=== PATIENT | female | born 1960 | race Caucasian/White ===

== ENCOUNTER 2016-10-05 15:42 | Outpatient (CLI) | payer MEDICARE, MEDICAID | END 2016-10-05 15:43 | disposition home or self-care (01) | DX: K80.20 Calculus of gallbladder without cholecystitis without obstruction (principal); K76.0 Fatty (change of) liver, not elsewhere classified; R10.9 Unspecified abdominal pain ==

== ENCOUNTER 2016-11-01 01:50 | Outpatient (CLI) | payer MEDICARE, MEDICAID | END 2016-11-01 01:51 | DX: Z79.899 Other long term (current) drug therapy (principal) ==

== ENCOUNTER 2017-01-01 10:20 | Outpatient (CLI) | payer MEDICARE, MEDICAID ==
[2017-01-01 14:59] LABS: BUN - BLOOD UREA NITROGEN 19 mg/dL (6-20); CALCIUM 10.2 mg/dL (8.5-10.3); CARBON DIOXIDE - CO2 26 mmol/L (21-32); CHLORIDE 101 mmol/L (101-111); CHOL/HDL RATIO 8.9 (<4.4); CHOLESTEROL 249 mg/dL; CREATININE 0.8 mg/dL (0.4-1.0); GFR - MDRD 75 (>89); GLUCOSE 110 mg/dL (70-100); HDL CHOLESTEROL 28 mg/dL; POTASSIUM 3.5 mmol/L (3.5-5.0); SODIUM 137 mmol/L (135-145); TRIGLYCERIDES 789 mg/dL
[2017-01-01 15:19] LABS: LDL CHOLESTEROL,DIRECT 67 mg/dL
[2017-01-04 08:23] LABS: ALDO/PRA RATIO 9.1 Ratio (0.9-28.9)
== END 2017-01-01 10:21 | disposition home or self-care (01) ==
LOC: LAB.N 10:20
PROVIDERS: ATTEND Physician Assistant
DX: E78.5 Hyperlipidemia, unspecified (principal)
CPT/HCPCS: 36415; 80048; 80061; 82088; 84244

== ENCOUNTER 2017-02-02 09:24 | Outpatient (CLI) | payer MEDICARE, MEDICAID ==
[2017-02-02 14:32] LABS: CHOL/HDL RATIO 5.7 (<4.4); CHOLESTEROL 171 mg/dL; HDL CHOLESTEROL 30 mg/dL; POTASSIUM 3.4 mmol/L (3.5-5.0); TRIGLYCERIDES 534 mg/dL
[2017-02-02 14:54] LABS: LDL CHOLESTEROL,DIRECT 53 mg/dL
== END 2017-02-02 09:25 | disposition home or self-care (01) ==
LOC: LAB.N 09:24
PROVIDERS: ATTEND Nurse Practitioner Gerontology
DX: E78.5 Hyperlipidemia, unspecified (principal)
CPT/HCPCS: 36415; 80061; 84132

== ENCOUNTER 2017-02-21 15:05 | Outpatient (CLI) | payer MEDICARE, MEDICAID ==
[2017-02-21 19:30] LABS: ALBUMIN/GLOBULIN RATIO 1.2 (1.0-2.2); BILIRUBIN,TOTAL 0.5 mg/dL (0.2-1.0); CALCIUM 9.3 mg/dL (8.5-10.3); CREATININE 0.8 mg/dL (0.4-1.0); POTASSIUM 3.8 mmol/L (3.5-5.0); TOTAL PROTEIN 6.9 g/dL (6.7-8.2)
== END 2017-02-21 15:06 ==
LOC: LAB.N 15:05
PROVIDERS: ATTEND Nurse Practitioner Gerontology
DX: R10.9 Unspecified abdominal pain (principal)
CPT/HCPCS: 36415; 80053

== ENCOUNTER 2017-02-27 13:30 | Outpatient (CLI) | payer MEDICARE, MEDICAID ==
[2017-02-27] MEDS ORDERED: IOPAMIDOL-300 50 ML VIAL PO ONE (13:47)
[2017-02-27] MEDS ORDERED: IOPAMIDOL-300 100 ML VIAL IVP ONE (16:51)
--- NOTE | 2017-02-28 13:57 | CT Report ---
CT OF THE ABDOMEN, CT OF PELVIS WITH CONTRAST: 02/27/2017 CLINICAL HISTORY: Abdominal pain. TECHNIQUE: Axial images are obtained from the domes of the diaphragm through the pubic symphysis following oral and [id number]. Opacification is limited. NOTE: Contrast extravasation occurred during the injection process - the patient was evaluated in the ER prior to discharge (reference relevant clinic notes for full evaluation). This does limit imaging due to suboptimal opacification of the solid viscera. FINDINGS: There is mild bibasilar atelectasis. A hiatal hernia is incidental. The liver is hypodense consistent with fatty infiltration. No discrete liver lesions present. Minimal sludge versus stones noted in the gallbladder. There is no intra or extrahepatic biliary dilation. The spleen is absent. The pancreas is partially fatty replaced. No masses present. The adrenal glands are normal. There are bilateral renal cysts. The dominant cyst is affiliated with the right kidney (peripelvic) and measures up to 4 cm in maximal dimension. There is no obstructive uropathy. There are numerous surgical clips in the upper abdomen/epigastric and retroperitoneum. There are shotty mesenteric and retroperitoneal lymph nodes with maximal short axis diameter of 8 mm. There is no fely adenopathy. There is no free fluid in the abdomen or pelvis. Moderate stool is noted in the colon. A few diverticula are concentrated in the sigmoid distribution. There is no convincing evidence for active diverticulitis. The bladder and distal ureters are grossly normal. Atherosclerotic calcifications are affiliated with the aorta and visceral arteries (scant). There is no aneurysmal dilation. Multilevel degenerative changes are noted throughout the lumbar spine, maximal between L4-5 and L5-S1. There are no definite lytic or blastic destructive lesions. Patchy bony demineralization is noted. IMPRESSION: 1. FATTY LIVER. NO DISCRETE LESIONS. 2. TINY DEPENDENT STONES VERSUS SLUDGE WITHIN THE LUMEN OF THE GALLBLADDER. NO DUCTAL DILATION. 3. DIVERTICULOSIS WITHOUT EVIDENCE OF ACTIVE DIVERTICULITIS. 4. SMALL HIATAL HERNIA. REFERENCE ADDITIONAL COMMENTS ABOVE. In accordance with CT protocol optimization, one or more of the following dose reduction techniques were utilized for this exam: automated exposure control, adjustment of mA and/or KV based on patient size, or use of iterative reconstructive technique. JOB #: [id number] EXT JOB #: [id number] [facility]
== END 2017-02-27 13:31 | disposition home or self-care (01) ==
LOC: DI 13:30
PROVIDERS: ATTEND Nurse Practitioner Gerontology
DX: K76.0 Fatty (change of) liver, not elsewhere classified (principal); K57.30 Diverticulosis of large intestine without perforation or abscess without bleeding; K44.9 Diaphragmatic hernia without obstruction or gangrene
CPT/HCPCS: 74177

== ENCOUNTER 2017-02-27 15:36 | Emergency (ER) | payer MEDICARE, MEDICAID ==
--- NOTE | 2017-02-27 16:59 | ED Physician Documentation ---
PD HPI UPPER EXT INJURY - Stated complaint Stated Complaint: CONTRAST FROM CT WENT IN ARM - Chief complaint Chief Complaint: Ext Problem - History obtained from History obtained from: Patient - History of Present Illness Location: Left (She was having a CT for pelvic pain and that the contrast extravasated into the left antecubital fossa. There is no pain. 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 Neuro: Craniotomy HEENT: Tonsil/Adenoidectomy - Present Medications Home Medications: Ambulatory Orders Medication Instructions Recorded Confirmed Aspirin [Adult Low Dose Aspirin EC] 81 mg PO DAILY 09/03/13 02/27/17 Levothyroxine [Synthroid] 100 mcg PO DAILY 09/03/13 02/27/17 Rosuvastatin Calcium [Crestor] 40 mg PO DAILY 09/03/13 02/27/17 Venlafaxine [Effexor] 150 mg PO DAILY 09/03/13 02/27/17 Atenolol 50 mg PO DAILY 05/12/15 02/27/17 Hydrochlorothiazide 25 mg PO DAILY 03/08/16 02/27/17 Losartan [Cozaar] 50 mg PO DAILY 03/08/16 02/27/17 amLODIPine [Norvasc] 10 mg PO DAILY 03/08/16 02/27/17 - Allergies Allergies/Adverse Reactions: Allergies Allergy/AdvReac Type Severity Reaction Status Date / Time No Known Drug Allergies Allergy Unverified 02/27/17 16:50 - Social History Does the pt smoke?: No Smoking Status: Never smoker - Immunizations Immunizations are current?: Yes PD ED PE NORMAL - Vitals Vital signs reviewed: Yes - General General: Alert and oriented X 3, No acute distress - Extremities Extremities: Other (There is an area of swelling without pain or skin breakdown in the left antecubital fossa, she is unable to flex the arm completely because of the swelling. Good distal pulses and sensation.) - Neuro Neuro: Alert and oriented X 3, Normal speech Results - Vitals Vitals: Vital Signs - 24 hr 02/27/17 15:46 Temperature 36.6 C Heart Rate 100 Respiratory 18 Rate Blood Pressure 154/95 H O2 Saturation 100 Oxygen O2 Source Room air PD MEDICAL DECISION MAKING - ED course ED course: Literature reviewed, there is no significant evidence for hyaluronidase injection for this exposure, conservative care and things to watch out for were discussed. Departure - Departure Disposition: 01 Home, Self Care Clinical Impression: Extravasation injury of IV catheter site with other complication Qualifiers: Encounter type: initial encounter Qualified Code(s): T82.898A - Other specified complication of vascular prosthetic devices, implants and grafts, initial encounter Condition: Good Record reviewed to determine appropriate education?: Yes Comments: eLEVATE THE EXTREMITY AND APPLY HEAT DISCUSSED. RETURN IF PAINFUL, WORSE, FOR SKIN CHANGES.
[2017-02-27 17:45] VITALS: BP 147/98
== END 2017-02-27 17:35 | disposition home or self-care (01) ==
LOC: ED 15:36
DX: T82.898A Other specified complication of vascular prosthetic devices, implants and grafts, initial encounter (principal); I10 Essential (primary) hypertension; E78.00 Pure hypercholesterolemia, unspecified; Z86.73 Personal history of transient ischemic attack (TIA), and cerebral infarction without residual deficits; Z79.82 Long term (current) use of aspirin; Z90.10 Acquired absence of unspecified breast and nipple; Z90.81 Acquired absence of spleen; R10.9 Unspecified abdominal pain; K76.0 Fatty (change of) liver, not elsewhere classified; K57.30 Diverticulosis of large intestine without perforation or abscess without bleeding; K44.9 Diaphragmatic hernia without obstruction or gangrene
CPT/HCPCS: 74177; 99283; Q9967

== ENCOUNTER 2017-06-05 08:00 | Outpatient (CLI) | payer MEDICARE, MEDICAID ==
[2017-06-05 12:53] LABS: ALBUMIN/GLOBULIN RATIO 1.1 (1.0-2.2); BILIRUBIN,TOTAL 0.4 mg/dL (0.2-1.0); CALCIUM 9.2 mg/dL (8.5-10.3); CREATININE 0.7 mg/dL (0.4-1.0); POTASSIUM 3.3 mmol/L (3.5-5.0); TOTAL PROTEIN 7.5 g/dL (6.7-8.2)
== END 2017-06-05 08:01 | disposition home or self-care (01) ==
LOC: LAB.N 08:00
PROVIDERS: ATTEND Nurse Practitioner Gerontology
DX: K76.0 Fatty (change of) liver, not elsewhere classified (principal)
CPT/HCPCS: 36415; 80053

== ENCOUNTER 2017-06-24 16:37 | Emergency (ER) | payer MEDICARE, MEDICAID ==
[2017-06-24] MEDS ORDERED: HYDROcod/ACETAM 5/325 MG TABLET PO STA (17:02)
--- NOTE | 2017-06-24 17:05 | ED Physician Documentation ---
PD HPI HEADACHE - Stated complaint Stated Complaint: BARNES - Chief complaint Chief Complaint: Heent - History obtained from History obtained from: Patient - History of Present Illness Timing - onset: Other (57-year-old woman with history of Hodgkin's lymphoma, bilateral mastectomies for breast cancer, and right A1At [facility] in 2012 presents with an acute headache that started yesterday associated with a lump behind her ear. She has rhinorrhea but no fevers or ear pain. No neck stiffness. Headache was gradual in onset. When asked her where the headache is she points really to the right side of the neck in the mastoid area.) Review of Systems Constitutional: denies: Fever, Chills, Fatigue Nose: reports: Rhinorrhea / runny nose. 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 Neuro: Craniotomy HEENT: Tonsil/Adenoidectomy - Present Medications Home Medications: Ambulatory Orders Medication Instructions Recorded Confirmed Aspirin [Adult Low Dose Aspirin EC] 81 mg PO DAILY 09/03/13 06/24/17 Levothyroxine [Synthroid] 100 mcg PO DAILY 09/03/13 06/24/17 Rosuvastatin Calcium [Crestor] 40 mg PO DAILY 09/03/13 06/24/17 Venlafaxine [Effexor] 150 mg PO DAILY 09/03/13 06/24/17 Losartan [Cozaar] 50 mg PO DAILY 03/08/16 06/24/17 amLODIPine [Norvasc] 10 mg PO DAILY 03/08/16 06/24/17 hydroCHLOROthiazide 25 mg PO DAILY 03/08/16 06/24/17 [Hydrochlorothiazide] HYDROcod/ACETAM 5/325 [[place] 5/325] 1 - 2 ea PO Q6H PRN #10 tablet 06/24/17 Metoprolol Tartrate [Metoprolol 100 mg ORAL DAILY 06/24/17 06/24/17 Tartrate] - Allergies Allergies/Adverse Reactions: Allergies Allergy/AdvReac Type Severity Reaction Status Date / Time No Known Drug Allergies Allergy Verified 06/24/17 16:46 - Social History Does the pt smoke?: No Smoking Status: Never smoker - Immunizations Immunizations are current?: Yes PD ED PE NORMAL - Vitals Vital signs reviewed: Yes - General General: Alert and oriented X 3, No acute distress - HEENT HEENT: PERRL, EOMI, Other (She has a single tender 1 cm low postauricular right- sided lymph node which is where her headache emanates from. There is no other identifiable lymphadenopathy about the head or neck.) - Neck Neck: Supple, no meningeal sign, No bony TTP - Cardiac Cardiac: RRR, No murmur - Respiratory Respiratory: No respiratory distress, Clear bilaterally - Abdomen Abdomen: Normal bowel sounds, Soft, Non tender - Derm Derm: Normal color, Warm and dry - Extremities Extremities: No edema, No calf tenderness / cord - Neuro Neuro: Alert and oriented X 3, Normal speech Eye Opening: Spontaneous Motor: Obeys Commands Verbal: Oriented GCS Score: 15 - Psych Psych: Normal mood, Normal affect Results - Vitals Vitals: Vital Signs - 24 hr 06/24/17 06/24/17 16:43 17:39 Temperature 36.7 C 36.6 C Heart Rate 97 95 Respiratory 18 18 Rate Blood Pressure 138/86 H 125/73 O2 Saturation 97 96 Oxygen O2 Source Room air - Labs Labs: Laboratory Tests 06/24/17 06/24/17 17:10 17:10 WBC 9.4 RBC 4.61 Hgb 13.9 Hct 39.6 MCV 85.9 MCH 30.2 MCHC 35.1 RDW 13.7 Plt Count 357 MPV 9.0 Neut # 4.2 Lymph # 3.7 H [place] # 1.1 H Eos # 0.3 Baso # 0.1 Absolute Nucleated RBC 0.00 Nucleated RBC % 0.0 Sodium 137 Potassium 3.6 Chloride 103 Carbon Dioxide 25 Anion Gap 9.0 BUN 25 H Creatinine 0.8 Estimated GFR (MDRD) 74 L Glucose 105 H Calcium 8.9 Total Bilirubin 0.5 AST 35 ALT 33 Alkaline Phosphatase 73 Total Protein 7.5 Albumin 3.9 Globulin 3.6 Albumin/Globulin Ratio 1.1 Lipase 28 - Rads (name of study) CT Head Radiology: EMP read contemporaneously (NAD) PD MEDICAL DECISION MAKING - ED course ED course: 57-year-old woman with complicated medical history including intracranial aneurysm clipping and Hodgkin's lymphoma who presents with a painful lymph node that is behind the right ear associated with headache. The headache seems to emanate from that painful tender lymph node so it seems like not intracranial process but a CT was done given her history and was without relevant findings. Departure - Departure Disposition: Home, Self Care Clinical Impression: Postauricular adenopathy Headache Qualifiers: Headache type: unspecified Headache chronicity pattern: acute headache Intractability: not intractable Qualified Code(s): R51 - Headache Condition: Good Record reviewed to determine appropriate education?: Yes Instructions: ED Cephalgia Unspecified Follow-Up: Pasha Dave MD [Provider Admit Priv/Credential] - Prescriptions: HYDROcod/ACETAM 5/325 [[place] 5/325] 1 - 2 ea PO Q6H PRN #10 tablet PRN Reason: Pain Comments: Follow-up with your physician Sunday as scheduled. Return if new or worsening symptoms develop. If the lymph node does not go away within the next few weeks follow-up with your oncologist as well.
[2017-06-24 17:18] LABS: BASOPHILS # (AUTO) 0.1 10^3/uL (0.0-0.1); BASOPHILS % (AUTO) 1.4 %; EOSINOPHILS # (AUTO) 0.3 10^3/uL (0.0-0.7); HCT - HEMATOCRIT 39.6 % (37.0-47.0); HGB - HEMOGLOBIN 13.9 g/dL (12.0-16.0); LYMPHOCYTES # (AUTO) 3.7 10^3/uL (1.5-3.5); LYMPHOCYTES % (AUTO) 39.7 %; MEAN CORPUSCULAR HEMOGLOBIN 30.2 pg (27.0-31.0); MEAN CORPUSCULAR HGB CONC 35.1 g/dL (32.0-36.0); MEAN CORPUSCULAR VOLUME 85.9 fL (81.0-99.0); MONOCYTES # (AUTO) 1.1 10^3/uL (0.0-1.0); MONOCYTES % (AUTO) 11.5 %; NEUTROPHILS # (AUTO) 4.2 10^3/uL (1.5-6.6); NEUTROPHILS % (AUTO) 44.4 %; RED BLOOD COUNT 4.61 10^6/uL (4.20-5.40); RED CELL DISTRIBUTION WIDTH 13.7 % (12.0-15.0); UNCORRECTED WHITE BLOOD COUNT 9.4 x10^3/uL; WHITE BLOOD COUNT 9.4 x10^3/uL (4.8-10.8)
[2017-06-24 17:27] LABS: ALBUMIN/GLOBULIN RATIO 1.1 (1.0-2.2); BILIRUBIN,TOTAL 0.5 mg/dL (0.2-1.0); CALCIUM 8.9 mg/dL (8.5-10.3); CREATININE 0.8 mg/dL (0.4-1.0); POTASSIUM 3.6 mmol/L (3.5-5.0); TOTAL PROTEIN 7.5 g/dL (6.7-8.2)
[2017-06-24] MEDS ORDERED: HYDROcod/ACETAM 5/325 MG TABLET ONE (17:35)
--- NOTE | 2017-06-24 17:43 | CT Preliminary Report ---
Exam: CT HEAD W/O IMPRESSION: 1. No acute intracranial abnormality. Specifically, no acute intracranial hemorrhage is seen. 2. 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 [facility] SITE ID: [id number]
[2017-06-24 17:44] VITALS: BP 125/73
--- NOTE | 2017-06-24 17:46 | CT Report ---
EXAM: CT HEAD EXAM DATE: 06/24/2017 05:31 PM. CLINICAL HISTORY: Headache, H/O R A1 aneursym clip/crani. COMPARISON: None. TECHNIQUE: Multiaxial CT images were obtained from the foramen magnum to the vertex. Reformats: Coron al. IV contrast: None. In accordance with CT protocol optimization, one or more of the following dose reduction techniques w ere utilized for this exam: automated exposure control, adjustment of mA and/or KV based on patient s ize, or use of iterative reconstructive technique. FINDINGS: Parenchyma: No midline shift. No acute parenchymal hemorrhage seen. Right frontal and anterior tempor al encephalomalacia from remote infarct noted. Similar cortical and subcortical hypodensity in the ri ght parietal lobe from remote watershed territory infarct seen. Right anterior aneurysm clip seen. Extraaxial Spaces: Normal for age. No subdural or epidural collections identified. Ventricles: Normal in size and position. Sinuses and Orbits: Imaged paranasal sinuses, orbits, and mastoids show no significant abnormality. Bones: Craniotomy noted. No fractures. Other: None. IMPRESSION: 1. No acute intracranial abnormality. Specifically, no acute intracranial hemorrhage is seen. 2. 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 [facility] Referring Provider Line: [phone] SITE ID: [id number]
[2017-06-24] MEDS ORDERED: HYDROcod/ACET 5/325 Prepack 6 PO STA (17:59)
[2017-06-24] MEDS ORDERED: HYDROcod/ACET 5/325 Prepack 6 PO ONE (18:25)
== END 2017-06-24 18:05 | disposition home or self-care (01) ==
LOC: ED 16:37
DX: R51 Headache (principal); R59.0 Localized enlarged lymph nodes; Z85.3 Personal history of malignant neoplasm of breast; I10 Essential (primary) hypertension; Z85.71 Personal history of Hodgkin lymphoma; Z79.82 Long term (current) use of aspirin
CPT/HCPCS: 36415; 70450; 80053; 83690; 85025; 99283; A9270

== ENCOUNTER 2017-07-03 17:34 | Emergency (ER) | payer MEDICARE, MEDICAID ==
[2017-07-03 17:46] VITALS: BP 133/89
--- NOTE | 2017-07-03 17:58 | ED Physician Documentation ---
PD HPI SKIN - Stated complaint Stated Complaint: BODY SPOTS/RASH - Chief complaint Chief Complaint: Wound - History obtained from History obtained from: Patient - History of Present Illness Timing - onset: Other (She was seen by me a little over a week ago for painful postauricular adenopathy on the right. Since that time she developed more of a painful and itchy rash over the right side of the face and especially over that lymph node that was not present at that visit.) Review of Systems Constitutional: reports: Fatigue. 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 Neuro: Craniotomy HEENT: Tonsil/Adenoidectomy - Present Medications Home Medications: Ambulatory Orders Medication Instructions Recorded Confirmed Aspirin [Adult Low Dose Aspirin EC] 81 mg PO DAILY 09/03/13 06/24/17 Levothyroxine [Synthroid] 100 mcg PO DAILY 09/03/13 06/24/17 Rosuvastatin Calcium [Crestor] 40 mg PO DAILY 09/03/13 06/24/17 Venlafaxine [Effexor] 150 mg PO DAILY 09/03/13 06/24/17 Losartan [Cozaar] 50 mg PO DAILY 03/08/16 06/24/17 amLODIPine [Norvasc] 10 mg PO DAILY 03/08/16 06/24/17 hydroCHLOROthiazide 25 mg PO DAILY 03/08/16 06/24/17 [Hydrochlorothiazide] HYDROcod/ACETAM 5/325 [[place] 5/325] 1 - 2 ea PO Q6H PRN #10 tablet 06/24/17 Metoprolol Tartrate [Metoprolol 100 mg ORAL DAILY 06/24/17 06/24/17 Tartrate] Acyclovir 800 mg PO 5XD 10 Days tablet 07/03/17 Hydrocortisone 1% Oint 1 gm TP TID #2 oint...g. 07/03/17 [Hydrocortisone] predniSONE [Deltasone] 20 mg PO [id number] #21 tab 07/03/17 - Allergies Allergies/Adverse Reactions: Allergies Allergy/AdvReac Type Severity Reaction Status Date / Time No Known Drug Allergies Allergy Verified 06/24/17 16:46 - Social History Does the pt smoke?: No Smoking Status: Never smoker Does the pt drink ETOH?: No Does the pt have substance abuse?: No - Immunizations Immunizations are current?: Yes - POLST Patient has POLST: No PD ED PE NORMAL - Vitals Vital signs reviewed: Yes - General General: Alert and oriented X 3, No acute distress - HEENT HEENT: PERRL, EOMI, Other (She has herpes zoster with vesicles mostly crusted over already behind the ear and on the right side of the face. 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 She declines further narcotic analgesia. Departure - Departure Disposition: 01 Home, Self Care Clinical Impression: Shingles Qualifiers: Herpes zoster complications: without complications Qualified Code(s): B02.9 - Zoster without complications Condition: Good Record reviewed to determine appropriate education?: Yes Instructions: ED Shingles Prescriptions: Acyclovir 800 mg PO 5XD 10 Days tablet Hydrocortisone 1% Oint [Hydrocortisone] 1 gm TP TID #2 oint...g. predniSONE [Deltasone] 20 mg PO [id number] #21 tab Comments: Call your doctor to arrange a follow-up appointment, make the next available appointment. In the interim, return anytime if worse or if new symptoms develop. Your blood pressure was elevated today on check into the emergency department. This does not mean that you have hypertension, it is a common phenomenon to come to the emergency department and have elevated blood pressure. I recommend that you see your primary care physician within the week to have it rechecked when you are feeling better.
== END 2017-07-03 18:09 | disposition home or self-care (01) ==
LOC: ED 17:34
DX: B02.9 Zoster without complications (principal); R51 Headache; I10 Essential (primary) hypertension; E78.00 Pure hypercholesterolemia, unspecified; Z86.73 Personal history of transient ischemic attack (TIA), and cerebral infarction without residual deficits; Z86.010 Personal history of colon polyps; Z90.10 Acquired absence of unspecified breast and nipple; Z79.82 Long term (current) use of aspirin
CPT/HCPCS: 99283

== ENCOUNTER 2017-07-24 14:21 | Outpatient (CLI) | payer MEDICARE, MEDICAID ==
[2017-07-24 15:05] LABS: CHOL/HDL RATIO 5.5 (<4.4); CHOLESTEROL 160 mg/dL; HDL CHOLESTEROL 29 mg/dL; LDL CHOLESTEROL,CALCULATED 78 mg/dL; LDL/HDL RATIO 2.7 (<4.4); VLDL CHOLESTEROL 53 mg/dL
== END 2017-07-24 14:22 | disposition home or self-care (01) ==
LOC: LAB 14:21
PROVIDERS: ATTEND Nurse Practitioner Gerontology
DX: E78.5 Hyperlipidemia, unspecified (principal)
CPT/HCPCS: 36415; 80061

== ENCOUNTER 2018-03-22 07:41 | Outpatient (CLI) | payer MEDICARE, MEDICAID ==
[2018-03-22 13:07] LABS: BUN - BLOOD UREA NITROGEN 25 mg/dL (6-20); CALCIUM 9.2 mg/dL (8.5-10.3); CARBON DIOXIDE - CO2 27 mmol/L (21-32); CHLORIDE 102 mmol/L (101-111); CHOL/HDL RATIO 5.6 (<4.4); CHOLESTEROL 163 mg/dL; GFR - MDRD 57 (>89); GLUCOSE 105 mg/dL (70-100); HDL CHOLESTEROL 29 mg/dL; LDL CHOLESTEROL,CALCULATED 55 mg/dL; LDL/HDL RATIO 1.9 (<4.4); SODIUM 137 mmol/L (135-145); VLDL CHOLESTEROL 79 mg/dL
== END 2018-03-22 07:42 | disposition home or self-care (01) ==
LOC: LAB.N 07:41
PROVIDERS: ATTEND Internal Medicine Cardiovascular Disease
DX: I10 Essential (primary) hypertension (principal); E78.5 Hyperlipidemia, unspecified; I35.0 Nonrheumatic aortic (valve) stenosis
CPT/HCPCS: 36415; 80048; 80061; 83721

== ENCOUNTER 2018-07-28 16:25 | Emergency (ER) | payer MEDICARE, MEDICAID ==
[2018-07-28] MEDS ORDERED: SODIUM CHLORIDE 0.9% 1,000 ML IV ONE (16:38)
[2018-07-28] MEDS ORDERED: KETOROLAC 30 MG/ML VIAL IVP STA (16:38)
[2018-07-28] MEDS ORDERED: ONDANSETRON 4 MG/2 ML VIAL IVP STA (16:38)
[2018-07-28] MEDS ORDERED: HYDROmorphone 1 MG/ML CARPUJECT IVP STA (16:38)
--- NOTE | 2018-07-28 16:41 | ED Physician Documentation ---
History of Present Illness - Stated complaint Stated Complaint: LT FLANK PX - Chief complaint Chief Complaint: General - History obtained from History obtained from: Patient - History of Present Illness Timing: Other (Had 2 days of left flank pain radiating to the left groin associated with mild nausea. She has urinary frequency but no fevers. No vomiting. She is never had a kidney stone. She does have a history of splenectomy on that side remotely and resolved lymphoma and breast cancer.) Review of Systems Ten Systems: 10 systems reviewed and negative Constitutional: denies: Fever, Chills GI: reports: Abdominal Pain, Nausea. denies: Vomiting, Constipation, Diarrhea, Hematemesis, Bloody / black stool : reports: Frequency. 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 Neuro: Craniotomy HEENT: Tonsil/Adenoidectomy - Present Medications Home Medications: Ambulatory Orders Medication Instructions Recorded Confirmed Aspirin [Adult Low Dose Aspirin EC] 81 mg PO DAILY 09/03/13 05/29/18 Levothyroxine [Synthroid] 100 mcg PO DAILY 09/03/13 05/29/18 Rosuvastatin Calcium [Crestor] 40 mg PO DAILY 09/03/13 05/29/18 Venlafaxine [Effexor] 150 mg PO DAILY 09/03/13 05/29/18 Losartan [Cozaar] 50 mg PO DAILY 03/08/16 05/29/18 amLODIPine [Norvasc] 10 mg PO DAILY 03/08/16 05/29/18 hydroCHLOROthiazide 25 mg PO DAILY 03/08/16 05/29/18 [Hydrochlorothiazide] Metoprolol Tartrate 100 mg ORAL DAILY 06/24/17 05/29/18 Ciprofloxacin HCl [Cipro] 500 mg PO BID #20 tablet 07/28/18 Hydrocodone/Acetaminophen 1 - 2 each PO Q6H PRN #14 tablet 07/28/18 [Hydrocodon-Acetaminophen 5-325] - Allergies Allergies/Adverse Reactions: Allergies Allergy/AdvReac Type Severity Reaction Status Date / Time No Known Drug Allergies Allergy Verified 07/28/18 16:32 - Social History Does the pt smoke?: No Smoking Status: Never smoker Does the pt drink ETOH?: No Does the pt have substance abuse?: No - Family History Family history: reports: Non contributory - Immunizations Immunizations are current?: Yes - POLST Patient has POLST: No PD ED PE NORMAL - Vitals Vital signs reviewed: Yes - General General: Alert and oriented X 3, Other (Slightly uncomfortable, pacing.) - HEENT HEENT: PERRL, EOMI - Neck Neck: Supple, no meningeal sign, No bony TTP - Cardiac Cardiac: RRR, No murmur - Respiratory Respiratory: No respiratory distress, Clear bilaterally - Abdomen Abdomen: Non tender, Non distended - Back Back: No CVA TTP, No spinal TTP - Derm Derm: Normal color, Warm and dry - Extremities Extremities: No edema, No calf tenderness / cord - Neuro Neuro: Alert and oriented X 3, Normal speech - Psych Psych: Normal mood, Normal affect Results - Vitals Vitals: Vital Signs - 24 hr 07/28/18 16:30 Temperature 37.1 C Heart Rate 103 H Respiratory 16 Rate Blood Pressure 130/84 H O2 Saturation 96 Oxygen O2 Source Room air Oxygen Flow Rate 2 - Labs Labs: Laboratory Tests 07/28/18 07/28/18 07/28/18 16:54 17:13 17:40 WBC 10.7 RBC 5.12 Hgb 14.8 Hct 44.3 MCV 86.6 MCH 29.0 MCHC 33.5 RDW 14.4 Plt Count 393 MPV 9.2 Neut # (Auto) 6.4 Lymph # (Auto) 3.2 [place] # (Auto) 0.9 Eos # (Auto) 0.1 Baso # (Auto) 0.2 H Absolute Nucleated RBC 0.01 Nucleated RBC % 0.1 Sodium 135 Potassium 3.0 L Chloride 100 L Carbon Dioxide 25 Anion Gap 10.0 BUN 18 Creatinine 0.6 Estimated GFR (MDRD) 103 Glucose 103 H Calcium 9.0 Total Bilirubin 0.7 AST 29 ALT 25 Alkaline Phosphatase 62 Total Protein 7.5 Albumin 3.9 Globulin 3.6 Albumin/Globulin Ratio 1.1 Lipase 29 Urine Color YELLOW Urine Clarity HAZY Urine pH 7.0 Ur Specific [place] 1.020 Urine Protein NEGATIVE Urine Glucose (UA) NEGATIVE Urine Ketones NEGATIVE Urine Occult Blood NEGATIVE Urine Nitrite NEGATIVE Urine Bilirubin NEGATIVE Urine Urobilinogen 0.2 (NORMAL) Ur Leukocyte Esterase MODERATE H Urine RBC 11-25 H Urine WBC >25 H Urine WBC Clumps PRESENT Ur Squamous Epith Cells MANY Squamous H Urine Bacteria Few Ur Microscopic Review INDICATED Urine Culture Comments NOT INDICATED PD MEDICAL DECISION MAKING - ED course ED course: This is a 58-year-old woman who presents with flank and abdominal pain most con sistent with either pyelonephritis or renal colic. Urinalysis was suggestive of the former and CT was suggestive against the latter. Noted the concerns about the biliary stents but her pain is inconsistent with dysfunction of that and there are no lab abnormalities suggestive of that. Departure - Departure Disposition: 01 Home, Self Care Clinical Impression: Pyelonephritis Condition: Good Record reviewed to determine appropriate education?: Yes Instructions: Pyelonephritis Dc Prescriptions: Ciprofloxacin HCl [Cipro] 500 mg PO BID #20 tablet Hydrocodone/Acetaminophen [Hydrocodon-Acetaminophen 5-325] 1 - 2 each PO Q6H PRN #14 tablet PRN Reason: pain Comments: We will culture your urine, the results should be done in 48-72 hours. If an antibiotic change is necessary we will call you. Return if worse in the meantime, especially if you develop increasing flank pain, fevers, or cannot keep down the medication.
[2018-07-28 17:11] LABS: BILIRUBIN,URINE NEGATIVE (NEGATIVE); GLUCOSE, URINE (UA) NEGATIVE (NEGATIVE); KETONES,URINE (UA) NEGATIVE (NEGATIVE); LEUKOCYTE ESTERASE, URINE MODERATE (NEGATIVE); NITRITE,URINE NEGATIVE (NEGATIVE); OCCULT BLOOD,URINE NEGATIVE (NEGATIVE); PROTEIN,URINE NEGATIVE (NEGATIVE); UROBILINOGEN,URINE 0.2 (NORMAL) E.U./dL (NORMAL)
[2018-07-28 17:12] LABS: CLARITY,URINE HAZY (CLEAR)
[2018-07-28 17:28] LABS: BACTERIA,URINE Few /HPF (None Seen); SQUAMOUS EPITHELIAL CELL,UR MANY Squamous (<= Few); WBC CLUMPS,URINE PRESENT
[2018-07-28 17:30] LABS: BASOPHILS # (AUTO) 0.2 10^3/uL (0.0-0.1); BASOPHILS % (AUTO) 1.5 %; EOSINOPHILS # (AUTO) 0.1 10^3/uL (0.0-0.7); EOSINOPHILS % (AUTO) 0.7 %; HGB - HEMOGLOBIN 14.8 g/dL (12.0-16.0); LYMPHOCYTES # (AUTO) 3.2 10^3/uL (1.5-3.5); LYMPHOCYTES % (AUTO) 30.1 %; MEAN CORPUSCULAR HGB CONC 33.5 g/dL (32.0-36.0); MEAN CORPUSCULAR VOLUME 86.6 fL (81.0-99.0); MEAN PLATELET VOLUME 9.2 fL (7.9-10.8); MONOCYTES # (AUTO) 0.9 10^3/uL (0.0-1.0); MONOCYTES % (AUTO) 8.2 %; NEUTROPHILS # (AUTO) 6.4 10^3/uL (1.5-6.6); NEUTROPHILS % (AUTO) 59.5 %; PLT - PLATELET COUNT 393 10^3/uL (130-450); RED BLOOD COUNT 5.12 10^6/uL (4.20-5.40); RED CELL DISTRIBUTION WIDTH 14.4 % (12.0-15.0); WHITE BLOOD COUNT 10.7 x10^3/uL (4.8-10.8)
[2018-07-28 17:57] LABS: ALBUMIN 3.9 g/dL (3.2-5.5); ALBUMIN/GLOBULIN RATIO 1.1 (1.0-2.2); BILIRUBIN,TOTAL 0.7 mg/dL (0.2-1.0); CREATININE 0.6 mg/dL (0.4-1.0); TOTAL PROTEIN 7.5 g/dL (6.7-8.2)
--- NOTE | 2018-07-28 19:00 | CT Report ---
Reason: L flank pain Procedure Date: 07/28/2018 Accession Number: [id number] / [id number] Procedure: CT - Abdomen/Pelvis W/O CPT Code: FULL RESULT: EXAM: CT ABDOMEN AND PELVIS (CT KUB) EXAM DATE: 07/28/2018 06:09 PM. CLINICAL HISTORY: L flank pain. COMPARISONS: ABDOMEN/PELVIS W/ 11/14/2017 3:04 PM. TECHNIQUE: Routine axial helical CT imaging was performed through the abdomen and pelvis without IV contrast. Reconstructions: Coronal and sagittal. In accordance with CT protocol optimization, one or more of the following dose reduction techniques were utilized for this exam: automated exposure control, adjustment of mA and/or KV based on patient size, or use of iterative reconstructive technique. FINDINGS: Lung Bases: Unremarkable. Solid Organs: The liver demonstrates a normal noncontrast CT appearance. Gallstones are seen within the gallbladder. There is no evidence of biliary duct dilatation. There is redemonstration of postoperative changes consistent with a splenectomy. Surgical clips are seen throughout the retroperitoneum. The pancreas and adrenal glands demonstrate a normal noncontrast CT appearance. The kidneys are without evidence of nephrolithiasis. The previously demonstrated moderate right hydronephrosis has resolved. Peritoneal Cavity: Diverticuli are seen involving the descending and sigmoid colon. There is no fat stranding or fluid collection to suggest the presence of diverticulitis. Pelvic Organs: No mass or cyst is seen within the pelvis. There is no pelvic or periaortic lymphadenopathy. Visible but nonenlarged pelvic lymph nodes are seen. Vasculature: There is atherosclerosis of the aorta and its branches. There is no evidence of an abdominal aortic aneurysm. IMPRESSION: No evidence of nephrolithiasis or hydronephrosis. Cholelithiasis without evidence of obstruction. Diverticulosis of the descending and sigmoid colon without evidence of diverticulitis. Interval resolution of the left hydronephrosis. RAD[facility]
[2018-07-28] MEDS ORDERED: cefTRIAXone 1 GM in SODIUM CHLORIDE 0.9% MINIBAG 100 ML IV STA (19:07)
[2018-07-28] MEDS ORDERED: HYDROcod/ACET 5/325 Prepack 4 PO STA (19:07)
[2018-07-28 19:10] VITALS: BP 114/75
== END 2018-07-28 19:29 | disposition home or self-care (01) ==
LOC: ED 16:25
DX: N12 Tubulo-interstitial nephritis, not specified as acute or chronic (principal); K80.20 Calculus of gallbladder without cholecystitis without obstruction; K57.30 Diverticulosis of large intestine without perforation or abscess without bleeding; Z90.81 Acquired absence of spleen; I10 Essential (primary) hypertension; Z79.82 Long term (current) use of aspirin
CPT/HCPCS: 36415; 74176; 80053; 81001; 83690; 85025; 87086; 96361; 96374; 96375; 99283; 99284; J1170; 81003

== ENCOUNTER 2018-09-09 08:00 | Outpatient (CLI) | payer MEDICARE, MEDICAID ==
[2018-09-09 12:27] LABS: CHOL/HDL RATIO 5.1 (<4.4); CHOLESTEROL 159 mg/dL; HDL CHOLESTEROL 31 mg/dL; LDL CHOLESTEROL,CALCULATED 53 mg/dL; LDL/HDL RATIO 1.7 (<4.4); VLDL CHOLESTEROL 75 mg/dL
== END 2018-09-09 08:01 | disposition home or self-care (01) ==
LOC: LAB.N 08:00
PROVIDERS: ATTEND Nurse Practitioner Gerontology
DX: E78.1 Pure hyperglyceridemia (principal); E78.5 Hyperlipidemia, unspecified
CPT/HCPCS: 36415; 80061; 83721

== ENCOUNTER 2018-09-24 08:00 | Outpatient (CLI) | payer MEDICARE, MEDICAID ==
[2018-09-24 13:06] LABS: BASOPHILS # (AUTO) 0.1 10^3/uL (0.0-0.1); BASOPHILS % (AUTO) 0.9 %; EOSINOPHILS # (AUTO) 0.2 10^3/uL (0.0-0.7); EOSINOPHILS % (AUTO) 1.9 %; LYMPHOCYTES # (AUTO) 2.5 10^3/uL (1.5-3.5); LYMPHOCYTES % (AUTO) 30.9 %; MEAN CORPUSCULAR HEMOGLOBIN 28.9 pg (27.0-31.0); MEAN CORPUSCULAR HGB CONC 33.7 g/dL (32.0-36.0); MEAN CORPUSCULAR VOLUME 85.8 fL (81.0-99.0); MEAN PLATELET VOLUME 9.3 fL (7.9-10.8); MONOCYTES # (AUTO) 0.9 10^3/uL (0.0-1.0); MONOCYTES % (AUTO) 11.7 %; NEUTROPHILS # (AUTO) 4.4 10^3/uL (1.5-6.6); NEUTROPHILS % (AUTO) 54.6 %; PLT - PLATELET COUNT 364 10^3/uL (130-450); RED BLOOD COUNT 4.85 10^6/uL (4.20-5.40); RED CELL DISTRIBUTION WIDTH 13.8 % (12.0-15.0); WHITE BLOOD COUNT 8.1 x10^3/uL (4.8-10.8)
== END 2018-09-24 23:59 | disposition home or self-care (01) ==
LOC: LAB.N 08:00
PROVIDERS: ATTEND Nurse Practitioner Gerontology
DX: D64.9 Anemia, unspecified (principal); E87.6 Hypokalemia
CPT/HCPCS: 36415; 84132; 85025

== ENCOUNTER 2018-12-23 08:00 | Outpatient (CLI) | payer MEDICARE, MEDICAID | END 2018-12-23 23:59 | disposition home or self-care (01) | LOC: LAB.N 08:00 | PROVIDERS: ATTEND Nurse Practitioner Gerontology | DX: R05 Cough (principal); R07.89 Other chest pain; I38 Endocarditis, valve unspecified; I25.10 Atherosclerotic heart disease of native coronary artery without angina pectoris | CPT/HCPCS: 36415; 83880 ==

== ENCOUNTER 2018-12-24 09:07 | Outpatient (CLI) | payer MEDICARE, MEDICAID ==
--- NOTE | 2018-12-24 10:15 | XRAY Report ---
Reason: persistent cough Procedure Date: 12/24/2018 Accession Number: [id number] / [id number] Procedure: XRN - Chest 2 View X-Ray CPT Code: 71858 FULL RESULT: EXAM: CHEST RADIOGRAPHY EXAM DATE: 12/24/2018 09:50 AM. CLINICAL HISTORY: Persistent cough. COMPARISON: 07/25/2013 12:31 PM CHEST W/ 05/14/2018 3:02 PM. TECHNIQUE: 2 views. FINDINGS: Lungs/Pleura: No focal opacities evident. No pleural effusion. No pneumothorax. Normal volumes. No significant peribronchial thickening. Mediastinum: Heart and mediastinal contours are unremarkable. Other: Left axillary surgical clips IMPRESSION: Normal 2-view chest radiography. RAD[facility]
== END 2018-12-24 09:08 | disposition home or self-care (01) ==
LOC: DI.N 09:07
PROVIDERS: ATTEND Nurse Practitioner Gerontology
DX: R05 Cough (principal)
CPT/HCPCS: 71046

== ENCOUNTER 2019-01-31 08:00 | Outpatient (CLI) | payer MEDICARE, MEDICAID ==
[2019-01-31 19:24] LABS: FREE T4 (FREE THYROXINE) 1.04 ng/dL (0.58-1.64)
== END 2019-01-31 23:59 | disposition home or self-care (01) ==
LOC: LAB.N 08:00
PROVIDERS: ATTEND Family Medicine
DX: E03.9 Hypothyroidism, unspecified (principal)
CPT/HCPCS: 36415; 84439; 84443; 84481

== ENCOUNTER 2019-07-23 07:57 | Outpatient (CLI) | payer MEDICARE, MEDICAID ==
[2019-07-23 09:15] LABS: ALBUMIN/GLOBULIN RATIO 1.2 (1.0-2.2); ALKALINE PHOSPHATASE 64 IU/L (42-121); ALT ALANINE AMINOTRANSFERASE 34 IU/L (10-60); AST ASPARTATE AMINOTRANSFERASE 32 IU/L (10-42); BILIRUBIN,TOTAL 0.8 mg/dL (0.2-1.0); BUN - BLOOD UREA NITROGEN 14 mg/dL (6-20); CALCIUM 9.1 mg/dL (8.5-10.3); CARBON DIOXIDE - CO2 27 mmol/L (21-32); CHLORIDE 102 mmol/L (101-111); CHOLESTEROL 151 mg/dL; CREATININE 0.6 mg/dL (0.4-1.0); GFR - MDRD 103 (>89); GLUCOSE 124 mg/dL (70-100); HDL CHOLESTEROL 30 mg/dL; LDL CHOLESTEROL,CALCULATED 42 mg/dL; LDL/HDL RATIO 1.4 (<4.4); SODIUM 138 mmol/L (135-145); TOTAL PROTEIN 7.3 g/dL (6.7-8.2); VLDL CHOLESTEROL 79 mg/dL
[2019-07-23 09:19] LABS: HB2 TOTAL 14.1 g/dL; HEMOGLOBIN A1C 0.69 g/dL; HEMOGLOBIN A1C % 6.6 % (4.6-6.2)
[2019-07-24 11:44] LABS: HEPATITIS C ANTIBODY NON-REACTIVE (NON-REACTIVE)
== END 2019-07-23 07:58 | disposition home or self-care (01) ==
LOC: LAB 07:57
PROVIDERS: ATTEND Internal Medicine
DX: Z79.899 Other long term (current) drug therapy (principal); E78.5 Hyperlipidemia, unspecified; Z13.6 Encounter for screening for cardiovascular disorders; E03.9 Hypothyroidism, unspecified; Z11.59 Encounter for screening for other viral diseases; Z83.3 Family history of diabetes mellitus
CPT/HCPCS: 36415; 80053; 80061; 83036; 83721; 84443; 86803

== ENCOUNTER 2019-12-10 08:12 | Outpatient (CLI) | payer MEDICARE ==
[2019-12-10] MEDS ORDERED: IOVERSOL 320 100 ML VIAL IVP ONE ×2 (08:20→09:50)
[2019-12-10] MEDS ORDERED: IOVERSOL 320 50 ML VIAL ONE (08:20)
--- NOTE | 2019-12-10 09:18 | CONSULTATION NOTE ---
Consultation Report: Peripheral IV placement Called to CT suite in radiology for assistance with placement of peripheral IV for CT with contrast in patient with history of difficult IV starts. Left AC #22G peripheral IV placed via ultrasound guidance without difficulty following localization with 0.5mL lidocaine 2%. IV with positive blood aspiration and e asy saline flush. Saline locked, dressed, and taped in place. Rashad Lynn, [employer]ER
[2019-12-10] MEDS ORDERED: IOVERSOL 320 50 ML VIAL PO ONE (09:50)
--- NOTE | 2019-12-10 18:24 | Ultrasound Report ---
Reason: THYROID NODULE Procedure Date: 12/10/2019 Accession Number: [id number] / [id number] Procedure: US - Head or Neck Soft Tissue CPT Code: Final Report FULL RESULT: EXAM: THYROID ULTRASOUND EXAM DATE: 12/10/2019 08:26 AM. CLINICAL HISTORY: THYROID NODULE. COMPARISON: HEAD OR NECK SOFT TISSUE 08/30/2017 1:03 PM NECK SOFT TISSUE W/ 05/14/2018 3:02 PM. TECHNIQUE: Real time sonographic imaging of the thyroid was performed by the paint mixer. Multiple client services representative static images were saved for review. FINDINGS: THYROID GLAND: Right Lobe: 3.7 x 1.3 x 1.7 cm, volume 4.3 cc. Heterogeneous background echotexture. Right Lobe Nodules: 1. Heterogeneous solid nodule in the midportion measuring 1.8 x 1.7 x 1.4 cm. 2.Isoechoic or slightly hyperechoic nodule in the midportion measuring 1.1 x 0.9 x 0.9 cm. 3. The previously demonstrated hypoechoic right thyroid nodule is not demonstrated on this exam. Left Lobe: Surgically absent. Isthmus: Surgically absent. LYMPH NODES: No adenopathy demonstrated in the central or lateral compartment. OTHER: Carotid artery calcifications are present. IMPRESSION: 1. Heterogeneous right thyroid lobe with 2 focal nodules, the larger of which meets criteria for tissue sampling. 2.Absent left thyroid lobe and isthmus. Management recommendations are based on 2015 [place] [employer] Management Guidelines for Adult Patients with Thyroid Nodules and Differentiated Thyroid Cancer. RADIA
--- NOTE | 2019-12-11 09:47 | CT Report ---
Reason: THYROID NODULE,PELVIC MASSES Procedure Date: 12/10/2019 Accession Number: [id number] / [id number] Procedure: CT - Abdomen/Pelvis W CPT Code: Final Report FULL RESULT: EXAM: CT ABDOMEN AND PELVIS EXAM DATE: 12/10/2019 09:44 AM. CLINICAL HISTORY: THYROID NODULE, PELVIC MASSES. COMPARISONS: ABDOMEN/PELVIS W/O 07/28/2018 5:59 PM CHEST W/ 05/14/2018 3:02 PM. TECHNIQUE: Routine helical CT imaging was performed through the abdomen and pelvis. IV contrast: 100 mL of Optiray 320. Enteric contrast: No. Reconstructions: Coronal and sagittal. In accordance with CT protocol optimization, one or more of the following dose reduction techniques were utilized for this exam: automated exposure control, adjustment of mA and/or KV based on patient size, or use of iterative reconstructive technique. FINDINGS: Lung Bases: There is a 10 mm, previously 10 mm, solid o pulmonary nodule in the right middle lobe. Severe mitral annular calcifications. Liver: Normal. No masses. Gallbladder/Bile Ducts: Small calcified stones in the neck of the gallbladder. Spleen: Normal. Pancreas: Normal. Adrenal Glands: Normal. Kidneys: Prominent extrarenal pelvis on the right redemonstrated and similar.. No masses or hydronephrosis. Peritoneal Cavity/Bowel: Multiple surgical clips again noted in the upper abdomen. No mass identified.. No free fluid, free air or adenopathy. No masses or acute inflammatory process. The appendix is well visualized and normal. Pelvic Organs: Multiple prominent bilateral groin lymph nodes with no suspiciously enlarged lymph nodes.. The bladder and visualized pelvic organs are within normal limits. Vasculature: No aneurysms or other significant abnormality. Bones: Prominent calcified ligamentum flavum on the right at T10-T11. No suspicious sclerotic or lytic bony lesions.. Other: None. IMPRESSION: 1. Postsurgical changes in the upper retroperitoneum redemonstrated and similar with no masses identified. 2.Mildly prominent lymph nodes in the right and left groin, similar to the prior examination dated 07/28/2018. 3. No pelvic masses identified. RAD[facility]
== END 2019-12-10 08:13 | disposition home or self-care (01) ==
LOC: DI 08:12
PROVIDERS: ATTEND Internal Medicine
DX: E04.2 Nontoxic multinodular goiter (principal); G04.1 Tropical spastic paraplegia; Z85.71 Personal history of Hodgkin lymphoma; Z85.3 Personal history of malignant neoplasm of breast
CPT/HCPCS: 74177; 76536; Q9967

== ENCOUNTER 2020-01-21 12:43 | Outpatient (CLI) | payer MEDICARE, MEDICAID | END 2020-01-21 12:44 | disposition home or self-care (01) | LOC: LAB 12:43 | PROVIDERS: ATTEND Internal Medicine | DX: Z11.59 Encounter for screening for other viral diseases (principal) | CPT/HCPCS: 81599 ==

== ENCOUNTER 2020-04-12 09:55 | Outpatient (CLI) | payer MEDICARE, MEDICAID | END 2020-04-12 09:56 | disposition home or self-care (01) | LOC: LAB 09:55 | PROVIDERS: ATTEND Internal Medicine Cardiovascular Disease | DX: Z53.9 Procedure and treatment not carried out, unspecified reason (principal) ==

== ENCOUNTER 2020-04-12 10:01 | Outpatient (CLI) | payer MEDICARE, MEDICAID ==
[2020-04-12 10:16] LABS: BASOPHILS % (AUTO) 0.4 %; EOSINOPHILS # (AUTO) 0.2 10^3/uL (0.0-0.7); EOSINOPHILS % (AUTO) 2.1 %; HGB - HEMOGLOBIN 14.7 g/dL (12.0-16.0); LYMPHOCYTES # (AUTO) 2.3 10^3/uL (1.5-3.5); LYMPHOCYTES % (AUTO) 23.8 %; MEAN CORPUSCULAR HEMOGLOBIN 29.9 pg (27.0-31.0); MEAN CORPUSCULAR VOLUME 90.7 fL (81.0-99.0); MEAN PLATELET VOLUME 10.6 fL (7.9-10.8); MONOCYTES % (AUTO) 10.2 %; NEUTROPHILS # (AUTO) 6.2 10^3/uL (1.5-6.6); NEUTROPHILS % (AUTO) 63.1 %; PLT - PLATELET COUNT 358 10^3/uL (130-450); RED BLOOD COUNT 4.92 10^6/uL (4.20-5.40); RED CELL DISTRIBUTION WIDTH 14.4 % (12.0-15.0); WHITE BLOOD COUNT 9.8 x10^3/uL (4.8-10.8)
[2020-04-12 10:42] LABS: BUN - BLOOD UREA NITROGEN 25 mg/dL (6-20); CALCIUM 9.7 mg/dL (8.5-10.3); CARBON DIOXIDE - CO2 29 mmol/L (21-32); CHLORIDE 101 mmol/L (101-111); CHOL/HDL RATIO 6.4 (<4.4); CHOLESTEROL 191 mg/dL; CREATININE 0.8 mg/dL (0.4-1.0); GLUCOSE 127 mg/dL (70-100); HDL CHOLESTEROL 30 mg/dL; SODIUM 139 mmol/L (135-145)
[2020-04-12 11:01] LABS: LDL CHOLESTEROL,DIRECT 62 mg/dL; LDLD/HDL RATIO 2.1 (<4.4)
== END 2020-04-12 10:02 | disposition home or self-care (01) ==
LOC: LAB 10:01
PROVIDERS: ATTEND Internal Medicine Cardiovascular Disease
DX: I10 Essential (primary) hypertension (principal); E78.5 Hyperlipidemia, unspecified
CPT/HCPCS: 36415; 80048; 80061; 83721; 85025

== ENCOUNTER 2020-07-19 10:43 | Outpatient (CLI) | payer MEDICARE ==
--- NOTE | 2020-07-19 13:59 | Ultrasound Report ---
PROCEDURE: Head or Neck Soft Tissue INDICATIONS: NONTOXIC SINGLE THYROID NODULE TECHNIQUE: Real time scanning was performed of the neck region of interest, with image documentation . COMPARISON: Ultrasound dated 12/11/2019, 08/31/2017. FINDINGS: Status post left thyroidectomy. A previously identified interpolar right lobe nodule measuring 1.2 x 0.8 x 0.9 cm is unchanged in siz e previously 1.1 x 0.9 x 0.9 cm. This demonstrates solid composition and isoechoic appearance. There are irregular margins and no echogenic foci. The additional right thyroid nodule on the previous study is not well seen sonographically on today's examination. IMPRESSION: Unchanged mid right lobe nodule. Recommend continued ultrasound surveillance in 1 year Reviewed by: Sohail Mckenzie MD on 07/19/2020 1:57 PM PST Approved by: Sohail Mckenzie MD on 07/19/2020 1:57 PM PST Station ID: [id number]
== END 2020-07-19 10:44 | disposition home or self-care (01) ==
LOC: DI 10:43
PROVIDERS: ATTEND Internal Medicine
DX: E04.1 Nontoxic single thyroid nodule (principal)

== ENCOUNTER 2020-08-03 10:43 | Outpatient (CLI) | payer MEDICARE, MEDICAID ==
[2020-08-03 11:35] VITALS: BP 110/58
--- NOTE | 2020-08-03 11:35 | SLEEP CARE CONSULTATION ---
Information from patient questionnaire entered by Anna Morse. I have reviewed and concur with the information entered by Anna Morse. This document represents the service I personally performed and the decisions made by , Mojgan Salcedo ARNP. History of Present Illness Service Date and Time: 08/03/2020 1043 Reason for Visit: New patient, Previously diagnosed sleep apnea (moderate - AHI - 25.9 in 2014; mild - AHI - 12.5 in 2005), Re-establish care Chief Complaint: reports: Unrefreshed sleep, Snoring, Excessive daytime sleepiness, Observed pauses in breathing. denies: Frequent awakenings at night Usual bedtime: between 8-10 pm Time it takes to fall asleep: 20-30 minutes Observed to quit breathing while asleep: No Sleeps alone due to snoring: No Number of times waking at night: 3-4 Reasons for waking at night: reports: Bathroom. denies: Choking, Snoring, Gasping for air Toss, Turn, or Twitch while sleeping: No Recalls having dreams: Yes Usually gets out of bed at: 8 am-11 am Feels refreshed in the morning: No Morning headache: No Sleepy or fatigued during the day: Yes Ever fallen asleep while driving: No (she doesn't drive, has seizures) Takes day naps: Yes (daily for about 1-2 hours) Dreams during day naps: No Prior sleep studies: Yes Year and Where: 2014 - [facility]; 2005 - [facility] in [place], [place] Additional HPI information: I had the pleasure of seeing ALICIA ZHOU today regarding her sleep apnea. She was recently in the hospital in May 2020 for an aneurysm surgery. She had atrial fibrillation in the hospital and was placed on Eliquis. She was told she should go back on her CPAP machine due to her snoring. She has had seizures and is currently wearing a heart monitor due to her atrial fibrillation in the hospital. She was last seen here in 2014, but has not been using her machine since about 2015. - Parasomnia Symptoms Ever been unable to move upon waking from sleep: No Walks in sleep: No Talks in sleep: No Ever acted out dreams in sleep: No Ever felt weak in the knees when startled or emotional: No Bothered by creepy, crawly, restless sensations in legs: No Problems with memory or concentration: Yes Subjective Initial [place] Sleepiness Scale score: 0 (in 2015) Current [place] Sleepiness Scale score: 2 Past Medical History Past Medical History: reports: Hypertension, Stroke, Arrythmia, Hypothyroidism. denies: Congestive Heart Failure, Diabetes, Coronary Heart Disease, Anxiety, Depression, GERD Social History The patient's occupation is a Not Employed. Patient is and lives in [place]. Have you smoked in the past 12 months: No Alcohol use: No Caffeine use: No Family History Family history of sleep disordered breathing: Yes (uncle had narcolepsy) Allergies and Home Medications Drug allergies reviewed: Yes (NKDA) Home medication list reviewed: Yes Allergy and home medication list: Amlodipine Eliquis HCTZ Levetiracetam (Keppra) Levothyroxine Losartan Metoprolol ER Potassium Chloride Rosuvastatin Velafaxine Review of Systems Cardiovascular: reports: high blood pressure, irregular heart rate or pulse Gastrointestinal: denies: heartburn Neurological: reports: seizure. denies: headaches Psychiatric: denies: anxiety, depression Ear/Nose/Throat: reports: dry mouth/throat (from medications, gets cotton mouth), wisdom teeth removed. denies: tonsillectomy Endocrine: reports: thyroid disease Physical Exam Blood Pressure: 110/58 Cuff size: long Heart Rate: 94 O2 Saturation: 96 Height: 5 ft 7 in Weight: 243 lb Body Mass Index: 38.0 BMI Classification: Obese Nostrils: patent to airflow Turbinates: swollen Mouth and throat: narrow oropharynx Uvula visualization: 25% Mallampati Class III Tongue: normal in size Tonsils: 2+ Chin and jaw: normal size and position Heart: regular rate and rhythm, murmur Lungs: clear bilaterally Impression and Plan 1. Obstructive Sleep Apnea-Hypopnea Syndrome, as previously diagnosed with moderate SHARONDA AHI 25.9 and as suggested by continuing history of loud and irregular snoring, observed cessation of breath while asleep, unrefreshed sleep, cognitive impairment, and excessive daytime sleepiness. I reviewed with the patient that a narrow oropharynx and obesity are common predisposing factors for obstructive sleep apnea-hypopnea syndrome. I recommend proceeding to polysomnography to confirm the diagnosis and to assess severity. If the patient has significant sleep disordered breathing, a manual CPAP titration study will also be performed to find the optimal treatment pressure. I informed the patient of what the sleep studies involve and after some discussion, obtained agreement to proceed. The pathophysiology of obstructive sleep apnea-hypopnea syndrome was discussed with the patient and health risks of cardiovascular and cerebrovascular disease if not treated. Risks of drowsy driving discussed in detail and patient advised to avoid long distance driving and to toe puller at the first sign of drowsiness. Patient agreed to plan. * Schedule polysomnography/HST and return in 1-2 weeks after the study to discuss result and initiate therapy. * Avoid long distance driving or driving when feeling sleepy. * Avoid alcohol, sedative and muscle relaxant around bedtime. * Attempt to lose weight. * Review instructions provided by trained office staff on how to prepare for the sleep study. * Return for follow-up after sleep study completed. Counseling Topics: Weight loss health impact Visit Type: In Office Time Spent with Patient (minutes): 31 Provider Statement: I spent 100% of the Face to Face Visit with the patient with greater than 50% spent counseling the patient and coordination of care.
== END 2020-08-03 10:44 | disposition home or self-care (01) ==
LOC: SC 10:43
PROVIDERS: ATTEND Nurse Practitioner Family
DX: G47.33 Obstructive sleep apnea (adult) (pediatric) (principal); E66.9 Obesity, unspecified; Z68.38 Body mass index [BMI] 38.0-38.9, adult
CPT/HCPCS: 99203; G0463; 99212

== ENCOUNTER 2020-08-24 12:44 | Outpatient (CLI) | payer MEDICARE, MEDICAID | END 2020-08-24 12:45 | disposition home or self-care (01) | LOC: SC 12:44 | PROVIDERS: ATTEND Nurse Practitioner Family | DX: G47.33 Obstructive sleep apnea (adult) (pediatric) (principal); R09.02 Hypoxemia; E66.9 Obesity, unspecified; Z68.38 Body mass index [BMI] 38.0-38.9, adult | CPT/HCPCS: G0399 ×2; 95806 ==

== ENCOUNTER 2020-09-02 11:00 | Outpatient (CLI) | payer MEDICARE, MEDICAID ==
--- NOTE | 2020-09-02 11:40 | SLEEP CARE CONSULTATION ---
Information from patient questionnaire entered by Anna Morse. I have reviewed and concur with the information entered by Anna Morse. This document represents the service I personally performed and the decisions made by , Mojgan Salcedo ARNP. History of Present Illness Service Date and Time: 09/02/2020 1100 Initial [place] Sleepiness Scale score: 0 (in 2015) Current [place] Sleepiness Scale score: 0 Additional HPI information: ALICIA ZHOU returns for follow up and results of the recently performed home sleep study. I explained the pathophysiology behind obstructive sleep apnea. We then spent quite a bit of time discussing different treatment options. For mild obstructive sleep apnea, surgery and oral appliance are alternatives to nasal CPAP therapy but in moderate or severe cases, nasal CPAP is the most effective and reliable treatment. Because apnea is primarily in supine position, then positional management therapy could be effective. Methods discussed such as positioning with pillows, using a T-shirt with tennis balls in the back, and shown commercial products that have a pillow format on back to prevent supine sleep. I reviewed the impact of weight changes on sleep apnea and strongly recommended losing weight. After some discussion, the patient opted to go with the nasal CPAP therapy. Nasal autoCPAP set at 4-15 cmH20 will be ordered with rationale explained. A manual titration study will be ordered if unable to find optimal pressure with office adjustments. I explained how CPAP machine works with sample devices [employer] Dreamstation and [employer] [id number] and what to expect when using the machine. Using CPAP every night in order to get used to it was emphasized. Patient advised to put CPAP mask on before getting into bed so as not to fall asleep without CPAP. To assist acclimation to CPAP use, it could also be used for a short time during day while reading or watching TV. The patient was instructed to call the CPAP supplier to discuss any mechanical problem that may occur. If the mask given is uncomfortable or is difficult to keep on through the night even with adjustment, contact the CPAP supplier as many will replace with another mask style if notified before 30 days. If snoring or perceives is not getting enough air or too much air from the machine, notify this office. [facility] patient education PAP tips reviewed and given to patient. Patient counseled not drink alcohol less than 4 hours before bedtime as it can increase snoring and apnea. Patient was cautioned about risks of drowsy driving until sleepiness symptoms resolve. Sleep Study - Results Type of Sleep Study: Home sleep study Prior sleep studies: Yes Year and Where: 2014 - [facility]; 2005 - [facility] in [place], [place] Polysomnography/Home Sleep Study results: Physician Impression: The quality of the study is good. The length of the study is adequate (> 240 minutes). Please also see the tabulated and graphic data. 1. Obstructive Sleep Apnea-Hypopnea (ICD-10 G47.33), severe, with an AHI of 31.2 /hr and nely SaO2 of 77%. During the study, the patient had 102 apneas (100 obstructive, 1 central, 1 mixed) and 189 hypopneas. The longest episode lasted 69.0 seconds. The respiratory events occurred slightly more frequently during supine sleep (supine AHI was 41.6 and non-supine, 30.52). 2. Hypoxemia (ICD-10 R09.02), moderate, with the lowest oxygen saturation of 77 % and 359.4 minutes with SaO2 under 90%. Baseline oxygen saturation was low (Average oxygen saturation was 89%). Allergies and Home Medications Drug allergies reviewed: Yes (NKDA) Home medication list reviewed: Yes (stopped Keppra) Review of Systems Review of systems same as previous: Yes (no changes) Physical Exam Heart Rate: 92 O2 Saturation: 96 Height: 5 ft 7 in Weight: 246 lb Body Mass Index: 38.5 BMI Classification: Obese Impression and Plan 1. Obstructive Sleep Apnea-Hypopnea Syndrome, severe, with lowest oxygen saturation of 77%. Obviously this is the cause of the patients symptoms of unrefreshed sleep, and excessive daytime sleepiness. Positive pressure therapy could benefit hypertension, heart arrhythmias, and cerebrovascular disease. As mentioned above, the patient will be started on nasal autoCPAP therapy with pressure set at 4-15 cmH2O. A manual titration study will be completed if unable to find optimal treatment pressure with office adjustments. Compliance guidelines also reviewed. A copy of compliance guidelines will be given for reference at check out. Because the apnea is more severe supine, I instructed to avoid sleeping supine using pillow positioning until able to start CPAP use. 2. Hypoxemia, moderate, with the nely oxygen saturation of 77 % and 359.4 minutes with SaO2 under 90%. Her baseline oxygen saturation was an average oxygen saturation of 89%. For low baseline oxygen saturation, patient was encouraged to follow up with PCP/cardiology to consider underlying cardiopulmonary disorders such as COPD, congestive heart failure, obesity hypoventilation, etc. Further work up with PFTs, ABGs, may be beneficial. She voiced understanding. * Nasal auto CPAP therapy, pressure at 4-15 cm H2O. * Follow up with PCP/cardiology for moderate hypoxemia * Attempt to lose weight. * Avoid alcohol consumption near bedtime. * Avoid supine sleep until using CPAP. * The patient is again cautioned about driving until sleepiness completely resolves. * Return one month after CPAP obtained. I will assess response to therapy and compliance at that time. Counseling Topics: Weight loss health impact Visit Type: In Office Time Spent with Patient (minutes): 23 Provider Statement: I spent 100% of the Face to Face Visit with the patient with greater than 50% spent counseling the patient and coordination of care.
== END 2020-09-02 11:01 | disposition home or self-care (01) ==
LOC: SC 11:00
PROVIDERS: ATTEND Nurse Practitioner Family
DX: G47.33 Obstructive sleep apnea (adult) (pediatric) (principal); R09.02 Hypoxemia; E66.9 Obesity, unspecified; Z68.38 Body mass index [BMI] 38.0-38.9, adult
CPT/HCPCS: 99213; G0463; 99212

== ENCOUNTER 2020-11-03 13:36 | Outpatient (CLI) | payer MEDICARE, MEDICAID ==
--- NOTE | 2020-11-03 14:07 | SLEEP CARE CONSULTATION ---
Information from patient questionnaire entered by Monica Mcgarry. I have reviewed and concur with the information entered by Monica Mcgarry. This document represents the service I personally performed and the decisions made by me, Mojgan Salcedo ARNP. History of Present Illness Service Date and Time: 11/03/2020 1336 Previous diagnosis: Severe AHI: 31.2 Reason for follow up: first compliance (09/27/20) Equipment obtained from: Other ([facility]; got initial supplies) Mask style: Full face Backup mask available: Yes (other mask) Last cushion change: 2 days ago Prior sleep studies: Yes Year and Where: 2014 - [facility]; 2005 - [facility] additional information: ALICIA ZHOU was diagnosed to have severe, AHI 31.2, obstructive sleep apnea- hypopnea syndrome and returned today for CPAP therapy first compliance follow- up. CPAP Compliance Data - Data Reviewed with Patient Average duration of nightly device use: 5 h 10 min Compliance rate %: 67 Current pressure setting (cmH2O): 4-15 (median 6.0, avg 9.8, max 10.7) Average residual AHI: 2.8 Subjective Missed days of use due to: reports: mask issues (rips on bottom of mask) Patient concerns: reports: dry mouth, nose, throat (on occasion). denies: aerophagia, mask discomfort, air blowing in eyes, mask leak noise, condensation in mask/hose, nasal congestion, epistaxis, other Observed to snore while using device: No Current pressure setting perceived as: comfortable On therapy, patient: reports: other (She doesn't feel much difference between before CPAP and now with treatment). denies: sleeping better, awakening more refreshed, being more awake and alert during the day, more rested overall, drowsiness while driving Initial [place] Sleepiness Scale score: 0 (in 2015) Current [place] Sleepiness Scale score: 2 Allergies and Home Medications Drug allergies reviewed: Yes (NKDA) Home medication list reviewed: Yes (Eliquis, stopped aspirin and coumadin) Review of Systems Review of systems same as previous: Yes (no changes) Physical Exam Heart Rate: 79 O2 Saturation: 98 Height: 5 ft 7 in Weight: 252 lb Body Mass Index: 39.4 BMI Classification: Obese Impression and Plan 1. Obstructive Sleep Apnea-Hypopnea Syndrome, severe, with fair treatment compliance and good apnea control. On CPAP therapy, the patient does not feel much difference with the CPAP. Patient is sleeping just over 5 hours a night and I advised her to use her CPAP for all sleep to get the best benefit of her therapy. I will adjust her pressure to 6-10 cmH2O to reflect the pressures she is using. She has some mouth dryness daily. Oral dryness can be reduced by adjusting humidity setting higher or heated hose lower or by adjusting both settings. Verbal instructions given on how to change humidity and heated hose settings with rationale explaining why to change. Patient's apnea severity and rationale for treatment to reduce apnea, improve sleep quality and reduce cardiovascular and cerebrovascular events was reviewed. I also reviewed the benefit of consistent device use of CPAP for hypertension, cerebrovascular disease, and arrhythmia. * Change auto CPAP pressure to 6-10 cmH2O * Notify me if snoring with mask or feeling that the pressure is too much or too little * Attempt to lose weight * Call this office if any problems using CPAP * Return for follow up in 1-2 months, or sooner if concerns arise Counseling Topics: Spare mask, Weight loss health impact Visit Type: In Office Time Spent with Patient (minutes): 21 Provider Statement: I spent 100% of the Face to Face Visit with the patient with greater than 50% spent counseling the patient and coordination of care.
== END 2020-11-03 13:37 | disposition home or self-care (01) ==
LOC: SC 13:36
PROVIDERS: ATTEND Nurse Practitioner Family
DX: G47.33 Obstructive sleep apnea (adult) (pediatric) (principal); E66.9 Obesity, unspecified; Z68.39 Body mass index [BMI] 39.0-39.9, adult
CPT/HCPCS: 99213; G0463; 99212

== ENCOUNTER 2021-01-12 13:31 | Outpatient (CLI) | payer MEDICARE, MEDICAID ==
--- NOTE | 2021-01-12 14:16 | SLEEP CARE CONSULTATION ---
Information from patient questionnaire entered by Anna Morse. I have reviewed and concur with the information entered by Anna Morse. This document represents the service I personally performed and the decisions made by me, Mojgan Salcedo ARNP. History of Present Illness Service Date and Time: 01/12/2021 1331 Previous diagnosis: Severe AHI: 31.2 (in 2020) Reason for follow up: other (2 month with pressure change) Equipment obtained from: Other ([facility]; getting supplies as needed) Mask style: Full face Backup mask available: Yes (old mask) Last cushion change: unsure Prior sleep studies: Yes Year and Where: - [facility]; 2005 - [facility] in [place], [place] Type of Sleep Study: Home sleep study HPI additional information: ALICIA ZHOU was diagnosed to have severe, AHI 31.2, obstructive sleep apnea- hypopnea syndrome and returned today for CPAP therapy 2 month with pressure change follow-up. CPAP Compliance Data - Data Reviewed with Patient Average duration of nightly device use: 2 hr 20 min Compliance rate %: 2 (60 days) Current pressure setting (cmH2O): 6-10 Humidity settin Average residual AHI: 4.0 Subjective Patient concerns: reports: mask discomfort (with heat it gets sticky, face more oily). denies: aerophagia, air blowing in eyes, mask leak noise, condensation in mask/hose, nasal congestion, dry mouth, nose, throat, epistaxis, other Observed to snore while using device: No Current pressure setting perceived as: comfortable On therapy, patient: reports: sleeping better (borderline), more rested overall (unsure). denies: drowsiness while driving (doesn't drive) Initial [place] Sleepiness Scale score: 0 (in 2015) Current [place] Sleepiness Scale score: 0 Allergies and Home Medications Home medication list reviewed: Yes (took off Plavix and Keppra; Takes Eliquis) Review of Systems Review of systems same as previous: Yes (no changes) Physical Exam Heart Rate: 68 O2 Saturation: 97 Height: 5 ft 7 in Weight: 241 lb Body Mass Index: 37.7 BMI Classification: Obese Impression and Plan 1. Obstructive Sleep Apnea-Hypopnea Syndrome, severe, with very poor treatment compliance and good apnea control. On CPAP therapy, the patient has better sleep quality and is more rested overall. Patient has not been using her CPAP as much because the full face mask is too hot with this summer heat. She would like to try a different style of mask and I will write for mask refitting.She is also concerned that she is not getting REM sleep but she has not been using the CPAP for more than 2-1/2 hours. I discussed with her that she needs at least 7 to 9 hours of restful sleep to be able to get that REM and deep sleep that she is requiring. She voiced understanding. Compliance guidelines reviewed for insurance coverage. Patient was counseled on the difference between meeting compliance and optimal use of CPAP. Optimal use of CPAP is use of CPAP with all sleep to obtain maximum benefit of treatment. Patient is encouraged to use CPAP with all sleep. Patient has been going to the gym 3 days a week for 3 hours to try and reduce her weight. I encouraged her to keep up this activity and find other ways to help her lose weight. Patient's apnea severity and rationale for treatment to reduce apnea, improve sleep quality and reduce cardiovascular and cerebrovascular events was reviewed. I also reviewed the benefit of consistent device use of CPAP for hypertension, cerebrovascular disease, and arrhythmia. * Continue auto CPAP pressure at 6-10 cmH2O * Mask refitting * Notify me if snoring with mask or feeling that the pressure is too much or too little * Continue to try to lose weight * Call this office if any problems using CPAP * Return for follow up in 3 months, or sooner if concerns arise Counseling Topics: Spare mask, Weight loss health impact, Activity level Visit Type: In Office Time Spent with Patient (minutes): 20 Provider Statement: I spent 100% of the Face to Face Visit with the patient with greater than 50% spent counseling the patient and coordination of care.
== END 2021-01-12 13:32 | disposition home or self-care (01) ==
LOC: SC 13:31
PROVIDERS: ATTEND Nurse Practitioner Family
DX: G47.33 Obstructive sleep apnea (adult) (pediatric) (principal); E66.9 Obesity, unspecified; Z68.37 Body mass index [BMI] 37.0-37.9, adult
CPT/HCPCS: 99213; G0463; 99212

== ENCOUNTER 2021-01-27 10:55 | Outpatient (CLI) | payer MEDICARE, MEDICAID ==
[2021-01-27 11:40] LABS: ALBUMIN 3.9 g/dL (3.2-5.5); ALBUMIN/GLOBULIN RATIO 1.1 (1.0-2.2); ALKALINE PHOSPHATASE 75 IU/L (42-121); ALT ALANINE AMINOTRANSFERASE 45 IU/L (10-60); AST ASPARTATE AMINOTRANSFERASE 40 IU/L (10-42); BILIRUBIN,TOTAL 0.7 mg/dL (0.2-1.0); BUN - BLOOD UREA NITROGEN 18 mg/dL (6-20); CALCIUM 10.1 mg/dL (8.5-10.3); CARBON DIOXIDE - CO2 28 mmol/L (21-32); CHLORIDE 100 mmol/L (101-111); CHOL/HDL RATIO 7.3 (<4.4); CHOLESTEROL 196 mg/dL; CK- CREATINE KINASE 279 IU/L (22-269); CREATININE 0.9 mg/dL (0.4-1.0); GFR - MDRD 64 (>89); GLUCOSE 119 mg/dL (70-100); HDL CHOLESTEROL 27 mg/dL; POTASSIUM 3.3 mmol/L (3.5-5.0); SODIUM 139 mmol/L (135-145); TOTAL PROTEIN 7.3 g/dL (6.7-8.2); TRIGLYCERIDES 582 mg/dL
[2021-01-27 11:59] LABS: LDL CHOLESTEROL,DIRECT 52 mg/dL; LDLD/HDL RATIO 1.9 (<4.4)
[2021-01-27 12:01] LABS: ESTIMATED AVERAGE GLUCOSE 140 mg/dL (70-100); HEMOGLOBIN A1c% 6.5 % (4.27-6.07)
== END 2021-01-27 10:56 | disposition home or self-care (01) ==
LOC: LAB 10:55
PROVIDERS: ATTEND Internal Medicine
DX: E03.9 Hypothyroidism, unspecified (principal); Z13.6 Encounter for screening for cardiovascular disorders; Z79.899 Other long term (current) drug therapy; R73.01 Impaired fasting glucose; G40.909 Epilepsy, unspecified, not intractable, without status epilepticus; E04.1 Nontoxic single thyroid nodule; I48.91 Unspecified atrial fibrillation; C50.919 Malignant neoplasm of unspecified site of unspecified female breast; E78.5 Hyperlipidemia, unspecified
CPT/HCPCS: 36415; 80053; 80061; 82550; 83036; 83721; 84443; 85025

== ENCOUNTER 2021-04-13 11:13 | Outpatient (CLI) | payer MEDICARE, MEDICAID ==
[2021-04-13 11:55] VITALS: BP 111/67
--- NOTE | 2021-04-13 11:55 | SLEEP CARE CONSULTATION ---
Information from patient questionnaire entered by Jenn Sharpe. I have reviewed and concur with the information entered by Jenn Sharpe. This document represents the service I personally performed and the decisions made by me, Mojgan Salcedo ARNP. History of Present Illness Service Date and Time: 04/13/2021 1113 Previous diagnosis: Severe, Obstructive Sleep Apnea-Hypopnea Syndrome AHI: 31.2 Reason for follow up: three month Equipment type: CPAP Equipment obtained from: Other ([facility]; getting supplies as needed) Mask style: Nasal (starting tonight) Backup mask available: Yes (other mask) Prior sleep studies: Yes Year and Where: - [facility]; 2005 - [facility] in [place], [place] Type of Sleep Study: Home sleep study HPI additional information: ALICIA ZHOU was diagnosed to have severe, AHI 31.2, obstructive sleep apnea- hypopnea syndrome and returned today for CPAP therapy three month with pressure change follow-up. Sleep Study - Results Type of Sleep Study: Home sleep study Prior sleep studies: Yes Year and Where: - [facility]; 2005 - [facility] in [place], [place] CPAP Compliance Data - Data Reviewed with Patient Average duration of nightly device use: 1 hour 25 minutes Compliance rate %: 0 Current pressure setting (cmH2O): 4-9 Average residual AHI: 0.9 Central apnea: .1 Obstructive apnea: .1 Hypopnea: .7 Subjective Missed days of use due to: reports: mask issues Patient concerns: reports: mask discomfort. denies: aerophagia, air blowing in eyes, mask leak noise, condensation in mask/hose, nasal congestion, dry mouth, nose, throat, epistaxis, other Observed to snore while using device: No Current pressure setting perceived as: comfortable On therapy, patient: reports: sleeping better, awakening more refreshed, being more awake and alert during the day, more rested overall. denies: drowsiness while driving Initial [place] Sleepiness Scale score: 0 (in 2014) Current [place] Sleepiness Scale score: 3 Allergies and Home Medications Home medication list reviewed: Yes (new med for high triglycerides, doesn't remember name) Review of Systems Review of systems same as previous: Yes (no changes) Physical Exam Blood Pressure: 111/67 Cuff size: wrist Heart Rate: 88 O2 Saturation: 96 Height: 5 ft 7 in Weight: 239 lb Weight change since last visit: 2 pound loss Body Mass Index: 37.4 BMI Classification: Obese Impression and Plan 1. Obstructive Sleep Apnea-Hypopnea Syndrome, severe, with poor treatment compliance and excellent apnea control. On CPAP therapy, the patient has better sleep quality and is more rested overall. Patient had difficulties with a fullface mask but she obtained a nasal cushion mask since her last appointment.She has not used it much yet but she states she will start using it tonight. The problem was they sent her the wrong size headgear to go with it that was too tight on her head, so she was unable to use it. She now has the large headgear to go with her nasal cushion mask and she states it feels comfortable so far. I adjusted her pressure because she felt it was too high after her last visit. She wants to continue the pressure at 4-9 cmH2O. I encouraged patient to use the mask at least 4 hours nightly and we will follow- up with her again in a few months. She voiced understanding. Patient has lost 3 pounds since her last visit. She continues to exercise at her gym 3 days a week and is trying to eat more healthy foods. I encouraged her to continue to try to lose weight. Patient's apnea severity and rationale for treatment to reduce apnea, improve sleep quality and reduce cardiovascular and cerebrovascular events was reviewed. I also reviewed the benefit of consistent device use of CPAP for hypertension, cerebrovascular disease and arrhythmia. * Continue auto CPAP pressure at 4-9 cmH2O * Notify me if snoring with mask or feeling that the pressure is too much or too little * Attempt to lose weight * Call this office if any problems using CPAP * Return for follow up in 2-3 months, or sooner if concerns arise Counseling Topics: Spare mask, Weight loss health impact Visit Type: In Office Time Spent with Patient (minutes): 17 Provider Statement: I spent 100% of the Face to Face Visit with the patient with greater than 50% spent counseling the patient and coordination of care.
== END 2021-04-13 11:14 | disposition home or self-care (01) ==
LOC: SC 11:13
PROVIDERS: ATTEND Nurse Practitioner Family
DX: G47.33 Obstructive sleep apnea (adult) (pediatric) (principal); E66.9 Obesity, unspecified; Z68.37 Body mass index [BMI] 37.0-37.9, adult
CPT/HCPCS: 99212; G0463

== ENCOUNTER → 2021-08-10 | Outpatient (CLI) | payer OTHER, MEDICAID ==
[2021-08-15 18:40] LABS: ESTIMATED AVERAGE GLUCOSE 128 mg/dL (70-100); HEMOGLOBIN A1c% 6.1 % (4.27-6.07)
== END ==
LOC: LAB 08:00
PROVIDERS: ATTEND Internal Medicine
DX: E11.9 Type 2 diabetes mellitus without complications (principal)
CPT/HCPCS: 36415; 83036

== ENCOUNTER 2021-08-26 11:00 | Outpatient (CLI) | payer MEDICARE, MEDICAID ==
[2021-08-26 11:44] VITALS: BP 135/87
--- NOTE | 2021-08-26 11:44 | SLEEP CARE CONSULTATION ---
Information from patient questionnaire entered by Josh Leung MA. I have reviewed and concur with the information entered by Josh Leung MA. This document represents the service I personally performed and the decisions made by , Mojgan Sacledo ARNP. History of Present Illness Service Date and Time: 08/26/2021 1100 Previous diagnosis: Severe AHI: 31.2 Reason for follow up: other (4 month f/u ) Equipment type: CPAP Equipment obtained from: Other ([facility]; getting supplies as needed) Mask style: Nasal Backup mask available: Yes (other mask) Prior sleep studies: Yes Year and Where: - [facility]; 2005 - [facility] in [place], [place] Type of Sleep Study: Home sleep study HPI additional information: ALICIA ZHOU was diagnosed to have severe, AHI 31.2, obstructive sleep apnea-hypopnea syndrome and returned today for CPAP therapy 4 month follow-up. Sleep Study - Results Type of Sleep Study: Home sleep study Prior sleep studies: Yes Year and Where: - [facility]; 2005 - [facility] in [place], [place] CPAP Compliance Data - Data Reviewed with Patient Average duration of nightly device use: 56 MINUTES Compliance rate %: 0 Current pressure setting (cmH2O): 4-9 Average residual AHI: 3.3 Central apnea: .3 Obstructive apnea: 0 Average large leak: 2.0 Subjective Patient concerns: reports: nasal congestion, dry mouth, nose, throat. denies: aerophagia, mask discomfort, air blowing in eyes, mask leak noise, condensation in mask/hose, epistaxis, other Observed to snore while using device: No Current pressure setting perceived as: comfortable On therapy, patient: reports: sleeping better, awakening more refreshed, being more awake and alert during the day, more rested overall. denies: drowsiness while driving Initial [place] Sleepiness Scale score: 0 (in 2014) Current [place] Sleepiness Scale score: 2 (2021) Allergies and Home Medications Known drug allergies: No Drug allergies reviewed: Yes Home medication list reviewed: Yes (no changes) Allergy and home medication list: Allergies No Known Drug Allergies Allergy (Verified 02/02/21 11:54) Review of Systems Review of systems same as previous: Yes (no changes) Physical Exam Vital signs obtained and entered by: Guillermo LEUNG CMA AAMA Blood Pressure: 135/87 (RIGHT, PULSE 88, RESP 18,) Cuff size: wrist Heart Rate: 79 O2 Saturation: 97 (WITH PAPER MASK) Height: 5 ft 7 in Weight: 238 lb Weight change since last visit: [employer] 3 X WEEKLY, HAS LOST WEIGHT, Body Mass Index: 37.3 BMI Classification: Obese Impression and Plan 1. Obstructive Sleep Apnea-Hypopnea Syndrome, severe, with poor treatment compliance and good apnea control. On CPAP therapy, the patient has better sleep quality and is more rested overall. Patient has been having issues with her nose feeling really dry with using the new nasal cushion mask. She does also get some dry mouth because her mouth will come open when she is sleeping. She was advised to try a chin strap to keep her mouth closed if she feels the nasal mask is more comfortable than the full face she was using. Nasal dryness can be reduced with increasing the CPAP humidity as explained during appointment and the heated hose can be increased if condensation occurs. In addition, I gave the patient a few samples of Jameson Ease nasal cream to be used 4 times a day for 7-10 days and then as needed. Compliance guidelines reviewed for insurance coverage. Patient was counseled on the difference between meeting compliance and optimal use of CPAP. Optimal use of CPAP is use of CPAP with all sleep to obtain maximum benefit of treatment. Patient is encouraged to use CPAP with all sleep. Patient's apnea s everity and rationale for treatment to reduce apnea, improve sleep quality and reduce cardiovascular and cerebrovascular events was reviewed. I also reviewed the benefit of consistent device use of CPAP for hypertension, cerebrovascular disease and arrhythmia. 2. Obesity, unspecified. Patient has lost weight. Currently patients BMI is 37.3. Obesity increases the risk of apnea, CPAP pressure requirements and overall health risks especially cardiovascular and diabetes. Thus patient is advised to continue to try to try to lose weight. Weight loss can be done with reducing portion size, reducing refined foods and balancing content with vegetables, fruit and whole grain foods. In addition, patient encouraged to get regular exercise. She is going to the gym 3 times a week and watching what she eats. The patient's CPAP pressure range should accommodate some weight loss. Symptoms to report for additional pressure adjustment discussed. * Continue auto CPAP pressure at 4-9 cmH2O * Notify me if snoring with mask or feeling that the pressure is too much or too little * Continue to try to lose weight * Call this office if any problems using CPAP * Return for follow up in 3 months, or sooner if concerns arise Counseling Topics: Spare mask, Weight loss health impact Visit Type: In Office Time Spent with Patient (minutes): 19 Provider Statement: I spent 100% of the Face to Face Visit with the patient with greater than 50% spent counseling the patient and coordination of care.
== END 2021-08-26 11:01 | disposition home or self-care (01) ==
LOC: SC 11:00
PROVIDERS: ATTEND Nurse Practitioner Family
DX: G47.33 Obstructive sleep apnea (adult) (pediatric) (principal); E66.9 Obesity, unspecified; Z68.37 Body mass index [BMI] 37.0-37.9, adult
CPT/HCPCS: 99212; G0463

== ENCOUNTER 2021-11-25 10:44 | Outpatient (CLI) | payer MEDICARE, MEDICAID ==
[2021-11-25 11:28] VITALS: BP 128/70
--- NOTE | 2021-11-25 11:28 | SLEEP CARE CONSULTATION ---
Information from patient questionnaire entered by Josh Leung MA. I have reviewed and concur with the information entered by Josh Leung MA. This document represents the service I personally performed and the decisions made by , Mojgan Salcedo ARNP. History of Present Illness Service Date and Time: 11/25/2021 1044 Previous diagnosis: Severe, Obstructive Sleep Apnea-Hypopnea Syndrome AHI: 31.2 (in 08/2020) Reason for follow up: three month ([facility]ESM[facility], 11/24/21 1030 am called pt advised to bring an sd card or machine and cord, ) Equipment type: CPAP Equipment obtained from: Other ([facility]; getting supplies as needed) Mask style: Full face Backup mask available: Yes (old mask) Prior sleep studies: Yes Year and Where: - [facility]; 2005 - [facility] in [place], [place] Type of Sleep Study: Home sleep study HPI additional information: ALICIA ZHOU was diagnosed to have severe, AHI 31.2, obstructive sleep apnea- hypopnea syndrome and returned today for CPAP therapy three month follow-up. Sleep Study - Results Type of Sleep Study: Home sleep study Prior sleep studies: Yes Year and Where: - [facility]; 2005 - [facility] in [place], [place] CPAP Compliance Data - Data Reviewed with Patient Average duration of nightly device use: 17 MINUTES Compliance rate %: 0 (08/03 - 10/31/2021) Current pressure setting (cmH2O): 4-9 Average residual AHI: 0 Central apnea: 0 Obstructive apnea: 0 Average large leak: 2.4 Compliance data discussion: [facility] Subjective Missed days of use due to: reports: other (just needs to get used to using) Patient concerns: denies: aerophagia, mask discomfort, air blowing in eyes, mask leak noise, condensation in mask/hose, nasal congestion, dry mouth, nose, throat, epistaxis, other Observed to snore while using device: No Current pressure setting perceived as: comfortable On therapy, patient: reports: more rested overall (when she uses it), other (needs to wear more to be able to tell) Initial [place] Sleepiness Scale score: 0 (in 2014) Current [place] Sleepiness Scale score: 0 (11/2021) Allergies and Home Medications Home medication list reviewed: Yes (no changes) Allergy and home medication list: Allergies No Known Drug Allergies Allergy (Verified 02/02/21 11:54) Review of Systems Review of systems same as previous: Yes (no changes) Physical Exam Vital signs obtained and entered by: Guillermo SPEARS Blood Pressure: 128/70 (right, pulse 68, resp 18,) Heart Rate: 69 O2 Saturation: 98 (paper mask) Height: 5 ft 7 in Weight: 232 lb Weight change since last visit: 245 weighed, [employer] Body Mass Index: 36.3 BMI Classification: Obese Impression and Plan 1. Obstructive Sleep Apnea-Hypopnea Syndrome, severe, with poor treatment compliance and good apnea control. On CPAP therapy, the patient does feel more rested overall. Patient states she has just not been putting on her CPAP. She is feeling well because she has lost weight over the last year and is exercising regularly but she will just not remember her CPAP at night. She states she is back to using a full face mask because it is more comfortable. I advised the patient to put the mask on when she lays in bed. She needs to just make it a nighttime routine so that she does not forget. If she finds herself falling asleep on the couch, she needs to set alarm to wake herself up and help her to go to bed where she puts on her CPAP. I also encouraged her to put the CPAP on for graduating times during the afternoon to help her get used to the pressure again so that it would feel comfortable for her at night. Patient voiced understanding and agreement with this plan of care. Compliance guidelines reviewed for insurance coverage. Patient was counseled on the difference between meeting compliance and optimal use of CPAP. Optimal use of CPAP is use of CPAP with all sleep to obtain maximum benefit of treatment. Patient is encouraged to use CPAP with all sleep. Patient's apnea severity and rationale for treatment to reduce apnea, improve sleep quality and reduce cardiovascular and cerebrovascular events was reviewed. I also reviewed the benefit of consistent device use of CPAP for hypertension, cerebrovascular disease and arrhythmia. 2. Obesity, unspecified. Currently patients BMI is 36.3. Obesity increases the risk of apnea, CPAP pressure requirements and overall health risks especially cardiovascular and diabetes. Thus patient is advised to continue to try to lose weight. Patient is getting regular exercise and trying to eat more healthy food choices. * Continue auto CPAP pressure at 4-9 cmH2O * Notify me if snoring with mask or feeling that the pressure is too much or too little * Continue to try to lose weight * Call this office if any problems using CPAP * Return for follow up in 3 months, or sooner if concerns arise Counseling Topics: Spare mask, Weight loss health impact Visit Type: In Office Time Spent with Patient (minutes): 21 Provider Statement: I spent 100% of the Face to Face Visit with the patient with greater than 50% spent counseling the patient and coordination of care.
== END 2021-11-25 10:45 | disposition home or self-care (01) ==
LOC: SC 10:44
PROVIDERS: ATTEND Nurse Practitioner Family
DX: G47.33 Obstructive sleep apnea (adult) (pediatric) (principal); E66.9 Obesity, unspecified; Z68.36 Body mass index [BMI] 36.0-36.9, adult
CPT/HCPCS: 99213; G0463; 99212

== ENCOUNTER 2021-12-28 13:13 | Outpatient (CLI) | payer MEDICARE, MEDICAID ==
[2021-12-28] MEDS ORDERED: GADOBUTROL 10 MMOL/10 ML VIAL IVP ONE (16:43)
--- NOTE | 2021-12-28 17:43 | Ultrasound Report ---
PROCEDURE: Head or Neck Soft Tissue INDICATIONS: NEOPLASM OF PITUITARY GLAND TECHNIQUE: Real-time scanning was performed of the thyroid gland, with image documentation. COMPARISON: 07/19/2020 FINDINGS: Right: Thyroid lobe measures 4.8 x 2.2 x 2.3 cm, and is homogeneous in echotexture. Left: Surgically absent Isthmus: 1.9 mm thick. Nodule number: One Location: Right mid Size: 2.0 x 1.7 x 1.6 cm. Composition: Solid Echogenicity: Isoechoic Shape: wider than tall. Margins: Irregular Echogenic foci: None Total points: 5 ACR TI-RADS category: Moderately suspicious IMPRESSION: Right thyroid nodule is increased in size compared to 07/19/2020. Based on size, imaging c haracteristics and criteria outlined below, fine-needle aspiration of the nodule is recommended for a dditional evaluation. ACR TI-RADS definitions and recommendations: TI-RADS 1 (benign): 0 points. FNA not needed. TI-RADS 2 (not suspicious): 2 points. FNA not needed. TI-RADS 3 (mildly suspicious): 3 points. "FNA if 2.5 cm or larger, follow up if 1.5 cm or larger (at 1, 3, and 5 years). TI-RADS 4 (moderately suspicious): 4-6 points. "FNA if 1.5 cm or larger, follow up if 1 cm or larger (at 1, 2, 3, and 5 years). TI-RADS 5 (highly suspicious): 7 points or more. "FNA if 1 cm or larger, follow up if 0.5 cm or larger (every year for 5 years). Reviewed by: Марина Scott MD, PhD on 12/28/2021 5:41 PM PDT Approved by: Марина Scott MD, PhD on 12/28/2021 5:41 PM PDT Station ID: [id number]
== END 2021-12-28 13:14 | disposition home or self-care (01) ==
LOC: DI 13:13
PROVIDERS: ATTEND Internal Medicine
DX: D35.2 Benign neoplasm of pituitary gland (principal); E04.1 Nontoxic single thyroid nodule; I67.1 Cerebral aneurysm, nonruptured
CPT/HCPCS: 70546; 76536; A9585

== ENCOUNTER 2021-12-28 13:18 | Outpatient (CLI) | payer MEDICARE, MEDICAID ==
[2021-12-28] MEDS ORDERED: GADOBUTROL 10 MMOL/10 ML VIAL ONE (14:14)
--- NOTE | 2022-01-19 12:55 | MRI Report ---
PROCEDURE: Brain Angio W/WO INDICATIONS: BUNDLE CLERK ANEURYSM TECHNIQUE: Noncontrast axial 3-D [id number] MR angiogram, with 3-dimensional maximum intensity projection (M IP) reformats of the internal carotid arteries and posterior circulation then performed. COMPARISON: MR angiogram 01/25/2021. FINDINGS: Image quality: Excellent. Anterior circulation: Susceptibility artifact related to terminal right ICA aneurysm clipping and end ovascular coiling. No evidence of residual/recurrent right ICA aneurysm. Right internal carotid arter y demonstrates normal size and intraluminal flow signal. 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 Reconstitution of flow in the supraclinoid left internal carotid artery related to flow from collateral vessels. Finding is sta ble compared to 01/25/2021. The flow within the paired anterior cerebral arteries is normal and symme tric. The flow within the middle cerebral arteries is normal and symmetric. The anterior communicat ing artery is not identified. 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 4 mm aneurysm with inferior-medial orientation is noted at the junction of the persistent right trigeminal artery and the right internal carotid artery which is stable compared to prior exam.. Visualized por tions of the vertebral arteries demonstrate normal caliber, and join to form a normal appearing basil ar artery. The flow within the posterior cerebral arteries is normal and symmetric. IMPRESSION: 1. Stable examination compared to 01/25/2021. 2. Stable postsurgical changes compatible with clipping and endovascular coiling of right ICA aneurys m. No evidence of residual or recurrent right ICA aneurysm. 3. 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 Reviewed by: Марина Scott MD, PhD on 01/19/2022 12:54 PM PDT Approved by: Марина Scott MD, PhD on 01/19/2022 12:54 PM PDT Station ID: [id number]
== END 2021-12-28 13:19 | disposition home or self-care (01) ==
LOC: DI 13:18
PROVIDERS: ATTEND Internal Medicine
DX: D35.2 Benign neoplasm of pituitary gland (principal); I67.1 Cerebral aneurysm, nonruptured

== ENCOUNTER 2022-03-16 13:56 | Emergency (ER) | payer MEDICARE, MEDICAID ==
--- NOTE | 2022-03-16 14:33 | ED Physician Documentation ---
History of Present Illness - Stated complaint Stated Complaint: FATIGUE - Chief complaint Chief Complaint: General - History obtained from History obtained from: Patient, Family - History of Present Illness Timing: How many weeks ago (2) - Additonal information Additional information: 62-year-old Sofie Garcia has a prior history of breast cancer Hodgkin's lymp levi and intracranial aneurysms. Over the past 2 weeks she has been experiencing fatigue and a headache on the right side. She states that it is difficult to quantitate or qualify her's symptoms but they are similar to what she has had previously with her last aneurysm. (2015). She has had a visit to the oncologist in January of this year for general follow up. Her last MRA of the brain was done early January this year and showed stable disease with 4mm untreated aneurysm. Review of Systems Constitutional: reports: Fatigue, Sweats. denies: Fever Eyes: denies: Decreased vision Ears: denies: Ear pain Nose: denies: Congestion Throat: denies: Sore throat Cardiac: denies: Chest pain / pressure, Palpitations GI: denies: Abdominal Pain, Vomiting, Diarrhea : denies: Dysuria, Frequency Skin: denies: Rash Musculoskeletal: denies: Extremity swelling Neurologic: denies: Generalized weakness, Focal weakness, Numbness PD PAST MEDICAL HISTORY - Past Medical History Cardiovascular: Hypertension, High cholesterol Respiratory: None, Sleep apnea Endocrine/Autoimmune: None GI: Colon polyps, Hemorrhoids SENIOR SITE MANAGER: None : None HEENT: None Psych: Anxiety Musculoskeletal: None Derm: None - Past Surgical History Past Surgical History: Yes General: Splenectomy, Colonoscopy /SENIOR SITE MANAGER: Mastectomy Neuro: Craniotomy HEENT: Tonsil/Adenoidectomy - Present Medications Home Medications: Ambulatory Orders Medication Instructions Recorded Confirmed Levothyroxine [Synthroid] 100 mcg PO DAILY 09/03/13 02/08/22 Rosuvastatin Calcium [Crestor] 40 mg PO DAILY 09/03/13 02/08/22 Venlafaxine [Effexor] 150 mg PO DAILY 09/03/13 02/08/22 Losartan [Cozaar] 50 mg PO DAILY 03/08/16 02/08/22 amLODIPine [Norvasc] 10 mg PO DAILY 03/08/16 02/08/22 hydroCHLOROthiazide 25 mg PO DAILY 03/08/16 02/08/22 [Hydrochlorothiazide] Metoprolol Tartrate 100 mg ORAL DAILY 06/24/17 02/08/22 - Allergies Allergies/Adverse Reactions: Allergies Allergy/AdvReac Type Severity Reaction Status Date / Time No Known Drug Allergies Allergy Verified 03/16/22 14:01 - Social History Does the pt smoke?: No Smoking Status: Never smoker Does the pt drink ETOH?: No Does the pt have substance abuse?: No - Immunizations Immunizations are current?: Yes - POLST Patient has POLST: No PD ED PE NORMAL - Vitals Vital signs reviewed: Yes (hypertensive mild) - General General: Alert and oriented X 3, No acute distress, Well developed/nourished, Other (speech latency and delay in execution of motor commands is not observed. ) - HEENT HEENT: Atraumatic, PERRL, EOMI - Neck Neck: Supple, no meningeal sign, No bony TTP - Cardiac Cardiac: RRR, Other (2/6 holosystolic murmer at LSB radiating right.) - Respiratory Respiratory: No respiratory distress, Clear bilaterally - Abdomen Abdomen: Soft, Non tender - Back Back: No CVA TTP, No spinal TTP - Derm Derm: Normal color, Warm and dry, No rash - Extremities Extremities: No deformity, No edema - Neuro Neuro: Alert and oriented X 3, blindmaker 2-12 intact, No motor deficit, No sensory deficit, Normal speech Eye Opening: Spontaneous Motor: Obeys Commands Verbal: Oriented GCS Score: 15 - Psych Psych: Normal mood, Normal affect Results - Vitals Vitals: Vital Signs - 24 hr 03/16/22 03/16/22 03/16/22 14:01 14:59 16:03 Temperature 36.8 C Heart Rate 90 85 Respiratory 16 18 Rate Blood Pressure 133/72 H 134/81 H O2 Saturation 96 94 03/16/22 03/16/22 18:00 18:14 Temperature Heart Rate 83 82 Respiratory 18 18 Rate Blood Pressure 142/75 H 142/75 H O2 Saturation 98 98 Oxygen O2 Source Room air - Labs Labs: Laboratory Tests 03/16/22 03/16/22 03/16/22 13:58 14:51 14:51 WBC 10.0 RBC 4.95 Hgb 14.6 Hct 42.6 MCV 86.1 MCH 29.5 MCHC 34.3 RDW 14.5 Plt Count 401 MPV 11.2 H Neut # (Auto) 4.7 Lymph # (Auto) 4.0 H [place] # (Auto) 1.1 H Eos # (Auto) 0.1 Baso # (Auto) 0.0 Absolute Nucleated RBC 0.00 Nucleated RBC % 0.0 Sodium 136 Potassium 3.6 Chloride 98 L Carbon Dioxide 26 Anion Gap 12.0 BUN 37 H Creatinine 1.2 H Estimated GFR (MDRD) 46 L Glucose 101 H Calcium 10.0 Total Bilirubin 0.8 AST 40 ALT 40 Alkaline Phosphatase 48 Total Protein < 3.0 L Albumin 4.1 Globulin -1.1 L Albumin/Globulin Ratio -3.7 L Lipase 30 Urine Color YELLOW Urine Clarity CLEAR Urine pH 6.0 Ur Specific [place] 1.020 Urine Protein NEGATIVE Urine Glucose (UA) NEGATIVE Urine Ketones NEGATIVE Urine Occult Blood NEGATIVE Urine Nitrite NEGATIVE Urine Bilirubin NEGATIVE Urine Urobilinogen 0.2 (NORMAL) Ur Leukocyte Esterase SMALL H Urine RBC None Seen Urine WBC 6-10 H Ur Squamous Epith Cells RARE Squamous Urine Bacteria Rare Urine Casts 0-2 Hyaline Casts Ur Microscopic Review INDICATED Urine Culture Comments INDICATED Procedures - IVC sono (time) 1438 Bedside IVC sono: IVC measures (cm) (2.01), IVC collapsed c insp (cm) (1.47), Euvolemia PD MEDICAL DECISION MAKING - ED course Complexity details: reviewed old records, reviewed results, re-evaluated patient, considered differential, d/w patient, d/w family ED course: 62 y/o female with chief complaint of fatigue and feeling like she did with prior aneurysm clipping has normal blood work and electrolytes and has mild elevation of her BUN present last month and worse this month. Her creatinine is high for her at 1.2. I considered dehydration as a possible explanation for her symptoms but on close inspection with interrogation of the IVC her volume appeared generous. She received contrast for the exam and she is administered IV saline, one liter bolus. We did obtain the brain angio which demonstrated stability of disease. Departure - Departure Disposition: 01 Home, Self Care Clinical Impression: Dehydration Condition: Stable Instructions: ED Dehydration Follow-Up: Donita Patrick MD [Primary Care Provider] - Comments: Silvia, today there was no evidence of a progression of your aneurysm disease. We did find mild elevations in your BUN and creatinine consistent with mild dehydration and we hydrated you after you received the contrast for the exam. We did find evidence of white blood cells in your urine and the urine is being cultured. Call your doctor on Sunday for a follow-up. Discharge Date/Time: 03/16/22 18:14
[2022-03-16 15:12] LABS: BILIRUBIN,URINE NEGATIVE (NEGATIVE); CLARITY,URINE CLEAR (CLEAR); GLUCOSE, URINE (UA) NEGATIVE (NEGATIVE); KETONES,URINE (UA) NEGATIVE (NEGATIVE); LEUKOCYTE ESTERASE, URINE SMALL (NEGATIVE); NITRITE,URINE NEGATIVE (NEGATIVE); OCCULT BLOOD,URINE NEGATIVE (NEGATIVE); PROTEIN,URINE NEGATIVE (NEGATIVE); UROBILINOGEN,URINE 0.2 (NORMAL) E.U./dL (NORMAL)
[2022-03-16 15:28] LABS: ALBUMIN 4.1 g/dL (3.2-5.5); ALBUMIN/GLOBULIN RATIO -3.7 (1.0-2.2); ALKALINE PHOSPHATASE 48 IU/L (42-121); ALT ALANINE AMINOTRANSFERASE 40 IU/L (10-60); AST ASPARTATE AMINOTRANSFERASE 40 IU/L (10-42); BILIRUBIN,TOTAL 0.8 mg/dL (0.2-1.0); BUN - BLOOD UREA NITROGEN 37 mg/dL (6-20); CARBON DIOXIDE - CO2 26 mmol/L (21-32); CHLORIDE 98 mmol/L (101-111); CREATININE 1.2 mg/dL (0.4-1.0); GFR - MDRD 46 (>89); GLUCOSE 101 mg/dL (70-100); LIPASE 30 U/L (22-51); POTASSIUM 3.6 mmol/L (3.5-5.0); SODIUM 136 mmol/L (135-145); TOTAL PROTEIN < 3.0 g/dL (6.7-8.2)
[2022-03-16 15:35] LABS: BASOPHILS % (AUTO) 0.4 %; EOSINOPHILS # (AUTO) 0.1 10^3/uL (0.0-0.7); EOSINOPHILS % (AUTO) 0.7 %; HCT - HEMATOCRIT 42.6 % (37.0-47.0); HGB - HEMOGLOBIN 14.6 g/dL (12.0-16.0); LYMPHOCYTES % (AUTO) 39.9 %; MEAN CORPUSCULAR HEMOGLOBIN 29.5 pg (27.0-31.0); MEAN CORPUSCULAR HGB CONC 34.3 g/dL (32.0-36.0); MEAN CORPUSCULAR VOLUME 86.1 fL (81.0-99.0); MEAN PLATELET VOLUME 11.2 fL (7.9-10.8); MONOCYTES # (AUTO) 1.1 10^3/uL (0.0-1.0); MONOCYTES % (AUTO) 11.1 %; NEUTROPHILS # (AUTO) 4.7 10^3/uL (1.5-6.6); NEUTROPHILS % (AUTO) 47.4 %; PLT - PLATELET COUNT 401 10^3/uL (130-450); RED BLOOD COUNT 4.95 10^6/uL (4.20-5.40); RED CELL DISTRIBUTION WIDTH 14.5 % (12.0-15.0)
[2022-03-16 15:43] LABS: BACTERIA,URINE Rare /HPF (None Seen); RBC,URINE None Seen /HPF (0-5); SQUAMOUS EPITHELIAL CELL,UR RARE Squamous (<= Few)
[2022-03-16 15:44] LABS: CASTS, URINE 0-2 Hyaline Casts /LPF
[2022-03-16] MEDS ORDERED: SODIUM CHLORIDE 0.9% 1,000 ML IV STA (16:13)
--- NOTE | 2022-03-16 17:12 | CT Report ---
PROCEDURE: CT angiogram brain with contrast, CT brain without contrast INDICATIONS: headache, fatigue, hx/o aneurysm CONTRAST: IV CONTRAST: Optiray 320 ml: 80 PO CONTRAST: *NO PO CONTRAST TECHNIQUE: Precontrast 4.5 mm thick angled axial sections acquired from the foramen magnum to the vertex. Afte r the administration of intravenous contrast, 1 mm thick sections acquired through the [place] of [place] is. Postcontrast 4.5 mm thick sections then re-acquired from the foramen magnum to the vertex. For radiation dose reduction, the following was used: automated exposure control, adjustment of mA and/o r kV according to patient size. COMPARISON: Multiple prior exams including MR angiogram 12/28/2021 FINDINGS: Image quality: Excellent. Anterior circulation: Aneurysm coil noted in the suprasellar cistern associated with aneurysm clip as well. The right supra clinoid aneurysm is prominent, similar prior. Left supraclinoid ICA is absent. There is a reconstitut ion of flow of the left supraclinoid artery through both the posterior and anterior communicating art eries. The flow within the middle cerebral arteries is normal and symmetric. The anterior communicat ing artery is seen. No aneurysms are seen. 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 Inferiorly oriented 4 mm aneurysm arising from the undersurface o f the PHOTOCOMPOSING KEYBOARD OPERATOR at the level of the dorsum sellae is again noted, stable from the prior. The vertebral and proximal basilar artery are diminutive but patent, unchanged. CSF spaces: Ventricles are normal in size and shape. Basal cisterns are patent. No extra-axial flu id collections. Brain: Atrophy and multifocal white matter chronic ischemic change is noted with cystic encephalomala radhika in the left frontal and lateral right foraminal cortex. Additional small infarct noted in the lef t pelvis. There is erosion of the left aspect of the clivus associated with cavernous sinus meningiom a, stable from the prior Nodule. No intracranial hemorrhage or mass lesion. Skull and face: Right-sided pterional craniotomy as well as a right-sided additional prior parietal c raniotomy secured by round and square plates noted. Intraocular lens replacements noted IMPRESSION: 1. Stable CT brain. Prior right-sided craniotomies associated with multifocal cortical infarcts are u nchanged from the prior. No intracranial hemorrhage or mass effect. 2. Supraclinoid aneurysm clip and coil also remains unchanged in prior. 3. Persistent right PHOTOCOMPOSING KEYBOARD OPERATOR and associated 4 mm aneurysm is also stable from prior MR angiogram 12/28/2021 4. Unchanged absent left infraclinoid ICA with reconstitution Reviewed by: Gordo Harris MD on 03/16/2022 4:10 PM AKDT Approved by: Gordo Harris MD on 03/16/2022 4:10 PM AKDT Station ID: [id number]
[2022-03-16 18:03] VITALS: BP 142/75
== END 2022-03-16 18:14 | disposition home or self-care (01) ==
LOC: ED 13:56
DX: E86.0 Dehydration (principal); Z85.3 Personal history of malignant neoplasm of breast; Z85.71 Personal history of Hodgkin lymphoma; I10 Essential (primary) hypertension; G47.30 Sleep apnea, unspecified; E78.00 Pure hypercholesterolemia, unspecified; F41.9 Anxiety disorder, unspecified; Z86.79 Personal history of other diseases of the circulatory system
CPT/HCPCS: 36415; 70496; 80053; 81001; 83690; 85025; 87086; 96360; 99284; Q9967; 81003

== ENCOUNTER 2022-03-29 16:07 | Outpatient (CLI) | payer MEDICARE, MEDICAID | END 2022-03-29 16:08 | disposition home or self-care (01) | LOC: LAB 16:07 | PROVIDERS: ATTEND Internal Medicine | DX: I35.0 Nonrheumatic aortic (valve) stenosis (principal); R01.1 Cardiac murmur, unspecified; G47.00 Insomnia, unspecified; R61 Generalized hyperhidrosis | CPT/HCPCS: 87040 ==

== ENCOUNTER 2022-04-28 10:00 | Outpatient (CLI) | payer MEDICARE | END 2022-04-28 10:01 | disposition home or self-care (01) | LOC: LAB.N 10:00 | PROVIDERS: ATTEND Internal Medicine | DX: Z53.9 Procedure and treatment not carried out, unspecified reason (principal) ==

== ENCOUNTER 2022-05-03 14:55 | Outpatient (CLI) | payer MEDICARE, MEDICAID ==
[2022-05-03 15:26] VITALS: BP 124/74
--- NOTE | 2022-05-03 15:26 | SLEEP CARE CONSULTATION ---
Information from patient questionnaire entered by Huma Spence. I have reviewed and concur with the information entered by Huma Spence. This document represents the service I personally performed and the decisions made by me, Mojgan Salcedo ARNP. History of Present Illness Service Date and Time: 05/03/2022 1455 Previous diagnosis: Severe, Obstructive Sleep Apnea-Hypopnea Syndrome AHI: 31.2 (in 08/2020) Reason for follow up: three month (F/U RESMED) Equipment type: CPAP (RESMED) Equipment obtained from: Other ([facility]; getting supplies as needed) Mask style: Full face Backup mask available: Yes (other mask) Prior sleep studies: Yes Year and Where: - [facility]; 2005 - [facility] in [place], [place] Type of Sleep Study: Home sleep study HPI additional information: ALICIA ZHOU was diagnosed to have severe, AHI 31.2, obstructive sleep apnea- hypopnea syndrome and returned today for CPAP therapy three month follow-up. Sleep Study - Results Type of Sleep Study: Home sleep study Prior sleep studies: Yes Year and Where: - [facility]; 2005 - [facility] in [place], [place] CPAP Compliance Data - Data Reviewed with Patient Average duration of nightly device use: 1 hours 53 minutes Compliance rate %: 1 ( days used) Current pressure setting (cmH2O): 4-9 Average residual AHI: 0.9 Central apnea: 0.0 Obstructive apnea: 0.3 Average large leak: 0.0 Subjective Missed days of use due to: reports: other (forget to put on because so tired) Patient concerns: denies: aerophagia, mask discomfort, air blowing in eyes, mask leak noise, nasal congestion, dry mouth, nose, throat, epistaxis Observed to snore while using device: No Current pressure setting perceived as: comfortable On therapy, patient: reports: sleeping better, awakening more refreshed, being more awake and alert during the day, more rested overall. denies: drowsiness while driving Initial [place] Sleepiness Scale score: 0 (in 2014) Current [place] Sleepiness Scale score: 0 (05/03/2022) Allergies and Home Medications Drug allergies reviewed: Yes (NKDA) Home medication list reviewed: Yes Review of Systems Review of systems same as previous: Yes (no changes) Physical Exam Vital signs obtained and entered by: HUMA Marr MA Blood Pressure: 124/74 Heart Rate: 92 O2 Saturation: 96 Height: 5 ft 7 in Weight: 235 lb Weight change since last visit: 13 lb loss according to pt Body Mass Index: 36.8 BMI Classification: Obese Impression and Plan 1. Obstructive Sleep Apnea-Hypopnea Syndrome, severe, with poor treatment compliance and good apnea control. On CPAP therapy, the patient has better sleep quality and is more rested overall. Patient has significant improvement of her sleep apnea when she uses her CPAP. 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 I advised her to try putting the mask on her pillow to remind her to put the mask on. She voiced understanding and agreement. Patient's apnea severity and rationale for treatment to reduce apnea, improve sleep quality and reduce cardiovascular and cerebrovascular events was reviewed. I also reviewed the benefit of consistent device use of CPAP for hypertension, cardiac disease and arrhythmia. 2. Obesity, unspecified. Currently patients BMI is 36.8. She has been exercising regularly at [employer] and working hard [email or web address]. She states she is trying to lose weight and has measured a 13 lb loss this year. She is working with her PCP to see why she cannot lose weight better. I advised her that using her CPAP machine regularly will help her to lose weight. She voiced understanding. Obesity increases the risk of apnea, CPAP pressure requirements and overall health risks especially cardiovascular and diabetes. Thus patient is advised to continue to try to lose weight. * Continue auto CPAP pressure at 4-9 cmH2O * Notify me if snoring with mask or feeling that the pressure is too much or too little * Attempt to lose weight * Call this office if any problems using CPAP * Return for follow up in 3 months, or sooner if concerns arise Counseling Topics: Spare mask, Weight loss health impact Visit Type: In Office Time Spent with Patient (minutes): 20 Provider Statement: I spent 100% of the Face to Face Visit with the patient with greater than 50% spent counseling the patient and coordination of care.
== END 2022-05-03 14:56 | disposition home or self-care (01) ==
LOC: SC 14:55
PROVIDERS: ATTEND Nurse Practitioner Family
DX: G47.33 Obstructive sleep apnea (adult) (pediatric) (principal); E66.9 Obesity, unspecified; Z68.36 Body mass index [BMI] 36.0-36.9, adult
CPT/HCPCS: 99213; G0463; 99212

== ENCOUNTER 2022-08-23 09:46 | Outpatient (CLI) | payer MEDICARE, MEDICAID ==
[~2022-08-23 09:46] MED LIST: LIDOCAINE-MPF 1% 5 ML VIAL ONE
--- NOTE | 2022-08-23 14:52 | Ultrasound Report ---
PROCEDURE: Head or Neck Soft Tissue INDICATIONS: THYROID NODULE TECHNIQUE: Real time scanning was performed of the neck region of interest, with image documentation . COMPARISON: 07/31/2022 and 12/28/2021. FINDINGS:. Compared to previous study, previously described mildly suspicious nodule in right thyroid lobe now m easures 2 x 2 x 1.4 cm in size compared to 2.3 x 1.7 x 1.8 cm on previous study and 2 x 1.7 x 1.6 cm in size on 12/28/2021 study. No neck soft tissue lymphadenopathy is seen. IMPRESSION: 2 x 2 x 1.4 cm mildly suspicious right thyroid lobe nodule smaller compared to most recent ultrasound study and is stable compared to 12/28/2021 study. Continued ultrasound follow-up in 1 year is recomme nded. No fine-needle aspiration is indicated at this time. Reviewed by: Redd Rosales MD on 08/23/2022 2:51 PM PST Approved by: Redd Rosales MD on 08/23/2022 2:51 PM PST Station ID: [id number]
== END 2022-08-23 09:47 | disposition home or self-care (01) ==
LOC: DI 09:46
PROVIDERS: ATTEND Internal Medicine
DX: E04.1 Nontoxic single thyroid nodule (principal)

== ENCOUNTER 2022-08-26 18:03 | Inpatient (IN) | payer MEDICARE, MEDICAID ==
[2022-08-26] MEDS ORDERED: METOPROLOL 5 MG/5 ML VIAL IVP STA (18:58)
--- NOTE | 2022-08-26 18:59 | ED Physician Documentation ---
History of Present Illness - Stated complaint Stated Complaint: SOA/SWELLING ON NECK - Chief complaint Chief Complaint: Resp - History obtained from History obtained from: Patient - History of Present Illness Timing: Today Pain level max: 0 Pain level now: 0 - Additonal information Additional information: 62-year-old female presents to the emergency department stating that she has had shortness of breath for the past several weeks. She states she has felt generally unwell. She has a cyst on the right thyroid that she has been followed for. An ultrasound of this 2 days ago. She states that she has not had any fevers. Does have a mild occasional cough. No change to her medications. She states that she has had different types of cancers since she was about 15 years old. She states that she has had brain aneurysms. She states that she has never had atrial fibrillation or any irregular heartbeat. No chest pain. No abdominal pain. No nausea or vomiting. She states that she does not see a ultrasound specialist. She does have an oncologist and states that she has a vascular surgeon that she follows with for her aneurysms. Review of Systems Constitutional: denies: Fever, Chills Cardiac: denies: Chest pain / pressure, Palpitations Respiratory: denies: Wheezing GI: denies: Abdominal Pain, Nausea, Vomiting, Diarrhea Skin: denies: Rash Musculoskeletal: denies: Neck pain Neurologic: denies: Headache PD PAST MEDICAL HISTORY - Past Medical History Cardiovascular: Hypertension, High cholesterol Respiratory: None, Sleep apnea Endocrine/Autoimmune: None GI: Colon polyps, Hemorrhoids MANAGER SIMULATION: None : None HEENT: None Psych: Anxiety Musculoskeletal: None Derm: None - Past Surgical History Past Surgical History: Yes General: Splenectomy, Colonoscopy /MANAGER SIMULATION: Mastectomy Neuro: Craniotomy HEENT: Tonsil/Adenoidectomy - Present Medications Home Medications: Ambulatory Orders Medication Instructions Recorded Confirmed Levothyroxine [Synthroid] 100 mcg PO DAILY 09/03/13 08/26/22 Rosuvastatin Calcium [Crestor] 40 mg PO DAILY 09/03/13 08/26/22 Venlafaxine [Effexor] 150 mg PO DAILY 09/03/13 08/26/22 Losartan [Cozaar] 50 mg PO DAILY 03/08/16 08/09/22 amLODIPine [Norvasc] 10 mg PO DAILY 03/08/16 08/09/22 hydroCHLOROthiazide 25 mg PO DAILY 03/08/16 08/26/22 [Hydrochlorothiazide] Metoprolol Tartrate 100 mg ORAL DAILY 06/24/17 08/09/22 Apixaban [Eliquis] 5 mg ORAL BID 08/26/22 08/26/22 Fenofibrate Nanocrystallized 145 mg PO DAILY 08/26/22 08/26/22 [Tricor] - Allergies Allergies/Adverse Reactions: Allergies Allergy/AdvReac Type Severity Reaction Status Date / Time No Known Drug Allergies Allergy Verified 08/26/22 18:25 - Social History Does the pt smoke?: No Smoking Status: Never smoker Does the pt drink ETOH?: No Does the pt have substance abuse?: No - Immunizations Immunizations are current?: Yes - POLST Patient has POLST: No PD ED PE NORMAL - Vitals Vital signs reviewed: Yes - General General: Alert and oriented X 3, No acute distress - HEENT HEENT: PERRL, Moist mucous membranes - Neck Neck: Supple, no meningeal sign - Cardiac Cardiac: Other (Irregular, tachycardic) - Respiratory Respiratory: No respiratory distress, Clear bilaterally - Abdomen Abdomen: Soft, Non tender, Non distended - Derm Derm: Warm and dry, No rash - Extremities Extremities: No edema, No calf tenderness / cord - Neuro Neuro: Alert and oriented X 3 - Psych Psych: Normal mood, Normal affect Results - Vitals Vitals: Vital Signs - 24 hr 08/26/22 08/26/22 08/26/22 18:13 20:28 21:27 Temperature 37.3 C Heart Rate 78 145 H 131 H Respiratory 40 H 26 H 26 H Rate Blood Pressure 143/72 H 154/118 H 137/99 H O2 Saturation 96 92 97 08/26/22 08/26/22 08/26/22 22:04 22:08 22:25 Temperature Heart Rate 159 H 153 H 143 H Respiratory 27 H 24 Rate Blood Pressure 120/89 H 108/92 H 115/57 L O2 Saturation 96 96 Oxygen O2 Source Room air - EKG (time done) 1841 Rate: Rate (enter#) (166) Rhythm: Atrial fibrillation (w RVR) [place]: Anterior hemiblock (LAFB) Intervals: RBBB Ischemia: Other (LVH with repol) Compare to prior EKG: Old EKG unavailable - Labs Labs: Laboratory Tests 08/26/22 08/26/22 08/26/22 18:45 18:45 18:45 WBC 11.5 H RBC 4.48 Hgb 12.6 Hct 39.5 MCV 88.2 MCH 28.1 MCHC 31.9 L RDW 17.9 H Plt Count 450 MPV 12.6 H Neut # (Auto) 7.5 H Lymph # (Auto) 2.9 [place] # (Auto) 1.0 Eos # (Auto) 0.0 Baso # (Auto) 0.0 Absolute Nucleated RBC 0.52 Nucleated RBC % 4.5 Sodium 133 L Potassium 4.1 Chloride 97 L Carbon Dioxide 21 Anion Gap 15.0 H BUN 68 H Creatinine 1.8 H Estimated GFR (MDRD) 29 L Glucose 104 H Calcium 9.6 Total Bilirubin 1.6 H AST 97 H ALT 82 H Alkaline Phosphatase 119 Troponin I High Sens 61.6 H* Total Protein 6.9 Albumin 3.1 L Globulin 3.8 Albumin/Globulin Ratio 0.8 L Lipase 54 H Nasal Adenovirus (PCR) Nasal B. parapertussis DNA (PCR) Nasal Coronavir 229E PCR Nasal Coronavir HKU1 PCR Nasal Coronavir NL63 PCR Nasal Coronavir OC43 PCR Nasal Enterovir/Rhinovir PCR Nasal Influenza B PCR Nasal Influenza A PCR Nasal Parainfluen 1 PCR Nasal Parainfluen 2 PCR Nasal Parainfluen 3 PCR Nasal Parainfluen 4 PCR Nasal RSV (PCR) Nasal B.pertussis DNA PCR Nasal C.pneumoniae (PCR) Sunny Human Metapneumo PCR Nasal M.pneumoniae (PCR) Nasal SARS-CoV-2 (PCR) 08/26/22 19:45 WBC RBC Hgb Hct MCV MCH MCHC RDW Plt Count MPV Neut # (Auto) Lymph # (Auto) [place] # (Auto) Eos # (Auto) Baso # (Auto) Absolute Nucleated RBC Nucleated RBC % Sodium Potassium Chloride Carbon Dioxide Anion Gap BUN Creatinine Estimated GFR (MDRD) Glucose Calcium Total Bilirubin AST ALT Alkaline Phosphatase Troponin I High Sens Total Protein Albumin Globulin Albumin/Globulin Ratio Lipase Nasal Adenovirus (PCR) NOT DETECTED Nasal B. parapertussis DNA (PCR) NOT DETECTED Nasal Coronavir 229E PCR NOT DETECTED Nasal Coronavir HKU1 PCR NOT DETECTED Nasal Coronavir NL63 PCR NOT DETECTED Nasal Coronavir OC43 PCR NOT DETECTED Nasal Enterovir/Rhinovir PCR NOT DETECTED Nasal Influenza B PCR NOT DETECTED Nasal Influenza A PCR NOT DETECTED Nasal Parainfluen 1 PCR NOT DETECTED Nasal Parainfluen 2 PCR NOT DETECTED Nasal Parainfluen 3 PCR NOT DETECTED Nasal Parainfluen 4 PCR NOT DETECTED Nasal RSV (PCR) NOT DETECTED Nasal B.pertussis DNA PCR NOT DETECTED Nasal C.pneumoniae (PCR) NOT DETECTED Sunny Human Metapneumo PCR NOT DETECTED Nasal M.pneumoniae (PCR) NOT DETECTED Nasal SARS-CoV-2 (PCR) NOT DETECTED - Rads (name of study) Chest x-ray Radiology: Final report received, See rad report PD Medical Decision Making - ED course Complexity details: reviewed results, re-evaluated patient, considered differential, d/w patient, d/w national sales consultant ED course: Patient with what appears to be new onset atrial fibrillation with rapid ventricular response. She initially was given 3 doses of IV metoprolol. Heart rate did decrease slightly but maintained in rapid ventricular response. She was then given a gram of procainamide, she did not convert back to sinus. She was then started on a diltiazem drip. She is on Eliquis for anticoagulation. We did discuss cardioversion, but she declines this. Her CBC is significant for a mild leukocytosis, white blood cell count 11.5. History is significant for a cute renal insufficiency. 1.8, baseline is around 0.8-1. BUN also elevated at 68. She was given 1 L of IV fluid. She has had mild elevations in her LFTs before, no significant changes in this. Her high sensitive troponin was minimally elevated, likely due to the prolonged atrial fibrillation with rapid intraocular response that she has been in likely for the past several weeks causing her to feel generally unwell. No chest pain. No evidence of acute coronary syndrome. We will admit the patient for further care on a diltiazem drip. Discussed the case with the hospitalist who accepts. This document was made in part using voice recognition software. While efforts are made to proofread this document, sound alike and grammatical errors may occur. Departure - Departure Disposition: 66 [facility] DC/Xfer Clinical Impression: Atrial fibrillation with RVR, New onset atrial fibrillation, Acute renal i nsufficiency Condition: Stable
[2022-08-26 19:09] LABS: EOSINOPHILS % (AUTO) 0.1 %; NUCLEATED RED BLOOD CELLS AUTO 4.5 /100WBC
[2022-08-26] MEDS ORDERED: METOPROLOL 5 MG/5 ML VIAL IVP ONE (19:09)
[2022-08-26 19:12] LABS: BASOPHILS % (AUTO) 0.2 %; HCT - HEMATOCRIT 39.5 % (37.0-47.0); HGB - HEMOGLOBIN 12.6 g/dL (12.0-16.0); LYMPHOCYTES # (AUTO) 2.9 10^3/uL (1.5-3.5); LYMPHOCYTES % (AUTO) 25.2 %; MEAN CORPUSCULAR HEMOGLOBIN 28.1 pg (27.0-31.0); MEAN CORPUSCULAR HGB CONC 31.9 g/dL (32.0-36.0); MEAN CORPUSCULAR VOLUME 88.2 fL (81.0-99.0); MEAN PLATELET VOLUME 12.6 fL (7.9-10.8); MONOCYTES % (AUTO) 8.9 %; NEUTROPHILS # (AUTO) 7.5 10^3/uL (1.5-6.6); NEUTROPHILS % (AUTO) 64.7 %; NRBC ABSOLUTE COUNT (AUTO) 0.52 x10^3/uL; PLT - PLATELET COUNT 450 10^3/uL (130-450); RED BLOOD COUNT 4.48 10^6/uL (4.20-5.40); RED CELL DISTRIBUTION WIDTH 17.9 % (12.0-15.0); WHITE BLOOD COUNT 11.5 x10^3/uL (4.8-10.8)
[2022-08-26 19:20] LABS: ALBUMIN 3.1 g/dL (3.2-5.5); ALBUMIN/GLOBULIN RATIO 0.8 (1.0-2.2); BILIRUBIN,TOTAL 1.6 mg/dL (0.2-1.0); CALCIUM 9.6 mg/dL (8.5-10.3); CREATININE 1.8 mg/dL (0.4-1.0); POTASSIUM 4.1 mmol/L (3.5-5.0); TOTAL PROTEIN 6.9 g/dL (6.7-8.2)
--- NOTE | 2022-08-26 19:34 | XRAY Report ---
PROCEDURE: Chest 1 View X-Ray INDICATIONS: Chest Pain TECHNIQUE: One view of the chest was acquired. COMPARISON: CXR 12/24/2018. FINDINGS: Surgical changes and devices: Left axillary clips. Right axilla clips. Clips in the left upper abdom en. Lungs and pleura: No pleural effusions or pneumothorax. No consolidation. Mediastinum: Mediastinal contours appear normal. Heart size is prominent. Bones and chest wall: No suspicious bony lesions. Overlying soft tissues appear unremarkable. IMPRESSION: No acute cardiopulmonary abnormality identified. Reviewed by: Hugh Torres MD on 08/26/2022 7:33 PM PST Approved by: Hugh Torres MD on 08/26/2022 7:33 PM PST Station ID: [id number]
[2022-08-26] MEDS ORDERED: PROCAINAMIDE 1,000 MG in SODIUM CHLORIDE 0.9% 240 ML IV STA (19:43)
[2022-08-26] MEDS ORDERED: PROCAINAMIDE 1,000 MG/10 ML SYRINGE ONE (19:58)
[2022-08-26 20:54] LABS: B. PARAPERTUSSIS- RESP PCR PAN NOT DETECTED; B. PERTUSSIS- RESP PCR PANEL NOT DETECTED; C. PNEUMONIAE- RESP PCR PANEL NOT DETECTED; CORONAVIRUS 229E-RESP PCR NOT DETECTED; CORONAVIRUS HKU1-RESP PCR NOT DETECTED; CORONAVIRUS NL63-RESP PCR NOT DETECTED; CORONAVIRUS OC43-RESP PCR NOT DETECTED; HUMAN METAPNEUMOVIRUS NOT DETECTED; INFLUENZA A- RESP PCR PANEL NOT DETECTED; INFLUENZA B - RESP PCR PANEL NOT DETECTED; M. PNEUMONIAE- RESP PCR PANEL NOT DETECTED; PARAINFLUENZA VIRUS 1 NOT DETECTED; PARAINFLUENZA VIRUS 2 NOT DETECTED; PARAINFLUENZA VIRUS 3 NOT DETECTED; PARAINFLUENZA VIRUS 4 NOT DETECTED; RHINOVIRUS/ENTEROVIRUS NOT DETECTED; RSV- RESP PCR PANEL NOT DETECTED; SARS-CoV-2 -RESP PCR PANEL NOT DETECTED
[2022-08-26] MEDS ORDERED: SODIUM CHLORIDE 0.9% 1,000 ML IV STA (20:57)
[2022-08-26] MEDS ORDERED: diltiaZEM INJ 125 MG in DEXTROSE 5% 100 ML IV STA ×2 (21:27→23:39)
[2022-08-26] MEDS ORDERED: diltiaZEM INJ 5 MG/ML VIAL ONE ×2 (21:46→21:48)
[2022-08-26] MEDS ORDERED: ONDANSETRON 4 MG/2 ML VIAL IVP PRN (21:53)
--- NOTE | 2022-08-26 22:15 | HISTORY & PHYSICAL EXAMINATION ---
Chief Complaint - Chief Complaint Chief Complaint: Swelling in neck History of Present Illness - History of Present Illness HPI Comment/Other: 62 y old female with PMH HTN, HLP, Hypothyroidism, sleep apnea, Non-hodgkins lumphoma, breast cancer s/p mastectomy, A fib on Eliquis, came to the ER with c/o swelling in right side of neck for 3 wks.As per pt, she saw her PCP who ordered ultrasound and possible biopsy but not done yet. Denies palpitaions, chest pain, SOB, fever, BARNES, N/V/D , symptoms On presentation, patient was in A fib with RVR. 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 : reports: None HEENT: reports: None Psych: reports: Anxiety Musculoskeletal: reports: None Derm: reports: None MRSA Hx?: No - Past Surgical History General: reports: Splenectomy, Colonoscopy /FIRE EQUIPMENT REPAIRER INSPECTOR: reports: Mastectomy Neuro: reports: Craniotomy HEENT: reports: Tonsil/Adenoidectomy - POLST Patient has POLST: No Meds/Allgy - Home Medications Home Medications: Ambulatory Orders Medication Instructions Recorded Confirmed Levothyroxine [Synthroid] 100 mcg PO DAILY 09/03/13 08/26/22 Rosuvastatin Calcium [Crestor] 40 mg PO DAILY 09/03/13 08/26/22 Venlafaxine [Effexor] 150 mg PO DAILY 09/03/13 08/26/22 Losartan [Cozaar] 50 mg PO DAILY 03/08/16 08/09/22 amLODIPine [Norvasc] 10 mg PO DAILY 03/08/16 08/09/22 hydroCHLOROthiazide 25 mg PO DAILY 03/08/16 08/26/22 [Hydrochlorothiazide] Metoprolol Tartrate 100 mg ORAL DAILY 06/24/17 08/09/22 Apixaban [Eliquis] 5 mg ORAL BID 08/26/22 08/26/22 Fenofibrate Nanocrystallized 145 mg PO DAILY 08/26/22 08/26/22 [Tricor] - Allergies Allergies/Adverse Reactions: Allergies Allergy/AdvReac Type Severity Reaction Status Date / Time No Known Drug Allergies Allergy Verified 08/26/22 18:25 Review of Systems - Ears, Nose & Throat Ears, Nose & Throat: reports: Other (Swelling in right side of neck) - Other Findings Other Findings: 12 point systems were reviewed and were negative except mentioned in HPI Exam - Vital Signs Vital Signs: Vital Signs x48h Temp Pulse Resp BP Pulse Ox 08/26/22 22:04 159 H 27 H 120/89 H 96 08/26/22 21:27 131 H 26 H 137/99 H 97 08/26/22 20:28 145 H 26 H 154/118 H 92 08/26/22 18:13 37.3 C 78 40 H 143/72 H 96 - Physical Exam General Appearance: positive: No acute distress, Alert Eyes Bilateral: positive: Normal inspection Respiratory: positive: Chest non-tender, No respiratory distress Cardiovascular: positive: Irregularly irregular, Tachycardia Abdomen: positive: Non-tender, Nml bowel sounds Skin: positive: No rash Extremities: positive: No pedal edema Neurologic/Psychiatric: positive: Oriented x3, Motor nml Conclusion/Plan - Lab Results Fish Bones: 08/26/22 18:45 08/26/22 18:45 - Other Other Results/Comments: A; Afib with RVR Swelling in right side of neck ? Enlarged lymph node Elevated Trop could be due to A fib with RVR Leukocytosis ROSI Dehydration Abnormal LFT HTN HLP Hypothyroidism H/O A Fib on Eliquis H/O Non-Hodgkin lymphome H/O breast cancer s/p mastectomy Plan: Admit in ICU Cont cardizem gtt Continuous cardiac monitoring Seriel cardiac enzymes Echo TSH Cont Eliquis Ultrasound of neck and possible biopsy of neck mass as outpatient NS @100 cc/h Monitor I/O, electrolytes Monitor LFT Hold crestor Cont metoprolol Hold losartan and amlodipine Cont levothyroxin Supportive care DVT prophylaxic: On Eliquis. SCD Full code Patient will be admitted as inpatient as more than 2 midnight stay is expected
[2022-08-26] MEDS: SODIUM CHLORIDE 0.9% 1,000 ML IV SCH (23:18)
[2022-08-26] MEDS ORDERED: diltiaZEM INJ 125 MG in DEXTROSE 5% 100 ML IV SCH (23:45)
[2022-08-27] MEDS: SODIUM CHLORIDE FLUSH 0.9% 10 ML SYRINGE IVP SCH ×3 (01:08→17:40)
[2022-08-27] MEDS ORDERED: ZOLPIDEM 5 MG TABLET PO ONE (02:00)
[2022-08-27] MEDS ORDERED: METOPROLOL 5 MG/5 ML VIAL IVP ONE ×3 (02:09→17:10)
[2022-08-27] MEDS ORDERED: AMIODARONE 360 MG/200 ML 200 ML IV ONE (02:30)
[2022-08-27] MEDS ORDERED: AMIODARONE 150 MG/100 ML 100 ML IV ONE (02:30)
[2022-08-27 04:59] LABS: BASOPHILS % (AUTO) 0.2 %; EOSINOPHILS % (AUTO) 0.1 %; HCT - HEMATOCRIT 40.1 % (37.0-47.0); HGB - HEMOGLOBIN 12.7 g/dL (12.0-16.0); LYMPHOCYTES % (AUTO) 21.9 %; MEAN CORPUSCULAR HEMOGLOBIN 28.5 pg (27.0-31.0); MEAN CORPUSCULAR HGB CONC 31.7 g/dL (32.0-36.0); MEAN CORPUSCULAR VOLUME 90.1 fL (81.0-99.0); MEAN PLATELET VOLUME 12.8 fL (7.9-10.8); MONOCYTES # (AUTO) 1.4 10^3/uL (0.0-1.0); MONOCYTES % (AUTO) 10.3 %; NEUTROPHILS % (AUTO) 66.8 %; NRBC ABSOLUTE COUNT (AUTO) 0.61 x10^3/uL; NUCLEATED RED BLOOD CELLS AUTO 4.5 /100WBC; PLT - PLATELET COUNT 425 10^3/uL (130-450); RED BLOOD COUNT 4.45 10^6/uL (4.20-5.40); RED CELL DISTRIBUTION WIDTH 17.9 % (12.0-15.0); WHITE BLOOD COUNT 13.5 x10^3/uL (4.8-10.8)
[2022-08-27 05:00] LABS: CALCIUM, IONIZED 1.09 mmol/L (1.15-1.33); VBG PH 7.331 (7.31-7.41)
[2022-08-27 05:08] LABS: MAGNESIUM 1.9 mg/dL (1.7-2.8); PHOSPHORUS 4.5 mg/dL (2.5-4.6)
[2022-08-27 05:36] LABS: CREATININE 1.7 mg/dL (0.4-1.0); POTASSIUM 3.7 mmol/L (3.5-5.0)
[2022-08-27] MEDS: LEVOTHYROXINE 100 MCG TABLET PO SCH ×2 (06:11→08:22)
[2022-08-27] MEDS ORDERED: POTASSIUM CHLORIDE 20 MEQ TABLET PO ONE ×2 (07:32→19:26)
[2022-08-27] MEDS: CALCIUM CARBONATE CHEW 500 MG TABLET PO SCH ×3 (08:15→20:07)
[2022-08-27] MEDS: DOCUSATE SODIUM 250 MG CAPSULE PO SCH (08:22)
[2022-08-27] MEDS: SENNA 8.6 MG TABLET PO SCH (08:22)
[2022-08-27] MEDS: polyethylene glycoL 3350 17 GM PACKET PO SCH (08:24)
[2022-08-27] MEDS: AMIODARONE 360 MG/200 ML 200 ML IV SCH ×2 (08:26→21:09)
[2022-08-27] MEDS: APIXABAN 2.5 MG TABLET PO SCH ×2 (08:33→21:07)
--- NOTE | 2022-08-27 08:38 | PROVIDER PROGRESS NOTE ---
Subjective - Subjective Pt reports feeling: No change Subjective: She still feels orthopneic, hears wheezes and feels weak. No CP, no c/o feeling palpitations, despite HR 120-150. Objective - Vital Signs/Intake & Output Reviewed Vital Signs: Yes Vital Signs: Vital Signs Temp Pulse Resp BP Pulse Ox O2 Flow Rate 08/27/22 07:00 120 H 25 H 133/84 H 98 2 08/27/22 06:00 130 H 37 H 122/103 H 99 2 08/27/22 05:00 36.5 C 117 H 33 H 114/101 H 95 Intake & Output: Intake & Output 08/24/22 08/25/22 08/26/22 08/27/22 23:59 23:59 23:59 23:59 Intake Total 1250 544 Output Total 1350 Balance 1250 -806 - Objective General Appearance: positive: No acute distress Eyes Bilateral: positive: Normal inspection, No lid inflammation ENT: positive: No signs of dehydration, Other (edentulous (from chemo)) Neck: positive: Other (Large, round mass on the right lateral neck (approximately 4 cm in diameter), nontender. JVP cannot be assessed because of this mass and her obesity.) Respiratory: positive: Wheezes, Rales Cardiovascular: positive: Irregularly irregular, Tachycardia, Systolic murmur Abdomen: positive: Non-tender, Nml bowel sounds, No distention Skin: positive: Warm, Dry Extremities: positive: Non-tender, No pedal edema Neurologic/Psychiatric: positive: Oriented x3, Motor nml - Lab Results Fish Bones: 08/27/22 04:47 08/27/22 04:47 Other Labs: Lab Results x24hrs 08/27/22 08/27/22 08/27/22 Range/Units 04:47 04:47 04:47 WBC (4.8-10.8) x10^3/uL RBC (4.20-5.40) 10^6/uL Hgb (12.0-16.0) g/dL Hct (37.0-47.0) % MCV (81.0-99.0) fL MCH (27.0-31.0) pg MCHC (32.0-36.0) g/dL RDW (12.0-15.0) % Plt Count (130-450) 10^3/uL MPV (7.9-10.8) fL Neut # (Auto) (1.5-6.6) 10^3/uL Lymph # (Auto) (1.5-3.5) 10^3/uL [place] # (Auto) (0.0-1.0) 10^3/uL Eos # (Auto) (0.0-0.7) 10^3/uL Baso # (Auto) (0.0-0.1) 10^3/uL Absolute Nucleated RBC x10^3/uL Nucleated RBC % /100WBC VBG pH 7.331 (7.31-7.41) Ionized Calcium 1.09 L (1.15-1.33) mmol/L Sodium 135 (135-145) mmol/L Potassium 3.7 (3.5-5.0) mmol/L Chloride 100 L (101-111) mmol/L Carbon Dioxide 17 L (21-32) mmol/L Anion Gap 18.0 H (6-13) BUN 63 H (6-20) mg/dL Creatinine 1.7 H (0.4-1.0) mg/dL Estimated GFR (MDRD) 31 L (>89) Glucose 119 H (70-100) mg/dL Calcium 9.0 (8.5-10.3) mg/dL Phosphorus 4.5 (2.5-4.6) mg/dL Magnesium 1.9 (1.7-2.8) mg/dL Total Bilirubin (0.2-1.0) mg/dL AST (10-42) IU/L ALT (10-60) IU/L Alkaline Phosphatase (42-121) IU/L Troponin I High Sens Total Protein (6.7-8.2) g/dL Albumin (3.2-5.5) g/dL Globulin (2.1-4.2) g/dL Albumin/Globulin Ratio (1.0-2.2) Lipase (22-51) U/L TSH (0.34-5.60) uIU/mL Nasal Adenovirus (PCR) Nasal B. parapertussis DNA (PCR) Nasal Coronavir 229E PCR Nasal Coronavir HKU1 PCR Nasal Coronavir NL63 PCR Nasal Coronavir OC43 PCR Nasal Enterovir/Rhinovir PCR Nasal Influenza B PCR Nasal Influenza A PCR Nasal Parainfluen 1 PCR Nasal Parainfluen 2 PCR Nasal Parainfluen 3 PCR Nasal Parainfluen 4 PCR Nasal RSV (PCR) Nasal Screen MRSA (PCR) (NEGATIVE) Nasal B.pertussis DNA PCR Nasal C.pneumoniae (PCR) Sunny Human Metapneumo PCR Nasal M.pneumoniae (PCR) Nasal SARS-CoV-2 (PCR) 08/27/22 08/27/22 08/26/22 Range/Units 04:47 00:45 22:45 WBC 13.5 H (4.8-10.8) x10^3/uL RBC 4.45 (4.20-5.40) 10^6/uL Hgb 12.7 (12.0-16.0) g/dL Hct 40.1 (37.0-47.0) % MCV 90.1 (81.0-99.0) fL MCH 28.5 (27.0-31.0) pg MCHC 31.7 L (32.0-36.0) g/dL RDW 17.9 H (12.0-15.0) % Plt Count 425 (130-450) 10^3/uL MPV 12.8 H (7.9-10.8) fL Neut # (Auto) 9.0 H (1.5-6.6) 10^3/uL Lymph # (Auto) 3.0 (1.5-3.5) 10^3/uL [place] # (Auto) 1.4 H (0.0-1.0) 10^3/uL Eos # (Auto) 0.0 (0.0-0.7) 10^3/uL Baso # (Auto) 0.0 (0.0-0.1) 10^3/uL Absolute Nucleated RBC 0.61 x10^3/uL Nucleated RBC % 4.5 /100WBC VBG pH (7.31-7.41) Ionized Calcium (1.15-1.33) mmol/L Sodium (135-145) mmol/L Potassium (3.5-5.0) mmol/L Chloride (101-111) mmol/L Carbon Dioxide (21-32) mmol/L Anion Gap (6-13) BUN (6-20) mg/dL Creatinine (0.4-1.0) mg/dL Estimated GFR (MDRD) (>89) Glucose (70-100) mg/dL Calcium (8.5-10.3) mg/dL Phosphorus (2.5-4.6) mg/dL Magnesium (1.7-2.8) mg/dL Total Bilirubin (0.2-1.0) mg/dL AST (10-42) IU/L ALT (10-60) IU/L Alkaline Phosphatase (42-121) IU/L Troponin I High Sens 64.2 H* Total Protein (6.7-8.2) g/dL Albumin (3.2-5.5) g/dL Globulin (2.1-4.2) g/dL Albumin/Globulin Ratio (1.0-2.2) Lipase (22-51) U/L TSH (0.34-5.60) uIU/mL Nasal Adenovirus (PCR) Nasal B. parapertussis DNA (PCR) Nasal Coronavir 229E PCR Nasal Coronavir HKU1 PCR Nasal Coronavir NL63 PCR Nasal Coronavir OC43 PCR Nasal Enterovir/Rhinovir PCR Nasal Influenza B PCR Nasal Influenza A PCR Nasal Parainfluen 1 PCR Nasal Parainfluen 2 PCR Nasal Parainfluen 3 PCR Nasal Parainfluen 4 PCR Nasal RSV (PCR) Nasal Screen MRSA (PCR) NEGATIVE (NEGATIVE) Nasal B.pertussis DNA PCR Nasal C.pneumoniae (PCR) Sunny Human Metapneumo PCR Nasal M.pneumoniae (PCR) Nasal SARS-CoV-2 (PCR) 08/26/22 08/26/22 08/26/22 Range/Units 19:45 18:45 18:45 WBC (4.8-10.8) x10^3/uL RBC (4.20-5.40) 10^6/uL Hgb (12.0-16.0) g/dL Hct (37.0-47.0) % MCV (81.0-99.0) fL MCH (27.0-31.0) pg MCHC (32.0-36.0) g/dL RDW (12.0-15.0) % Plt Count (130-450) 10^3/uL MPV (7.9-10.8) fL Neut # (Auto) (1.5-6.6) 10^3/uL Lymph # (Auto) (1.5-3.5) 10^3/uL [place] # (Auto) (0.0-1.0) 10^3/uL Eos # (Auto) (0.0-0.7) 10^3/uL Baso # (Auto) (0.0-0.1) 10^3/uL Absolute Nucleated RBC x10^3/uL Nucleated RBC % /100WBC VBG pH (7.31-7.41) Ionized Calcium (1.15-1.33) mmol/L Sodium (135-145) mmol/L Potassium (3.5-5.0) mmol/L Chloride (101-111) mmol/L Carbon Dioxide (21-32) mmol/L Anion Gap (6-13) BUN (6-20) mg/dL Creatinine (0.4-1.0) mg/dL Estimated GFR (MDRD) (>89) Glucose (70-100) mg/dL Calcium (8.5-10.3) mg/dL Phosphorus (2.5-4.6) mg/dL Magnesium (1.7-2.8) mg/dL Total Bilirubin (0.2-1.0) mg/dL AST (10-42) IU/L ALT (10-60) IU/L Alkaline Phosphatase (42-121) IU/L Troponin I High Sens 61.6 H* Total Protein (6.7-8.2) g/dL Albumin (3.2-5.5) g/dL Globulin (2.1-4.2) g/dL Albumin/Globulin Ratio (1.0-2.2) Lipase (22-51) U/L TSH 3.21 (0.34-5.60) uIU/mL Nasal Adenovirus (PCR) NOT DETECTED Nasal B. parapertussis DNA (PCR) NOT DETECTED Nasal Coronavir 229E PCR NOT DETECTED Nasal Coronavir HKU1 PCR NOT DETECTED Nasal Coronavir NL63 PCR NOT DETECTED Nasal Coronavir OC43 PCR NOT DETECTED Nasal Enterovir/Rhinovir PCR NOT DETECTED Nasal Influenza B PCR NOT DETECTED Nasal Influenza A PCR NOT DETECTED Nasal Parainfluen 1 PCR NOT DETECTED Nasal Parainfluen 2 PCR NOT DETECTED Nasal Parainfluen 3 PCR NOT DETECTED Nasal Parainfluen 4 PCR NOT DETECTED Nasal RSV (PCR) NOT DETECTED Nasal Screen MRSA (PCR) (NEGATIVE) Nasal B.pertussis DNA PCR NOT DETECTED Nasal C.pneumoniae (PCR) NOT DETECTED Sunny Human Metapneumo PCR NOT DETECTED Nasal M.pneumoniae (PCR) NOT DETECTED Nasal SARS-CoV-2 (PCR) NOT DETECTED 08/26/22 08/26/22 08/26/22 Range/Units 18:45 18:45 00:37 WBC 11.5 H (4.8-10.8) x10^3/uL RBC 4.48 (4.20-5.40) 10^6/uL Hgb 12.6 (12.0-16.0) g/dL Hct 39.5 (37.0-47.0) % MCV 88.2 (81.0-99.0) fL MCH 28.1 (27.0-31.0) pg MCHC 31.9 L (32.0-36.0) g/dL RDW 17.9 H (12.0-15.0) % Plt Count 450 (130-450) 10^3/uL MPV 12.6 H (7.9-10.8) fL Neut # (Auto) 7.5 H (1.5-6.6) 10^3/uL Lymph # (Auto) 2.9 (1.5-3.5) 10^3/uL [place] # (Auto) 1.0 (0.0-1.0) 10^3/uL Eos # (Auto) 0.0 (0.0-0.7) 10^3/uL Baso # (Auto) 0.0 (0.0-0.1) 10^3/uL Absolute Nucleated RBC 0.52 x10^3/uL Nucleated RBC % 4.5 /100WBC VBG pH (7.31-7.41) Ionized Calcium (1.15-1.33) mmol/L Sodium 133 L (135-145) mmol/L Potassium 4.1 (3.5-5.0) mmol/L Chloride 97 L (101-111) mmol/L Carbon Dioxide 21 (21-32) mmol/L Anion Gap 15.0 H (6-13) BUN 68 H (6-20) mg/dL Creatinine 1.8 H (0.4-1.0) mg/dL Estimated GFR (MDRD) 29 L (>89) Glucose 104 H (70-100) mg/dL Calcium 9.6 (8.5-10.3) mg/dL Phosphorus (2.5-4.6) mg/dL Magnesium (1.7-2.8) mg/dL Total Bilirubin 1.6 H (0.2-1.0) mg/dL AST 97 H (10-42) IU/L ALT 82 H (10-60) IU/L Alkaline Phosphatase 119 (42-121) IU/L Troponin I High Sens Cancelled Total Protein 6.9 (6.7-8.2) g/dL Albumin 3.1 L (3.2-5.5) g/dL Globulin 3.8 (2.1-4.2) g/dL Albumin/Globulin Ratio 0.8 L (1.0-2.2) Lipase 54 H (22-51) U/L TSH (0.34-5.60) uIU/mL Nasal Adenovirus (PCR) Nasal B. parapertussis DNA (PCR) Nasal Coronavir 229E PCR Nasal Coronavir HKU1 PCR Nasal Coronavir NL63 PCR Nasal Coronavir OC43 PCR Nasal Enterovir/Rhinovir PCR Nasal Influenza B PCR Nasal Influenza A PCR Nasal Parainfluen 1 PCR Nasal Parainfluen 2 PCR Nasal Parainfluen 3 PCR Nasal Parainfluen 4 PCR Nasal RSV (PCR) Nasal Screen MRSA (PCR) (NEGATIVE) Nasal B.pertussis DNA PCR Nasal C.pneumoniae (PCR) Sunny Human Metapneumo PCR Nasal M.pneumoniae (PCR) Nasal SARS-CoV-2 (PCR) - Diagnostic Imaging Diagnostic Imaging Results: positive: Final report reviewed - Other Results/Comments Other Results/Comments: I personally interpreted the chest x-ray done today: Cardiomegaly present, promi nent pulmonary arteies and cephalization of flow, which are all new since yesterday's CXR. Assessment/Plan - Problem List (1) Atrial fibrillation with RVR Impression: This is reported to be new onset of A-fib, however this patient has been on Eliquis according to her medicine list. Unknown from our EMR, which I reviewed, why she was on DOAC. She has no Hx of PE or DVT, therefore I obtained a more detailed Hx from pt today: When this patient was at [facility] 4 years ago for brain aneurysm coil and clipping, she was in A-fib then she said. So this is NOT new onset Afib. For 3-4 years she has been on Eliquis for stroke prophylaxis. She used to see a Cruise Coordinator yearly, and "had not been in A-fib over the last 3-4 years", she said. Recently, for the last 3 weeks, she started to feel weaker and remained in bed, had no appetite, ate and drank very little, and became progressively more short of breath and orthopneic. During that time she "may have noticed slight palpitations", she said. Her friends were calling to check on her (since she lives alone and no family lives close), and the friends urged her to see her PCP Dr. Patrick, which she did not. Finally last night, she felt so bad that she called one of the friends to bring her to the ER. An VT has been ruled out with flat troponins. She is not hyperthyroid per her TSH. Heart rate is still poorly controlled, HR is in the 120-150 range today despite being on beta-alan, diltiazem drip used then stopped, and amiodarone drip started. Plan: Remain in the ICU. Will increase her beta-alan doses (given the Echo result showing car diomyopathy, see #3, and see separate Echo report)). Continue with the amiodarone drip for rate control and to attempt cardioversion, since she has been on appropriate anticoagulation. I doubt that cardioversion would be successful with her extremely large atrial seen on Echo today. Cardizem was paused by SKULL CHOPPER when the Amio was started, I do not see an order for stopping Cardizem drip by the telemedicine doctor. But we will remain off the Cardizem now. Continue with Eliquis (renally adjust the dose). Echocardiogram (repeat) is needed (2) Abnormal EKG We have no old EKG here for comparison. She has a right bundle alexis block on EKG making pulmonary disease likely. In addition, shortness of breath was her main complaint for which she presented to the ER and she reports orthopnea to me. Her adm CXR was unremarkable We have no CT scan available today to do a CTA and rule out pulmonary embolism but she is already on therapeutic dose Eliquis, making PE less likely Plan: Echo, to eval for pulm disease in addition to LV function and valve evaluation>> a bedside Echo was done today (3) Dilated cardiomyopathy As per Echo imaging done today. Her cardiomyopathy cause may be from longstanding valvular disease (see #4) or from longstanding rapid rate in A-fib. Plan: She needs more aggressive rate control. We will stop the IV fluids since she is more orthopneic today and a repeat chest x-ray today shows increased vascular congestion Since I now presume she has cardiorenal syndrome, will foreign exchange student coordinator to using IV diuretics. If her blood pressure will allow, we will also start spironolactone. Will increase her beta-alan doses Follow her BNP for several days (4) Valvular heart disease. This patient has evidence of slowly progressing to now significant MS, MR, , AI and TR with pulm hypertension, by Echo that was done today Plan: A complete Echo with Doppler, for detailed calculation of chamber sizes and valve gradients is needed, it has been ordered to be done on Tuesday 08/29 (today is Sunday and we have no medical records technician here until Sunday) Since she has not seen her academy director in over a year possibly 2 years, the patient will need transfer for urgent left and right heart catheterization, if we cannot get her heart rate under control (as above in #1). (5) ROSI She has an extreme elevation of BUN/creatinine but does not give a history of fluid loss as with vomiting or diarrhea, but she is on diuretic HCTZ daily normally. When I obtained more detailed history today, she said that for 3 weeks she was mostly in bed and not eating or drinking much. She was however taking all her medications as prescribed. Plan: We will adjust her Eliquis dose down from 5 twice daily to 2.5 BID We will stop the IV fluids since she is more orthopneic today and a repeat chest x-ray today shows increased vascular congestion Since I presume this is cardiorenal syndrome, will foreign exchange student coordinator to using IV diuretics. Avoid nephrotoxins Follow BMP daily (6) Leukocytosis There are no obvious signs of infection with a normal chest x-ray, UA, clinical exam. Is likely a leukemoid reaction Plan: Monitor CBC daily (7) Thyroid nodule This is the cause of the right neck swelling. It has been followed by ultrasound exams of the neck for over a year. The last US exam was just done 4 days ago which showed a minor decrease in the size of the thyroid nodule. Also, that report said that no biopsy was indicated at this time Plan: Continue with outpatient management (8) Abnormal LFTs As per admission providers evaluation, these are approximately the same as her recent abn LFTs. Possibly these are mildly elevated from hepatic congestion, given the findings of cardiomyopathy on Echo, done today Plan: We will monitor LFTs intermittently (9) Hx HTN She was on metoprolol, amlodipine and losartan at home Plan: Continue the metoprolol for rate control but will chage Tartrate ti Succinate Continue to hold amlodipine and losartan in order to use other meds for rate control (10) Hypothyroidism TSH is in a good range. Plan: We will continue her usual home dose of thyroid medication (11) H/O Non-Hodgkin lymphoma As per history, she had chemo and chest radiation >10 years ago. (12) H/O breast cancer s/p mastectomy As per history, this was in 2013.
[2022-08-27] MEDS: SODIUM CHLORIDE 0.9% 1,000 ML IV SCH (08:41)
[2022-08-27] MEDS ORDERED: METOPROLOL TARTRATE 50 MG TABLET PO SCH (09:00)
[2022-08-27] MEDS ORDERED: APIXABAN 5 MG TABLET PO SCH (09:00)
[2022-08-27] MEDS ORDERED: METOPROLOL SUCCINATE 50 MG TABLET PO SCH (09:00)
[2022-08-27] MEDS: VENLAFAXINE ER 75 MG CAPSULE PO SCH (09:08)
--- NOTE | 2022-08-27 10:40 | PHARMACY PROGRESS NOTE ---
- Best Possible Medication History Admit Date and Time: 08/26/22 4719 Processed by: Pharmacy Medication History completed: Yes Patient Interview: Completed Secondary Source(s): Caregiver (Gloria was at her house with the med pack.), Pharmacy records As the person ultimately responsible for medication therapy, providers are able to order a medication from an existing home medication list in [facility] via the "Reconcile Routine" prior to Confirmation of that medication by donor support technician. Such practice is discouraged except when the physician, in their clinical judgment, deems that a medical need exists for a medication without regard to previous use.
--- NOTE | 2022-08-27 10:42 | XRAY Report ---
PROCEDURE: Chest 1 View X-Ray INDICATIONS: Tachypnea, wheezing TECHNIQUE: One view of the chest was acquired. COMPARISON: 08/26/2022 FINDINGS: Surgical changes and devices: Bilateral axillary clips are seen, left more numerous than right. Uppe r abdominal clips are seen. Lungs and pleura: An incomplete inspiratory result is noted, with low lung volumes and crowding of t he vascular markings. No focal infiltrates are seen. No large pneumothorax or large pleural effusion can be seen. Mediastinum: Mediastinal contours appear normal. Heart size is normal. Bones and chest wall: No suspicious bony lesions. Age-appropriate degenerative changes are seen. Lef t shoulder calcific tendinopathy is seen. IMPRESSION: Portable chest within normal limits for age, with note made of degenerative and postoperative changes . Reviewed by: Issac Rodriguez MD on 08/27/2022 9:41 AM [facility] Approved by: Issac Rodriguez MD on 08/27/2022 9:41 AM [facility] Station ID: [id number]
--- NOTE | 2022-08-27 11:33 | PROVIDER PROGRESS NOTE ---
Hospitalist Cross-cover Note - Cross-Cover Note Cross-Cover Note: As a Board-certified Printer Slotter Helper, I am credentialed to do and interpret Echocardiograms, I performed a bedside Echocardiogram, complete with Doppler Date: 08/27/2022 Indication: A-fib with RVR, SYKES, orthopnea Findings: Severe left atrial and right atrial enlargement Normal aortic root diameter with mural atherosclerosis Normal LV size and wall thickness. Moderate to severe global LV hypokinesis, EF visually estimated at 30%. Diastolic function could not be assessed with Doppler due to A-fib with RVR and underlying mitral valve disease Right ventricle upper limits of normal, with mildly to moderately depressed RV function Mitral annulus heavily calcified. Mitral leaflets thickened and calcified at their base, only the leaflet tips are mobile. Doppler shows mitral stenosis, probably mild-moderate, and moderate-severe mitral regurgitation seen by color Doppler The aortic valve is trileaflet and has calcific thickening with restricted leaflet mobility. Doppler shows aortic stenosis, severity could not be calcu lated by Doppler. Color Doppler shows moderate aortic regurgitation Tricuspid valve appears structurally normal. Doppler shows moderate-severe tricuspid regurgitation. Pulmonary artery pressure is elevated over 30 mmHg but accurate PA pressure could not be calculated by Doppler Pulmonic valve not well seen, not evaluated by Doppler No pericardial effusion Summary: Severe biatrial enlargement Global LV hypokinesis, EF approx. 30% RV has mildly to moderately depressed function, c/w Cor Pulmonale Mitral stenosis and mitral regurgitation Aortic stenosis and aortic regurgitation Tricuspid regurgitation Pulm hypertension Plan: A complete Echo with calculation of all chamber sizes and all valve gradients and PA pressure needs to be repeated. This has been ordered (we have no Patcher Bowling Ball until , today is Sun).
[2022-08-27] MEDS ORDERED: METOPROLOL SUCCINATE 50 MG TABLET PO ONE (13:00)
[2022-08-27] MEDS: SPIRONOLACTONE 25 MG TABLET PO SCH (13:19)
[2022-08-27] MEDS: FUROSEMIDE 40 MG/4 ML VIAL IVP SCH (14:27)
[2022-08-27 17:40] LABS: VBG PH 7.415 (7.31-7.41)
[2022-08-27 17:41] LABS: CALCIUM, IONIZED 1.08 mmol/L (1.15-1.33)
[2022-08-27] MEDS: METOPROLOL SUCCINATE 50 MG TABLET PO SCH (21:07)
[2022-08-27] MEDS: SODIUM CHLORIDE FLUSH 0.9% 10 ML SYRINGE IVP PRN ×2 (21:08→23:10)
[2022-08-27] MEDS ORDERED: BENZOCAINE/MENTHOL LOZENGE MM PRN (21:18)
[2022-08-27] MEDS ORDERED: LORazepam 2 MG/ML VIAL IVP ONE (23:00)
[2022-08-28] MEDS: CALCIUM CARBONATE CHEW 500 MG TABLET PO SCH (00:03)
[2022-08-28] MEDS: SODIUM CHLORIDE FLUSH 0.9% 10 ML SYRINGE IVP SCH ×3 (00:03→17:21)
[2022-08-28] MEDS ORDERED: DIGOXIN 500 MCG/2 ML AMP IVP STA (00:32)
--- NOTE | 2022-08-28 00:32 | PROVIDER PROGRESS NOTE ---
Hospitalist Cross-cover Note - Cross-Cover Note Cross-Cover Note: Called by RN stating patient has been coughing, chart and EMR briefly reviewed, have dyngti1e ativan not helpful, to resume cepcecilia as well as dinh kaye, she has severe valvular heart disease along with decompensated heart faiilure along with A fib with RVR will give Digoxin also in attempt to slow down heart rate.,
[2022-08-28] MEDS: BENZONATATE 100 MG CAPSULE PO PRN (00:54)
[2022-08-28] MEDS: SODIUM CHLORIDE FLUSH 0.9% 10 ML SYRINGE IVP PRN ×3 (00:55→07:05)
--- NOTE | 2022-08-28 01:29 | XRAY Report ---
PROCEDURE: Chest 1 View X-Ray INDICATIONS: sob TECHNIQUE: One view of the chest was acquired. COMPARISON: 08/27/2022, 08/26/2022, 12/24/2018 FINDINGS: Surgical changes and devices: Surgical clips in both axillary regions. Overlying monitoring wires. Lungs and pleura: Diffuse thickening of the interstitial markings. No new dense consolidation, pleur al effusion, or pneumothorax. Mediastinum: The heart size is normal. There is soft tissue prominence in the right suprahilar regio n. No new central vascular congestion. Bones and chest wall: No suspicious bony lesions. Overlying soft tissues appear unremarkable. IMPRESSION: 1. Soft tissue prominence in the right suprahilar region. This has not significantly changed over the prior 2 studies, but is new compared to 12/24/2018. This may indicate vascular prominence or adenopat hy. 2. Diffuse interstitial thickening appears chronic. Reviewed by: Abida Morales MD on 08/28/2022 1:28 AM PST Approved by: Abida Morales MD on 08/28/2022 1:28 AM PST Station ID: [id number]
[2022-08-28] MEDS ORDERED: METOPROLOL 5 MG/5 ML VIAL IVP PRN (02:15)
[2022-08-28 05:13] LABS: CALCIUM, IONIZED 1.11 mmol/L (1.15-1.33); VBG PH 7.452 (7.31-7.41)
[2022-08-28 05:16] LABS: BASOPHILS % (AUTO) 0.1 %; HCT - HEMATOCRIT 37.5 % (37.0-47.0); HGB - HEMOGLOBIN 11.6 g/dL (12.0-16.0); LYMPHOCYTES # (AUTO) 3.1 10^3/uL (1.5-3.5); LYMPHOCYTES % (AUTO) 24.2 %; MEAN CORPUSCULAR HEMOGLOBIN 27.5 pg (27.0-31.0); MEAN CORPUSCULAR HGB CONC 30.9 g/dL (32.0-36.0); MEAN CORPUSCULAR VOLUME 88.9 fL (81.0-99.0); MONOCYTES # (AUTO) 1.3 10^3/uL (0.0-1.0); MONOCYTES % (AUTO) 9.7 %; NEUTROPHILS # (AUTO) 8.4 10^3/uL (1.5-6.6); NEUTROPHILS % (AUTO) 65.2 %; NRBC ABSOLUTE COUNT (AUTO) 0.58 x10^3/uL; NUCLEATED RED BLOOD CELLS AUTO 4.5 /100WBC; PLT - PLATELET COUNT 398 10^3/uL (130-450); RED BLOOD COUNT 4.22 10^6/uL (4.20-5.40); RED CELL DISTRIBUTION WIDTH 18.4 % (12.0-15.0); WHITE BLOOD COUNT 12.9 x10^3/uL (4.8-10.8)
[2022-08-28 05:24] LABS: CALCIUM 9.2 mg/dL (8.5-10.3); CREATININE 1.5 mg/dL (0.4-1.0); MAGNESIUM 1.7 mg/dL (1.7-2.8); PHOSPHORUS 2.9 mg/dL (2.5-4.6); POTASSIUM 3.5 mmol/L (3.5-5.0)
[2022-08-28] MEDS: MAGNESIUM OXIDE 400 MG TABLET PO SCH ×2 (07:04→13:00)
[2022-08-28] MEDS: POTASSIUM CHLORIDE 20 MEQ TABLET PO SCH ×2 (07:04→09:31)
[2022-08-28] MEDS: LEVOTHYROXINE 100 MCG TABLET PO SCH (07:05)
[2022-08-28] MEDS: BENZOCAINE/MENTHOL LOZENGE MM PRN (07:05)
[2022-08-28] MEDS: FUROSEMIDE 40 MG/4 ML VIAL IVP SCH ×2 (07:05→14:23)
[2022-08-28] MEDS: METOPROLOL SUCCINATE 50 MG TABLET PO SCH ×2 (08:40→21:02)
[2022-08-28] MEDS: SPIRONOLACTONE 25 MG TABLET PO SCH (08:41)
[2022-08-28] MEDS: SENNA 8.6 MG TABLET PO SCH (08:42)
[2022-08-28] MEDS: DOCUSATE SODIUM 250 MG CAPSULE PO SCH (08:43)
[2022-08-28] MEDS: APIXABAN 2.5 MG TABLET PO SCH ×2 (08:43→21:01)
[2022-08-28] MEDS: VENLAFAXINE ER 75 MG CAPSULE PO SCH (08:43)
[2022-08-28] MEDS ORDERED: DIGOXIN 500 MCG/2 ML AMP IVP SCH (09:00)
[2022-08-28] MEDS: polyethylene glycoL 3350 17 GM PACKET PO SCH (09:09)
[2022-08-28] MEDS ORDERED: METOPROLOL 5 MG/5 ML VIAL IVP SCH ×2 (12:00)
[2022-08-28] MEDS: ESMOLOL 2.5 GM/250 ML BAG IV SCH ×2 (12:18→14:35)
[2022-08-28] MEDS: guaiFENesin/CODEINE 5 ML UDC PO PRN (13:00)
--- NOTE | 2022-08-28 15:26 | PROVIDER PROGRESS NOTE ---
Subjective - Subjective Pt reports feeling: Improved (She is not a short of breath and not as orthopneic. She has slightly more energy and has an appetite back.) Objective - Vital Signs/Intake & Output Reviewed Vital Signs: Yes Vital Signs: Vital Signs Temp Pulse Resp BP BP Pulse Ox O2 Flow Rate 08/28/22 14:00 122 H 35 H 115/85 H 97 2 08/28/22 13:06 153 H 132/85 H 2 08/28/22 13:00 156 H 27 H 132/85 H 2 08/28/22 12:49 167 H 138/80 H 08/28/22 12:41 151 H 32 H 135/85 H 97 2 08/28/22 12:34 137 H 148/94 H 08/28/22 12:00 37.6 C 166 H 21 125/98 H 96 08/28/22 11:59 136/94 H 08/28/22 11:00 37.6 C 174 H 29 H 136/94 H 96 Intake & Output: Intake & Output 08/25/22 08/26/22 08/27/22 08/28/22 23:59 23:59 23:59 23:59 Intake Total 1250 3364.000 1631.000 Output Total 3275 2250 Balance 1250 89.000 -619.000 - Objective General Appearance: positive: No acute distress, Alert Eyes Bilateral: positive: Normal inspection, EOMI ENT: positive: No signs of dehydration Neck: positive: Other (R lateral neck mass, mildly tender. Cannot accurately evaluate JVP due to this mass.) Respiratory: positive: No respiratory distress, Breath sounds nml (has course breath sounds), Other (Bilateral mastectomy scars) Cardiovascular: positive: Irregularly irregular, Tachycardia, Systolic murmur Abdomen: positive: Nml bowel sounds, No distention, Tenderness Skin: positive: Warm, Dry Extremities: positive: Non-tender, No pedal edema Neurologic/Psychiatric: positive: Oriented x3, Motor nml - Lab Results Fish Bones: 08/28/22 04:13 08/28/22 04:13 Other Labs: Lab Results x24hrs 08/28/22 08/28/22 08/28/22 Range/Units 04:13 04:13 04:13 WBC 12.9 H (4.8-10.8) x10^3/uL RBC 4.22 (4.20-5.40) 10^6/uL Hgb 11.6 L (12.0-16.0) g/dL Hct 37.5 (37.0-47.0) % MCV 88.9 (81.0-99.0) fL MCH 27.5 (27.0-31.0) pg MCHC 30.9 L (32.0-36.0) g/dL RDW 18.4 H (12.0-15.0) % Plt Count 398 (130-450) 10^3/uL MPV 13.0 H (7.9-10.8) fL Neut # (Auto) 8.4 H (1.5-6.6) 10^3/uL Lymph # (Auto) 3.1 (1.5-3.5) 10^3/uL [place] # (Auto) 1.3 H (0.0-1.0) 10^3/uL Eos # (Auto) 0.0 (0.0-0.7) 10^3/uL Baso # (Auto) 0.0 (0.0-0.1) 10^3/uL Absolute Nucleated RBC 0.58 x10^3/uL Nucleated RBC % 4.5 /100WBC VBG pH 7.452 H (7.31-7.41) Ionized Calcium 1.11 L (1.15-1.33) mmol/L Sodium 135 (135-145) mmol/L Potassium 3.5 (3.5-5.0) mmol/L Chloride 100 L (101-111) mmol/L Carbon Dioxide 20 L (21-32) mmol/L Anion Gap 15.0 H (6-13) BUN 55 H (6-20) mg/dL Creatinine 1.5 H (0.4-1.0) mg/dL Estimated GFR (MDRD) 35 L (>89) Glucose 114 H (70-100) mg/dL Calcium 9.2 (8.5-10.3) mg/dL Phosphorus 2.9 (2.5-4.6) mg/dL Magnesium 1.7 (1.7-2.8) mg/dL Troponin I High Sens (2.3-14.8) ng/L B-Natriuretic Peptide (5-100) pg/mL 08/28/22 08/28/2208/27/23 Range/Units 01:08 00:58 17:34 WBC (4.8-10.8) x10^3/uL RBC (4.20-5.40) 10^6/uL Hgb (12.0-16.0) g/dL Hct (37.0-47.0) % MCV (81.0-99.0) fL MCH (27.0-31.0) pg MCHC (32.0-36.0) g/dL RDW (12.0-15.0) % Plt Count (130-450) 10^3/uL MPV (7.9-10.8) fL Neut # (Auto) (1.5-6.6) 10^3/uL Lymph # (Auto) (1.5-3.5) 10^3/uL [place] # (Auto) (0.0-1.0) 10^3/uL Eos # (Auto) (0.0-0.7) 10^3/uL Baso # (Auto) (0.0-0.1) 10^3/uL Absolute Nucleated RBC x10^3/uL Nucleated RBC % /100WBC VBG pH 7.415 H (7.31-7.41) Ionized Calcium 1.08 L (1.15-1.33) mmol/L Sodium (135-145) mmol/L Potassium (3.5-5.0) mmol/L Chloride (101-111) mmol/L Carbon Dioxide (21-32) mmol/L Anion Gap (6-13) BUN (6-20) mg/dL Creatinine (0.4-1.0) mg/dL Estimated GFR (MDRD) (>89) Glucose (70-100) mg/dL Calcium (8.5-10.3) mg/dL Phosphorus (2.5-4.6) mg/dL Magnesium (1.7-2.8) mg/dL Troponin I High Sens 56.9 H* (2.3-14.8) ng/L B-Natriuretic Peptide 1294 H (5-100) pg/mL 08/27/22 Range/Units 17:34 WBC (4.8-10.8) x10^3/uL RBC (4.20-5.40) 10^6/uL Hgb (12.0-16.0) g/dL Hct (37.0-47.0) % MCV (81.0-99.0) fL MCH (27.0-31.0) pg MCHC (32.0-36.0) g/dL RDW (12.0-15.0) % Plt Count (130-450) 10^3/uL MPV (7.9-10.8) fL Neut # (Auto) (1.5-6.6) 10^3/uL Lymph # (Auto) (1.5-3.5) 10^3/uL [place] # (Auto) (0.0-1.0) 10^3/uL Eos # (Auto) (0.0-0.7) 10^3/uL Baso # (Auto) (0.0-0.1) 10^3/uL Absolute Nucleated RBC x10^3/uL Nucleated RBC % /100WBC VBG pH (7.31-7.41) Ionized Calcium (1.15-1.33) mmol/L Sodium (135-145) mmol/L Potassium 3.9 (3.5-5.0) mmol/L Chloride (101-111) mmol/L Carbon Dioxide (21-32) mmol/L Anion Gap (6-13) BUN (6-20) mg/dL Creatinine (0.4-1.0) mg/dL Estimated GFR (MDRD) (>89) Glucose (70-100) mg/dL Calcium (8.5-10.3) mg/dL Phosphorus (2.5-4.6) mg/dL Magnesium (1.7-2.8) mg/dL Troponin I High Sens (2.3-14.8) ng/L B-Natriuretic Peptide (5-100) pg/mL Assessment/Plan - Problem List (1) Atrial fibrillation with RVR Impression: This was reported to be new onset of A-fib, however this patient had been on Eliquis according to her medicine list. I obtained a more detailed Hx from pt: When this patient was at [facility] 4 years ago for brain aneurysm coil and clipping, she was in A-fib then she said. So this is not new onset Afib. For 3-4 years she has been on Eliquis 5 BID for stroke prophylaxis. She used to see a Contact Acid Plant Operator yearly, and "had not been in A-fib over the last 3-4 years", she said. She has not seen Dr Camacho in over a year (and wants to change Cardiologists). Recently, for the last 3 weeks, she started to feel weaker and remained in bed, had no appetite, ate and drank very little, and became progre ssively more short of breath and orthopneic. During that time she "may have noticed slight palpitations", she said. Her friends were calling to check on her (since she lives alone and no family lives close), and the friends urged her to see her PCP Dr. Patrick, which she did not. Finally, she felt so bad that she called one of the friends to bring her to the ER. An ND has been ruled out with flat troponins. She is not hyperthyroid per her TSH. Her rapid heart rate is still very poorly controlled, HR runs 120-150. She has gotten diltiazem drip which gave minimal effect, that was stopped and amiodarone bolus and drip tried and had minimal effect on her HR and did not convert her, IV Dig pushes have helped, IV Lopressor pushes have helped, and I increased her oral Metoprolol Tartrate to Succinate at 100 BID. Today I tried Esmolol drip but she needs max dose to get HR 109 and that gives her 170 cc/hr of fluids. Plan: Remain in the ICU. Continue the higher oral beta-alan doses (given the Echo result showing cardiomyopathy, see #3, and see separate Echo report). Continue daily Dig, now po. Follow Dig level, since her GFR is not normal. Will resume iv Cardizem drip and stop Esmolol. Will continue with iv Lopressor pushes. Continue with Eliquis (renally adjusted the dose). Echocardiogram (repeat) is needed She may need transfer for management with EP Cardiology for possible AV node ablation and pacer. I explained this to her and to her son Antonio (by phone) today. (2) Abnormal EKG We have no old EKG here for comparison. She has a right bundle alexis block on EKG suggesting pulmonary disease. In addition, shortness of breath was her main complaint for which she presented to the ER and she reported orthopnea to me. Her adm CXR was unremarkable. A repeat CXR on 08/27 (my interpretation) showed new CHF (but admission ordered her iv fluids which she got for a day) We had no CT scan available for the last 3 days to do a CTA and rule out pulmona ry embolism, but she was already on therapeutic dose Eliquis, making PE less likely Plan: Echo, to eval for pulm disease in addition to LV function and valve evaluation>> a bedside Echo was done 08/27. A repeat Echo w/ full Doppler is needed. (3) Dilated cardiomyopathy As per Echo imaging which I did on 08/27, she has LVEF 30%. Her cardiomyopathy may be from longstanding valvular disease (see #4) or from longstanding rapid rate in A-fib. I stopped iv fluids on 08/27 and Lasix was started. I increased her beta-alan doses and started Spironolactone Plan: She needs more aggressive rate control. I believe she has cardiorenal syndrome, so will continue to using IV diuretics. Follow her BNP for several days (4) Valvular heart disease. This patient has evidence of slowly progressing to now significant MS, MR, , AI and TR with pulm hypertension, by Echo that was done by me on 08/27. Plan: A complete Echo with Doppler, for detailed calculation of valve gradients is needed, it has been ordered to be done on Tuesday 08/29 (today is Sunday and we have no gate technician here until Sunday) Since she has not seen her industrial relations counselor in over a year possibly 2 years, the patient may need transfer for management of her rapid heart rate and then poss cardiac cath as well. I explained this to her and to her son Antonio (by phone) today. (5) Cardiorenal syndrome She had an elevated BUN/creatinine at admission, but did not give a history of fluid loss as with vomiting or diarrhea, and was only on HCTZ daily. LAbs were all reviewed. Her BUN/creat have improved since Lasix was started and she started to diurese. Plan: Continue the lower adjusted Eliquis dose, down from 5 twice daily to 2.5 BID Now will add a 2000 c/day total fluid restriction and start a low salt diet Since I presume this is cardiorenal syndrome, continue IV diuretics. Avoid nephrotoxins Follow BMP daily (6) SHARONDA on CPAP Will order her home device to use here (7) Thyroid nodule This is the cause of the right neck swelling. It has been followed by ultrasound exams of the neck for over a year. The last US exam was just done 4 days ago which showed a minor decrease in the size of the thyroid nodule. Also, that report said that no biopsy was indicated at this time Plan: Continue with outpatient management (8) Abnormal LFTs As per admission providers evaluation, these are approximately the same as her recent abn LFTs. Possibly these are mildly elevated from hepatic congestion, given the findings of cardiomyopathy on Echo Plan: We will monitor LFTs intermittently (9) Hx HTN She was on metoprolol, amlodipine and losartan at home Plan: Continue the metoprolol for rate control but will changed Tartrate to Succinate Continue to hold losartan (temporarily) and stop Amlodipine, in order to use other meds for rate control (10) Hypothyroidism TSH is in a good range. Plan: We will continue her usual home dose of thyroid medication (11) H/O Non-Hodgkin lymphoma As per history, she had chemo and chest radiation >10 years ago. (12) H/O breast cancer s/p mastectomy bilat As per history, this was in 2013.
[2022-08-28] MEDS: diltiaZEM INJ 125 MG in DEXTROSE 5% 100 ML IV SCH (16:55)
[2022-08-28] MEDS: METOPROLOL 5 MG/5 ML VIAL IVP SCH ×2 (17:17→21:01)
[2022-08-29] MEDS: METOPROLOL 5 MG/5 ML VIAL IVP SCH ×7 (01:11→21:12)
[2022-08-29] MEDS: SODIUM CHLORIDE FLUSH 0.9% 10 ML SYRINGE IVP SCH ×3 (01:13→17:15)
[2022-08-29] MEDS: diltiaZEM INJ 125 MG in DEXTROSE 5% 100 ML IV SCH ×4 (01:32→19:55)
[2022-08-29 04:58] LABS: BASOPHILS % (AUTO) 0.2 %; CALCIUM, IONIZED 1.08 mmol/L (1.15-1.33); EOSINOPHILS % (AUTO) 0.1 %; HCT - HEMATOCRIT 37.7 % (37.0-47.0); HGB - HEMOGLOBIN 11.9 g/dL (12.0-16.0); LYMPHOCYTES # (AUTO) 2.4 10^3/uL (1.5-3.5); LYMPHOCYTES % (AUTO) 18.7 %; MEAN CORPUSCULAR HEMOGLOBIN 28.3 pg (27.0-31.0); MEAN CORPUSCULAR HGB CONC 31.6 g/dL (32.0-36.0); MEAN CORPUSCULAR VOLUME 89.5 fL (81.0-99.0); MONOCYTES # (AUTO) 1.1 10^3/uL (0.0-1.0); MONOCYTES % (AUTO) 8.3 %; NEUTROPHILS # (AUTO) 9.4 10^3/uL (1.5-6.6); NEUTROPHILS % (AUTO) 72.2 %; NRBC ABSOLUTE COUNT (AUTO) 0.34 x10^3/uL; NUCLEATED RED BLOOD CELLS AUTO 2.6 /100WBC; PLT - PLATELET COUNT 357 10^3/uL (130-450); RED BLOOD COUNT 4.21 10^6/uL (4.20-5.40); RED CELL DISTRIBUTION WIDTH 18.9 % (12.0-15.0); VBG PH 7.483 (7.31-7.41)
[2022-08-29 05:21] LABS: CALCIUM 8.9 mg/dL (8.5-10.3); CREATININE 1.3 mg/dL (0.4-1.0); MAGNESIUM 1.7 mg/dL (1.7-2.8); PHOSPHORUS 2.5 mg/dL (2.5-4.6); POTASSIUM 3.4 mmol/L (3.5-5.0)
[2022-08-29 05:23] LABS: DIGOXIN 0.8 ng/mL
[2022-08-29] MEDS ORDERED: MAGNESIUM OXIDE 400 MG TABLET PO ONE (05:53)
[2022-08-29] MEDS: CALCIUM CARBONATE CHEW 500 MG TABLET PO SCH ×2 (06:25→10:32)
[2022-08-29] MEDS: FUROSEMIDE 40 MG/4 ML VIAL IVP SCH ×2 (06:26→14:07)
[2022-08-29] MEDS: VENLAFAXINE ER 75 MG CAPSULE PO SCH (08:13)
[2022-08-29] MEDS: polyethylene glycoL 3350 17 GM PACKET PO SCH (08:13)
[2022-08-29] MEDS: SPIRONOLACTONE 25 MG TABLET PO SCH (08:14)
[2022-08-29] MEDS: SENNA 8.6 MG TABLET PO SCH (08:14)
[2022-08-29] MEDS: NEUTRA-PHOS 250 MG TABLET PO SCH ×2 (08:14→10:36)
[2022-08-29] MEDS: DOCUSATE SODIUM 250 MG CAPSULE PO SCH (08:14)
[2022-08-29] MEDS: METOPROLOL SUCCINATE 50 MG TABLET PO SCH ×2 (08:15→20:49)
[2022-08-29] MEDS: APIXABAN 2.5 MG TABLET PO SCH ×2 (08:15→20:49)
[2022-08-29] MEDS: DIGOXIN 125 MCG TABLET PO SCH (08:17)
--- NOTE | 2022-08-29 13:33 | PROVIDER PROGRESS NOTE ---
Subjective - Prog Note Date Prog Note Date: 08/29/22 Prog Note Time: 14:26 - Subjective Pt reports feeling: No change Subjective: Tired, short of breath. No chest pain. Current Medications - Current Medications Current Medications: Active Medications Apixaban (Apixaban 2.5 Mg Tablet) 2.5 mg PO BID [facility] Last Admin: 08/29/22 08:15 Dose: 2.5 mg Benzonatate (Benzonatate 100 Mg Capsule) 100 mg PO TID PRN PRN Reason: Cough Last Admin: 08/28/22 00:54 Dose: 100 mg Digoxin (Digoxin 125 Mcg Tablet) 125 mcg PO DAILY [facility] Last Admin: 08/29/22 08:17 Dose: 125 mcg Docusate Sodium (Docusate Sodium 250 Mg Capsule) 250 - 500 mg PO DAILY [facility] Last Admin: 08/29/22 08:14 Dose: 250 mg Furosemide (Furosemide 40 Mg/4 Ml Vial) 40 mg IVP BIDDIURETIC [facility] Last Admin: 08/29/22 14:07 Dose: 40 mg Guaifenesin/Codeine Phosphate (Guaifenesin/Codeine 5 Ml Udc) 5 ml PO Q6HR PRN PRN Reason: Cough Last Admin: 08/28/22 13:00 Dose: 5 ml Diltiazem HCl 125 mg/ Dextrose 125 mls @ 5 mls/hr IV .Q25H [facility]; Protocol Last Admin: 08/29/22 10:30 Dose: 15 mg/hr, 15 mls/hr Levothyroxine Sodium (Levothyroxine 100 Mcg Tablet) 100 mcg PO QDAC [facility] Last Admin: 08/28/22 07:05 Dose: 100 mcg Metoprolol Succinate (Metoprolol Succinate 50 Mg Tablet) 100 mg PO BID [facility] Last Admin: 08/29/22 08:15 Dose: 100 mg Metoprolol Tartrate (Metoprolol 5 Mg/5 Ml Vial) 5 mg IVP Q4HR [facility] Last Admin: 08/29/22 13:16 Dose: 5 mg Ondansetron HCl (Ondansetron 4 Mg/2 Ml Vial) 4 mg IVP Q6HR PRN PRN Reason: Nausea / Vomiting Polyethylene Glycol (Polyethylene Glycol 3350 17 Gm Packet) 17 gm PO DAILY [facility] Last Admin: 08/29/22 08:13 Dose: 17 gm Senna (Senna 8.6 Mg Tablet) 8.6 - 17.2 mg PO DAILY [facility] Last Admin: 08/29/22 08:14 Dose: 8.6 mg Sodium Chloride (Sodium Chloride Flush 0.9% 10 Ml Syringe) 10 ml IVP 0100,0900,1700 [facility] Last Admin: 08/29/22 08:45 Dose: 10 ml Sodium Chloride (Sodium Chloride Flush 0.9% 10 Ml Syringe) 10 ml IVP PRN PRN PRN Reason: NEEDED PER PROVIDER ORDERS Last Admin: 08/28/22 07:05 Dose: 10 ml Spironolactone (Spironolactone 25 Mg Tablet) 25 mg PO DAILY [facility] Last Admin: 08/29/22 08:14 Dose: 25 mg Throat Lozenges (Benzocaine/Menthol Lozenge) 1 lozenge MM Q2HR PRN PRN Reason: Mouth Sore Pain Last Admin: 08/28/22 07:05 Dose: 1 lozenge Venlafaxine HCl (Venlafaxine Er 75 Mg Capsule) 150 mg PO DAILY [facility] Last Admin: 08/29/22 08:13 Dose: 150 mg Levothyroxine [Synthroid] 100 mcg PO DAILY 09/03/13 Rosuvastatin Calcium [Crestor] 40 mg PO HS 09/03/13 Venlafaxine [Effexor] 150 mg PO DAILY 09/03/13 hydroCHLOROthiazide [Hydrochlorothiazide] 25 mg PO DAILY 03/08/16 Apixaban [Eliquis] 5 mg ORAL BID 08/26/22 Fenofibrate Nanocrystallized [Tricor] 145 mg PO DAILY 08/26/22 Losartan Potassium [Cozaar] 1 tab PO DAILY 08/27/22 Metoprolol Succinate 1 tab PO DAILY 08/27/22 My Active Orders 08/30/22 09:00 HEPATITIS PANEL ACUTE [REFLAB] DAILY Objective - Vital Signs/Intake & Output Reviewed Vital Signs: Yes Vital Signs: Vital Signs Temp Pulse Resp BP BP Pulse Ox O2 Flow Rate 08/29/22 13:16 100/48 L 08/29/22 13:00 142 H 22 100/68 95 2 08/29/22 12:00 36.8 C 124 H 22 103/67 92 2 08/29/22 11:00 148 H 24 108/90 H 92 2 08/29/22 10:00 136 H 28 H 90/79 91 L 2 Intake & Output: Intake & Output 08/26/22 08/27/22 08/28/22 08/29/22 23:59 23:59 23:59 23:59 Intake Total 1250 3364.000 2282.917 1491.583 Output Total 3275 4000 1150 Balance 1250 89.000 -1717.083 341.583 - Objective General Appearance: positive: No acute distress, Alert, Other (Dysarthric, slow speech response attributed to coil for aneurysm in the past) Eyes Bilateral: positive: PERRL, EOMI ENT: positive: No signs of dehydration Neck: positive: No JVD Respiratory: positive: No respiratory distress. negative: Wheezes, Rales, Rhonchi Cardiovascular: positive: Irregularly irregular, Tachycardia, Systolic murmur Abdomen: positive: Non-tender, No organomegaly, Nml bowel sounds, No distention Skin: positive: Warm, Dry Extremities: positive: Full ROM, No pedal edema Neurologic/Psychiatric: positive: Oriented x3, CN's nml (2-12), Slurred/abnml speech. negative: Motor nml - Lab Results Fish Bones: 08/29/22 04:27 08/29/22 04:27 Other Labs: Lab Results x24hrs 08/29/22 08/29/22 08/29/22 Range/Units 04:27 04:27 04:27 WBC (4.8-10.8) x10^3/uL RBC (4.20-5.40) 10^6/uL Hgb (12.0-16.0) g/dL Hct (37.0-47.0) % MCV (81.0-99.0) fL MCH (27.0-31.0) pg MCHC (32.0-36.0) g/dL RDW (12.0-15.0) % Plt Count (130-450) 10^3/uL MPV (7.9-10.8) fL Neut # (Auto) (1.5-6.6) 10^3/uL Lymph # (Auto) (1.5-3.5) 10^3/uL [place] # (Auto) (0.0-1.0) 10^3/uL Eos # (Auto) (0.0-0.7) 10^3/uL Baso # (Auto) (0.0-0.1) 10^3/uL Absolute Nucleated RBC x10^3/uL Nucleated RBC % /100WBC VBG pH 7.483 H (7.31-7.41) Ionized Calcium 1.08 L (1.15-1.33) mmol/L Sodium 134 L (135-145) mmol/L Potassium 3.4 L (3.5-5.0) mmol/L Chloride 97 L (101-111) mmol/L Carbon Dioxide 26 (21-32) mmol/L Anion Gap 11.0 (6-13) BUN 42 H (6-20) mg/dL Creatinine 1.3 H (0.4-1.0) mg/dL Estimated GFR (MDRD) 42 L (>89) Glucose 122 H (70-100) mg/dL Calcium 8.9 (8.5-10.3) mg/dL Phosphorus 2.5 (2.5-4.6) mg/dL Magnesium 1.7 (1.7-2.8) mg/dL Last Dose Date 08/28/22 Last Dose Time 2300 Digoxin 0.8 ng/mL 08/29/22 Range/Units 04:27 WBC 13.0 H (4.8-10.8) x10^3/uL RBC 4.21 (4.20-5.40) 10^6/uL Hgb 11.9 L (12.0-16.0) g/dL Hct 37.7 (37.0-47.0) % MCV 89.5 (81.0-99.0) fL MCH 28.3 (27.0-31.0) pg MCHC 31.6 L (32.0-36.0) g/dL RDW 18.9 H (12.0-15.0) % Plt Count 357 (130-450) 10^3/uL MPV 13.0 H (7.9-10.8) fL Neut # (Auto) 9.4 H (1.5-6.6) 10^3/uL Lymph # (Auto) 2.4 (1.5-3.5) 10^3/uL [place] # (Auto) 1.1 H (0.0-1.0) 10^3/uL Eos # (Auto) 0.0 (0.0-0.7) 10^3/uL Baso # (Auto) 0.0 (0.0-0.1) 10^3/uL Absolute Nucleated RBC 0.34 x10^3/uL Nucleated RBC % 2.6 /100WBC VBG pH (7.31-7.41) Ionized Calcium (1.15-1.33) mmol/L Sodium (135-145) mmol/L Potassium (3.5-5.0) mmol/L Chloride (101-111) mmol/L Carbon Dioxide (21-32) mmol/L Anion Gap (6-13) BUN (6-20) mg/dL Creatinine (0.4-1.0) mg/dL Estimated GFR (MDRD) (>89) Glucose (70-100) mg/dL Calcium (8.5-10.3) mg/dL Phosphorus (2.5-4.6) mg/dL Magnesium (1.7-2.8) mg/dL Last Dose Date Last Dose Time Digoxin ng/mL Assessment/Plan - Problem List (1) Atrial fibrillation with RVR Impression: Patient has been in atrial fibrillation in the past. She had a brain aneurysm with coil done 4 years ago at [facility] and was in [facility] then. She is on Eliquis 5 mg p.o. twice daily since that time. She was also on Metoprolol long acting 100 mg daily. Presented as weakness, no appetite, anorexia, short of breath and orthopnes. Has been here since 08/26. OK ruled out. TSH normal. Therapy since admission has included: Diltiazem drip Amiodarone drip followed next Esmolol drip followed next Digoxin has helped, IV pushes. And IV metoprolol IV push has helped. Since esmolol was at 180 cc an hour, Going through 1 bag an hour, she was at risk for going into congestive heart failure so she was returned to her diltiazem drip. Rate is still 120 and as high as 180. She is short of breath. Due to a nationwide shortage, we do not have much amiodarone nor do we have much esmolol in the pharmacy. Echocardiogram today was difficult to do. She is still on a fast rate and it is hard to calculate ejection fraction. The previous hospitalist, who is a roller inspector, was able to do a partial echo and ejection fraction was 30%. With today's echo, really difficult to calculate because of the rate. But she has mitral stenosis, aortic stenosis, and dilated atria. It is felt that she may benefit from transfer to higher level of care with EP cardiology for possible AV node ablation and pacer.She said that she preferred [facility] because as were her coil was done. I have spoken to [facility]' and left a message. Yanci at [place] does not have any beds [facility] does not have any beds [facility] (where she had some of her previous medical procedures d one) has taken her name and put her on a list but they have no beds [facility] has no beds But the transfer center coordinator did request that the echo be pushed, and that a roller inspector might be able to help me. I presented the case, discussed her vitals, and discussed her work-up today. [facility] has no beds but they have taken her name and put her on her list. Most of my work on this patient was on this issue alone. I have spent 60 minutes of coordination with all of these transfer centers. I also spoke to her roller inspector, Dr. Camacho at [facility], cardiology clinic for 10 minutes. He says that he this happened to her in 2019. She was converted with an amiodarone drip. We discussed the fact that she has not converted with amiodarone drip here. As such he recommends that she be cardioverted electrically, kept on amiodarone drip. If this does not work, then we need to keep on seeking transfer to a higher level of care for AV node ablat ion and pacer. Plan: Goal is to get her heart rate below 110. This patient's facesheet was sent to various institutions. Remain in ICU I have discussed the case and treatment with Dr. Orourke, the emergency room provider, and have asked him to do cardioversion. At this time he states that the ER is backed up. He is asking if we could ask the provider on the neck shift for the ER to do this. If he has a break in the schedule he will come on down. If the patient is not cardiovert successfully, we will resume amiodarone drip (if we have it in the hospital) and continue to try and get her to a higher level of care. I will also increase her metoprolol 100 mg p.o. to 4 times daily. Overall patient care time for this issue alone was 75 minutes (2) Dilated cardiomyopathy Bedside echocardiogram on August 27 showed an ejection fraction of 30%. Cardiomyopathy could be from the mitral stenosis and aortic stenosis seen. As well as prolonged A-fib. In order to avoid acute congestive heart failure, Lasix was started August 27. IV fluids were stopped that day. Spironolactone was added. I explained to the patient that her continued goal is rate control and diuresis. Yesterday she urinated 4000 cc an her fluid balance was -1717. Today she is put out 1150 cc as of this dictation. So our diuresis is successful. Plan: Continue to diurese in the face of atrial fibrillation Once she is cardioverted or has her heart rate successfully slowed down, we will need to back off on such high doses of beta-blockers (3) Valvular heart disease. This patient has evidence of slowly progressing to now significant MS, MR, , AI and TR with pulm hypertension, by Echo that was done by previous hospitalist on 08/27. That hospitalist is a board-certified roller inspector. Today's echocardiogram also shows valvular heart disease. Plan: Eventual evaluation with cardiology to see if she is a candidate for any type of valve repair. My goal at this time is just to get her heart rate slowed down and to control her congestive heart failure (4) Cardiorenal syndrome Her BUN/creat have improved since Lasix was started and she started to diurese. She is on a lower adjusted Eliquis dose, down from 5 twice daily to 2.5 BID On a 1999 c/day total fluid restriction and a low salt diet. Plan: continue IV diuretics. Avoid nephrotoxins Follow BMP daily (5) SHARONDA on CPAP using home device and is tolerating that with good 02 sats at night. (6) Thyroid nodule This is causing right neck swelling. It has been followed by ultrasound exams of the neck for over a year. The last US exam was just done 4 days ago which showed a minor decrease in the size of the thyroid nodule. Also, that report said that no biopsy was indicated at this time Plan: Continue with outpatient management (7) Abnormal LFTs As per admission providers evaluation, these are approximately the same as her recent abn LFTs. Possibly mildly elevated from hepatic congestion, given the findings of cardiomyopathy on Echo Plan: We will monitor LFTs intermittently Check hepatitis panel to make sure we are not missing anything. (8) Hx HTN She was on metoprolol, amlodipine and losartan at home. The previous hospitalist continue the metoprolol, and change tartrate to succinate. We will continue to hold losartan while we focus on rate control. We have stopped amlodipine to avoid hypotension. (9) Hypothyroidism TSH is in a good range. Plan: We will continue her usual home dose of thyroid medication
[2022-08-30] MEDS: METOPROLOL 5 MG/5 ML VIAL IVP SCH ×6 (02:09→20:19)
[2022-08-30] MEDS: SODIUM CHLORIDE FLUSH 0.9% 10 ML SYRINGE IVP SCH ×4 (02:10→18:13)
[2022-08-30 04:50] LABS: BASOPHILS % (AUTO) 0.2 %; EOSINOPHILS % (AUTO) 0.1 %; HCT - HEMATOCRIT 36.6 % (37.0-47.0); HGB - HEMOGLOBIN 11.6 g/dL (12.0-16.0); LYMPHOCYTES # (AUTO) 2.4 10^3/uL (1.5-3.5); LYMPHOCYTES % (AUTO) 18.9 %; MEAN CORPUSCULAR HEMOGLOBIN 28.3 pg (27.0-31.0); MEAN CORPUSCULAR HGB CONC 31.7 g/dL (32.0-36.0); MEAN CORPUSCULAR VOLUME 89.3 fL (81.0-99.0); MEAN PLATELET VOLUME 12.9 fL (7.9-10.8); MONOCYTES # (AUTO) 1.4 10^3/uL (0.0-1.0); MONOCYTES % (AUTO) 10.6 %; NEUTROPHILS % (AUTO) 69.7 %; NRBC ABSOLUTE COUNT (AUTO) 0.26 x10^3/uL; PLT - PLATELET COUNT 344 10^3/uL (130-450); RED CELL DISTRIBUTION WIDTH 19.3 % (12.0-15.0); WHITE BLOOD COUNT 12.9 x10^3/uL (4.8-10.8)
[2022-08-30] MEDS: diltiaZEM INJ 125 MG in DEXTROSE 5% 100 ML IV SCH ×2 (04:54→14:02)
[2022-08-30 04:55] LABS: CALCIUM, IONIZED 1.04 mmol/L (1.15-1.33); VBG PH 7.522 (7.31-7.41)
[2022-08-30 05:02] LABS: CALCIUM 8.7 mg/dL (8.5-10.3); CREATININE 1.1 mg/dL (0.4-1.0); MAGNESIUM 1.7 mg/dL (1.7-2.8); PHOSPHORUS 2.2 mg/dL (2.5-4.6); POTASSIUM 3.1 mmol/L (3.5-5.0)
[2022-08-30 05:04] LABS: DIGOXIN 0.5 ng/mL
[2022-08-30] MEDS: FUROSEMIDE 40 MG/4 ML VIAL IVP SCH ×2 (06:28→14:16)
--- NOTE | 2022-08-30 09:19 | ANESTHESIA ---
Pre-Anesthesia VS, & Labs - Diagnosis Afib with RVR - Procedure Cardioversion Vital Signs: Temp Pulse Resp BP Pulse Ox O2 Flow Rate 37.1 C 183 H 41 H 116/88 H 92 2 08/30/22 06:00 08/30/22 09:00 08/30/22 09:00 08/30/22 09:00 08/30/22 09:00 08/29/22 18:00 Height: 5 ft 7 in Weight (kg): 100 kg Body Mass Index: 34.5 BMI Classification: Obese - NPO >8 hours - Is Patient ?: No - Lab Results Current Lab Results: Laboratory Tests 08/30/22 04:20: Last Dose Date 08/29/22, Last Dose Time 0817, Digoxin 0.5 08/30/22 04:20: VBG pH 7.522 H, Ionized Calcium 1.04 L 08/30/22 04:20: Sodium 136, Potassium 3.1 L, Chloride 96 L, Carbon Dioxide 25, Anion Gap 15.0 H, BUN 40 H, Creatinine 1.1 H, Estimated GFR (MDRD) 51 L, Glucose 123 H, Calcium 8.7, Phosphorus 2.2 L, Magnesium 1.7 08/30/22 04:20: WBC 12.9 H, RBC 4.10 L, Hgb 11.6 L, Hct 36.6 L, MCV 89.3, MCH 28.3, MCHC 31.7 L, RDW 19.3 H, Plt Count 344, MPV 12.9 H, Neut # (Auto) 9.0 H, Lymph # (Auto) 2.4, Lee # (Auto) 1.4 H, Eos # (Auto) 0.0, Baso # (Auto) 0.0, Absolute Nucleated RBC 0.26, Nucleated RBC % 2.0 08/29/22 04:27: Last Dose Date 08/28/22, Last Dose Time 2300, Digoxin 0.8 08/29/22 04:27: VBG pH 7.483 H, Ionized Calcium 1.08 L 08/29/22 04:27: Sodium 134 L, Potassium 3.4 L, Chloride 97 L, Carbon Dioxide 26, Anion Gap 11.0, BUN 42 H, Creatinine 1.3 H, Estimated GFR (MDRD) 42 L, Glucose 122 H, Calcium 8.9, Phosphorus 2.5, Magnesium 1.7 08/29/22 04:27: WBC 13.0 H, RBC 4.21, Hgb 11.9 L, Hct 37.7, MCV 89.5, MCH 28.3, MCHC 31.6 L, RDW 18.9 H, Plt Count 357, MPV 13.0 H, Neut # (Auto) 9.4 H, Lymph # (Auto) 2.4, Lee # (Auto) 1.1 H, Eos # (Auto) 0.0, Baso # (Auto) 0.0, Absolute Nucleated RBC 0.34, Nucleated RBC % 2.6 08/28/22 04:13: VBG pH 7.452 H, Ionized Calcium 1.11 L 08/28/22 04:13: Sodium 135, Potassium 3.5, Chloride 100 L, Carbon Dioxide 20 L, Anion Gap 15.0 H, BUN 55 H, Creatinine 1.5 H, Estimated GFR (MDRD) 35 L, Glucose 114 H, Calcium 9.2, Phosphorus 2.9, Magnesium 1.7 08/28/22 04:13: WBC 12.9 H, RBC 4.22, Hgb 11.6 L, Hct 37.5, MCV 88.9, MCH 27.5, MCHC 30.9 L, RDW 18.4 H, Plt Count 398, MPV 13.0 H, Neut # (Auto) 8.4 H, Lymph # (Auto) 3.1, Lee # (Auto) 1.3 H, Eos # (Auto) 0.0, Baso # (Auto) 0.0, Absolute Nucleated RBC 0.58, Nucleated RBC % 4.5 08/28/22 01:08: Troponin I High Sens 56.9 H* 08/28/22 00:58: B-Natriuretic Peptide 1294 H 08/27/22 17:34: VBG pH 7.415 H, Ionized Calcium 1.08 L 08/27/22 17:34: Potassium 3.9 08/27/22 04:47: B-Natriuretic Peptide 915 H 08/27/22 04:47: Troponin I High Sens 61.7 H* 08/27/22 04:47: VBG pH 7.331, Ionized Calcium 1.09 L 08/27/22 04:47: Phosphorus 4.5, Magnesium 1.9 08/27/22 04:47: Sodium 135, Potassium 3.7, Chloride 100 L, Carbon Dioxide 17 L, Anion Gap 18.0 H, BUN 63 H, Creatinine 1.7 H, Estimated GFR (MDRD) 31 L, Glucose 119 H, Calcium 9.0 08/27/22 04:47: WBC 13.5 H, RBC 4.45, Hgb 12.7, Hct 40.1, MCV 90.1, MCH 28.5, MCHC 31.7 L, RDW 17.9 H, Plt Count 425, MPV 12.8 H, Neut # (Auto) 9.0 H, Lymph # (Auto) 3.0, Lee # (Auto) 1.4 H, Eos # (Auto) 0.0, Baso # (Auto) 0.0, Absolute Nucleated RBC 0.61, Nucleated RBC % 4.5 08/27/22 00:45: Troponin I High Sens 64.2 H* 08/26/22 18:45: TSH 3.21 08/26/22 18:45: Troponin I High Sens 61.6 H* 08/26/22 18:45: Sodium 133 L, Potassium 4.1, Chloride 97 L, Carbon Dioxide 21, Anion Gap 15.0 H, BUN 68 H, Creatinine 1.8 H, Estimated GFR (MDRD) 29 L, Glucose 104 H, Calcium 9.6, Total Bilirubin 1.6 H, AST 97 H, ALT 82 H, Alkaline Phosphatase 119, Total Protein 6.9, Albumin 3.1 L, Globulin 3.8, Albumin/Globulin Ratio 0.8 L, Lipase 54 H 08/26/22 18:45: WBC 11.5 H, RBC 4.48, Hgb 12.6, Hct 39.5, MCV 88.2, MCH 28.1, MCHC 31.9 L, RDW 17.9 H, Plt Count 450, MPV 12.6 H, Neut # (Auto) 7.5 H, Lymph # (Auto) 2.9, Lee # (Auto) 1.0, Eos # (Auto) 0.0, Baso # (Auto) 0.0, Absolute Nucleated RBC 0.52, Nucleated RBC % 4.5 08/26/22 00:37: Troponin I High Sens Cancelled Fish Bones: 08/30/22 04:20 08/30/22 04:20 Home Medications and Allergies Home Medications: Ambulatory Orders Apixaban [Eliquis] 5 mg ORAL BID 08/26/22 Fenofibrate Nanocrystallized [Tricor] 145 mg PO DAILY 08/26/22 Losartan Potassium [Cozaar] 1 tab PO DAILY 08/27/22 Metoprolol Succinate 1 tab PO DAILY 08/27/22 Active Medications Apixaban (Apixaban 2.5 Mg Tablet) 2.5 mg PO BID [facility] Last Admin: 08/29/22 20:49 Dose: 2.5 mg Benzonatate (Benzonatate 100 Mg Capsule) 100 mg PO TID PRN PRN Reason: Cough Last Admin: 08/28/22 00:54 Dose: 100 mg Digoxin (Digoxin 125 Mcg Tablet) 125 mcg PO DAILY [facility] Last Admin: 08/29/22 08:17 Dose: 125 mcg Docusate Sodium (Docusate Sodium 250 Mg Capsule) 250 - 500 mg PO DAILY [facility] Last Admin: 08/29/22 08:14 Dose: 250 mg Furosemide (Furosemide 40 Mg/4 Ml Vial) 40 mg IVP BIDDIURETIC [facility] Last Admin: 08/30/22 06:28 Dose: 40 mg Guaifenesin/Codeine Phosphate (Guaifenesin/Codeine 5 Ml Udc) 5 ml PO Q6HR PRN PRN Reason: Cough Last Admin: 08/28/22 13:00 Dose: 5 ml Diltiazem HCl 125 mg/ Dextrose 125 mls @ 5 mls/hr IV .Q25H [facility]; Protocol Last Admin: 08/30/22 04:54 Dose: 15 mg/hr, 15 mls/hr Levothyroxine Sodium (Levothyroxine 100 Mcg Tablet) 100 mcg PO QDAC [facility] Last Admin: 08/28/22 07:05 Dose: 100 mcg Magnesium Oxide (Magnesium Oxide 400 Mg Tablet) 400 mg PO Q6H [facility]; Protocol Stop: 08/30/22 15:01 Metoprolol Succinate (Metoprolol Succinate 50 Mg Tablet) 100 mg PO BID [facility] Last Admin: 08/29/22 20:49 Dose: 100 mg Metoprolol Tartrate (Metoprolol 5 Mg/5 Ml Vial) 5 mg IVP Q4HR [facility] Last Admin: 08/30/22 05:06 Dose: 5 mg Ondansetron HCl (Ondansetron 4 Mg/2 Ml Vial) 4 mg IVP Q6HR PRN PRN Reason: Nausea / Vomiting Polyethylene Glycol (Polyethylene Glycol 3350 17 Gm Packet) 17 gm PO DAILY [facility] Last Admin: 08/29/22 08:13 Dose: 17 gm Potassium Chloride (Potassium Chloride 20 Meq Tablet) 20 meq PO Q2H [facility]; Protocol Stop: 08/30/22 11:01 Senna (Senna 8.6 Mg Tablet) 8.6 - 17.2 mg PO DAILY [facility] Last Admin: 08/29/22 08:14 Dose: 8.6 mg Sodium Chloride (Sodium Chloride Flush 0.9% 10 Ml Syringe) 10 ml IVP 0100,0900,1700 [facility] Last Admin: 08/30/22 02:10 Dose: Not Given Sodium Chloride (Sodium Chloride Flush 0.9% 10 Ml Syringe) 10 ml IVP PRN PRN PRN Reason: NEEDED PER PROVIDER ORDERS Last Admin: 08/28/22 07:05 Dose: 10 ml Sodium Phosphate (Neutra-Phos 250 Mg Tablet) 250 mg PO Q2H [facility]; Protocol Stop: 08/30/22 11:01 Spironolactone (Spironolactone 25 Mg Tablet) 25 mg PO DAILY [facility] Last Admin: 08/29/22 08:14 Dose: 25 mg Throat Lozenges (Benzocaine/Menthol Lozenge) 1 lozenge MM Q2HR PRN PRN Reason: Mouth Sore Pain Last Admin: 08/28/22 07:05 Dose: 1 lozenge Venlafaxine HCl (Venlafaxine Er 75 Mg Capsule) 150 mg PO DAILY [facility] Last Admin: 08/29/22 08:13 Dose: 150 mg Levothyroxine [Synthroid] 100 mcg PO DAILY 09/03/13 Rosuvastatin Calcium [Crestor] 40 mg PO HS 09/03/13 Venlafaxine [Effexor] 150 mg PO DAILY 09/03/13 hydroCHLOROthiazide [Hydrochlorothiazide] 25 mg PO DAILY 03/08/16 Apixaban [Eliquis] 5 mg ORAL BID 08/26/22 Fenofibrate Nanocrystallized [Tricor] 145 mg PO DAILY 08/26/22 Losartan Potassium [Cozaar] 1 tab PO DAILY 08/27/22 Metoprolol Succinate 1 tab PO DAILY 08/27/22 Allergies/Adverse Reactions: Allergies Allergy/AdvReac Type Severity Reaction Status Date / Time No Known Drug Allergies Allergy Verified 08/26/22 18:25 Anes History & Medical History - Anesthetic History Anesthesia Complications: reports: No previous complications Family history of Anesthesia Complications: Denies Family history of Malignant Hyperthermia: Denies - Medical History Cardiovascular: reports: Congestive heart failure, Hypertension, High cholesterol, Atrial fibrillation Pulmonary: reports: None, Sleep apnea Gastrointestinal: reports: Colon polyps, Hemorrhoids Urinary: reports: None Neuro: reports: Other (hemangioma, 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, L deficit) Musculoskeletal: reports: None Endocrine/Autoimmune: reports: None Blood Disorders: reports: Idiopathic thrombocytopenic purpura Skin: reports: None Smoking Status: Former smoker - Surgical History General: reports: Splenectomy, Colonoscopy Eyes Ears Nose Throat (EENT): reports: Tonsil/Adenoidectomy Gynecologic: reports: Mastectomy Neurologic: reports: Craniotomy Exam General: Alert, Oriented x3, Cooperative Dental: WNL Mouth Openin Fingerbreadth Neck Mobility: Normal Mallampati classification: II Thyromental Distance: 4-6 cm Respiratory: Lungs clear Cardiovascular: Other (AFib with RVR) Plan Anesthesia Type: General, Total IV Consent for Procedure(s) Verified and Reviewed: Yes Code Status: Attempt Resuscitation ASA classification: 3-Severe systemic disease Is this case an emergency?: Yes
[2022-08-30] MEDS: MAGNESIUM OXIDE 400 MG TABLET PO SCH ×2 (09:24→14:04)
[2022-08-30] MEDS ORDERED: MAGNESIUM SULFATE 2 GRAM 2 GM/50 ML BAG IV ONE (09:25)
[2022-08-30] MEDS ORDERED: SODIUM CHLORIDE 0.9% 1,000 ML IV PRN (09:49)
[2022-08-30] MEDS: NEUTRA-PHOS 250 MG TABLET PO SCH ×4 (11:18→22:35)
[2022-08-30] MEDS ORDERED: POTASSIUM PHOSPHATE 15 MMOL in SODIUM CHLORIDE 0.9% 250 ML IV ONE (12:00)
--- NOTE | 2022-08-30 12:14 | ED Physician Documentation ---
ED Addendum - Addendum Addendum: I was asked by our hospitalist, Dr. Rosales to assist in a cardioversion for this patient who was admitted several days ago with new onset A-fib with RVR. She has not converted or had adequate rate control despite medications. She has been anticoagulated Since admission.Patient understands the risks and benefits to this procedure and gives verbal consent. Anesthesia is at the bedside to administer medications for procedural sedation. Patient tolerated cardioversion with converting to a sinus rhythm. P waves were seen on the color television console monitor. She remained hemodynamically stable. Further management per the hospitalist service and [employer] managing airway. Procedures - Cardioversion - Major 1 Time of attempt: 12:06 Indication: Tachyarrhythmia Risks, benefits, alternatives explained to: Pt Prep: IV, O2, laboratory monitor, Pulse ox, Airway equip CS via: Pads, AP approach Sync: 150j Post cardioversion rhythm: NSR Performed by: ALYSON TURNER
[2022-08-30] MEDS ORDERED: diltiaZEM INJ 5 MG/ML VIAL ONE (12:15)
[2022-08-30] MEDS ORDERED: diltiaZEM INJ 5 MG/ML VIAL IVP ONE (12:21)
[2022-08-30] MEDS: DIGOXIN 125 MCG TABLET PO SCH (12:42)
[2022-08-30] MEDS: DOCUSATE SODIUM 250 MG CAPSULE PO SCH (12:42)
[2022-08-30] MEDS: VENLAFAXINE ER 75 MG CAPSULE PO SCH (12:43)
[2022-08-30] MEDS: SENNA 8.6 MG TABLET PO SCH ×4 (12:43→21:07)
[2022-08-30] MEDS: LEVOTHYROXINE 100 MCG TABLET PO SCH (12:44)
[2022-08-30] MEDS: APIXABAN 2.5 MG TABLET PO SCH ×2 (12:44→20:18)
[2022-08-30] MEDS: METOPROLOL SUCCINATE 50 MG TABLET PO SCH (12:44)
[2022-08-30] MEDS: SPIRONOLACTONE 25 MG TABLET PO SCH (12:44)
[2022-08-30] MEDS: polyethylene glycoL 3350 17 GM PACKET PO SCH (12:48)
[2022-08-30] MEDS ORDERED: PHENYLEPHRINE 10 MG/ML VIAL ONE (13:22)
[2022-08-30] MEDS ORDERED: PROPOFOL 200 MG/20 ML VIAL IVP ONE (13:22)
[2022-08-30] MEDS ORDERED: ePHEDrine 50 MG/ML VIAL IVP ONE (13:22)
--- NOTE | 2022-08-30 13:23 | ANESTHESIA POST OP EVALUATION ---
Anesthesia Post Eval - Post Anesthesia Eval Vitals: Last Vital Signs Temp 37.2 C 08/30/22 11:00 Pulse 84 08/30/22 13:00 Resp 24 08/30/22 13:00 BP 113/90 H 08/30/22 13:00 Pulse Ox 96 08/30/22 13:00 O2 Flow Rate 2 08/30/22 13:00 CV Function Including HR & BP: Stable Pain Control: Satisfactory Nausea & Vomiting: Negative Mental Status: Baseline Respiratory Status: Airway Patent Hydration Status: Satisfactory Anesthesia Complications: None
[2022-08-30] MEDS: SODIUM CHLORIDE FLUSH 0.9% 10 ML SYRINGE IVP PRN (14:17)
[2022-08-30] MEDS: POTASSIUM CHLORIDE 20 MEQ TABLET PO SCH ×4 (18:14→22:35)
--- NOTE | 2022-08-30 19:21 | PROVIDER PROGRESS NOTE ---
Subjective - Prog Note Date Prog Note Date: 08/30/22 Prog Note Time: 19:19 - Subjective Subjective: I had made her n.p.o. after midnight last night. I then coordinated cardioversion between the ER doctor and anesthesia. Anesthesia provided conscious sedation. I discussed with the ER doctor that the patient has been anticoagulated. I have verified with the patient her compliance with anticoagulation and she says that she has been taking it on a daily basis for years now and she has not missed any doses. Echocardiogram was done here August 26 and we could not assess her function because of the A-fib. She had a heavily calcified aortic valve with probable moderate aortic stenosis and trace regurgitation. She had moderate to severe mitral annular calcification with mild-moderate regurgitation and no stenosis. After going all of this data with both anesthesia and the ER doctor to verify risk of stroke, we proceeded. With 150 J the patient was converted to sinus rhythm. About 10 minutes later she did have a brief moment of a fast heart rate to 120 with a narrow complex tachycardia that I aborted with 15 mg of IV diltiazem and 5 mg of IV Lopressor. She is remained in sinus rhythm for the rest of the day. Current Medications - Current Medications Current Medications: Active Medications Apixaban (Apixaban 2.5 Mg Tablet) 2.5 mg PO BID [facility] Last Admin: 08/30/22 12:44 Dose: 2.5 mg Benzonatate (Benzonatate 100 Mg Capsule) 100 mg PO TID PRN PRN Reason: Cough Last Admin: 08/28/22 00:54 Dose: 100 mg Digoxin (Digoxin 125 Mcg Tablet) 125 mcg PO DAILY [facility] Last Admin: 08/30/22 12:42 Dose: 125 mcg Docusate Sodium (Docusate Sodium 250 Mg Capsule) 250 - 500 mg PO DAILY [facility] Last Admin: 08/30/22 12:42 Dose: 250 mg Furosemide (Furosemide 40 Mg/4 Ml Vial) 40 mg IVP BIDDIURETIC [facility] Last Admin: 08/30/22 14:16 Dose: 40 mg Guaifenesin/Codeine Phosphate (Guaifenesin/Codeine 5 Ml Udc) 5 ml PO Q6HR PRN PRN Reason: Cough Last Admin: 08/28/22 13:00 Dose: 5 ml Diltiazem HCl 125 mg/ Dextrose 125 mls @ 5 mls/hr IV .Q25H [facility]; Protocol Last Admin: 08/30/22 14:02 Dose: 15 mg/hr, 15 mls/hr Sodium Chloride (Normal Saline 0.9%) 1,000 mls @ 1,000 mls/hr IV ONCE PRN PRN Reason: IF NEEDED AFTER CARDIOVERSION Stop: 08/31/22 09:48 Levothyroxine Sodium (Levothyroxine 100 Mcg Tablet) 100 mcg PO QDAC [facility] Last Admin: 08/30/22 12:44 Dose: 100 mcg Metoprolol Succinate (Metoprolol Succinate 50 Mg Tablet) 100 mg PO BID [facility] Last Admin: 08/30/22 12:44 Dose: 100 mg Metoprolol Tartrate (Metoprolol 5 Mg/5 Ml Vial) 5 mg IVP Q4HR [facility] Last Admin: 08/30/22 17:14 Dose: 5 mg Ondansetron HCl (Ondansetron 4 Mg/2 Ml Vial) 4 mg IVP Q6HR PRN PRN Reason: Nausea / Vomiting Polyethylene Glycol (Polyethylene Glycol 3350 17 Gm Packet) 17 gm PO DAILY [facility] Last Admin: 08/30/22 12:48 Dose: 17 gm Senna (Senna 8.6 Mg Tablet) 17.2 - 25.8 mg PO Q6H [facility] Stop: 08/31/22 04:01 Last Admin: 08/30/22 17:14 Dose: 17.2 mg Sodium Chloride (Sodium Chloride Flush 0.9% 10 Ml Syringe) 10 ml IVP 0100,0900,1700 [facility] Last Admin: 08/30/22 18:13 Dose: 10 ml Sodium Chloride (Sodium Chloride Flush 0.9% 10 Ml Syringe) 10 ml IVP PRN PRN PRN Reason: NEEDED PER PROVIDER ORDERS Last Admin: 08/30/22 14:17 Dose: 10 ml Spironolactone (Spironolactone 25 Mg Tablet) 25 mg PO DAILY [facility] Last Admin: 08/30/22 12:44 Dose: 25 mg Throat Lozenges (Benzocaine/Menthol Lozenge) 1 lozenge MM Q2HR PRN PRN Reason: Mouth Sore Pain Last Admin: 08/28/22 07:05 Dose: 1 lozenge Venlafaxine HCl (Venlafaxine Er 75 Mg Capsule) 150 mg PO DAILY [facility] Last Admin: 08/30/22 12:43 Dose: 150 mg Levothyroxine [Synthroid] 100 mcg PO DAILY 09/03/13 Rosuvastatin Calcium [Crestor] 40 mg PO HS 09/03/13 Venlafaxine [Effexor] 150 mg PO DAILY 09/03/13 hydroCHLOROthiazide [Hydrochlorothiazide] 25 mg PO DAILY 03/08/16 Apixaban [Eliquis] 5 mg ORAL BID 08/26/22 Fenofibrate Nanocrystallized [Tricor] 145 mg PO DAILY 08/26/22 Losartan Potassium [Cozaar] 1 tab PO DAILY 08/27/22 Metoprolol Succinate 1 tab PO DAILY 08/27/22 Objective - Vital Signs/Intake & Output Reviewed Vital Signs: Yes Vital Signs: Vital Signs Temp Pulse Resp BP BP Pulse Ox 08/30/22 19:00 83 30 H 110/71 93 08/30/22 18:00 83 26 H 131/73 H 95 08/30/22 17:14 113/95 H 08/30/22 17:00 84 17 113/95 H 92 08/30/22 16:00 37.1 C 87 23 114/62 94 Intake & Output: Intake & Output 08/27/22 08/28/22 08/29/22 08/30/22 23:59 23:59 23:59 23:59 Intake Total 3364.000 2282.917 2066.583 1435.0 Output Total 3275 4000 2525 2410 Balance 89.000 -1717.083 -458.417 -975.0 - Objective General Appearance: positive: No acute distress, Alert, Other (Tall, moderately overweight woman who looks older than stated age, speech is slightly distorted because of 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 But she says that this is stable for her. She has slight weakness on one side because of this. But she says this is all chronic and sta) Eyes Bilateral: positive: PERRL, EOMI ENT: positive: No signs of dehydration Neck: positive: No JVD. negative: Stiff neck Respiratory: positive: No respiratory distress. negative: Wheezes, Rales, Rhonchi Cardiovascular: positive: Regular rate & rhythm, Systolic murmur Abdomen: positive: Non-tender, No organomegaly, Nml bowel sounds, No distention Skin: positive: Warm, Dry Extremities: positive: Non-tender, Pedal edema (mild) Neurologic/Psychiatric: positive: Oriented x3, CN's nml (2-12) (with mild dysfunction of speech/tongue), Motor nml - Lab Results Fish Bones: 08/30/22 04:20 08/30/22 04:20 Other Labs: Lab Results x24hrs 08/30/22 08/30/22 08/30/22 Range/Units 04:20 04:20 04:20 WBC (4.8-10.8) x10^3/uL RBC (4.20-5.40) 10^6/uL Hgb (12.0-16.0) g/dL Hct (37.0-47.0) % MCV (81.0-99.0) fL MCH (27.0-31.0) pg MCHC (32.0-36.0) g/dL RDW (12.0-15.0) % Plt Count (130-450) 10^3/uL MPV (7.9-10.8) fL Neut # (Auto) (1.5-6.6) 10^3/uL Lymph # (Auto) (1.5-3.5) 10^3/uL [facility] # (Auto) (0.0-1.0) 10^3/uL Eos # (Auto) (0.0-0.7) 10^3/uL Baso # (Auto) (0.0-0.1) 10^3/uL Absolute Nucleated RBC x10^3/uL Nucleated RBC % /100WBC VBG pH 7.522 H (7.31-7.41) Ionized Calcium 1.04 L (1.15-1.33) mmol/L Sodium 136 (135-145) mmol/L Potassium 3.1 L (3.5-5.0) mmol/L Chloride 96 L (101-111) mmol/L Carbon Dioxide 25 (21-32) mmol/L Anion Gap 15.0 H (6-13) BUN 40 H (6-20) mg/dL Creatinine 1.1 H (0.4-1.0) mg/dL Estimated GFR (MDRD) 51 L (>89) Glucose 123 H (70-100) mg/dL Calcium 8.7 (8.5-10.3) mg/dL Phosphorus 2.2 L (2.5-4.6) mg/dL Magnesium 1.7 (1.7-2.8) mg/dL Last Dose Date 08/29/22 Last Dose Time 0817 Digoxin 0.5 ng/mL 08/30/22 Range/Units 04:20 WBC 12.9 H (4.8-10.8) x10^3/uL RBC 4.10 L (4.20-5.40) 10^6/uL Hgb 11.6 L (12.0-16.0) g/dL Hct 36.6 L (37.0-47.0) % MCV 89.3 (81.0-99.0) fL MCH 28.3 (27.0-31.0) pg MCHC 31.7 L (32.0-36.0) g/dL RDW 19.3 H (12.0-15.0) % Plt Count 344 (130-450) 10^3/uL MPV 12.9 H (7.9-10.8) fL Neut # (Auto) 9.0 H (1.5-6.6) 10^3/uL Lymph # (Auto) 2.4 (1.5-3.5) 10^3/uL [facility] # (Auto) 1.4 H (0.0-1.0) 10^3/uL Eos # (Auto) 0.0 (0.0-0.7) 10^3/uL Baso # (Auto) 0.0 (0.0-0.1) 10^3/uL Absolute Nucleated RBC 0.26 x10^3/uL Nucleated RBC % 2.0 /100WBC VBG pH (7.31-7.41) Ionized Calcium (1.15-1.33) mmol/L Sodium (135-145) mmol/L Potassium (3.5-5.0) mmol/L Chloride (101-111) mmol/L Carbon Dioxide (21-32) mmol/L Anion Gap (6-13) BUN (6-20) mg/dL Creatinine (0.4-1.0) mg/dL Estimated GFR (MDRD) (>89) Glucose (70-100) mg/dL Calcium (8.5-10.3) mg/dL Phosphorus (2.5-4.6) mg/dL Magnesium (1.7-2.8) mg/dL Last Dose Date Last Dose Time Digoxin ng/mL Assessment/Plan - Problem List (1) Atrial fibrillation with RVR Impression: Patient has been in atrial fibrillation in the past. She had a brain aneurysm with coil done 4 years ago at [facility] and was in A-fib then. She is on Eliquis 5 mg p.o. twice daily since that time. She was also on Metoprolol long acting 100 mg daily. Presented as weakness, no appetite, anorexia, short of breath and orthopnes. Has been here since 08/26. SC ruled out. TSH normal. Therapy since admission has included: Diltiazem drip Amiodarone drip followed next Esmolol drip followed next Digoxin has helped, IV pushes. And IV metoprolol IV push has helped. Since esmolol was at 180 cc an hour, Going through 1 bag an hour, she was at risk for going into congestive heart failure so she was returned to her diltiazem drip. Rate is still 120 and as high as 180. She is short of breath. Due to a nationwide shortage, we do not have much amiodarone nor do we have much esmolol in the pharmacy. Echocardiogram today was difficult to do. She is still on a fast rate and it is hard to calculate ejection fraction. The previous hospitalist, who is a turkish rubber, was able to do a partial echo and ejection fraction was 30%. With today's echo, really difficult to calculate because of the rate. But she has mitral stenosis, aortic stenosis, and dilated atria. It is felt that she may benefit from transfer to higher level of care with EP cardiology for possible AV node ablation and pacer.She said that she preferred [facility] because as were her coil was done. I made multiple attempts on August 29 and called multiple hospitals to transfer her to a higher level of care. In the end her turkish rubber suggested that we just cardiovert her. I did that this morning and she is in sinus. Plan: Start amiodarone 400 mg p.o. twice daily And stop the diltiazem drip, digoxin p.o., and metoprolol p.o. I will give her diltiazem 15 mg IV push as needed or metoprolol 5 mg IV push as needed to keep her heart rate slow. But I want to avoid second or third degree block. Echocardiogram tomorrow morning now that she is in sinus Update her turkish rubber to see if they have any further suggestions We discussed AV node ablation with pacemaker with him tomorrow as well Continue Eliquis (2) Dilated cardiomyopathy Bedside echocardiogram on August 27 showed an ejection fraction of 30%. Cardiomyopathy could be from the mitral stenosis and aortic stenosis seen. As well as prolonged A-fib. In order to avoid acute congestive heart failure, Lasix was started August 27. She is on 40 mg IV push twice daily. IV fluids were stopped that day. Spironolactone was added. I explained to the patient that her continued goal is rate control and diuresis. Diuresis has been relatively successful. On August 28 her fluid balance was -1717. On August 29 her fluid balance was -458. And as of this evening her fluid balance today is -975. Plan: I have stopped her metoprolol for this moment. I will most likely resume a low- dose beta-alan in view of dilated cardiomyopathy..Reassess her fluid status tomorrow. I do not want to over diurese her. I may decrease her to 40 mg IV push once a day. She is usually on losartan 50 mg at home. After discussion with cardiology that we will also most likely be resumed tomorrow (3) Valvular heart disease. This patient has evidence of slowly progressing to now significant MS, MR, , AI and TR with pulm hypertension, by Echo that was done by previous hospitalist on 08/27. That hospitalist is a board-certified turkish rubber. Today's echocardiogram also shows valvular heart disease. Plan: Eventual evaluation with cardiology to see if she is a candidate for any type of valve repair. My goal at this time is just to get her heart rate slowed down and to control her congestive heart failure (4) Cardiorenal syndrome Her BUN/creat have improved since Lasix was started and she started to diurese. She is on a lower adjusted Eliquis dose, down from 5 twice daily to 2.5 BID On a 1999 c/day total fluid restriction and a low salt diet. Plan: Reduce IV diuretics from twice daily to daily tomorrow. She is currently on 40 mg IV push twice daily. Avoid nephrotoxins Follow BMP daily (5) SHARONDA on CPAP using home device and is tolerating that with good 02 sats at night. (6) Thyroid nodule This is causing right neck swelling. It has been followed by ultrasound exams of the neck for over a year. The last US exam was just done 4 days ago which showed a minor decrease in the size of the thyroid nodule. Also, that report said that no biopsy was indicated at this time Plan: Continue with outpatient management (7) Abnormal LFTs As per admission providers evaluation, these are approximately the same as her recent abn LFTs. Possibly mildly elevated from hepatic congestion, given the findings of cardiomyopathy on Echo Hepatitis was ordered for today. It is a send out lab and will be pending. Plan: We will monitor LFTs intermittently (8) Hx HTN She was on metoprolol, amlodipine and losartan at home. The previous hospitalist continue the metoprolol, and change tartrate to succinate. We will continue to hold losartan while we focus on rate control. We have stopped amlodipine to avoid hypotension. (9) Hypothyroidism TSH is in a good range. Plan: We will continue her usual home dose of thyroid medication
[2022-08-30] MEDS ORDERED: GLYCERIN ADULT SUPP PR ONE (19:37)
[2022-08-30] MEDS: AMIODARONE 200 MG TABLET PO SCH (20:18)
[2022-08-30 20:29] LABS: MAGNESIUM 1.8 mg/dL (1.7-2.8); POTASSIUM 3.3 mmol/L (3.5-5.0)
[2022-08-30] MEDS ORDERED: diltiaZEM INJ 5 MG/ML VIAL IVP PRN (20:38)
[2022-08-30] MEDS ORDERED: AMIODARONE 200 MG TABLET PO SCH (21:00)
[2022-08-31] MEDS: METOPROLOL 5 MG/5 ML VIAL IVP SCH ×4 (00:37→13:07)
[2022-08-31] MEDS: SODIUM CHLORIDE FLUSH 0.9% 10 ML SYRINGE IVP SCH ×3 (02:06→16:50)
[2022-08-31] MEDS: traZODone 50 MG TABLET PO PRN (03:54)
[2022-08-31 04:30] LABS: BASOPHILS % (AUTO) 0.1 %; HCT - HEMATOCRIT 37.1 % (37.0-47.0); HGB - HEMOGLOBIN 11.9 g/dL (12.0-16.0); LYMPHOCYTES # (AUTO) 1.6 10^3/uL (1.5-3.5); LYMPHOCYTES % (AUTO) 11.4 %; MEAN CORPUSCULAR HEMOGLOBIN 28.3 pg (27.0-31.0); MEAN CORPUSCULAR HGB CONC 32.1 g/dL (32.0-36.0); MEAN CORPUSCULAR VOLUME 88.3 fL (81.0-99.0); MEAN PLATELET VOLUME 12.8 fL (7.9-10.8); MONOCYTES # (AUTO) 1.1 10^3/uL (0.0-1.0); MONOCYTES % (AUTO) 7.8 %; NEUTROPHILS # (AUTO) 11.1 10^3/uL (1.5-6.6); NRBC ABSOLUTE COUNT (AUTO) 0.16 x10^3/uL; NUCLEATED RED BLOOD CELLS AUTO 1.2 /100WBC; PLT - PLATELET COUNT 366 10^3/uL (130-450); RED CELL DISTRIBUTION WIDTH 19.4 % (12.0-15.0); WHITE BLOOD COUNT 13.8 x10^3/uL (4.8-10.8)
[2022-08-31 04:32] LABS: CALCIUM, IONIZED 1.04 mmol/L (1.15-1.33); VBG PH 7.511 (7.31-7.41)
[2022-08-31 04:42] LABS: MAGNESIUM 1.7 mg/dL (1.7-2.8)
[2022-08-31 04:45] LABS: CALCIUM 8.4 mg/dL (8.5-10.3); POTASSIUM 3.3 mmol/L (3.5-5.0)
[2022-08-31] MEDS: BENZOCAINE/MENTHOL LOZENGE MM PRN (05:39)
[2022-08-31] MEDS: guaiFENesin/CODEINE 5 ML UDC PO PRN (05:39)
[2022-08-31 06:10] LABS: HBsAG SCREEN Negative (Negative); HCV AB Non Reactive (Non Reactive); HEPATITIS B CORE IGM AB Negative (Negative)
[2022-08-31] MEDS: LEVOTHYROXINE 100 MCG TABLET PO SCH (06:26)
[2022-08-31] MEDS: FUROSEMIDE 40 MG/4 ML VIAL IVP SCH ×2 (06:29→14:45)
[2022-08-31] MEDS ORDERED: POTASSIUM PHOSPHATE 15 MMOL in SODIUM CHLORIDE 0.9% 250 ML IV ONE (08:00)
[2022-08-31] MEDS ORDERED: MAGNESIUM OXIDE 400 MG TABLET PO ONE (08:00)
[2022-08-31] MEDS: SPIRONOLACTONE 25 MG TABLET PO SCH (08:10)
[2022-08-31] MEDS: APIXABAN 2.5 MG TABLET PO SCH ×2 (08:10→21:09)
[2022-08-31] MEDS: CALCIUM CARBONATE CHEW 500 MG TABLET PO SCH ×2 (08:10→13:11)
[2022-08-31] MEDS: AMIODARONE 200 MG TABLET PO SCH ×2 (08:10→21:09)
[2022-08-31] MEDS: VENLAFAXINE ER 75 MG CAPSULE PO SCH (08:11)
[2022-08-31] MEDS: DOCUSATE SODIUM 250 MG CAPSULE PO SCH (08:11)
[2022-08-31] MEDS: polyethylene glycoL 3350 17 GM PACKET PO SCH (08:12)
[2022-08-31] MEDS ORDERED: ACETAMINOPHEN 325 MG TABLET PO PRN (12:12)
--- NOTE | 2022-08-31 12:48 | XRAY Report ---
PROCEDURE: Chest 1 View X-Ray INDICATIONS: new fever s/p cardioversion TECHNIQUE: One view of the chest was acquired. COMPARISON: 08/28/2022 FINDINGS: Surgical changes and devices: None. Lungs and pleura: No pleural effusions or pneumothorax. Moderate diffuse reticulonodular pulmonary o pacity. Mediastinum: Mediastinal contours appear normal. Heart size is enlarged. Bones and chest wall: No suspicious bony lesions. Overlying soft tissues appear unremarkable. IMPRESSION: Moderate edema versus atypical pneumonia. Reviewed by: Anyi Sandy MD on 08/31/2022 12:47 PM PST Approved by: Anyi Sandy MD on 08/31/2022 12:[address] [facility] Station ID: [id number]
[2022-08-31 13:30] LABS: BILIRUBIN,URINE NEGATIVE (NEGATIVE); CLARITY,URINE CLEAR (CLEAR); GLUCOSE, URINE (UA) NEGATIVE (NEGATIVE); KETONES,URINE (UA) NEGATIVE (NEGATIVE); LEUKOCYTE ESTERASE, URINE NEGATIVE (NEGATIVE); NITRITE,URINE NEGATIVE (NEGATIVE); OCCULT BLOOD,URINE NEGATIVE (NEGATIVE); PROTEIN,URINE NEGATIVE (NEGATIVE); UROBILINOGEN,URINE 4 E.U./dL (NORMAL)
[2022-08-31 13:49] LABS: BACTERIA,URINE Few /HPF (None Seen); RBC,URINE 0-5 /HPF (0-5); SQUAMOUS EPITHELIAL CELL,UR FEW Squamous (<= Few); WBC,URINE 0-3 /HPF (0-5)
--- NOTE | 2022-08-31 14:10 | PROVIDER PROGRESS NOTE ---
Subjective - Prog Note Date Prog Note Date: 08/31/22 Prog Note Time: 14:07 - Subjective Subjective: She says that she is exhausted this morning. Could not sleep last night. So this morning she is very lethargic, and kind of on the cranky side. I asked if she feels any different now that she is in sinus rhythm and she says that she never really felt the difference of being in fast A-fib or not. Overall she just feels worse than yesterday with sob, fatigue, malaise. A few hours later, she has spiked a temperature to 38.3. A little tachycardic with is at 102. She denies cough, wheezing, chest congestion. No sore throat. No belly pain. She denies urgency, frequency, dysuria. Current Medications - Current Medications Current Medications: Active Medications Acetaminophen (Acetaminophen 325 Mg Tablet) 650 mg PO Q4HR PRN PRN Reason: Pain or Fever > 38C (100.4F) Last Admin: 08/31/22 13:07 Dose: 650 mg Amiodarone HCl (Amiodarone 200 Mg Tablet) 400 mg PO BID GERTRUDIS Last Admin: 08/31/22 08:10 Dose: 400 mg Apixaban (Apixaban 2.5 Mg Tablet) 2.5 mg PO BID GERTRUDIS Last Admin: 08/31/22 08:10 Dose: 2.5 mg Benzonatate (Benzonatate 100 Mg Capsule) 100 mg PO TID PRN PRN Reason: Cough Last Admin: 08/28/22 00:54 Dose: 100 mg Diltiazem HCl (Diltiazem Inj 5 Mg/Ml Vial) 10 mg IVP Q4H PRN PRN Reason: afib or SVT >1 minute Docusate Sodium (Docusate Sodium 250 Mg Capsule) 250 - 500 mg PO DAILY GERTRUDIS Last Admin: 08/31/22 08:11 Dose: 250 mg Furosemide (Furosemide 40 Mg/4 Ml Vial) 40 mg IVP BIDDIURETIC GERTRUDIS Last Admin: 08/31/22 06:29 Dose: 40 mg Guaifenesin/Codeine Phosphate (Guaifenesin/Codeine 5 Ml Udc) 5 ml PO Q6HR PRN PRN Reason: Cough Last Admin: 08/31/22 05:39 Dose: 5 ml Azithromycin 500 mg/ Sodium (Chloride) 250 mls @ 250 mls/hr IV DAILY [facility] Stop: 09/02/22 09:59 Levothyroxine Sodium (Levothyroxine 100 Mcg Tablet) 100 mcg PO QDAC [facility] Last Admin: 08/31/22 06:26 Dose: 100 mcg Metoprolol Tartrate (Metoprolol 5 Mg/5 Ml Vial) 5 mg IVP Q4HR [facility] Last Admin: 08/31/22 13:07 Dose: 5 mg Ondansetron HCl (Ondansetron 4 Mg/2 Ml Vial) 4 mg IVP Q6HR PRN PRN Reason: Nausea / Vomiting Polyethylene Glycol (Polyethylene Glycol 3350 17 Gm Packet) 17 gm PO DAILY [facility] Last Admin: 08/31/22 08:12 Dose: Not Given Sodium Chloride (Sodium Chloride Flush 0.9% 10 Ml Syringe) 10 ml IVP 0100,0900,1700 [facility] Last Admin: 08/31/22 08:12 Dose: 10 ml Sodium Chloride (Sodium Chloride Flush 0.9% 10 Ml Syringe) 10 ml IVP PRN PRN PRN Reason: NEEDED PER PROVIDER ORDERS Last Admin: 08/30/22 14:17 Dose: 10 ml Spironolactone (Spironolactone 25 Mg Tablet) 25 mg PO DAILY [facility] Last Admin: 08/31/22 08:10 Dose: 25 mg Throat Lozenges (Benzocaine/Menthol Lozenge) 1 lozenge MM Q2HR PRN PRN Reason: Mouth Sore Pain Last Admin: 08/31/22 05:39 Dose: 1 lozenge Trazodone HCl (Trazodone 50 Mg Tablet) 50 mg PO QPM PRN PRN Reason: Insomnia Last Admin: 08/31/22 03:54 Dose: 50 mg Venlafaxine HCl (Venlafaxine Er 75 Mg Capsule) 150 mg PO DAILY [facility] Last Admin: 08/31/22 08:11 Dose: 150 mg Levothyroxine [Synthroid] 100 mcg PO DAILY 09/03/13 Rosuvastatin Calcium [Crestor] 40 mg PO HS 09/03/13 Venlafaxine [Effexor] 150 mg PO DAILY 09/03/13 hydroCHLOROthiazide [Hydrochlorothiazide] 25 mg PO DAILY 03/08/16 Apixaban [Eliquis] 5 mg ORAL BID 08/26/22 Fenofibrate Nanocrystallized [Tricor] 145 mg PO DAILY 08/26/22 Losartan Potassium [Cozaar] 1 tab PO DAILY 08/27/22 Metoprolol Succinate 1 tab PO DAILY 08/27/22 Objective - Vital Signs/Intake & Output Reviewed Vital Signs: Yes Vital Signs: Vital Signs Temp Pulse Resp BP BP Pulse Ox O2 Flow Rate 08/31/22 13:07 135/89 H 08/31/22 12:06 38.3 C H 102 H 30 H 144/94 H 95 2 Intake & Output: Intake & Output 08/28/22 08/29/22 08/30/22 08/31/22 23:59 23:59 23:59 23:59 Intake Total 2282.917 2066.583 1535.0 610 Output Total 4000 2525 2560 650 Balance -1717.083 -458.417 -1025.0 -40 - Objective General Appearance: positive: Alert, Lethargic Eyes Bilateral: positive: PERRL, EOMI ENT: positive: Pharynx nml, No signs of dehydration Neck: positive: No JVD, Lymphadenopathy (R) (Right thyroid bulge). negative: Stiff neck Respiratory: positive: Rales (Fine crackles diffusely. Upper and lower lung sal), Other (She is mildly tachypneic, says that it is hard to breathe, and using her abdominal wall muscles to breathe). negative: Wheezes, Rhonchi Cardiovascular: positive: Regular rate & rhythm, Tachycardia, Systolic murmur Abdomen: positive: Non-tender, No organomegaly, Nml bowel sounds, No distention Skin: positive: Warm, Dry Extremities: positive: Full ROM, No pedal edema Neurologic/Psychiatric: positive: Oriented x3. negative: CN's nml (2-12), Motor nml (She has residual of her previous aneurysm and coil. Slightly dysarthric speech. Slight facial droop. She has slight hemiweakness. These are all baseline for her she tells me. Nothing is new.) - Lab Results Fish Bones: 08/31/22 04:15 08/31/22 04:15 Other Labs: Lab Results x24hrs 08/31/22 08/31/22 08/31/22 Range/Units 13:10 04:15 04:15 WBC (4.8-10.8) x10^3/uL RBC (4.20-5.40) 10^6/uL Hgb (12.0-16.0) g/dL Hct (37.0-47.0) % MCV (81.0-99.0) fL MCH (27.0-31.0) pg MCHC (32.0-36.0) g/dL RDW (12.0-15.0) % Plt Count (130-450) 10^3/uL MPV (7.9-10.8) fL Neut # (Auto) (1.5-6.6) 10^3/uL Lymph # (Auto) (1.5-3.5) 10^3/uL [place] # (Auto) (0.0-1.0) 10^3/uL Eos # (Auto) (0.0-0.7) 10^3/uL Baso # (Auto) (0.0-0.1) 10^3/uL Absolute Nucleated RBC x10^3/uL Nucleated RBC % /100WBC VBG pH 7.511 H (7.31-7.41) Ionized Calcium 1.04 L (1.15-1.33) mmol/L Sodium (135-145) mmol/L Potassium (3.5-5.0) mmol/L Chloride (101-111) mmol/L Carbon Dioxide (21-32) mmol/L Anion Gap (6-13) BUN (6-20) mg/dL Creatinine (0.4-1.0) mg/dL Estimated GFR (MDRD) (>89) Glucose (70-100) mg/dL Calcium (8.5-10.3) mg/dL Phosphorus 2.0 L (2.5-4.6) mg/dL Magnesium 1.7 (1.7-2.8) mg/dL Urine Color DARK YELLOW Urine Clarity CLEAR (CLEAR) Urine pH 6.0 (5.0-7.5) PH Ur Specific [place] 1.020 (1.002-1.030) Urine Protein NEGATIVE (NEGATIVE) mg/dL Urine Glucose (UA) NEGATIVE (NEGATIVE) mg/dL Urine Ketones NEGATIVE (NEGATIVE) mg/dL Urine Occult Blood NEGATIVE (NEGATIVE) Urine Nitrite NEGATIVE (NEGATIVE) Urine Bilirubin NEGATIVE (NEGATIVE) Urine Urobilinogen 4 H (NORMAL) E.U./dL Ur Leukocyte Esterase NEGATIVE (NEGATIVE) Urine RBC 0-5 (0-5) /HPF Urine WBC 0-3 (0-5) /HPF Ur Squamous Epith Cells FEW Squamous (<= Few) Urine Bacteria Few (None Seen) /HPF Urine Culture Comments NOT INDICATED Hepatitis A IgM Ab (Negative) Hep Bs Antigen (Negative) Hep B Core IgM Ab (Negative) Hepatitis C Antibody (Non Reactive) Hepatitis C Interp (.) 08/31/22 08/31/22 08/30/22 Range/Units 04:15 04:15 20:14 WBC 13.8 H (4.8-10.8) x10^3/uL RBC 4.20 (4.20-5.40) 10^6/uL Hgb 11.9 L (12.0-16.0) g/dL Hct 37.1 (37.0-47.0) % MCV 88.3 (81.0-99.0) fL MCH 28.3 (27.0-31.0) pg MCHC 32.1 (32.0-36.0) g/dL RDW 19.4 H (12.0-15.0) % Plt Count 366 (130-450) 10^3/uL MPV 12.8 H (7.9-10.8) fL Neut # (Auto) 11.1 H (1.5-6.6) 10^3/uL Lymph # (Auto) 1.6 (1.5-3.5) 10^3/uL [place] # (Auto) 1.1 H (0.0-1.0) 10^3/uL Eos # (Auto) 0.0 (0.0-0.7) 10^3/uL Baso # (Auto) 0.0 (0.0-0.1) 10^3/uL Absolute Nucleated RBC 0.16 x10^3/uL Nucleated RBC % 1.2 /100WBC VBG pH (7.31-7.41) Ionized Calcium (1.15-1.33) mmol/L Sodium 136 (135-145) mmol/L Potassium 3.3 L (3.5-5.0) mmol/L Chloride 94 L (101-111) mmol/L Carbon Dioxide 28 (21-32) mmol/L Anion Gap 14.0 H (6-13) BUN 34 H (6-20) mg/dL Creatinine 1.0 (0.4-1.0) mg/dL Estimated GFR (MDRD) 57 L (>89) Glucose 110 H (70-100) mg/dL Calcium 8.4 L (8.5-10.3) mg/dL Phosphorus 2.4 L (2.5-4.6) mg/dL Magnesium (1.7-2.8) mg/dL Urine Color Urine Clarity (CLEAR) Urine pH (5.0-7.5) PH Ur Specific [place] (1.002-1.030) Urine Protein (NEGATIVE) mg/dL Urine Glucose (UA) (NEGATIVE) mg/dL Urine Ketones (NEGATIVE) mg/dL Urine Occult Blood (NEGATIVE) Urine Nitrite (NEGATIVE) Urine Bilirubin (NEGATIVE) Urine Urobilinogen (NORMAL) E.U./dL Ur Leukocyte Esterase (NEGATIVE) Urine RBC (0-5) /HPF Urine WBC (0-5) /HPF Ur Squamous Epith Cells (<= Few) Urine Bacteria (None Seen) /HPF Urine Culture Comments Hepatitis A IgM Ab (Negative) Hep Bs Antigen (Negative) Hep B Core IgM Ab (Negative) Hepatitis C Antibody (Non Reactive) Hepatitis C Interp (.) 08/30/22 08/30/22 Range/Units 20:14 09:00 WBC (4.8-10.8) x10^3/uL RBC (4.20-5.40) 10^6/uL Hgb (12.0-16.0) g/dL Hct (37.0-47.0) % MCV (81.0-99.0) fL MCH (27.0-31.0) pg MCHC (32.0-36.0) g/dL RDW (12.0-15.0) % Plt Count (130-450) 10^3/uL MPV (7.9-10.8) fL Neut # (Auto) (1.5-6.6) 10^3/uL Lymph # (Auto) (1.5-3.5) 10^3/uL [place] # (Auto) (0.0-1.0) 10^3/uL Eos # (Auto) (0.0-0.7) 10^3/uL Baso # (Auto) (0.0-0.1) 10^3/uL Absolute Nucleated RBC x10^3/uL Nucleated RBC % /100WBC VBG pH (7.31-7.41) Ionized Calcium (1.15-1.33) mmol/L Sodium (135-145) mmol/L Potassium 3.3 L (3.5-5.0) mmol/L Chloride (101-111) mmol/L Carbon Dioxide (21-32) mmol/L Anion Gap (6-13) BUN (6-20) mg/dL Creatinine (0.4-1.0) mg/dL Estimated GFR (MDRD) (>89) Glucose (70-100) mg/dL Calcium (8.5-10.3) mg/dL Phosphorus (2.5-4.6) mg/dL Magnesium 1.8 (1.7-2.8) mg/dL Urine Color Urine Clarity (CLEAR) Urine pH (5.0-7.5) PH Ur Specific [place] (1.002-1.030) Urine Protein (NEGATIVE) mg/dL Urine Glucose (UA) (NEGATIVE) mg/dL Urine Ketones (NEGATIVE) mg/dL Urine Occult Blood (NEGATIVE) Urine Nitrite (NEGATIVE) Urine Bilirubin (NEGATIVE) Urine Urobilinogen (NORMAL) E.U./dL Ur Leukocyte Esterase (NEGATIVE) Urine RBC (0-5) /HPF Urine WBC (0-5) /HPF Ur Squamous Epith Cells (<= Few) Urine Bacteria (None Seen) /HPF Urine Culture Comments Hepatitis A IgM Ab Negative (Negative) Hep Bs Antigen Negative (Negative) Hep B Core IgM Ab Negative (Negative) Hepatitis C Antibody Non Reactive (Non Reactive) Hepatitis C Interp Comment (.) Assessment/Plan - Problem List (1) Fever Impression: In working up her fever, have already noted that her white cell count is elevated this morning. Chest x-ray shows atypical reticular nodular changes diffusely. Urinalysis is negative for UTI. Abdominal exam is negative for any acute abdominal process. Blood cultures have also been ordered. Plan: In addition to bacterial etiology, I am considering viral etiology. I am checking our PCR panel for COVID, rhinovirus, etc. I am giving Zithromax empirically For atypical pneumonia until her PCR panel comes back. (2) Atrial fibrillation with RVR Impression: Patient has been in atrial fibrillation in the past. She had a brain aneurysm with coil done 4 years ago at [facility] and was in A-fib then. She is on Eliquis 5 mg p.o. twice daily since that time. She was also on Metoprolol long acting 100 mg daily. Presented as weakness, no appetite, anorexia, short of breath and orthopnes. Has been here since 08/26. NM ruled out. TSH normal. Therapy since admission has included: Diltiazem drip Amiodarone drip followed next Esmolol drip followed next Digoxin has helped, IV pushes. And IV metoprolol IV push has helped. Since esmolol was at 180 cc an hour, Going through 1 bag an hour, she was at risk for going into congestive heart failure so she was returned to her diltiazem drip. Rate is still 120 and as high as 180. She is short of breath. Due to a nationwide shortage, we do not have much amiodarone nor do we have much esmolol in the pharmacy. Echocardiogram 08/29 was difficult to do. She is still on a fast rate and it is hard to calculate ejection fraction. The previous hospitalist, who is a profile trimmer, was able to do a partial bedside echo 08/27 and ejection fraction was 30%. Final echo report read this morning from the repeat echocardiogram I ordered with a regular medical technicians shows that her ejection fraction is actually probably normal. Again it is a difficult interpretation because of the A-fib but it is normal.. Final echo report today shows that her ejection fraction is probably normal. But she has Severe mitral calcification, aortic stenosis, and dilated atria. It is felt that she may benefit from transfer to higher level of care with EP cardiology for possible AV node ablation and pacer.She said that she preferred [facility] because as were her coil was done. I made multiple attempts on August 29 and called multiple hospitals to transfer her to a higher level of care. In the end her profile trimmer Dr. Camacho suggested that we just cardiovert her. She was cardioverted on the morning of August 30. She had 1 burst of SVT that I controlled with 15 mg of IV push diltiazem. I have stopped her Lopressor, diltiazem (both p.o. and IV drip) and started on amiodarone 400 mg p.o. twice daily. I have also kept IV Lopressor 5 mg IV push every 6 hours as needed for bursts of tachycardia. I have also kept diltiazem 10 mg IV push every 4 hours as needed for bursts of tachycardia. Other than the 1 dose of diltiazem that I gave her yesterday, she has not needed any further dosing. Plan: I updated her profile trimmer, Dr. Camacho today. We talked about the fact that a ablation with pacer might be indicated. Especially since her left atrium is quite dilated and I do not know how long she is going to stay in sinus rhythm. He says that he will keep it in mind. Right now he will just see her in the outpatient setting when she leaves the hospital. I was hoping that he could further along the process by making a referral to EP. But he stated that he would like to see her in the office and then discuss all of this with her before he makes any referral. We both know that the referral process for EP could take several weeks if not months to get on the "books". In the meantime I will continue the diltiazem 10 IV push diltiazem, 5 mg IV push Lopressor. Dr. Camacho agrees that the amiodarone is adequate and agrees with my management. She is also anticoagulated with Eliquis. Since her creatinine is now better, her Eliquis dose may come up today from 2.5 mg twice daily to 5 mg p.o. twice daily. Since she is off the diltiazem drip, I will transfer her to [facility]. And I will continue telemetry. (3) Dilated cardiomyopathy Bedside echocardiogram on August 27 showed an ejection fraction of 30%. Cardiomyopathy could be from the mitral stenosis and aortic stenosis seen. As well as prolonged A-fib. In order to avoid acute congestive heart failure, Lasix was started August 27. She is on 40 mg IV push twice daily. IV fluids were stopped that day. Spironolactone was added. I explained to the patient that her continued goal is rate control and diuresis. Diuresis has been relatively successful. On August 28 her fluid balance was -1717. On August 29 her fluid balance was -458. On August 30 her fluid balance was -1025 cc Plan: Blood pressure is remaining stable with diuresis, amiodarone. So I think that her blood pressure will tolerate my resuming some of her home medications. Especially in view of the fact that she has a cardiomyopathy. I will resume metoprolol at 25 mg p.o. twice daily, losartan 50 mg p.o. daily, and continue spironolactone and Lasix. Diuresis appears adequate but from a subjective point of view she says that she is more short of breath, and having more difficulty breathing today. I suspect this may be more from the fever and infection than congestive heart failure. (4) Valvular heart disease. This patient has evidence of slowly progressing to now significant MS, MR, , AI and TR with pulm hypertension, by Echo that was done by previous hospitalist on 08/27. That hospitalist is a board-certified profile trimmer. Repeat echocardi ogram 08/29 also shows valvular heart disease. Plan: Her profile trimmer says he will note that. He will take that into account when he sees her in the office. He will focus mainly on her rhythm as a problem and then follow-up with her valvular heart disease once we get the former under control. (5) Cardiorenal syndrome with hypokalemia Her BUN/creat have improved since Lasix was started and she started to diurese. She is on a lower adjusted Eliquis dose, down from 5 twice daily to 2.5 BID On a 1999 c/day total fluid restriction and a low salt diet. Today her BUN and creatinine of the lowest they have been since admission. She was admitted at 70 and 1.8 respectively. Today she is 36 and 1.0. Plan: Reduce IV diuretics from 40 mg IVP twice daily to daily today Avoid nephrotoxins Follow BMP daily Resume her eliquis to 5 mg po bid Supplement potassium with po and recheck in am (6) SHARONDA on CPAP using home device and is tolerating that with good 02 sats at night. (7) Thyroid nodule This is causing right neck swelling. It has been followed by ultrasound exams of the neck for over a year. The last US exam was just done 4 days ago which showed a minor decrease in the size of the thyroid nodule. Also, that report said that no biopsy was indicated at this time Plan: Continue with outpatient management (8) Abnormal LFTs As per admission providers evaluation, these are approximately the same as her recent abn LFTs. Probably mildly elevated from hepatic congestion, given the findings of cardiomyopathy on Echo Hepatitis panel results reviewed and she doesn't have hepatitis. Plan: We will monitor LFTs intermittently (9) Hx HTN She was on metoprolol, amlodipine and losartan at home. The previous hospitalist continue the metoprolol, and change tartrate to succinate. We will continue to hold losartan while we focus on rate control. We have stopped amlodipine to avoid hypotension. (10) Hypothyroidism TSH is in a good range. Plan: We will continue her usual home dose of thyroid medication
[2022-08-31] MEDS: AZITHROMYCIN INJ 500 MG in SODIUM CHLORIDE 0.9% 250 ML IV SCH (15:46)
[2022-08-31] MEDS ORDERED: METOPROLOL 5 MG/5 ML VIAL IVP PRN (16:29)
[2022-08-31 18:25] LABS: INFLUENZA A- RESP PCR PANEL NOT DETECTED; INFLUENZA B - RESP PCR PANEL NOT DETECTED; RSV- RESP PCR PANEL NOT DETECTED; SARS-CoV-2 -RESP PCR PANEL NOT DETECTED
[2022-08-31] MEDS ORDERED: METOPROLOL TARTRATE 50 MG TABLET PO SCH (21:00)
[2022-09-01] MEDS: guaiFENesin/CODEINE 5 ML UDC PO PRN ×2 (00:09→20:51)
[2022-09-01] MEDS: BENZOCAINE/MENTHOL LOZENGE MM PRN (00:10)
[2022-09-01] MEDS: SODIUM CHLORIDE FLUSH 0.9% 10 ML SYRINGE IVP SCH ×4 (00:10→22:09)
[2022-09-01] MEDS: BENZONATATE 100 MG CAPSULE PO PRN (01:00)
[2022-09-01] MEDS: traZODone 50 MG TABLET PO PRN (01:08)
[2022-09-01] MEDS: SODIUM CHLORIDE FLUSH 0.9% 10 ML SYRINGE IVP PRN (04:51)
[2022-09-01 05:27] LABS: BASOPHILS % (AUTO) 0.1 %; HCT - HEMATOCRIT 36.4 % (37.0-47.0); HGB - HEMOGLOBIN 11.5 g/dL (12.0-16.0); LYMPHOCYTES # (AUTO) 1.6 10^3/uL (1.5-3.5); LYMPHOCYTES % (AUTO) 12.2 %; MEAN CORPUSCULAR HGB CONC 31.6 g/dL (32.0-36.0); MEAN CORPUSCULAR VOLUME 88.8 fL (81.0-99.0); MEAN PLATELET VOLUME 12.4 fL (7.9-10.8); MONOCYTES # (AUTO) 0.8 10^3/uL (0.0-1.0); MONOCYTES % (AUTO) 6.4 %; NEUTROPHILS # (AUTO) 10.5 10^3/uL (1.5-6.6); NEUTROPHILS % (AUTO) 80.8 %; NRBC ABSOLUTE COUNT (AUTO) 0.06 x10^3/uL; NUCLEATED RED BLOOD CELLS AUTO 0.5 /100WBC; PLT - PLATELET COUNT 358 10^3/uL (130-450); RED CELL DISTRIBUTION WIDTH 19.3 % (12.0-15.0)
[2022-09-01 05:37] LABS: CALCIUM 8.9 mg/dL (8.5-10.3); CREATININE 0.9 mg/dL (0.4-1.0); MAGNESIUM 1.5 mg/dL (1.7-2.8); POTASSIUM 3.1 mmol/L (3.5-5.0)
[2022-09-01] MEDS: FUROSEMIDE 40 MG/4 ML VIAL IVP SCH ×2 (06:00→14:15)
[2022-09-01] MEDS: LEVOTHYROXINE 100 MCG TABLET PO SCH (06:01)
[2022-09-01] MEDS: VENLAFAXINE ER 75 MG CAPSULE PO SCH (08:46)
[2022-09-01] MEDS: AMIODARONE 200 MG TABLET PO SCH ×2 (08:46→20:51)
[2022-09-01] MEDS: METOPROLOL TARTRATE 50 MG TABLET PO SCH ×2 (08:47→20:50)
[2022-09-01] MEDS: LOSARTAN 50 MG TABLET PO SCH (08:47)
[2022-09-01] MEDS: APIXABAN 2.5 MG TABLET PO SCH ×2 (08:47→20:49)
[2022-09-01] MEDS: SPIRONOLACTONE 25 MG TABLET PO SCH (08:47)
[2022-09-01] MEDS: polyethylene glycoL 3350 17 GM PACKET PO SCH (08:48)
[2022-09-01] MEDS: DOCUSATE SODIUM 250 MG CAPSULE PO SCH (08:48)
[2022-09-01] MEDS: AZITHROMYCIN INJ 500 MG in SODIUM CHLORIDE 0.9% 250 ML IV SCH (08:50)
[2022-09-01] MEDS ORDERED: COD LIVER OIL/ZINC OXIDE 113 GM TUBE TOP PRN (11:14)
[2022-09-01] MEDS: POTASSIUM CHLORIDE 20 MEQ TABLET PO SCH ×2 (14:15→22:09)
[2022-09-01] MEDS ORDERED: iohexoL-300 100 ML VIAL ONE ×2 (14:25→18:25)
--- NOTE | 2022-09-01 14:33 | PROVIDER PROGRESS NOTE ---
Progress Note September 01, 2022 2:14 PM I examined her this morning and this afternoon. She has been out of the ICU since August 31. Continues to be wiped out and exhausted. I explained to her what her acute specialist said. So hopefully she will get to see him in the outpatient setting expeditiously. She is short of breath but cannot tell me why. Even just sitting in bed without exertion. No orthopnea. She really wants me to look at the mass on her right neck. She has been complaining about this for months and they did image it on August 23 she was told it was a thyroid nodule that was stable. Other than fatigue and shortness of breath, the only new complaint is that of fever. She had a temperature spike yesterday. And this afternoon at 1:30 she is 38.3 again. Tachycardia and blood pressure her partially responded to my metoprolol. But she is still 110 pule at times, and blood pressure is 162/87. Exam: Tall at 5 foot 7, 98.5 kg, overweight lady Fatigued appearing white female who is able to speak in full sentences and complete them but just pants ever so slightly. Temperature is 38.2, heart rate 100, blood pressure 114/59, respirations 16, 96% on room air. The right neck, underneath the TMJ, has a 4-1/2 cm ovoid mass. Firm, rubbery. It does not appear to be thyroid. No other lymphadenopathy. Supple neck. Lungs have coarse upper airway sounds, but no rhonchi or wheezing. Fine crackles that disappear with a deep cough. Tachycardic regular rate and rhythm with a systolic ejection murmur. Abdomen is obese, soft, nontender, normal bowel sounds. Sodium 137, potassium 3.1, BUN 23, creatinine 0.9. Creatinine on admission was 1.8. With diuresis and control of heart rate her creatinine became normal yesterday and is even better today. Magnesium is 1.5. White cell count is 13. Hemoglobin 11.5. Hematocrit 36.4. Platelets 358. Blood cultures from August 31 temperature spike are without any growth after 1 day Review of chest x-ray again shows atypical infiltrate or pulmonary edema. She was started on azithromycin yesterday. Assessment/plan 1. Fever. White cell count has never been clearly normal during the stay. Did get down a little bit to 12.9 but came back up to 13.8 yesterday and is 13.0 today. While she does have an occasional cough, lungs do not have signs of pneumonia. Chest x-ray has more CHF but I am treating her as atypical infiltrate with azithromycin. Abdomen is benign. Urinalysis negative. Blood cultures negative. Repeat viral panel, negative August 31. So I am not finding any source of infection that would be causing the fever at this time. Plan: Continue azithromycin 2. Right neck soft tissue mass. Been present for months and she said has been steadily growing. This was felt to be a thyroid nodule and thyroid ultrasounds have been done to evaluate this. But on my examination this is way out laterally, and underneath the TMJ. I do not think this is thyroid. It is quite large. It is not tender. Unfortunately the differential would include neoplasm or metastatic disease. CT soft tissue neck with contrast ordered 3. Atrial fibrillation with RVR. Resolved. Is been a difficult case to manage since the beginning of her stay. Multiple medications including diltiazem drip, amiodarone drip, esmolol drip, digoxin all use. I reached out to multiple facilities to see if they could transfer her without success on August 29. As such I did cardioversion on August 30 at the recommendation of her acute specialist. So far we have been successful in maintaining sinus but she has a very large left atria on echo and I do not think she will stay in sinus. I have spoken to her acute specialist to please prompt him in getting her into his office as soon as possible so she can be considered for ablation and pacer. In the meantime I have continued amiodarone p.o. Lopressor p.o. And I am using 10 mg IV push diltiazem every 4 hours as needed heart rate greater than 110, and 5 mg IV push every 4 hours as needed greater than 110 heart rate as well. 4. Dilated cardiomyopathy. Bedside echocardiogram done by our hospitalist acute specialist had an ejection fraction that was at times low as 30%. Formal bedside echo done by the ultrasound technician shows ejection fraction intact. However she has significant mitral stenosis or at least microcalcification, aortic stenosis. She has mitral regurg, aortic insufficiency and tricuspid regurg with pulmonary hypertension. This was discussed with the acute specialist. In the meantime patient is on metoprolol 25 mg p.o. twice daily, losartan 50 mg p.o. daily, spironolactone 25 mg a day, and on Lasix 40 mg IV push twice daily. Fluid balance being monitored. Her intake and output balance has been negative since August 28. I do not think I will change her medications for today. At some point in the next day or 2 I will stop the Lasix twice a day and go to once a day. 5. Cardiorenal syndrome with hypokalemia. Creatinine is the best its been. Potassium is low again today and I will supplement with multiple doses of oral potassium. 6. Hypomagnesemia will be supplemented with p.o. magnesium oxide.
[2022-09-01] MEDS: MAGNESIUM OXIDE 400 MG TABLET PO SCH (15:00)
[2022-09-01] MEDS ORDERED: iohexoL-300 100 ML VIAL IVP ONE (18:55)
--- NOTE | 2022-09-01 20:49 | CT Report ---
PROCEDURE: SOFT TISSUE NECK W INDICATIONS: 3 cm mass under right TMJ CONTRAST: 100ml omni 300 TECHNIQUE: After the administration of intravenous contrast, 3.0 mm axial sections acquired from the sella to th e aortic arch. Additional oblique axial 3.0 mm sections acquired through the pharynx. 3 mm thick co ursula reformats were generated. For radiation dose reduction, the following was used: automated exp osure control, adjustment of mA and/or kV according to patient size. COMPARISON: CT soft tissue neck, 11/14/2017. FINDINGS: Image quality: Excellent. Lymph nodes: There is a large rhiannon mass in the right neck extending from level II to III, measuring 3. 2 x 2.8 x 5.9 cm suspicious for metastasis. Mildly enlarged left level II-III cervical lymph nodes measure up to 1 cm in short axis. Vessels: Visualized vasculature appears patent. There is compression of the right internal jugular vein by the large rhiannon mass in the neck. Neck spaces: There is soft tissue fullness in the right posterior oropharynx and tonsillar fossa. The oropharynx, nasopharynx, and pharynx demonstrate no mucosal lesions. The vocal cords, false voca l cords, pyriform sinuses, epiglottis, vallecula, and tongue base all appear normal. Extramucosal sp aces appear unremarkable. Glands: Left thyroidectomy. Right thyroid lobe is enlarged and heterogeneous. The parotid and submandibular glands appear normal. The thyroid is normal in size and there are no i ncidental findings. Miscellaneous: Aneurysm clipping/coiling with metallic artifacts in the suprasellar cistern. There i s cerebral volume loss. Lung apices appear clear. Superficial soft tissues appear normal. Bones: Right frontal craniotomy. No suspicious bony lesions. Moderate degenerative disc and facet d isease in cervical spine. Visualized sinuses and mastoids appear unremarkable. IMPRESSION: 1. A large rhiannon mass in the right neck suspicious for metastasis. Smaller left cervical lymph nodes are indeterminate but could also secondary to metastases. A differential diagnosis is lymphoma. If cl inically indicated, ultrasound-guided biopsy may be performed. 2. Soft tissue fullness in the right posterior lateral oropharynx and tonsillar fossa. Cannot exclude a mucosal based mass. Recommend correlation with findings on direct visualization. 3. Left thyroidectomy. There right thyroid gland appears enlarged and heterogeneous. Please correlate with findings on thyroid ultrasound. 4. Aneurysm clips/coils in the suprasellar cistern with metallic artifacts. CLINICAL RECOMMENDATION STATEMENTS: In patients <35 years with an ITN detected on CT, MRI, or extrathyroidal ultrasound, the Committee re commends further evaluation with dedicated thyroid ultrasound if the nodule is "e1 cm and has no susp icious imaging features, and if the patient has normal life expectancy. In patients "e35 years with an ITN detected on CT, MRI, or extrathyroidal ultrasound, the Committee r ecommends further evaluation with dedicated thyroid ultrasound if the nodule is "e1.5 cm and has no s uspicious imaging features, and if the patient has normal life expectancy. (ACR, 2014) Reviewed by: Bonnie Renteria MD on 09/01/2022 8:48 PM PST Approved by: Bonnie Renteria MD on 09/01/2022 8:48 PM PST Station ID: [id number]
[2022-09-02 05:27] LABS: BASOPHILS % (AUTO) 0.2 %; HGB - HEMOGLOBIN 11.7 g/dL (12.0-16.0); LYMPHOCYTES # (AUTO) 1.8 10^3/uL (1.5-3.5); LYMPHOCYTES % (AUTO) 14.5 %; MEAN CORPUSCULAR HGB CONC 31.6 g/dL (32.0-36.0); MEAN CORPUSCULAR VOLUME 88.5 fL (81.0-99.0); MEAN PLATELET VOLUME 12.7 fL (7.9-10.8); MONOCYTES % (AUTO) 8.1 %; NEUTROPHILS # (AUTO) 9.4 10^3/uL (1.5-6.6); NEUTROPHILS % (AUTO) 76.6 %; NRBC ABSOLUTE COUNT (AUTO) 0.03 x10^3/uL; NUCLEATED RED BLOOD CELLS AUTO 0.2 /100WBC; PLT - PLATELET COUNT 378 10^3/uL (130-450); RED BLOOD COUNT 4.18 10^6/uL (4.20-5.40); RED CELL DISTRIBUTION WIDTH 19.2 % (12.0-15.0); WHITE BLOOD COUNT 12.2 x10^3/uL (4.8-10.8)
[2022-09-02 05:31] LABS: CALCIUM 8.8 mg/dL (8.5-10.3); CREATININE 0.8 mg/dL (0.4-1.0); MAGNESIUM 1.5 mg/dL (1.7-2.8); POTASSIUM 3.3 mmol/L (3.5-5.0)
[2022-09-02] MEDS: LEVOTHYROXINE 100 MCG TABLET PO SCH (06:23)
[2022-09-02] MEDS: FUROSEMIDE 40 MG/4 ML VIAL IVP SCH ×2 (06:23→14:39)
[2022-09-02] MEDS: POTASSIUM CHLORIDE 20 MEQ TABLET PO SCH (06:23)
[2022-09-02] MEDS: BENZOCAINE/MENTHOL LOZENGE MM PRN (06:24)
[2022-09-02] MEDS: MAGNESIUM OXIDE 400 MG TABLET PO SCH (08:30)
[2022-09-02] MEDS: AMIODARONE 200 MG TABLET PO SCH (08:30)
[2022-09-02] MEDS: APIXABAN 2.5 MG TABLET PO SCH ×2 (08:31→20:19)
[2022-09-02] MEDS: LOSARTAN 50 MG TABLET PO SCH (08:31)
[2022-09-02] MEDS: METOPROLOL TARTRATE 50 MG TABLET PO SCH ×2 (08:31→20:20)
[2022-09-02] MEDS: VENLAFAXINE ER 75 MG CAPSULE PO SCH (08:31)
[2022-09-02] MEDS: SPIRONOLACTONE 25 MG TABLET PO SCH (08:31)
[2022-09-02] MEDS: DOCUSATE SODIUM 250 MG CAPSULE PO SCH (08:32)
[2022-09-02] MEDS: polyethylene glycoL 3350 17 GM PACKET PO SCH (08:32)
[2022-09-02] MEDS: AZITHROMYCIN INJ 500 MG in SODIUM CHLORIDE 0.9% 250 ML IV SCH (08:32)
[2022-09-02] MEDS: SODIUM CHLORIDE FLUSH 0.9% 10 ML SYRINGE IVP SCH ×3 (08:33→20:26)
[2022-09-02] MEDS ORDERED: amLODIPine 5 MG TABLET PO SCH (09:00)
--- NOTE | 2022-09-02 14:48 | PROVIDER PROGRESS NOTE ---
Subjective - Prog Note Date Prog Note Date: 09/02/22 Prog Note Time: 14:46 - Subjective Pt reports feeling: Improved Subjective: When she got out of ICU, she was spiking temperatures. I could not find the source of her infection and treated empirically with azithromycin. She completed azithromycin therapy today. She did have a temperature spike at 1:00 yesterday afternoon. She denies cough, further fever. No chills. I ask about palpitations and she shrugs. She says that she never is able to tell if her A-fib is RVR or of its okay. The whole time she was in the ICU with tachycardia, she knew she was exhausted but not that she was having palpitations. She does have occasional sweats that have been ongoing for several months. She thinks she has been having them since last summer. She did have B symptoms when she had lymphoma as a teen. She then had further sweats when she was treated for her breast cancer in 2004. The sweats that she gets now are not nearly as severe as when she had lymphoma. No abdominal pain with eating. The main thing that is been bothering her is the right neck node that has been getting larger and larger. She says she has been losing weight. In looking at the electronic medical record she was 114 kg in October 2020. 106 kg in April 2022. 100 kg with her last oncology visit in July of this year. And today she is 98.5 kg. I did a chart review. She had a thyroid ultrasound August 02 of this year. They were looking for her thyroid nodule that they had already biopsied. On that ultrasound the right largest lymph node was 2.2 x 0.7 x 1 cm. It was not suspicious by size criteria. She continued to have a right thyroid nodule that was 2.3 x 1.7 x 1.8 cm. That thyroid nodule had increased in size from the previous ultrasound in December 2021. She then underwent a second thyroid ultrasound August 23. With the second thyroid ultrasound August 23, there is comment on the thyroid nodule. But there is no comment about the largest lymph node in the right neck. The patient states that her right neck has had a gradually increasing mass since that first ultrasound in August 02. Its not where her thyroid gland is in which she is usually associates with her thyroid biopsies. It is underneath the jawline below the TMJ. As such I ordered a CT of neck yesterday and the report came back last night. CT of the neck was discussed at length with the patient. 45 minutes was spent in the patient room. Please see discussion below in assessment and plan. Current Medications - Current Medications Current Medications: Active Medications Acetaminophen (Acetaminophen 325 Mg Tablet) 650 mg PO Q4HR PRN PRN Reason: Pain or Fever > 38C (100.4F) Last Admin: 08/31/22 13:07 Dose: 650 mg Amiodarone HCl (Amiodarone 200 Mg Tablet) 400 mg PO BID [facility] Last Admin: 09/02/22 08:30 Dose: 400 mg Apixaban (Apixaban 2.5 Mg Tablet) 2.5 mg PO BID [facility] Last Admin: 09/02/22 08:31 Dose: 2.5 mg Benzonatate (Benzonatate 100 Mg Capsule) 100 mg PO TID PRN PRN Reason: Cough Last Admin: 09/01/22 01:00 Dose: 100 mg Diltiazem HCl (Diltiazem Inj 5 Mg/Ml Vial) 10 mg IVP Q4H PRN PRN Reason: afib or SVT >1 minute Docusate Sodium (Docusate Sodium 250 Mg Capsule) 250 - 500 mg PO DAILY [facility] Last Admin: 09/02/22 08:32 Dose: Not Given Furosemide (Furosemide 40 Mg/4 Ml Vial) 40 mg IVP BIDDIURETIC [facility] Last Admin: 09/02/22 14:39 Dose: 40 mg Guaifenesin/Codeine Phosphate (Guaifenesin/Codeine 5 Ml Udc) 5 ml PO Q6HR PRN PRN Reason: Cough Last Admin: 09/01/22 20:51 Dose: 5 ml Potassium Chloride (Potassium Chloride) 10 meq in 100 mls @ 100 mls/hr IV Q1H [facility] Stop: 09/02/22 18:59 Levothyroxine Sodium (Levothyroxine 100 Mcg Tablet) 100 mcg PO QDAC [facility] Last Admin: 09/02/22 06:23 Dose: 100 mcg Losartan Potassium (Losartan 50 Mg Tablet) 100 mg PO DAILY [facility] Last Admin: 09/02/22 08:31 Dose: 100 mg Magnesium Oxide (Magnesium Oxide 400 Mg Tablet) 400 mg PO DAILYWM [facility] Last Admin: 09/02/22 08:30 Dose: 400 mg Metoprolol Tartrate (Metoprolol 5 Mg/5 Ml Vial) 5 mg IVP Q4HR PRN PRN Reason: HEART RATE > 110 Last Admin: 09/01/22 04:50 Dose: 5 mg Metoprolol Tartrate (Metoprolol Tartrate 50 Mg Tablet) 100 mg PO BID [facility] Last Admin: 09/02/22 08:31 Dose: 100 mg Ondansetron HCl (Ondansetron 4 Mg/2 Ml Vial) 4 mg IVP Q6HR PRN PRN Reason: Nausea / Vomiting Polyethylene Glycol (Polyethylene Glycol 3350 17 Gm Packet) 17 gm PO DAILY [facility] Last Admin: 09/02/22 08:32 Dose: Not Given Sodium Chloride (Sodium Chloride Flush 0.9% 10 Ml Syringe) 10 ml IVP 0100,0900,1700 [facility] Last Admin: 09/02/22 08:33 Dose: 10 ml Sodium Chloride (Sodium Chloride Flush 0.9% 10 Ml Syringe) 10 ml IVP PRN PRN PRN Reason: NEEDED PER PROVIDER ORDERS Last Admin: 09/01/22 04:51 Dose: 10 ml Spironolactone (Spironolactone 25 Mg Tablet) 25 mg PO DAILY [facility] Last Admin: 09/02/22 08:31 Dose: 25 mg Throat Lozenges (Benzocaine/Menthol Lozenge) 1 lozenge MM Q2HR PRN PRN Reason: Mouth Sore Pain Last Admin: 09/02/22 06:24 Dose: 1 lozenge Trazodone HCl (Trazodone 50 Mg Tablet) 50 mg PO QPM PRN PRN Reason: Insomnia Last Admin: 09/01/22 01:08 Dose: 50 mg Venlafaxine HCl (Venlafaxine Er 75 Mg Capsule) 150 mg PO DAILY [facility] Last Admin: 09/02/22 08:31 Dose: 150 mg Zinc Oxide (Cod Liver Oil/Zinc Oxide 113 Gm Tube) 113 gm TOP PRN PRN PRN Reason: Skin Care Levothyroxine [Synthroid] 100 mcg PO DAILY 09/03/13 Rosuvastatin Calcium [Crestor] 40 mg PO HS 09/03/13 Venlafaxine [Effexor] 150 mg PO DAILY 09/03/13 hydroCHLOROthiazide [Hydrochlorothiazide] 25 mg PO DAILY 03/08/16 Apixaban [Eliquis] 5 mg ORAL BID 08/26/22 Fenofibrate Nanocrystallized [Tricor] 145 mg PO DAILY 08/26/22 Losartan Potassium [Cozaar] 1 tab PO DAILY 08/27/22 Metoprolol Succinate 1 tab PO DAILY 08/27/22 Objective - Vital Signs/Intake & Output Reviewed Vital Signs: Yes Vital Signs: Vital Signs x48h Temp Pulse Resp BP BP Pulse Ox 09/02/22 12:42 37.5 C 92 20 140/86 H 97 09/02/22 08:31 141/80 H 09/02/22 08:26 37.8 C 109 H 22 141/80 H 92 Intake & Output: Intake & Output 08/30/22 08/31/22 09/01/22 09/02/22 23:59 23:59 23:59 23:59 Intake Total 1535.0 1665 1175 910 Output Total 2560 2550 675 300 Balance -1025.0 -885 500 610 - Objective General Appearance: positive: No acute distress, Alert, Other ("I am scared". She says that she has been through so much she cannot believe she may have to do this again) Eyes Bilateral: positive: PERRL, EOMI ENT: positive: Other (Right soft tissue mass, firm, rubbery underneath the right TMJ that is approximately 6 cm x 3 cm by palpation. Sometimes I hear a whistling stridor on the right side of her neck or underneath her scapula. But not always.) Neck: positive: No JVD. negative: Stiff neck Respiratory: positive: No respiratory distress, Other (Slight whistling stridor in the right upper chest and right neck). negative: Wheezes, Rales, Rhonchi Cardiovascular: positive: Regular rate & rhythm, Systolic murmur Abdomen: positive: Non-tender, No organomegaly, Nml bowel sounds, No distention Skin: positive: Warm, Dry Extremities: positive: Full ROM, No pedal edema Neurologic/Psychiatric: positive: Oriented x3, Motor nml (Slight weakness. She has to bring the head of the bed up with the button to then be able to sit up herself, and transition from supine to sitting to standing.). negative: CN's nml (2-12) (Slight left facial droop. Lip is slightly drawn of the left n asolabial fold. This is chronic for her. She also has some lip numbness that she says is residual from her aneurysm.) - Lab Results Fish Bones: 09/02/22 05:10 09/02/22 05:10 Other Labs: Lab Results x24hrs 09/02/22 09/02/22 Range/Units 05:10 05:10 WBC 12.2 H (4.8-10.8) x10^3/uL RBC 4.18 L (4.20-5.40) 10^6/uL Hgb 11.7 L (12.0-16.0) g/dL Hct 37.0 (37.0-47.0) % MCV 88.5 (81.0-99.0) fL MCH 28.0 (27.0-31.0) pg MCHC 31.6 L (32.0-36.0) g/dL RDW 19.2 H (12.0-15.0) % Plt Count 378 (130-450) 10^3/uL MPV 12.7 H (7.9-10.8) fL Neut # (Auto) 9.4 H (1.5-6.6) 10^3/uL Lymph # (Auto) 1.8 (1.5-3.5) 10^3/uL Bladen # (Auto) 1.0 (0.0-1.0) 10^3/uL Eos # (Auto) 0.0 (0.0-0.7) 10^3/uL Baso # (Auto) 0.0 (0.0-0.1) 10^3/uL Absolute Nucleated RBC 0.03 x10^3/uL Nucleated RBC % 0.2 /100WBC Sodium 133 L (135-145) mmol/L Potassium 3.3 L (3.5-5.0) mmol/L Chloride 92 L (101-111) mmol/L Carbon Dioxide 28 (21-32) mmol/L Anion Gap 13.0 (6-13) BUN 23 H (6-20) mg/dL Creatinine 0.8 (0.4-1.0) mg/dL Estimated GFR (MDRD) 73 L (>89) Glucose 107 H (70-100) mg/dL Calcium 8.8 (8.5-10.3) mg/dL Magnesium 1.5 L (1.7-2.8) mg/dL ABX Reporting Has patient been on IV antibiotics over the past 48 hours?: Yes Assessment/Plan - Problem List (1) Solitary mass of neck with fever Impression: This unfortunate female has already had 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 She then had recurrence of her left breast cancer. Now with a solitary right neck mass with fever. Differential diagnosis would include lymphoma, anaplastic thyroid cancer but this is not goiter, new primary, or metastatic breast cancer. 20% of patients with anaplastic thyroid cancer have a history of differentiated thyroid cancer and 20 to 30% have a coexisting differentiated cancer. Transformation from differentiated to anaplastic cancer has been described in patients who are followed by serial biopsies. In comparing US from 07/2022 and today (the 08/2022 makes no mention of nodes), there has been a rapid enlargement of this mass. It is very clearly not part of her thyroid from what I can see on physical exam. It is high up underneath the TMJ/jawline. She also has occ stridor or whistling but not present on a daily basis. It is pressing on her IJ. She is also had fever this week. The fever I attributed to some type of upper respiratory, or otitis or an infection I could not find. Her UA was negative. Abdominal exam negative. Chest x-ray did not have infiltrate. Blood cultures have been negative. The fever could be linked with this mass in her neck. She is completed 3 days of azithromycin and I will not be continuing that. Plan: I have typed up a quick note I will be leaving it on Dr. Deuce Cuevas's desk for him to review next Sunday when he comes to the medical ambulatory clinic. I am updating him to expedite a work-up on this unfortunate patient. White cell count has been continuously elevated during the stay. I am asking the pathologist for slide review to see if there is cellular changes of lymphoma/leukemia Peripheral flow cytometry will be drawn tomorow since the pickler helper for the lab was already done today and the specimen needs to be handled quickly. (2) Atrial fibrillation with RVR Impression: Patient has been in atrial fibrillation in the past. She had a brain aneurysm with coil done [address] [facility] and was in A-fib then. She is on Eliquis 5 mg p.o. twice daily since that time. She was also on Metoprolol long acting 100 mg daily. Presented as weakness, no appetite, anorexia, short of breath and orthopnes. Has been here since 08/26. UT ruled out. TSH normal. Therapy since admission has included: Diltiazem drip Amiodarone drip followed next Esmolol drip followed next Digoxin has helped, IV pushes. And IV metoprolol IV push has helped. Since esmolol was at 180 cc an hour, Going through 1 bag an hour, she was at risk for going into congestive heart failure so she was returned to her diltiazem drip. Rate is still 120 and as high as 180. She is short of breath. Due to a nationwide shortage, we do not have much amiodarone nor do we have much esmolol in the pharmacy. Echocardiogram 08/29 was difficult to do. She is still on a fast rate and it is hard to calculate ejection fraction. The previous hospitalist, who is a varnisher apprentice, was able to do a partial bedside echo 08/27 and ejection fraction was 30%. Final echo report read from the 08/29 repeat echocardiogram I ordered with a regular dispensary technician shows that her ejection fraction is actually probably normal. Again it is a difficult interpretation because of the A-fib but it is normal.. Final echo report today shows that her ejection fraction is probably normal. But she has Severe mitral calcification, aortic stenosis, and dilated atria. It is felt that she may benefit from transfer to higher level of care with EP cardiology for possible AV node ablation and pacer.She said that she preferred [facility] because as were her coil was done. I made multiple attempts on August 29 and called multiple hospitals to transfer her to a higher level of care. In the end her varnisher apprentice Dr. Camacho suggested that we just cardiovert her. She was cardioverted on the morning of August 30. She had 1 burst of SVT that I controlled with 15 mg of IV push diltiazem. I have stopped her Lopressor, diltiazem (both p.o. and IV drip) and started on amiodarone 400 mg p.o. twice daily. I have also kept IV Lopressor 5 mg IV push every 6 hours as needed for bursts of tachycardia. I have also kept diltiazem 10 mg IV push every 4 hours as needed for bursts of tachycardia. Other than the 1 dose of diltiazem that I gave her yesterday, she has not needed any further dosing. Since we were not achieving success with her IV drips, I reached out to try and transfer her to a higher level of care in August 29 and I was without success. I spoke to her varnisher apprentice Dr. Camacho that day who recommended cardioversion. He felt that it was a relatively low risk for stroke since she is being adequately anticoagulated. When I spoke to the patient she was adamant that she was compliant with Eliquis. As such she underwent a cardioversion August 30 and has been in sinus since then. I restarted amiodarone 400 mg p.o. twice daily. I also updated her varnisher apprentice August 31 asking that he expedite his evaluation of her for possible ablation and pacer. He stated that he is not an EP provider. He will let someone in his group know. Transfer to [facility] status September 01. Eliquis had been reduced to 2.5 mg po bid due to her GFR and once she had improved, eliquis is now 5 mg po bid. Plan: Current amiodarone is 400 mg p.o. twice daily. I will decrease to 400 mg daily now. (3)Systolic heart failure, acute. Bedside echocardiogram on August 27 showed an ejection fraction of 30%. Cardiomyopathy could be from the mitral stenosis and aortic stenosis seen or rat exterminator uncontrollled afib. In order to avoid acute congestive heart failure, Lasix was started August 27. She was on 40 mg IV push twice daily. IV fluids were stopped that day. Spironolactone was added. Diuresis been successful with negative fluid balance on a daily basis since August 28. Part of her weight loss may be more my diuresis than true weight loss from the start of the admission to now. Repeat echo done by our dispensary technician August 29 showed a difficult to assess LV function because of the tachycardia and was at most mildly reduced and may be normal. The left atrium was severely dilated. She had mild pulmonary hypert ension, mildly dilated right ventricle with mildly reduced function. She had a heavily calcified aortic valve with probable moderate aortic stenosis and trace regurgitation. Moderate to severe mitral calcification with mild mitral regurgitation and no stenosis. I resumed metoprolol 25 mg p.o. twice daily, losartan 50 mg p.o. daily on 09/01, and this was continued on top of her spironolactone and Lasix 40 mg IV push twice daily. Plan: Stop IV Lasix. She is not on Lasix at home. I want to avoid overdiuresis. She is on hydrochlorothiazide at home. I will reassess her fluid status tomorrow and see if I need to add her home hydrochlorothiazide. (4) Valvular heart disease. This patient has evidence of slowly progressing to now significant MS, MR, , AI and TR with pulm hypertension, by Echo that was done by previous hospitalist on 08/27. That hospitalist is a board-certified varnisher apprentice. Repeat echocardiogram 08/29 also shows valvular heart disease. Plan: I will let Dr. Camacho know the results of that echo with my conversation with him. Says he will note that. He will take that into account when he sees her in the office. He will focus mainly on her rhythm as a problem and then follow-up with her valvular heart disease once we get the former under control. (5) Cardiorenal syndrome with hypokalemia Her BUN/creat have improved since Lasix was started and she started to diurese. She is on a lower adjusted Eliquis dose, down from 5 twice daily to 2.5 BID On a 2000 c/day total fluid restriction and a low salt diet. Today her BUN and creatinine of the lowest they have been since admission. She was admitted at 70 and 1.8 respectively. Today she is 23 and 0.8. I have been supplementing her potassium with oral potassium on a daily basis, multiple doses. She is still low on her potassium in spite of spironolactone. Plan: Stop lasix today Avoid nephrotoxins Follow BMP daily Supplement potassium With IV. Now that Lasix can stop some of her hypokalemia may resolve (6) SHARONDA on CPAP using home device and is tolerating that with good 02 sats at night. (7) Abnormal LFTs As per admission providers evaluation, these are approximately the same as her recent abn LFTs. Probably mildly elevated from hepatic congestion, given the findings of cardiomyopathy on Echo Hepatitis panel results reviewed and she doesn't have hepatitis. Plan: We will monitor LFTs intermittently (8) HTN She was on metoprolol and losartan at home. Currently on losartan and metoprolol. Lasix was 40 mg IV push twice daily. I am stopping the Lasix. By previous notes for this stay, she was on amlodipine at home. But in reviewing the reconciled home medication list stated by pharmacy, she is not on amlodipine. I will add amlodipine 5 mg. (9) Hypothyroidism TSH is in a good range. Plan: We will continue her usual home dose of thyroid medication
[2022-09-02] MEDS: POTASSIUM CHLOR 10 MEQ/100 ML 10 MEQ/100 ML BAG IV SCH ×4 (16:08→19:00)
[2022-09-02] MEDS: amLODIPine 5 MG TABLET PO SCH (18:43)
[2022-09-03] MEDS: traZODone 50 MG TABLET PO PRN (00:10)
[2022-09-03 05:38] LABS: BASOPHILS % (AUTO) 0.3 %; EOSINOPHILS % (AUTO) 0.1 %; HCT - HEMATOCRIT 36.8 % (37.0-47.0); HGB - HEMOGLOBIN 11.7 g/dL (12.0-16.0); LYMPHOCYTES % (AUTO) 17.2 %; MEAN CORPUSCULAR HEMOGLOBIN 28.3 pg (27.0-31.0); MEAN CORPUSCULAR HGB CONC 31.8 g/dL (32.0-36.0); MEAN CORPUSCULAR VOLUME 88.9 fL (81.0-99.0); MEAN PLATELET VOLUME 12.5 fL (7.9-10.8); MONOCYTES # (AUTO) 0.9 10^3/uL (0.0-1.0); MONOCYTES % (AUTO) 7.5 %; NEUTROPHILS # (AUTO) 8.5 10^3/uL (1.5-6.6); NEUTROPHILS % (AUTO) 74.3 %; PLT - PLATELET COUNT 406 10^3/uL (130-450); RED BLOOD COUNT 4.14 10^6/uL (4.20-5.40); RED CELL DISTRIBUTION WIDTH 19.7 % (12.0-15.0); WHITE BLOOD COUNT 11.5 x10^3/uL (4.8-10.8)
[2022-09-03 05:46] LABS: CALCIUM 9.2 mg/dL (8.5-10.3); CREATININE 0.8 mg/dL (0.4-1.0); MAGNESIUM 1.7 mg/dL (1.7-2.8); POTASSIUM 3.2 mmol/L (3.5-5.0)
[2022-09-03] MEDS: LEVOTHYROXINE 100 MCG TABLET PO SCH (06:35)
[2022-09-03] MEDS: SPIRONOLACTONE 25 MG TABLET PO SCH (09:26)
[2022-09-03] MEDS: MAGNESIUM OXIDE 400 MG TABLET PO SCH (09:27)
[2022-09-03] MEDS: METOPROLOL TARTRATE 50 MG TABLET PO SCH ×2 (09:27→22:28)
[2022-09-03] MEDS: AMIODARONE 200 MG TABLET PO SCH (09:28)
[2022-09-03] MEDS: amLODIPine 5 MG TABLET PO SCH (09:29)
[2022-09-03] MEDS: LOSARTAN 50 MG TABLET PO SCH (09:29)
[2022-09-03] MEDS: VENLAFAXINE ER 75 MG CAPSULE PO SCH (09:29)
[2022-09-03] MEDS: APIXABAN 2.5 MG TABLET PO SCH ×2 (09:29→22:28)
[2022-09-03] MEDS: POTASSIUM CHLORIDE 20 MEQ TABLET PO SCH (09:31)
[2022-09-03] MEDS: DOCUSATE SODIUM 250 MG CAPSULE PO SCH (09:34)
[2022-09-03] MEDS: polyethylene glycoL 3350 17 GM PACKET PO SCH (09:34)
[2022-09-03] MEDS: SODIUM CHLORIDE FLUSH 0.9% 10 ML SYRINGE IVP SCH ×2 (09:35→18:38)
[2022-09-03] MEDS ORDERED: POTASSIUM CHLORIDE 20 MEQ TABLET PO SCH (13:00)
--- NOTE | 2022-09-03 14:33 | PROVIDER PROGRESS NOTE ---
Progress Note September 03, 2022 2:30 PM She has 2 friends visiting her. 1 is her DURABLE POWER OF INSTRUCTIONAL MEDIA SERVICES TECHNICIAN Malia. Malia is living in [place] and comes back to [place] every 8 weeks for infusions at [facility]. The patient and Malia want me to know that Malia is a DURABLE POWER OF INSTRUCTIONAL MEDIA SERVICES TECHNICIAN. I explained that the patient's son called last night and left a message. She told me that I am not to speak to her son. She gets along with them, but if anybody is good to hear about her or make decisions about her it is going to be her friend Malia not her son. Patient's main complaint today is just severe fatigue. The pain in her neck is keeping her up. She cannot find a comfortable position to try and lay down. No fever since the . She denies cough, congestion. She denies chest pain. No abdominal pain. Temperature is 37.3. Heart rate 83. Blood pressure 125/56. Respirations 20. 97% on room air 5 feet 7 inches tall, 97 kg Tall, alert, looks older than stated age. 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 She has a tendency to have a slack facies, and tongue will protrude between lips in between conversation. The neck has the 6 x 3 cm rubbery, firm fixed mass underneath her right jaw close to her TMJ. Not pulsatile. There is no redness or heat. Lungs are clear but I hear occasional whistling stridor in the apices of her right lung. Is not always present and as I move my stethoscope up into her neck sometimes it is in her neck. So I think the neck mass is pressing her enough that is causing obstruction. Regular rate and rhythm Abdomen is soft, nontender Legs with trace edema. She is alert, oriented to person place and time. Sitting upright in a chair. Able to stand with considerable effort because she is so tired to stand, pivot and walk a few feet to her bed. Lab: Sodium 137, potassium 3.2. I have supplemented this woman with many, many p.o. doses and she is still hypokalemic. In spite of being on spironolactone. I did try and supplement her IV this morning but she refused because the potassium awll too much. BUN 25, creatinine 0.8. Glucose 103. White cell count 11.5, hemoglobin 11.7, heart hematocrit 36.8. 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 She then had recurrence of her left breast cancer. Now with a solitary right neck mass with fever. Differential diagnosis would include lymphoma, anaplastic thyroid cancer but this is not goiter, new primary, or metastatic breast cancer. 20% of patients with anaplastic thyroid cancer have a history of differentiated thyroid cancer and 20 to 30% have a coexisting differentiated cancer. Transformation from differentiated to anaplastic cancer has been described in patients who are followed by serial biopsies. In comparing US from 07/2022 and 09/02/22 CT (the 08/2022 US makes no mention of nodes), there has been a rapid enlargement of this mass. It is very clearly not part of her thyroid from what I can see on physical exam. It is high up underneath the TMJ/jawline. She also has occ stridor or whistling but not present on a daily basis. It is pressing on her IJ. She is also had fever this week. The fever I attributed to some type of upper respiratory, or otitis or an infection I could not find. Her UA was negative. Abdominal exam negative. Chest x-ray did not have infiltrate. Blood cultures have been negative. The fever could be linked with this mass in her neck. She is completed 3 days of azithromycin and I will not be continuing that. Last fever spike was 09/01/22 Plan: I have typed up a quick note I will be leaving it on Dr. Deuce Cuevas's desk for him to review> I thought his clinic was on Sunday but pharmacy corrects me and tells me [place] [facility] [place] I am updating him to expedite a work-up on this unfortunate patient. White cell count has been continuously elevated during the stay. I am asking the pathologist for slide review to see if there is cellular changes of lymphoma/leukemia Peripheral flow cytometry will be drawn today since the chart picker for the lab was already done yesterday and the specimen needs to be handled quickly. Other than [id number] Tylenol, I do not want to give her any stronger pain medicine. I am worried that it is starting to cause some constriction. I already know that the mass is pressing on her IJ. (2) Atrial fibrillation with RVR Impression: Patient has been in atrial fibrillation in the past. She had a brain aneurysm with coil done 4 years ago at [facility] and was in A-fib then. She is on Eliquis 5 mg p.o. twice daily since that time. She was also on Metoprolol long acting 100 mg daily. Presented as weakness, no appetite, anorexia, short of breath and orthopnes. Has been here since 08/26. ME ruled out. TSH normal. Therapy since admission has included: Diltiazem drip Amiodarone drip followed next Esmolol drip followed next Digoxin has helped, IV pushes. And IV metoprolol IV push has helped. Since esmolol was at 180 cc an hour, Going through 1 bag an hour, she was at risk for going into congestive heart failure so she was returned to her diltiazem drip. Rate is still 120 and as high as 180. She is short of breath. Due to a nationwide shortage, we do not have much amiodarone nor do we have much esmolol in the pharmacy. Echocardiogram 08/29 was difficult to do. She is still on a fast rate and it is hard to calculate ejection fraction. The previous hospitalist, who is a drying tumbler operator, was able to do a partial bedside echo 08/27 and ejection fraction was 30%. Final echo report read from the 08/29 repeat echocardiogram I ordered with a regular industrial hygiene technician shows that her ejection fraction is actually probably normal. Again it is a difficult interpretation because of the A-fib but it is normal.. Final echo report today shows that her ejection fraction is probably normal. But she has Severe mitral calcification, aortic stenosis, and dilated atria. It is felt that she may benefit from transfer to higher level of care with EP cardiology for possible AV node ablation and pacer.She said that she preferred [facility] ([place], [place]) because as were her coil was done. I made multiple attempts on August 29 and called multiple hospitals to transfer her to a higher level of care and I was without success. I spoke to her drying tumbler operator Dr. Camacho that day who recommended cardioversion. He felt that it was a relatively low risk for stroke since she is being adequately anticoagulated. When I spoke to the patient she was adamant that she was compliant with Eliquis. As such she underwent a cardioversion February 15 and has been in sinus since then. I restarted amiodarone 400 mg p.o. twice daily. I also updated her drying tumbler operator August 31 asking that he expedite his evaluation of her for possible ablation and pacer. He stated that he is not an EP provider. He will let someone in his group know. Transfer to [facility] status September 01. Eliquis had been reduced to 2.5 mg po bid due to her GFR and once she had improved, eliquis is now 5 mg po bid. Last night she was tachycardic as I left my shift. I increased her metoprolol from 100 mg p.o. twice daily to 150 mg p.o. twice daily. Heart rate is 83-99 today. Plan: Continue amiodarone. I had had her on 400 mg p.o. twice daily and she is now 2 for her milligrams daily today. At discharge I will have her on 200 mg daily. (3)Systolic heart failure, acute. Bedside echocardiogram on August 27 showed an ejection fraction of 30%. Cardiomyopathy could be from the mitral stenosis and aortic stenosis seen or long wall shear operator uncontrollled afib. In order to avoid acute congestive heart failure, Lasix was started August 27. She was on 40 mg IV push twice daily. IV fluids were stopped that day. Spironolactone was added. Diuresis been successful with negative fluid balance on a daily basis since August 28. Part of her weight loss may be more my diuresis than true weight loss from the start of the admission to now. Repeat echo done by our industrial hygiene technician August 29 showed a difficult to assess LV function because of the tachycardia and was at most mildly reduced and may be normal. The left atrium was severely dilated. She had mild pulmonary hypertension, mildly dilated right ventricle with mildly reduced function. She had a heavily calcified aortic valve with probable moderate aortic stenosis and trace regurgitation. Moderate to severe mitral calcification with mild mitral regurgitation and no stenosis. I resumed metoprolol 25 mg p.o. twice daily (now 150 mg po bid), losartan 50 mg p.o. daily on 09/01, and this was continued on top of her spironolactone and L asix 40 mg IV push twice daily. To avoid overdiuresis, Lasix was stopped September 02. She is on a 1500 cc a day fluid restriction. When she was in the ICU her urine output was 2500 cc a day. When she came back to [facility] her urine output dropped to 675. Yesterday urine output was 300 cc for the day. Plan: Instead of resuming her home hydrochlorothiazide I will start p.o. Lasix (4) Valvular heart disease. This patient has evidence of slowly progressing to now significant MS, MR, , AI and TR with pulm hypertension, by Echo that was done by previous hospitalist on 08/27. That hospitalist is a board-certified drying tumbler operator. Repeat echocardiogram 08/29 also shows valvular heart disease. Plan: I will let Dr. Camacho know the results of that echo with my conversation with him. Says he will note that. He will take that into account when he sees her in the office. He will focus mainly on her rhythm as a problem and then follow-up with her valvular heart disease once we get the former under control. (5) Cardiorenal syndrome with hypokalemia Her BUN/creat have improved since Lasix was started and she started to diurese. She is on a lower adjusted Eliquis dose, down from 5 twice daily to 2.5 BID On a 1999 c/day total fluid restriction and a low salt diet. Today her BUN and creatinine of the lowest they have been since admission. She was admitted at 70 and 1.8 respectively. Today she is 25 and 0.8. I have been supplementing her potassium with oral potassium on a daily basis, multiple doses. She is still low on her potassium in spite of spironolactone. I did try and give her IV potassium this morning but she refuses because it wall too much. Plan: Lasix 40 mg po in am Avoid nephrotoxins Follow BMP daily Potassium 40 mEq p.o. now and to start daily tomorrow. (6) SHARONDA on CPAP using home device and is tolerating that with good 02 sats at night. (7) Abnormal LFTs As per admission providers evaluation, these are approximately the same as her recent abn LFTs. Probably mildly elevated from hepatic congestion, given the findings of cardiomyopathy on Echo Hepatitis panel results reviewed and she doesn't have hepatitis. Plan: We will monitor LFTs intermittently (8) HTN She was on metoprolol and losartan at home. Currently on losartan and metoprolol. Lasix was 40 mg IV push twice daily and stopped 09/02. By previous notes for this stay, she was on amlodipine at home. But in reviewing the reconciled home medication list stated by pharmacy, she is not on amlodipine. I went ahead and started amlodipine 5 mg a day this morning. Her systolic was 154 all day today, by this afternoon she is 125. Plan Continue to monitor blood pressure on these new medications. (9) Hypothyroidism TSH is in a good range. Plan: We will continue her usual home dose of thyroid medication
[2022-09-04] MEDS: SODIUM CHLORIDE FLUSH 0.9% 10 ML SYRINGE IVP SCH ×3 (00:08→17:04)
[2022-09-04 05:14] LABS: BASOPHILS % (AUTO) 0.2 %; EOSINOPHILS % (AUTO) 0.1 %; HCT - HEMATOCRIT 38.1 % (37.0-47.0); HGB - HEMOGLOBIN 11.4 g/dL (12.0-16.0); LYMPHOCYTES % (AUTO) 17.9 %; MEAN CORPUSCULAR HEMOGLOBIN 27.3 pg (27.0-31.0); MEAN CORPUSCULAR HGB CONC 29.9 g/dL (32.0-36.0); MEAN CORPUSCULAR VOLUME 91.4 fL (81.0-99.0); MEAN PLATELET VOLUME 12.5 fL (7.9-10.8); MONOCYTES % (AUTO) 8.9 %; NEUTROPHILS % (AUTO) 72.5 %; NRBC ABSOLUTE COUNT (AUTO) 0.02 x10^3/uL; NUCLEATED RED BLOOD CELLS AUTO 0.2 /100WBC; PLT - PLATELET COUNT 388 10^3/uL (130-450); RED BLOOD COUNT 4.17 10^6/uL (4.20-5.40); RED CELL DISTRIBUTION WIDTH 19.5 % (12.0-15.0)
[2022-09-04 05:35] LABS: CALCIUM 9.4 mg/dL (8.5-10.3); CREATININE 0.9 mg/dL (0.4-1.0); MAGNESIUM 1.8 mg/dL (1.7-2.8); POTASSIUM 3.7 mmol/L (3.5-5.0)
[2022-09-04] MEDS: LEVOTHYROXINE 100 MCG TABLET PO SCH (07:47)
[2022-09-04] MEDS: METOPROLOL TARTRATE 50 MG TABLET PO SCH ×2 (09:01→22:59)
[2022-09-04] MEDS: LOSARTAN 50 MG TABLET PO SCH (09:01)
[2022-09-04] MEDS: amLODIPine 5 MG TABLET PO SCH (09:01)
[2022-09-04] MEDS: POTASSIUM CHLORIDE 20 MEQ TABLET PO SCH (09:01)
[2022-09-04] MEDS: VENLAFAXINE ER 75 MG CAPSULE PO SCH (09:02)
[2022-09-04] MEDS: APIXABAN 2.5 MG TABLET PO SCH (09:02)
[2022-09-04] MEDS: AMIODARONE 200 MG TABLET PO SCH (09:02)
[2022-09-04] MEDS: SPIRONOLACTONE 25 MG TABLET PO SCH (09:02)
[2022-09-04] MEDS: FUROSEMIDE 40 MG TABLET PO SCH (09:02)
[2022-09-04] MEDS: polyethylene glycoL 3350 17 GM PACKET PO SCH (09:03)
[2022-09-04] MEDS: DOCUSATE SODIUM 250 MG CAPSULE PO SCH (09:03)
[2022-09-04] MEDS: MAGNESIUM OXIDE 400 MG TABLET PO SCH (09:03)
[2022-09-04] MEDS ORDERED: APIXABAN 5 MG TABLET PO SCH (10:19)
[2022-09-04 11:40] LABS: INR 2.3 (0.8-1.2); PT - PROTHROMBIN TIME 25.1 secs (9.9-12.6)
[2022-09-04] MEDS ORDERED: GADOBUTROL 10 MMOL/10 ML VIAL ONE (14:08)
[2022-09-04] MEDS ORDERED: LORazepam 2 MG/ML VIAL IVP STA (15:06)
[2022-09-04] MEDS ORDERED: LORazepam 2 MG/ML VIAL IVP PRN (15:06)
--- NOTE | 2022-09-04 15:18 | PROVIDER PROGRESS NOTE ---
Progress Note September 04, 2022 3:13 PM She now has 3 friends in the room with her. They are all observing the same thing I am. Last night she was angry, belligerent, delusional and paranoid. Convinced that the nurses were harming her or out to harm her. This morning she has moments where she is lucid, and then moments where she cannot remember what I just said to her. She complains of neck pain. Says it is just getting worse. She also feels like the neck mass is bigger today than it was. I ordered a biopsy of the neck mass. However her INR is 2.5 on Eliquis. So it cannot be done today. I then ordered an MRI to see if her confusion was related to possible metastatic disease or worsening of a 4 mm aneurysm. But she came back from that refusing to do the MRI because she is scared, confused, and claustrophobic. I was able to speak to the technical operations vice president, and we were able to reach a solution. I am ordering CT of the head with and without, as well as CT angiogram. I have also left a note for Dr. Prabhu Cuevas regarding the neck mass, and my planned work-up. She is tired, confused, scared. Pain in her right neck. No fever. Denies chest pain, shortness of breath. Temperature is 36.7. Heart rate 90. Blood pressure 154/91. Respirations 20. 95% on room air. Neck has the same rubbery, firm, fixed mass underneath her right jaw close to her TMJ. No redness, no heat. The mass is not tender, but the muscles around it are tender. Lungs are clear but has an increasing wheezing stridor at the apices of right lung, and into her right neck. Before it was intermittent, now is present all the time. Regular rate and rhythm has remained since we cardioverted her Abdomen is soft, nontender, normal bowel sounds Legs with trace edema She is alert, oriented to person and place but thought process is starting to breakdown. Again the delusion and paranoia last night. The intermittent confusion today where she cannot remember what I told her a few minutes ago. She has a slight slack face where she rest her tongue between her teeth and lips that she is always done. Slight facial asymmetry from her previous aneurysm coiled that is permanent. Lab: Sodium 135, potassium 3.7, BUN 28, creatinine 0.9. Glucose 105. Magnesium 1.8. 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 She then had recurrence of her left breast cancer. Now with a solitary right neck mass with fever. Differential diagnosis would include lymphoma, anaplastic thyroid cancer but this is not goiter, new primary, or metastatic breast cancer. 20% of patients with anaplastic thyroid cancer have a history of differentiated thyroid cancer and 20 to 30% have a coexisting di fferentiated cancer. Transformation from differentiated to anaplastic cancer has been described in patients who are followed by serial biopsies. In comparing US from 07/2022 and 09/02/22 CT (the 08/2022 US makes no mention of nodes), there has been a rapid enlargement of this mass. The soft tissue neck CT has a right thyroid lobe that is enlarged and heterogeneous. But she has a large rhiannon mass in the right neck extending from level 2-3 measuring 3.2 x 2.8 x 5.9 cm suspicious for metastatic disease. She has mildly enlarged left level 2 and 3 cervical lymph nodes measuring up to 1 cm. She has soft tissue fullness in the right posterior pharynx and tonsillar fossa. They cannot exclude mucosal-based mass. It is very clearly not part of her thyroid from what I can see on physical exam. It is high up underneath the TMJ/jawline. She also has occ stridor or whistling but not present on a daily basis. It is pressing on her IJ. She is also had fever this week. The fever I attributed to some type of upper respiratory, or otitis or an infection I could not find. Her UA was negative. Abdominal exam negative. Chest x-ray did not have infiltrate. Blood cultures have been negative. The fever could be linked with this mass in her neck. She is completed 3 days of azithromycin and I will not be continuing that. Last fever spike was 09/01/22. On the basis of the stridor that I can hear in her neck and right upper lung, the compression is getting worse in the last 2 days alone. Plan: Note has been left with Dr. Cuevas in the medical ambulatory clinic. He will be here on Sunday. I am awaiting pathology slide review that I ordered. I am also awaiting the peripheral flow cytometry that was drawn and sent on the . I will move forward with holding her Eliquis to get ready for a biopsy tomorrow if possible. Give vitamin K orally tonight. Repeat INR. I have ordered a CT of the head with and without contrast. I have also ordered a CT angiogram of the head. This will take the place of the MRI. (2) Atrial fibrillation with RVR Impression: Patient has been in atrial fibrillation in the past. She had a brain aneurysm with coil done 4 years ago at [facility] and was in A-fib then. She is on Eliquis 5 mg p.o. twice daily since that time. She was also on Metoprolol long acting 100 mg daily. Presented as weakness, no appetite, anorexia, short of breath and orthopnes. Has been here since 08/26. NC ruled out. TSH normal. Therapy since admission has included: Diltiazem drip Amiodarone drip followed next Esmolol drip followed next Digoxin has helped, IV pushes. And IV metoprolol IV push has helped. Since esmolol was at 180 cc an hour, Going through 1 bag an hour, she was at risk for going into congestive heart failure so she was returned to her diltiazem drip. Rate is still 120 and as high as 180. She is short of breath. Due to a nationwide shortage, we do not have much amiodarone nor do we have much esmolol in the pharmacy. Echocardiogram 08/29 was difficult to do. She is still on a fast rate and it is hard to calculate ejection fraction. The previous hospitalist, who is a direct service worker, was able to do a partial bedside echo 08/27 and ejection fraction was 30%. Final echo report read from the 08/29 repeat echocardiogram I ordered with a regular robotic maintenance technician shows that her ejection fraction is actually probably normal. Again it is a difficult interpretation because of the A-fib but it is normal.. Final echo report today shows that her ejection fraction is probably normal. But she has Severe mitral calcification, aortic stenosis, and dilated atria. It is felt that she may benefit from transfer to higher level of care with EP cardiology for possible AV node ablation and pacer.She said that she preferred because as were her coil was done. I made multiple attempts on August 29 and called multiple hospitals to transfer her to a higher level of care and I was without success. I spoke to her direct service worker Dr. Camacho that day who recommended cardioversion. He felt that it was a relatively low risk for stroke since she is being adequately anticoagulated. When I spoke to the patient she was adamant that she was compliant with Eliquis. As such she underwent a cardioversion August 30 and has been in sinus since then. I restarted amiodarone 400 mg p.o. twice daily. I also updated her direct service worker August 31 asking that he expedite his evaluation of her for possible ablation and pacer. He stated that he is not an EP provider. He will let someone in his group know. Transfer to [facility] status September 01. Eliquis had been reduced to 2.5 mg po bid due to her GFR and once she had improved, eliquis is now 5 mg po bid. 09/02 she was tachycardic as I left my shift. I increased her metoprolol from 100 mg p.o. twice daily to 150 mg p.o. twice daily. Heart rate is 78-90 today. Plan: Continue amiodarone. I had had her on 400 mg p.o. twice daily and she is now 400 since 09/03. At discharge I will have her on 200 mg daily. Aim to go to 200 mg daily on 09/06 if she is still here. (3)Systolic heart failure, acute. Bedside echocardiogram on August 27 showed an ejection fraction of 30%. Cardiomyopathy could be from the mitral stenosis and aortic stenosis seen or chcf uncontrollled afib. In order to avoid acute congestive heart failure, Lasix was started August 27. She was on 40 mg IV push twice daily. IV fluids were stopped that day. Spironolactone was added. Diuresis been successful with negative fluid balance on a daily basis since August 28. Part of her weight loss may be more my diuresis than true weight loss from the start of the admission to now. Repeat echo done by our robotic maintenance technician August 29 showed a difficult to assess LV function because of the tachycardia and was at most mildly reduced and may be normal. The left atrium was severely dilated. She had mild pulmonary hypertension, mildly dilated right ventricle with mildly reduced function. She had a heavily calcified aortic valve with probable moderate aortic stenosis and trace regurgitation. Moderate to severe mitral calcification with mild mitral regurgitation and no stenosis. I resumed metoprolol 25 mg p.o. twice daily (now 150 mg po bid), losartan 50 mg p.o. daily on 09/01, and this was continued on top of her spironolactone and Lasix 40 mg IV push twice daily. To avoid overdiuresis, Lasix was stopped September 02. She is on a 1500 cc a day fluid restriction. When she was in the ICU her urine output was 2500 cc a day. When she came back to [facility] her urine output dropped to 675. Yesterday urine output was 300 cc for the day. Plan: Instead of resuming her home hydrochlorothiazide I will start p.o. Lasix (4) Valvular heart disease. This patient has evidence of slowly progressing to now significant MS, MR, , AI and TR with pulm hypertension, by Echo that was done by previous hospitalist on 08/27. That hospitalist is a board-certified direct service worker. Repeat echocardiogram 08/29 also shows valvular heart disease. Plan: I will let Dr. Camacho know the results of that echo with my conversation with him. Says he will note that. He will take that into account when he sees her in the office. He will focus mainly on her rhythm as a problem and then follow-up with her valvular heart disease once we get the former under control. (5) Cardiorenal syndrome with hypokalemia Her BUN/creat have improved since Lasix was started and she started to diurese. She is on a lower adjusted Eliquis dose, down from 5 twice daily to 2.5 BID On a 2000 c/day total fluid restriction and a low salt diet. Today her BUN and creatinine of the lowest they have been since admission. She was admitted at 70 and 1.8 respectively. Today she is 25 and 0.8. I have been supplementing her potassium with oral potassium on a daily basis, multiple doses. She is still low on her potassium in spite of spironolactone. I did try and give her IV potassium this morning but she refuses because it wall too much. Plan: Lasix 40 mg po in am Avoid nephrotoxins Follow BMP daily Potassium 40 mEq p.o. now and to start daily tomorrow. (6) SHARONDA on CPAP using home device and is tolerating that with good 02 sats at night. (7) Abnormal LFTs As per admission providers evaluation, these are approximately the same as her recent abn LFTs. Probably mildly elevated from hepatic congestion, given the findings of cardiomyopathy on Echo Hepatitis panel results reviewed and she doesn't have hepatitis. Plan: We will monitor LFTs intermittently (8) HTN She was on metoprolol and losartan at home. Currently on losartan and metoprolol. Lasix was 40 mg IV push twice daily and stopped 09/02. By previous notes for this stay, she was on amlodipine at home. But in reviewing the reconciled home medication list stated by pharmacy, she is not on amlodipine. I went ahead and started amlodipine 5 mg a day 09/03. So far not much effect. Today her systolic has been 143, 157, 154, Plan Continue to monitor blood pressure on these new medications. No changes today. (9) Hypothyroidism TSH is in a good range. Plan: We will continue her usual home dose of thyroid medication
[2022-09-04] MEDS ORDERED: PHYTONADIONE 10 MG/ML AMP PO ONE (15:23)
[2022-09-04] MEDS ORDERED: CHERRY SYRUP 10 ML UDC PO ONE (15:23)
[2022-09-04] MEDS ORDERED: iohexoL-300 100 ML VIAL ONE (15:24)
[2022-09-04] MEDS ORDERED: iohexoL-300 100 ML VIAL IVP ONE (16:25)
--- NOTE | 2022-09-04 16:43 | CT Report ---
PROCEDURE: ANGIO HEAD W/WO INDICATIONS: confusion, hx of aneurysm, hx of bleed CONTRAST: 80ml omni 300 TECHNIQUE: Precontrast 4.5 mm thick angled axial sections acquired from the foramen magnum to the vertex. Afte r the administration of intravenous contrast, 1 mm thick sections acquired through the Lucile of Will is. Postcontrast 4.5 mm thick sections then re-acquired from the foramen magnum to the vertex. 3-di mensional ufafjem-wejwgoida-lkflewlrib (MIP) and/or volume rendering reformats were acquired of the c entral intracranial vasculature. For radiation dose reduction, the following was used: automated ex posure control, adjustment of mA and/or kV according to patient size. COMPARISON: 03/16/2022. Correlation is made with prior brain MR angiogram examinations, 01/25/2021 and 12/28/2021 Correlation is made with the recent prior soft tissue neck CT, 09/01/2022. FINDINGS: Image quality: This study is limited by bolus timing. Motion artifact is noted. There is artifact associated with the metallic hardware. Anterior circulation: Within the region of the right internal carotid artery terminus, there is an a neurysm clip seen and coils present. A tortuous right persistent trigeminal artery can be seen. 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 Normal-appearing flow can be seen within the right intracranial internal carotid artery. The previous ly described absence of flow within the left internal carotid artery isn't well seen on the current s tudy. The flow within the paired anterior cerebral arteries is normal and symmetric. The flow within the m iddle cerebral arteries is normal and symmetric. The anterior communicating artery is seen. No aneu rysms are seen. Posterior circulation: Visualized portions of the vertebral arteries demonstrate normal caliber, and join to form a normal appearing basilar artery. Flow within the posterior cerebral arteries is norm al and symmetric. No aneurysms are seen. CSF spaces: Ventricles are normal in size and shape. Basal cisterns are patent. No extra-axial flu id collections. Brain: No midline shift. No intracranial bleeds or masses. Winn-white matter interface appears int act. Skull and face: Extensive right-sided craniotomy changes are seen. There is partial erosion of the r ight medial sphenoid bone. Calvarium and facial bones appear intact, without suspicious lesions. Sinuses: Visualized sinuses and mastoids are clear. IMPRESSION: Limited study demonstrating no acute intracranial hemorrhage. There can again seen a right carotid terminus clip and aneurysm coils. 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 The previously described absence of flow within the left internal carotid artery is not well seen on these images. If clinically appropriate, please consider a follow-up MR angiogram for further evaluation. Reviewed by: Issac Rodriguez MD on 09/04/2022 3:41 PM [facility] Approved by: Issac Rodriguez MD on 09/04/2022 3:41 PM [facility] Station ID: [id number]
[2022-09-05] MEDS: BENZOCAINE/MENTHOL LOZENGE MM PRN (01:25)
[2022-09-05] MEDS: SODIUM CHLORIDE FLUSH 0.9% 10 ML SYRINGE IVP SCH ×3 (01:26→16:19)
[2022-09-05 07:48] LABS: BASOPHILS % (AUTO) 0.3 %; EOSINOPHILS % (AUTO) 0.1 %; HCT - HEMATOCRIT 38.5 % (37.0-47.0); HGB - HEMOGLOBIN 12.1 g/dL (12.0-16.0); LYMPHOCYTES # (AUTO) 1.8 10^3/uL (1.5-3.5); LYMPHOCYTES % (AUTO) 15.8 %; MEAN CORPUSCULAR HEMOGLOBIN 28.4 pg (27.0-31.0); MEAN CORPUSCULAR HGB CONC 31.4 g/dL (32.0-36.0); MEAN CORPUSCULAR VOLUME 90.4 fL (81.0-99.0); MEAN PLATELET VOLUME 12.5 fL (7.9-10.8); MONOCYTES # (AUTO) 0.8 10^3/uL (0.0-1.0); MONOCYTES % (AUTO) 6.8 %; NEUTROPHILS # (AUTO) 8.5 10^3/uL (1.5-6.6); NEUTROPHILS % (AUTO) 76.4 %; NRBC ABSOLUTE COUNT (AUTO) 0.02 x10^3/uL; NUCLEATED RED BLOOD CELLS AUTO 0.2 /100WBC; PLT - PLATELET COUNT 405 10^3/uL (130-450); RED BLOOD COUNT 4.26 10^6/uL (4.20-5.40); RED CELL DISTRIBUTION WIDTH 19.8 % (12.0-15.0); WHITE BLOOD COUNT 11.1 x10^3/uL (4.8-10.8)
[2022-09-05 07:55] LABS: INR 1.5 (0.8-1.2); PT - PROTHROMBIN TIME 16.8 secs (9.9-12.6)
[2022-09-05 08:02] LABS: CALCIUM 9.4 mg/dL (8.5-10.3); CREATININE 0.8 mg/dL (0.4-1.0); POTASSIUM 4.2 mmol/L (3.5-5.0)
[2022-09-05] MEDS: METOPROLOL TARTRATE 50 MG TABLET PO SCH (08:38)
[2022-09-05] MEDS: VENLAFAXINE ER 75 MG CAPSULE PO SCH (08:38)
[2022-09-05] MEDS: FUROSEMIDE 40 MG TABLET PO SCH (08:39)
[2022-09-05] MEDS: MAGNESIUM OXIDE 400 MG TABLET PO SCH (08:39)
[2022-09-05] MEDS: SPIRONOLACTONE 25 MG TABLET PO SCH (08:39)
[2022-09-05] MEDS: LOSARTAN 50 MG TABLET PO SCH (08:39)
[2022-09-05] MEDS: amLODIPine 5 MG TABLET PO SCH (08:40)
[2022-09-05] MEDS: AMIODARONE 200 MG TABLET PO SCH (08:40)
[2022-09-05] MEDS: LEVOTHYROXINE 100 MCG TABLET PO SCH (08:40)
[2022-09-05] MEDS: POTASSIUM CHLORIDE 20 MEQ TABLET PO SCH (08:44)
[2022-09-05] MEDS: DOCUSATE SODIUM 250 MG CAPSULE PO SCH (08:48)
[2022-09-05] MEDS: polyethylene glycoL 3350 17 GM PACKET PO SCH (08:48)
[2022-09-05 12:35] LABS: PATHOLOGIST SLIDE COMMENTS SEE SEPARATE REPORT
[2022-09-05] MEDS ORDERED: PHYTONADIONE 10 MG/ML AMP PO ONE (15:49)
[2022-09-05] MEDS ORDERED: CHERRY SYRUP 10 ML UDC PO ONE (15:49)
--- NOTE | 2022-09-05 17:33 | PROVIDER PROGRESS NOTE ---
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 She then had recurrence of her left breast cancer. Now with a solitary right neck mass (with fever several days ago). Differential diagnosis would include lymphoma, anaplastic thyroid cancer, but this is not goiter, new primary, or metastatic breast cancer. 20% of patients with anaplastic thyroid cancer have a history of differentiated thyroid cancer and 20 to 30% have a coexisting differentiated cancer. Transformation from differentiated to anaplastic cancer has been described in patients who are followed by serial biopsies. In comparing US from 07/2022 and 09/02/22 CT (the 08/2022 US makes no mention of nodes), there has been a rapid enlargement of this mass. The soft tissue neck CT has a right thyroid lobe that is enlarged and heterogeneous. But she has a large rhiannon mass in the right neck extending from level 2-3 measuring 3.2 x 2.8 x 5.9 cm suspicious for metastatic disease. She has mildly enlarged left level 2 and 3 cervical lymph nodes measuring up to 1 cm. She has soft tissue fullness in the right posterior pharynx and tonsillar fossa. They cannot exclude mucosal-based mass. It is very clearly not part of her thyroid from what we can see on physical exam. It is high up underneath the TMJ/jawline. She also has occ stridor or whistling but not present on a daily basis. It is pressing on her IJ. She is also had fever this past week. The fever we attributed to some type of upper respiratory, or otitis or an infection I could not find. Her UA was negative. Abdominal exam negative. Chest x-ray did not have infiltrate. Blood cultures have been negative. The fever could be linked with this mass in her neck. She is completed a complete course (3 days) of azithromycin and we will not be continuing that. Last fever spike was 09/01/22. On the basis of the intermittent stridor that we can hear in her neck and right upper lung, the compression is getting worse in the last several days alone. Plan: Note has been left with Dr. Cuevas in the medical ambulatory clinic. He will be here on Sunday. I am awaiting pathology slide review that I ordered. I am also awaiting the peripheral flow cytometry that was drawn and sent on the . A fine-needle biopsy under US guidance was ordered, could not be done yesterday with INR 2.3, today INR 1.5 and again the radiologist cannot perform that bx. This was explained to the pt. Continue holding her Eliquis to get ready for a biopsy tomorrow if possible. Give vitamin K orally. Repeat INR in a.m.. (2) Atrial fibrillation with RVR Impression: Patient has been in atrial fibrillation in the past. She had a brain aneurysm with coil done 4 years ago at [facility] and was in A-fib then. She was on Eliquis 5 mg p.o. twice daily since that time. She was also on Metoprolol long acting 100 mg daily. Presented as weakness, no appetite, anorexia, short of breath and orthopnes. Has been here since 08/26. OK ruled out. TSH normal. Therapy since admission has included: Diltiazem drip Amiodarone drip followed next Esmolol drip followed next Digoxin has helped, IV pushes. And IV metoprolol IV push has helped. Then she was returned to her diltiazem drip. Echocardiogram was difficult because she still had a fast rate, which made it hard to calculate ejection fraction. It is felt that she may benefit from transfer to higher level of care with EP cardiology for possible AV node ablation and pacer. She said that she preferred [facility] because as were her coil was done. The last Screedman made multiple attempts to get her transferred, on August 29 and called multiple hospitals to transfer her to a higher level of care and was without success. Then Dr Rosales spoke to her radio message router Dr. Camacho that day who recommended cardioversion. He felt that it was a relatively low risk for stroke since she is being adequately anticoagulated. When I spoke to the patient she was adamant that she was compliant with Eliquis. As such she underwent a cardioversion August 30, done by Anesthesia and ER Dr Koroma, and has been in sinus rhythm since then. We then restarted amiodarone [address] twice daily. Dr Rosales also updated her radio message router August 31 asking that he expedite his evaluation of her for possible ablation and pacer. He stated that he is not an EP provider. He will let someone in his group know. Eliquis had been reduced to 2.5 mg po bid due to her GFR and once she had improved, eliquis is now 5 mg po bid. Plan: Continue amiodarone. 400 mg p.o. twice daily has been decreased to now 200 mg BID At discharge I will have her on 200 mg daily. Aim to go to 200 mg daily on 09/06 if she is still here. Continue metoprolol succ BID and Eliquis 5 BID (3) Systolic heart failure, acute. Bedside echocardiogram on August 27 showed an ejection fraction of 30%. 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 In order to avoid acute congestive heart failure, Lasix was started August 27. She was on 40 mg IV push twice daily. IV fluids were stopped that day. Spironolactone was added. Diuresis has been successful with negative fluid balance on a daily basis since August 28. Part of her weight loss may be more my diuresis than true weight loss from the start of the admission to now. Repeat echo done by our surgical tech August 29 showed a difficult to assess LV function because of the tachycardia and was at most mildly reduced. The left atrium was severely dilated. She had mild pulmonary hypertension. Mildly dilated right ventricle with mildly reduced function. She had a heavily calcified aortic valve with probable moderate aortic stenosis and trace regurgitation. Moderate to severe mitral calcification with mild mitral regurgitation and no mitral stenosis. We resumed metoprolol 25 mg p.o. twice daily (now 150 mg po bid), losartan 50 mg p.o. daily on 09/01, and this was continued on top of her spironolactone and Lasix 40 mg IV push twice daily. To avoid overdiuresis, Lasix was stopped September 02. She is on a 1500 cc a day fluid restriction. When she was in the ICU her urine output was 2500 cc a day. When she came [facility] to [facility] her urine output dropped to 675. Plan: Instead of resuming her home hydrochlorothiazide we started p.o. Lasix (4) Valvular heart disease. This patient has evidence of slowly progressing to now significant MR, , AI and TR with pulm hypertension, by Echo that was done by me on 08/27. Repeat echocardiogram done 08/29 also shows valvular heart disease. Plan: The last Hospitalist let Dr. Camacho know the results of that echo with my conversation with him. Said he will note that. He will take that into account when he sees her in the office. He will focus mainly on her rhythm as a problem and then follow-up with her valvular heart disease once we get the former under control. (5) Cardiorenal syndrome with hypokalemia Her BUN/creat have improved since Lasix was started and she started to diurese. She was on a lower adjusted Eliquis dose, down from 5 twice daily to 2.5 BID BUN and creatinine are improving since admission. She was admitted at 70 and 1.8 respectively. Today she is 27 and 0.8. I have been supplementing her potassium with oral potassium on a daily basis, multiple doses. She is still low on her potassium in spite of spironolactone. I did try and give her IV potassium this morning but she refuses because it wall too much. Plan: Lasix 40 mg po in am Avoid nephrotoxins Follow BMP daily Potassium 40 mEq p.o. now and to start daily tomorrow. (6) SHARONDA on CPAP She is using her home device and is tolerating that with good 02 sats at night. (7) Abnormal LFTs As per admission providers evaluation, these are approximately the same as her recent abn LFTs. Probably mildly elevated from hepatic congestion, given the findings of cardiomyopathy on Echo Hepatitis panel results reviewed and she doesn't have hepatitis. Plan: We will monitor LFTs intermittently (8) HTN She was on metoprolol and losartan at home. Lasix was IV then po dosing. Amlodipine 5 mg a day started on 09/03. Plan Continue to monitor blood pressure on these new medications. No changes today. (9) Hypothyroidism TSH is in a good range. Plan: We will continue her usual home dose of thyroid medication (10) AMS Resolved. Two days ago, she was forgetful and suspisious. Her friends visiting noticed a difference. Head CT was done and showed no new findings. Possibly it was from her fever - Current Meds Current Meds: Current Medications Generic Name Dose Route Start Last Admin Trade Name Freq PRN Reason Stop Dose Admin Acetaminophen 650 mg 08/31/22 12:12 08/31/22 13:07 Acetaminophen 325 Mg Tablet PO 650 mg Q4HR PRN Administration Pain or Fever > 38C (100.4F) Benzonatate 100 mg 08/28/22 00:30 09/01/22 01:00 Benzonatate 100 Mg Capsule PO 100 mg TID PRN Administration Cough Docusate Sodium 250 - 500 mg 08/27/22 09:00 09/05/22 08:48 Docusate Sodium 250 Mg Capsule PO Not Given DAILY GERTRUDIS Furosemide 40 mg 09/04/22 09:00 09/05/22 08:39 Furosemide 40 Mg Tablet PO 40 mg DAILY GERTRUDIS Administration Guaifenesin/Codeine Phosphate 5 ml 08/28/22 08:42 09/01/22 20:51 Guaifenesin/Codeine 5 Ml Udc PO 5 ml Q6HR PRN Administration Cough Levothyroxine Sodium 100 mcg 08/27/22 07:00 09/05/22 08:40 Levothyroxine 100 Mcg Tablet PO 100 mcg QDAC GERTRUDIS Administration Losartan Potassium 100 mg 09/01/22 09:00 09/05/22 08:39 Losartan 50 Mg Tablet PO 100 mg DAILY GERTRUDIS Administration Magnesium Oxide 400 mg 09/01/22 15:00 09/05/22 08:39 Magnesium Oxide 400 Mg Tablet PO 400 mg DAILYWM GERTRUDIS Administration Polyethylene Glycol 17 gm 08/27/22 09:00 09/05/22 08:48 Polyethylene Glycol 3350 17 Gm Packet PO Not Given DAILY GERTRUDIS Potassium Chloride 40 meq 09/03/22 08:00 09/05/22 08:44 Potassium Chloride 20 Meq Tablet PO 40 meq DAILYWM GERTRUDIS Administration Sodium Chloride 10 ml 08/27/22 01:00 09/05/22 16:19 Sodium Chloride Flush 0.9% 10 Ml Syringe IVP 10 ml 0100,0900,1700 GERTRUDIS Administration Sodium Chloride 10 ml 08/26/22 21:53 09/01/22 04:51 Sodium Chloride Flush 0.9% 10 Ml Syringe IVP 10 ml PRN PRN Administration NEEDED PER PROVIDER ORDERS Throat Lozenges 1 lozenge 08/28/22 00:25 09/05/22 01:25 Benzocaine/Menthol Lozenge MM 1 lozenge Q2HR PRN Administration Mouth Sore Pain Trazodone HCl 50 mg 08/31/22 03:39 09/03/22 00:10 Trazodone 50 Mg Tablet PO 50 mg QPM PRN Administration Insomnia Venlafaxine HCl 150 mg 08/27/22 09:00 09/05/22 08:38 Venlafaxine Er 75 Mg Capsule PO 150 mg DAILY GERTRUDIS Administration - Lab Result Fish Bone Diagrams: 09/05/22 07:23 09/05/22 07:23 - Additional Planning My Orders: My Active Orders 09/05/22 Home Health Referral [CONS] Routine 09/05/22 08:58 FNA Bx w/US Gdn 1st Les [US] Stat 09/05/22 21:00 Metoprolol Succinate [Toprol Xl] 100 mg PO BID 09/06/22 05:00 BMP - BASIC METABOLIC PANEL [CHEM] DAILYLAB CBC - COMP BLD CT W/AUTO DIFF [HEME] DAILYLAB MAGNESIUM [CHEM] DAILYLAB PT WITH INR [COAG] DAILYLAB 09/06/22 09:00 Amiodarone [Pacerone] 200 mg PO BID 09/06/22 21:00 amLODIPine [Norvasc] 2.5 mg PO QPM Subjective - Subjective Patient Reports: Other (R neck mass is painful, but not causing sore troat or SOB today.) Objective Vital Signs: Vital Signs - 24 hr 09/04/22 09/05/22 09/05/22 22:59 00:02 08:29 Temperature 36.8 C 37.1 C Heart Rate [ 72 89 Brachial] Respiratory 18 20 Rate Blood Pressure 139/81 H Blood Pressure 130/68 122/54 L [Right Brachial artery] O2 Saturation 95 95 09/05/22 09/05/22 08:38 16:00 Temperature 36.8 C Heart Rate [ 84 Brachial] Respiratory 18 Rate Blood Pressure 122/54 L Blood Pressure 143/68 H [Right Brachial artery] O2 Saturation 94 Oxygen O2 Source Room air I&O (Last 24 Hrs): Intake and Output Totals x24h 09/03/22 09/04/22 09/05/22 23:59 23:59 23:59 Intake Total 710 590 830 Output Total 200 450 625 Balance 510 140 205 General: Alert, Oriented x3 HEENT: Mucous membr. moist/pink Neck: Supple, Other (Very large R neck mas, tender, larger than whben I saw it (7 days ago)) Neuro: Alert, Non Focal Cardiovascular: Regular rate, Other (syst murmur) Respiratory: No respiratory distress, Rales (R base, fince crackle) Abdomen: Soft, No tenderness Extremities: No clubbing, No edema - Results Results: Laboratory Results Specimen Type BLOOD 09/02/22 05:10 WBC 11.1 x10^3/uL (4.8-10.8) H 09/05/22 07: RBC 4.26 10^6/uL (4.20-5.40) 09/05/22 07: Hgb 12.1 g/dL (12.0-16.0) 09/05/22 07: Hct 38.5 % (37.0-47.0) 09/05/22 07: MCV 90.4 fL (81.0-99.0) 09/05/22 07: MCH 28.4 pg (27.0-31.0) 09/05/22 07: MCHC 31.4 g/dL (32.0-36.0) L 09/05/22 07: RDW 19.8 % (12.0-15.0) H 09/05/22 07: Plt Count 405 10^3/uL (130-450) 09/05/22 07: MPV 12.5 fL (7.9-10.8) H 09/05/22 07:23 Neut # (Auto) 8.5 10^3/uL (1.5-6.6) H 09/05/22 07: Lymph # (Auto) 1.8 10^3/uL (1.5-3.5) 09/05/22 07: [place] # (Auto) 0.8 10^3/uL (0.0-1.0) 09/05/22 07: Eos # (Auto) 0.0 10^3/uL (0.0-0.7) 09/05/22 07: Baso # (Auto) 0.0 10^3/uL (0.0-0.1) 09/05/22 07: Absolute Nucleated RBC 0.02 x10^3/uL 09/05/22 07: Nucleated RBC % 0.2 /100WBC 09/05/22 07: Pathologist Review SEE SEPARATE REPORT 09/02/22 05:10 PT 16.8 secs (9.9-12.6) H 09/05/22 07: INR 1.5 (0.8-1.2) H 09/05/22 07: VBG pH 7.511 (7.31-7.41) H 08/31/22 04:15 Ionized Calcium 1.04 mmol/L (1.15-1.33) L 08/31/22 04:15 Sodium 136 mmol/L (135-145) 09/05/22 07:23 Potassium 4.2 mmol/L (3.5-5.0) 09/05/22 07:23 Chloride 99 mmol/L (101-111) L 09/05/22 07:23 Carbon Dioxide 25 mmol/L (21-32) 09/05/22 07:23 Anion Gap 12.0 (6-13) 09/05/22 07:23 BUN 21 mg/dL (6-20) H 09/05/22 07:23 Creatinine 0.8 mg/dL (0.4-1.0) 09/05/22 07:23 Estimated GFR (MDRD) 73 (>89) L 09/05/22 07:23 Glucose 101 mg/dL (70-100) H 09/05/22 07:23 Calcium 9.4 mg/dL (8.5-10.3) 09/05/22 07:23 Phosphorus 2.0 mg/dL (2.5-4.6) L 08/31/22 04:15 Magnesium 2.0 mg/dL (1.7-2.8) 09/05/22 07:23 Total Bilirubin 1.6 mg/dL (0.2-1.0) H 08/26/22 18:45 AST 97 IU/L (10-42) H 08/26/22 18:45 ALT 82 IU/L (10-60) H 08/26/22 18:45 Alkaline Phosphatase 119 IU/L (42-121) 08/26/22 18:45 Troponin I High Sens 56.9 ng/L (2.3-14.8) H* 08/28/22 01:08 B-Natriuretic Peptide 1294 pg/mL (5-100) H 08/28/22 00:58 Total Protein 6.9 g/dL (6.7-8.2) 08/26/22 18:45 Albumin 3.1 g/dL (3.2-5.5) L 08/26/22 18:45 Globulin 3.8 g/dL (2.1-4.2) 08/26/22 18:45 Albumin/Globulin Ratio 0.8 (1.0-2.2) L 08/26/22 18:45 Lipase 54 U/L (22-51) H 08/26/22 18:45 TSH 3.21 uIU/mL (0.34-5.60) 08/26/22 18:45 Urine Color DARK YELLOW 08/31/22 13:10 Urine Clarity CLEAR (CLEAR) 08/31/22 13:10 Urine pH 6.0 PH (5.0-7.5) 08/31/22 13:10 Ur Specific [place] 1.020 (1.002-1.030) 08/31/22 13:10 Urine Protein NEGATIVE mg/dL (NEGATIVE) 08/31/22 13:10 Urine Glucose (UA) NEGATIVE mg/dL (NEGATIVE) 08/31/22 13:10 Urine Ketones NEGATIVE mg/dL (NEGATIVE) 08/31/22 13:10 Urine Occult Blood NEGATIVE (NEGATIVE) 08/31/22 13:10 Urine Nitrite NEGATIVE (NEGATIVE) 08/31/22 13:10 Urine Bilirubin NEGATIVE (NEGATIVE) 08/31/22 13:10 Urine Urobilinogen 4 E.U./dL (NORMAL) H 08/31/22 13:10 Ur Leukocyte Esterase NEGATIVE (NEGATIVE) 08/31/22 13:10 Urine RBC 0-5 /HPF (0-5) 08/31/22 13:10 Urine WBC 0-3 /HPF (0-5) 08/31/22 13:10 Ur Squamous Epith Cells FEW Squamous (<= Few) 08/31/22 13:10 Urine Bacteria Few /HPF (None Seen) 08/31/22 13:10 Urine Culture Comments NOT INDICATED 08/31/22 13:10 Nasal Adenovirus (PCR) NOT DETECTED 08/26/22 19:45 Nasal B. parapertussis DNA (PCR) NOT DETECTED 08/26/22 19:45 Nasal Coronavir 229E PCR NOT DETECTED 08/26/22 19:45 Nasal Coronavir HKU1 PCR NOT DETECTED 08/26/22 19:45 Nasal Coronavir NL63 PCR NOT DETECTED 08/26/22 19:45 Nasal Coronavir OC43 PCR NOT DETECTED 08/26/22 19:45 Nasal Enterovir/Rhinovir PCR NOT DETECTED 08/26/22 19:45 Nasal Influenza B PCR NOT DETECTED 08/31/22 17:28 Nasal Influenza A PCR NOT DETECTED 08/31/22 17:28 Nasal Parainfluen 1 PCR NOT DETECTED 08/26/22 19:45 Nasal Parainfluen 2 PCR NOT DETECTED 08/26/22 19:45 Nasal Parainfluen 3 PCR NOT DETECTED 08/26/22 19:45 Nasal Parainfluen 4 PCR NOT DETECTED 08/26/22 19:45 Nasal RSV (PCR) NOT DETECTED 08/31/22 17:28 Nasal Screen MRSA (PCR) NEGATIVE (NEGATIVE) 08/26/22 22:45 Nasal B.pertussis DNA PCR NOT DETECTED 08/26/22 19:45 Nasal C.pneumoniae (PCR) NOT DETECTED 08/26/22 19:45 Sunny Human Metapneumo PCR NOT DETECTED 08/26/22 19:45 Nasal M.pneumoniae (PCR) NOT DETECTED 08/26/22 19:45 Nasal SARS-CoV-2 (PCR) NOT DETECTED 08/31/22 17:28 Last Dose Date 08/29/22 08/30/22 04:20 Last Dose Time 0817 08/30/22 04:20 Digoxin 0.5 ng/mL 08/30/22 04:20 Hepatitis A IgM Ab Negative (Negative) 08/30/22 09:00 Hep Bs Antigen Negative (Negative) 08/30/22 09:00 Hep B Core IgM Ab Negative (Negative) 08/30/22 09:00 Hepatitis C Antibody Non Reactive (Non Reactive) 08/30/22 09:00 Hepatitis C Interp Comment (.) 08/30/22 09:00 Miscellaneous Test COMMENT (.) 09/03/22 05:19 - Procedures Procedures: Procedures COLONOSCOPY (08/14/14)
[2022-09-05] MEDS: METOPROLOL SUCCINATE 50 MG TABLET PO SCH (20:13)
[2022-09-05] MEDS: guaiFENesin/CODEINE 5 ML UDC PO PRN (22:52)
[2022-09-06] MEDS: SODIUM CHLORIDE FLUSH 0.9% 10 ML SYRINGE IVP SCH ×4 (01:08→23:42)
[2022-09-06 04:56] LABS: BASOPHILS % (AUTO) 0.2 %; EOSINOPHILS % (AUTO) 0.1 %; HCT - HEMATOCRIT 38.5 % (37.0-47.0); HGB - HEMOGLOBIN 11.6 g/dL (12.0-16.0); LYMPHOCYTES # (AUTO) 1.7 10^3/uL (1.5-3.5); LYMPHOCYTES % (AUTO) 14.1 %; MEAN CORPUSCULAR HEMOGLOBIN 27.1 pg (27.0-31.0); MEAN CORPUSCULAR HGB CONC 30.1 g/dL (32.0-36.0); MEAN PLATELET VOLUME 12.3 fL (7.9-10.8); MONOCYTES # (AUTO) 0.8 10^3/uL (0.0-1.0); MONOCYTES % (AUTO) 6.9 %; NEUTROPHILS # (AUTO) 9.4 10^3/uL (1.5-6.6); PLT - PLATELET COUNT 455 10^3/uL (130-450); RED BLOOD COUNT 4.28 10^6/uL (4.20-5.40); RED CELL DISTRIBUTION WIDTH 19.7 % (12.0-15.0); WHITE BLOOD COUNT 12.1 x10^3/uL (4.8-10.8)
[2022-09-06 05:05] LABS: INR 1.3 (0.8-1.2); PT - PROTHROMBIN TIME 14.3 secs (9.9-12.6)
[2022-09-06 05:06] LABS: CALCIUM 9.3 mg/dL (8.5-10.3); CREATININE 0.6 mg/dL (0.4-1.0); MAGNESIUM 1.7 mg/dL (1.7-2.8); POTASSIUM 4.2 mmol/L (3.5-5.0)
[2022-09-06] MEDS: LEVOTHYROXINE 100 MCG TABLET PO SCH (06:31)
[2022-09-06] MEDS: METOPROLOL SUCCINATE 50 MG TABLET PO SCH ×2 (08:18→20:39)
[2022-09-06] MEDS: VENLAFAXINE ER 75 MG CAPSULE PO SCH (08:19)
[2022-09-06] MEDS: AMIODARONE 200 MG TABLET PO SCH ×2 (08:19→20:40)
[2022-09-06] MEDS: MAGNESIUM OXIDE 400 MG TABLET PO SCH (08:19)
[2022-09-06] MEDS: FUROSEMIDE 40 MG TABLET PO SCH (08:20)
[2022-09-06] MEDS: POTASSIUM CHLORIDE 20 MEQ TABLET PO SCH (08:20)
[2022-09-06] MEDS: LOSARTAN 50 MG TABLET PO SCH (08:20)
[2022-09-06] MEDS: polyethylene glycoL 3350 17 GM PACKET PO SCH (08:21)
[2022-09-06] MEDS: DOCUSATE SODIUM 250 MG CAPSULE PO SCH (08:21)
[2022-09-06] MEDS ORDERED: LIDOCAINE-MPF 1% 5 ML VIAL ONE (12:38)
[2022-09-06] MEDS ORDERED: LIDOCAINE-MPF 1% 5 ML VIAL TD ONE ×2 (14:05)
--- NOTE | 2022-09-06 14:38 | Ultrasound Report ---
PROCEDURE: FNA Bx w/US Gdn 1st Les INDICATIONS: Mass in R lateral neck TECHNIQUE: The indications, alternatives, benefits, risks, and complications of the procedure were explained to the patient. Written informed consent was obtained and placed in the chart. The area of interest wa s examined sonographically and a site was chosen for ultrasound guided percutaneous sampling. The sk in was prepared and draped in the usual fashion, and anesthetized with 1% lidocaine infiltrated from the skin down to the lesion. Multiple passes were then performed, with [facility]. A bandage was applied to the area of access at completion of t he study. COMPARISON: CT 09/01/2022 FINDINGS: Location(s) of lesion(s) sampled: Right cervical chain lymph node [place]: 25 gauge hypodermic needles. Number of passes: 5 passes. 3 samples placed in satellite. 2 samples placed in RPMI solution. Medications: 1% lidocaine for local anaesthesia. Complications: None. IMPRESSION: Successful ultrasound-guided right cervical lymph node fine needle aspiration, with cytology results pending. Reviewed by: Abida Morales MD on 09/06/2022 2:37 PM PST Approved by: Abida Morales MD on 09/06/2022 2:37 PM PST Station ID: [id number]
--- NOTE | 2022-09-06 15:44 | PROVIDER PROGRESS NOTE ---
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 She then had recurrence of her left breast cancer. Now with a solitary right neck mass (with fever several days ago). Differential diagnosis would include lymphoma, anaplastic thyroid cancer, but this is not goiter, new primary, or metastatic breast cancer. 20% of patients with anaplastic thyroid cancer have a history of differentiated thyroid cancer and 20 to 30% have a coexisting differentiated cancer. Transformation from differentiated to anaplastic cancer has been described in patients who are followed by serial biopsies. In comparing US from 07/2022 and 09/02/22 CT (the 08/2022 US makes no mention of nodes), there has been a rapid enlargement of this mass. The soft tissue neck CT has a right thyroid lobe that is enlarged and heterogeneous. But she has a large rhiannon mass in the right neck extending from level 2-3 measuring 3.2 x 2.8 x 5.9 cm suspicious for metastatic disease. She has mildly enlarged left level 2 and 3 cervical lymph nodes measuring up to 1 cm. She has soft tissue fullness in the right posterior pharynx and tonsillar fossa. They cannot exclude mucosal-based mass. It is very clearly not part of her thyroid from what we can see on physical exam. It is high up underneath the TMJ/jawline. She also has occ stridor or whistling but not present on a daily basis. It is pressing on her IJ. She is also had fever this past week and again last night. The fever we attributed to some type of upper respiratory, or otitis or an infection we could not find. Her UA was negative. Abdominal exam negative. Chest x-ray did not have infiltrate. Blood cultures have been negative. The fever could be linked with this mass in her neck. She completed a complete course (3 days) of azithr omycin and we will not be continuing that. Last fever spike was 09/05/22, last for 1 hour and no meds were given. Today she underwent ultrasound-guided fine-needle biopsy done by interventional radiology. The specimen was sent off for cytology. The Gram stain showed white cells and no bacteria Plan: Note has been left with Dr. Cuevas in the medical ambulatory clinic to contact the Hospitalist, for further recommendations We are awaiting pathology slide review and peripheral flow cytometry that was drawn and sent on the . Await fine-needle biopsy under US guidance cx result, and eventual path report. Poss [facility] soon if cx result is neg and if no fever for 24 hrs Continue holding her Eliquis today, after the biopsy, and will resume it in 48 hrs I updated the pt on the plan after her bx was done today. (2) Atrial fibrillation with RVR Impression: Patient has been in atrial fibrillation in the past. She had a brain aneurysm with coil done 4 years ago at [facility] and was in A-fib then. She was on Eliquis 5 mg p.o. twice daily since that time. She was also on Metoprolol long acting 100 mg daily. Presented as weakness, no appetite, anorexia, short of breath and orthopnes. Has been here since 08/26. OR ruled out. TSH normal. Therapy since admission has included: Diltiazem drip Amiodarone drip followed next Esmolol drip followed next Digoxin has helped, IV pushes. And IV metoprolol IV push has helped. Then she was returned to her diltiazem drip. Echocardiogram was difficult because she still had a fast rate, which made it hard to calculate ejection fraction. It is felt that she may benefit from transfer to higher level of care with EP cardiology for possible AV node ablation and pacer. She said that she preferred [facility] because as were her coil was done. The last Sales And Service Technician made multiple attempts to get her transferred, on August 29 and called multiple hospitals to transfer her to a higher level of care and was without success. Then Dr Rosales spoke to her compensation analyst Dr. Camacho that day who recommended cardioversion. He felt that it was a relatively low risk for stroke since she is being adequately anticoagulated. When I spoke to the patient she was adamant that she was compliant with Eliquis. As such she underwent a cardioversion August 30, done by Anesthesia and ER Dr Koroma, and has been in sinus rhythm since then. We then restarted amiodarone [address] twice daily. Dr Rosales also updated her compensation analyst August 31 asking that he expedite his evaluation of her for possible ablation and pacer. He stated that he is not an EP provider. He will let someone in his group know. Eliquis had been reduced to 2.5 mg po bid due to her GFR and once she had improved, eliquis is now 5 mg po bid. Plan: Continue amiodarone. 400 mg p.o. twice daily has been decreased to now 200 mg B ID At discharge I will have her on 200 mg daily. Aim to go to 200 mg daily on 09/06 if she is still here. Continue metoprolol succ BID and Eliquis 5 BID (3) Systolic heart failure, acute. Bedside echocardiogram on August 27 showed an ejection fraction of 30%. Cardiomyopathy could be from the mitral stenosis and aortic stenosis seen or bed bug exterminator uncontrollled afib. In order to avoid acute congestive heart failure, Lasix was started August 27. She was on 40 mg IV push twice daily. IV fluids were stopped that day. Spironolactone was added. Diuresis has been successful with negative fluid balance on a daily basis since August 28. Part of her weight loss may be more my diuresis than true weight loss from the start of the admission to now. Repeat echo done by our costume technician August 29 showed a difficult to assess LV function because of the tachycardia and was at most mildly reduced. The left atrium was severely dilated. She had mild pulmonary hypertension. Mildly dilated right ventricle with mildly reduced function. She had a heavily calcified aortic valve with probable moderate aortic stenosis and trace regurgitation. Moderate to severe mitral calcification with mild mitral regurgitation and no mitral stenosis. We resumed metoprolol 25 mg p.o. twice daily (now 150 mg po bid), losartan 50 mg p.o. daily on 09/01, and this was continued on top of her spironolactone and Lasix 40 mg IV push twice daily. To avoid overdiuresis, Lasix was stopped September 02. She is on a 1500 cc a day fluid restriction. When she was in the ICU her urine output was 2500 cc a day. When she came back to [facility] her urine output dropped to 675. Plan: Instead of resuming her home hydrochlorothiazide we started p.o. Lasix (4) Valvular heart disease. This patient has evidence of slowly progressing to now significant MR, , AI and TR with pulm hypertension, by Echo that was done by me on 08/27. Repeat echocardiogram done 08/29 also shows valvular heart disease. Plan: The last Hospitalist let Dr. Camacho know the results of that echo with my conversation with him. Said he will note that. He will take that into account when he sees her in the office. He will focus mainly on her rhythm as a problem and then follow-up with her valvular heart disease once we get the former under control. (5) Cardiorenal syndrome with hypokalemia Her BUN/creat have improved since Lasix was started and she started to diurese. She was on a lower adjusted Eliquis dose, down from 5 twice daily to 2.5 BID BUN and creatinine are improving since admission. She was admitted at 70 and 1.8 respectively. Today she is 27 and 0.8. I have been supplementing her potassium with oral potassium on a daily basis, multiple doses. She is still low on her potassium in spite of spironolactone. I did try and give her IV potassium this morning but she refuses because it wall too much. Plan: Lasix 40 mg po in am Avoid nephrotoxins Follow BMP daily Potassium 40 mEq p.o. now and to start daily tomorrow. (6) SHARONDA on CPAP She is using her home device and is tolerating that with good 02 sats at night. (7) Thyroid nodule This has been followed in the past with ultrasound and the last measurement was getting smaller. This is not the same as the mass on the right lateral neck (8) Abnormal LFTs As per admission providers evaluation, these are approximately the same as her recent abn LFTs. Probably mildly elevated from hepatic congestion, given the findings of cardiomyopathy on Echo Hepatitis panel results reviewed and she doesn't have hepatitis. Plan: We will monitor LFTs intermittently (9) HTN She was on metoprolol and losartan at home. Lasix was IV then po dosing. Amlodipine 5 mg a day started on 09/03. Plan Continue to monitor blood pressure on these new medications. No changes today. (10) Hypothyroidism TSH is in a good range. Plan: We will continue her usual home dose of thyroid medication (11) AMS Resolved. Two days ago, she was forgetful and suspisious. Her friends visiting noticed a difference. Head CT was done and showed no new findings. Possibly it was from her fever - Current Meds Current Meds: Current Medications Generic Name Dose Route Start Last Admin Trade Name Freq PRN Reason Stop Dose Admin Acetaminophen 650 mg 08/31/22 12:12 08/31/22 13:07 Acetaminophen 325 Mg Tablet PO 650 mg Q4HR PRN Administration Pain or Fever > 38C (100.4F) Amiodarone HCl 200 mg 09/06/22 09:00 09/06/22 08:19 Amiodarone 200 Mg Tablet PO 200 mg BID GERTRUDIS Administration Benzonatate 100 mg 08/28/22 00:30 09/01/22 01:00 Benzonatate 100 Mg Capsule PO 100 mg TID PRN Administration Cough Docusate Sodium 250 - 500 mg 08/27/22 09:00 09/06/22 08:21 Docusate Sodium 250 Mg Capsule PO Not Given DAILY GERTRUDIS Furosemide 40 mg 09/04/22 09:00 09/06/22 08:20 Furosemide 40 Mg Tablet PO 40 mg DAILY GERTRUDIS Administration Guaifenesin/Codeine Phosphate 5 ml 08/28/22 08:42 09/05/22 22:52 Guaifenesin/Codeine 5 Ml Udc PO 5 ml Q6HR PRN Administration Cough Levothyroxine Sodium 100 mcg 08/27/22 07:00 09/06/22 06:31 Levothyroxine 100 Mcg Tablet PO 100 mcg QDAC GERTRUDIS Administration Losartan Potassium 100 mg 09/01/22 09:00 09/06/22 08:20 Losartan 50 Mg Tablet PO 100 mg DAILY GERTRUDIS Administration Magnesium Oxide 400 mg 09/01/22 15:00 09/06/22 08:19 Magnesium Oxide 400 Mg Tablet PO 400 mg DAILYWM GERTRUDIS Administration Metoprolol Succinate 100 mg 09/05/22 21:00 09/06/22 08:18 Metoprolol Succinate 50 Mg Tablet PO 100 mg BID GERTRUDIS Administration Polyethylene Glycol 17 gm 08/27/22 09:00 09/06/22 08:21 Polyethylene Glycol 3350 17 Gm Packet PO Not Given DAILY GERTRUDIS Potassium Chloride 40 meq 09/03/22 08:00 09/06/22 08:20 Potassium Chloride 20 Meq Tablet PO 40 meq DAILYWM GERTRUDIS Administration Sodium Chloride 10 ml 08/27/22 01:00 09/06/22 08:21 Sodium Chloride Flush 0.9% 10 Ml Syringe IVP 10 ml 0100,0900,1700 GERTRUDIS Administration Sodium Chloride 10 ml 08/26/22 21:53 09/01/22 04:51 Sodium Chloride Flush 0.9% 10 Ml Syringe IVP 10 ml PRN PRN Administration NEEDED PER PROVIDER ORDERS Throat Lozenges 1 lozenge 08/28/22 00:25 09/05/22 01:25 Benzocaine/Menthol Lozenge MM 1 lozenge Q2HR PRN Administration Mouth Sore Pain Trazodone HCl 50 mg 08/31/22 03:39 09/03/22 00:10 Trazodone 50 Mg Tablet PO 50 mg QPM PRN Administration Insomnia Venlafaxine HCl 150 mg 08/27/22 09:00 09/06/22 08:19 Venlafaxine Er 75 Mg Capsule PO 150 mg DAILY GERTRUDIS Administration - Lab Result Fish Bone Diagrams: 09/06/22 04:50 09/06/22 04:50 - Additional Planning My Orders: My Active Orders 09/05/22 21:00 Metoprolol Succinate [Toprol Xl] 100 mg PO BID 09/06/22 09:00 Amiodarone [Pacerone] 200 mg PO BID 09/06/22 13:45 CUL,BODY FLUID(AEROBIC) [RM] Stat 09/06/22 21:00 amLODIPine [Norvasc] 2.5 mg PO QPM Subjective - Subjective Patient Reports: Pain (Tenderness at the biopsy site of the mass in the right neck) Objective Vital Signs: Vital Signs - 24 hr 09/05/22 09/05/22 09/06/22 18:00 20:14 00:10 Temperature 36.8 C 38.0 C H Heart Rate [ 84 90 86 Brachial] Respiratory 18 18 Rate Blood Pressure 143/68 H 158/88 H 162/86 H [Right Brachial artery] O2 Saturation 94 96 09/06/22 09/06/22 01:07 07:36 Temperature 37.4 C 37 C Heart Rate [ 90 Brachial] Respiratory 20 Rate Blood Pressure 158/82 H [Right Brachial artery] O2 Saturation 99 Oxygen O2 Source Room air I&O (Last 24 Hrs): Intake and Output Totals x24h 09/04/22 09/05/22 09/06/22 23:59 23:59 23:59 Intake Total 911 009 4345 Output Total 450 725 250 Balance 695 080 7622 General: Alert, Oriented x3 HEENT: Mucous membr. moist/pink Neck: Supple, Other (Bandage over the middle of the large mass in the right neck) Neuro: Alert, Non Focal Cardiovascular: Regular rate Respiratory: No respiratory distress, Breath sounds nml, Other (No stridor) Abdomen: Soft Extremities: No clubbing, No edema - Results Results: Laboratory Results Specimen Type BLOOD 09/02/22 05:10 WBC 12.1 x10^3/uL (4.8-10.8) H 09/06/22 04:50 RBC 4.28 10^6/uL (4.20-5.40) 09/06/22 04:50 Hgb 11.6 g/dL (12.0-16.0) L 09/06/22 04:50 Hct 38.5 % (37.0-47.0) 09/06/22 04:50 MCV 90.0 fL (81.0-99.0) 09/06/22 04:50 MCH 27.1 pg (27.0-31.0) 09/06/22 04:50 MCHC 30.1 g/dL (32.0-36.0) L 09/06/22 04:50 RDW 19.7 % (12.0-15.0) H 09/06/22 04:50 Plt Count 455 10^3/uL (130-450) H 09/06/22 04:50 MPV 12.3 fL (7.9-10.8) H 09/06/22 04:50 Neut # (Auto) 9.4 10^3/uL (1.5-6.6) H 09/06/22 04:50 Lymph # (Auto) 1.7 10^3/uL (1.5-3.5) 09/06/22 04:50 [place] # (Auto) 0.8 10^3/uL (0.0-1.0) 09/06/22 04:50 Eos # (Auto) 0.0 10^3/uL (0.0-0.7) 09/06/22 04:50 Baso # (Auto) 0.0 10^3/uL (0.0-0.1) 09/06/22 04:50 Absolute Nucleated RBC 0.00 x10^3/uL 09/06/22 04:50 Nucleated RBC % 0.0 /100WBC 09/06/22 04:50 Pathologist Review SEE SEPARATE REPORT 09/02/22 05:10 PT 14.3 secs (9.9-12.6) H 09/06/22 04:50 INR 1.3 (0.8-1.2) H 09/06/22 04:50 VBG pH 7.511 (7.31-7.41) H 08/31/22 04:15 Ionized Calcium 1.04 mmol/L (1.15-1.33) L 08/31/22 04:15 Sodium 135 mmol/L (135-145) 09/06/22 04:50 Potassium 4.2 mmol/L (3.5-5.0) 09/06/22 04:50 Chloride 100 mmol/L (101-111) L 09/06/22 04:50 Carbon Dioxide 25 mmol/L (21-32) 09/06/22 04:50 Anion Gap 10.0 (6-13) 09/06/22 04:50 BUN 18 mg/dL (6-20) 09/06/22 04:50 Creatinine 0.6 mg/dL (0.4-1.0) 09/06/22 04:50 Estimated GFR (MDRD) 102 (>89) 09/06/22 04:50 Glucose 103 mg/dL (70-100) H 09/06/22 04:50 Calcium 9.3 mg/dL (8.5-10.3) 09/06/22 04:50 Phosphorus 2.0 mg/dL (2.5-4.6) L 08/31/22 04:15 Magnesium 1.7 mg/dL (1.7-2.8) 09/06/22 04:50 Total Bilirubin 1.6 mg/dL (0.2-1.0) H 08/26/22 18:45 AST 97 IU/L (10-42) H 08/26/22 18:45 ALT 82 IU/L (10-60) H 08/26/22 18:45 Alkaline Phosphatase 119 IU/L (42-121) 08/26/22 18:45 Troponin I High Sens 56.9 ng/L (2.3-14.8) H* 08/28/22 01:08 B-Natriuretic Peptide 1294 pg/mL (5-100) H 08/28/22 00:58 Total Protein 6.9 g/dL (6.7-8.2) 08/26/22 18:45 Albumin 3.1 g/dL (3.2-5.5) L 08/26/22 18:45 Globulin 3.8 g/dL (2.1-4.2) 08/26/22 18:45 Albumin/Globulin Ratio 0.8 (1.0-2.2) L 08/26/22 18:45 Lipase 54 U/L (22-51) H 08/26/22 18:45 TSH 3.21 uIU/mL (0.34-5.60) 08/26/22 18:45 Urine Color DARK YELLOW 08/31/22 13:10 Urine Clarity CLEAR (CLEAR) 08/31/22 13:10 Urine pH 6.0 PH (5.0-7.5) 08/31/22 13:10 Ur Specific [place] 1.020 (1.002-1.030) 08/31/22 13:10 Urine Protein NEGATIVE mg/dL (NEGATIVE) 08/31/22 13:10 Urine Glucose (UA) NEGATIVE mg/dL (NEGATIVE) 08/31/22 13:10 Urine Ketones NEGATIVE mg/dL (NEGATIVE) 08/31/22 13:10 Urine Occult Blood NEGATIVE (NEGATIVE) 08/31/22 13:10 Urine Nitrite NEGATIVE (NEGATIVE) 08/31/22 13:10 Urine Bilirubin NEGATIVE (NEGATIVE) 08/31/22 13:10 Urine Urobilinogen 4 E.U./dL (NORMAL) H 08/31/22 13:10 Ur Leukocyte Esterase NEGATIVE (NEGATIVE) 08/31/22 13:10 Urine RBC 0-5 /HPF (0-5) 08/31/22 13:10 Urine WBC 0-3 /HPF (0-5) 08/31/22 13:10 Ur Squamous Epith Cells FEW Squamous (<= Few) 08/31/22 13:10 Urine Bacteria Few /HPF (None Seen) 08/31/22 13:10 Urine Culture Comments NOT INDICATED 08/31/22 13:10 Nasal Adenovirus (PCR) NOT DETECTED 08/26/22 19:45 Nasal B. parapertussis DNA (PCR) NOT DETECTED 08/26/22 19:45 Nasal Coronavir 229E PCR NOT DETECTED 08/26/22 19:45 Nasal Coronavir HKU1 PCR NOT DETECTED 08/26/22 19:45 Nasal Coronavir NL63 PCR NOT DETECTED 08/26/22 19:45 Nasal Coronavir OC43 PCR NOT DETECTED 08/26/22 19:45 Nasal Enterovir/Rhinovir PCR NOT DETECTED 08/26/22 19:45 Nasal Influenza B PCR NOT DETECTED 08/31/22 17:28 Nasal Influenza A PCR NOT DETECTED 08/31/22 17:28 Nasal Parainfluen 1 PCR NOT DETECTED 08/26/22 19:45 Nasal Parainfluen 2 PCR NOT DETECTED 08/26/22 19:45 Nasal Parainfluen 3 PCR NOT DETECTED 08/26/22 19:45 Nasal Parainfluen 4 PCR NOT DETECTED 08/26/22 19:45 Nasal RSV (PCR) NOT DETECTED 08/31/22 17:28 Nasal Screen MRSA (PCR) NEGATIVE (NEGATIVE) 08/26/22 22:45 Nasal B.pertussis DNA PCR NOT DETECTED 08/26/22 19:45 Nasal C.pneumoniae (PCR) NOT DETECTED 08/26/22 19:45 Sunny Human Metapneumo PCR NOT DETECTED 08/26/22 19:45 Nasal M.pneumoniae (PCR) NOT DETECTED 08/26/22 19:45 Nasal SARS-CoV-2 (PCR) NOT DETECTED 08/31/22 17:28 Last Dose Date 08/29/22 08/30/22 04:20 Last Dose Time 0817 08/30/22 04:20 Digoxin 0.5 ng/mL 08/30/22 04:20 Hepatitis A IgM Ab Negative (Negative) 08/30/22 09:00 Hep Bs Antigen Negative (Negative) 08/30/22 09:00 Hep B Core IgM Ab Negative (Negative) 08/30/22 09:00 Hepatitis C Antibody Non Reactive (Non Reactive) 08/30/22 09:00 Hepatitis C Interp Comment (.) 08/30/22 09:00 Miscellaneous Test COMMENT (.) 09/03/22 05:19 - Procedures Procedures: Procedures COLONOSCOPY (08/14/14)
[2022-09-06] MEDS ORDERED: amLODIPine 5 MG TABLET PO SCH (21:00)
[2022-09-06] MEDS: traZODone 50 MG TABLET PO PRN (23:42)
[2022-09-07] MEDS: LEVOTHYROXINE 100 MCG TABLET PO SCH (05:48)
[2022-09-07 08:30] VITALS: BP 166/77
[2022-09-07] MEDS: AMIODARONE 200 MG TABLET PO SCH (09:06)
[2022-09-07] MEDS: FUROSEMIDE 40 MG TABLET PO SCH (09:07)
[2022-09-07] MEDS: MAGNESIUM OXIDE 400 MG TABLET PO SCH (09:08)
[2022-09-07] MEDS: LOSARTAN 50 MG TABLET PO SCH (09:09)
[2022-09-07] MEDS: METOPROLOL SUCCINATE 50 MG TABLET PO SCH (09:09)
[2022-09-07] MEDS: VENLAFAXINE ER 75 MG CAPSULE PO SCH (09:09)
[2022-09-07] MEDS: DOCUSATE SODIUM 250 MG CAPSULE PO SCH (09:10)
[2022-09-07] MEDS: polyethylene glycoL 3350 17 GM PACKET PO SCH (09:10)
[2022-09-07] MEDS: POTASSIUM CHLORIDE 20 MEQ TABLET PO SCH (09:10)
[2022-09-07] MEDS: SODIUM CHLORIDE FLUSH 0.9% 10 ML SYRINGE IVP SCH (09:11)
[2022-09-07 09:18] LABS: BASOPHILS % (AUTO) 0.2 %; EOSINOPHILS % (AUTO) 0.1 %; HCT - HEMATOCRIT 38.9 % (37.0-47.0); HGB - HEMOGLOBIN 12.2 g/dL (12.0-16.0); LYMPHOCYTES # (AUTO) 1.4 10^3/uL (1.5-3.5); LYMPHOCYTES % (AUTO) 11.1 %; MEAN CORPUSCULAR HEMOGLOBIN 27.8 pg (27.0-31.0); MEAN CORPUSCULAR HGB CONC 31.4 g/dL (32.0-36.0); MEAN CORPUSCULAR VOLUME 88.6 fL (81.0-99.0); MONOCYTES # (AUTO) 0.8 10^3/uL (0.0-1.0); MONOCYTES % (AUTO) 6.4 %; NEUTROPHILS # (AUTO) 10.1 10^3/uL (1.5-6.6); NEUTROPHILS % (AUTO) 81.6 %; NRBC ABSOLUTE COUNT (AUTO) 0.02 x10^3/uL; NUCLEATED RED BLOOD CELLS AUTO 0.2 /100WBC; PLT - PLATELET COUNT 492 10^3/uL (130-450); RED BLOOD COUNT 4.39 10^6/uL (4.20-5.40); RED CELL DISTRIBUTION WIDTH 19.6 % (12.0-15.0); WHITE BLOOD COUNT 12.4 x10^3/uL (4.8-10.8)
--- NOTE | 2022-09-07 09:26 | Discharge Plan ---
Discharge Plan Problem Reviewed?: Yes Disposition: Home Health Service Condition: Stable Prescriptions: Potassium Chloride [K-Dur] 20 meq PO DAILY #30 tab Furosemide [Lasix] 20 mg PO DAILY #30 tablet Amiodarone [Pacerone] 200 mg PO DAILY #30 tab Metoprolol Succinate [Toprol Xl] 100 mg PO BID #120 tablet Diet: Low Sodium Activity Restrictions: Activity as Tolerated Shower Restrictions: No Driving Restrictions: No Health Concerns: You were hospitalized to treat atrial fib that had a very rapid, rate which had caused fluid retention (congestive heart failure [CHF]). You were in the ICU and required many different IV medications and oral medications which did not control the heart rate easily, and finally you underwent electrical cardi oversion successfully and the heart rate is controlled and staying in a normal rhythm. The Echocardiogram that was done found significant valvular disease and your Mental Health Tech, Dr. Camacho was contacted and updated with those results. Some of your medications related to the heart have now been changed. Please follow the new list of medications to take now, after discharge. New medications have been electronically prescribed to your [facility] pharmacy in [place]. Your metoprolol succinate ER 100 mg tablet now needs to be 100 mg twice a day. Your insurance company wants me to order 50 mg tablets, so you will need to take 2 tablets in the morning and 2 tablets at night. Alternatively, you can use up the Metoprolol ER that you have at home, which are 100 mg tablets, and you could take 1 tablet in the morning and 1 tablet at night. In addition, while you were here, the mass in your right neck appears to have enlarged and a biopsy was done on 09/06/2022. You may restart taking the blood thinner, Eliquis, tomorrow, 09/08/2022. Dr. Deuce Cuevas was made aware of your hospitalization (I spoke to him today) and he knows to check the results of your biopsy (pathology report and microbio logy report). He said it was okay to discharge you home. A referral for a Home Health agency has been placed to give you assistance with nursing, a bath aide and physical therapy for strengthening, at home. Plan of Treatment: As above. You should have a hospital follow-up with your PCP in the next 1 to 2 weeks, and also see your Oncologist hali Suarez and your Mental Health Tech Dr. Camacho. Care Goals: Improvement in symptoms and stabilization are the goals. Assessment: The patient understands and is agreeable with the plan. Additional Instructions or Follow Up instructions: If you have new or worsening symptoms, call your PCP or your Oncologist or Mental Health Tech for advice, or come to the ER. No Smoking: If you smoke, Please STOP! Call for help. Follow-up with: Donita Patrick MD [Primary Care Provider] -
--- NOTE | 2022-09-07 11:44 | DISCHARGE SUMMARY ---
Discharge Summary Admit Date: 08/26/22 Discharge Date: 09/07/22 Discharging Provider: Dr Geno Archibald Primary Care Provider: Dr Donita Patrick Code Status: Attempt Resuscitation Condition at Discharge: Stable Discharge Disposition: [facility] History of Present Illness: 62 y/o white female with PMH HTN, HLP, Hypothyroidism, sleep apnea, Non-hodgkins lymphoma, breast cancer s/p mastectomy, on Eliquis for unknown Dx, came to the ER with c/o swelling in right side of neck for 3 wks and SOB and orthopnea. As per pt, she saw her PCP who ordered neck mass ultrasound and possible biopsy but that was not done yet. Denies palpitations, chest pain, fever, BARNES, N/V/D , symptoms. On presentation, patient was in A fib with RVR. Labs showed leukocytosis, Glassware Maker Demonstrator 1.8 and elevated trop, ALT and AST. COVID neg. In ER, patient was given IV metoprolol and started on cardizem gtt. Patient is being admitted to ICU due to new onset A fib with RVR. The following day we got more Hx: When this patient was at [facility] 4 years ago for brain aneurysm coil and clipping, she was in A-fib then, she said. So this is NOT new onset Afib. For 3-4 years she has been on Eliquis for stroke prophylaxis. She used to see a Joinery Machinist yearly, and "had not been in A-fib over the last 3-4 years", she said. Recently, for the last 3 weeks, she started to feel weaker and remained in bed, had no appetite, ate and drank very little, and became progressively more weak, more short of breath and orthopneic. During that time she "may have noticed slight palpitations", she said. Her friends were calling to check on her (since she lives alone and no family lives close, and the friends urged her to see her PCP Dr. Patrick, which she did not. Finally last night, she felt so bad that she called one of the friends to bring her to the ER. - HOSPITAL COURSE Hospital Course: (1) Atrial fibrillation with RVR Patient has been in atrial fibrillation remotely in the past, therefore she was on Eliquis 5 mg p.o.BID and on Metoprolol lSuccinate 100 mg daily. MT was ruled out. TSH was normal. For rate control we tried a Diltiazem drip, Amiodarone drip followed next by Esmolol drip, then Digoxin IV pushes and Metoprolol IV pushes, then she was returned to the Diltiazem drip. It is felt that she may benefit from transfer to higher level of care with EP cardiology for possible AV node ablation and pacer. She said that she preferred [facility], because it was where her coil was done. We called multiple hospitals to transfer her to a higher level of care, without success due to no open beds. Then we contacted her Joinery Machinist Dr. Camacho, who recommended cardioversion. He felt that it was a relatively low risk for stroke since she has been adequately anticoagulated, and pt confirmed she was compliant with Eliquis. As such, she underwent a cardioversion August 30, sedation done by Anesthesia, and ER Dr Cameron Koroma cardioverted her successfully, and she remained in sinus rhythm since then. We then (re)started Amiodarone orally, at 400 mg p.o. twice daily with a tapering schedule. Dr Rosales also updated her Joinery Machinist on August 31 asking that he expedite his evaluation of her for possible ablation and pacer. He stated that he is not an EP provider, but he will let someone in his group know. At discharge, she was on Amio 200 mg daily, Metoprolol Succinate was at 100 mg BID and Eliquis 5 mg BID. (2) Systolic heart failure, acute. Her Echocardiogram on August 27 showed an ejection fraction of 30%. Cardiomyopathy could be from the valve disease that was found, or from custodial uncontrollled rapid rate in Afib. She needed iv Lasix and Spironolactone was added. A repeat Echo done August 29 showed: difficult to assess LV function because of the tachycardia, LV function was reported "mildly reduced". The left atrium was severely dilated. She had mild pulmonary hypertension. Mildly dilated right ventricle with mildly reduced function. She had a heavily calcified aortic valve with probably moderate aortic stenosis and trace regurgitation. Moderate to severe mitral calcification with mild mitral regurgitation but no mitral stenosis. We had her on Metoprolol, Losartan, Spironolactone and Lasix. These were continued at the time of discharge and her home Hydrochlorothiazide was stoped. (3) Valvular heart disease. This patient has evidence of slowly progressing significant MR, , AI and TR with pulm hypertension. We let Dr. Camacho know the results of that Echo and he said he will take that into account when he sees her in the office. But he will focus mainly on her rhythm as a problem and then follow-up with her valvular heart disease once we get the former under control. (4) Solitary mass of neck with fever She has already had lymphoma in her late teens, followed by left breast cancer, then had recurrence of her left breast cancer. Now with a solitary right neck mass, possibly causing inytermittent fevers.This is not a goiter and not her thyroid nodule. In comparing US from 07/2022 and 09/02/22 CT, there has been a rapid enlargement of this mass. The soft tissue neck CT has a right thyroid lobe that is enlarged and heterogeneous. But she has a large rhiannon mass in the right neck extending from level 2-3 measuring 3.2 x 2.8 x 5.9 cm suspicious for metastatic disease. She has mildly enlarged left level 2 and 3 cervical lymph nodes measuring up to 1 cm. She has soft tissue fullness in the right posterior pharynx and tonsillar fossa. They cannot exclude mucosal-based mass. It is very clearly not part of her thyroid from what we can see on physical exam. It is high up underneath the right TMJ/jawline. She also gets occaisional stridor or whistling, but not daily. It is pressing on her IJ. The fever we attributed to some type of upper respiratory, or otitis or an infection we could not find. Her UA was negative. Abdominal exam negative. Chest x-ray did not have infiltrate. Blood cultures have been negative. The er could be linked with this mass in her neck. She completed a complete course of azithromycin. We had to briefly stop her Eliquis and on 09/06, she underwent ultrasound-guided fine-needle biopsy of the neck mass, done by interventional radiology. The specimen was sent off for cytology. The Gram stain showed white cells and no bacteria. I updated Dr. Deuce Cuevas, her Oncologist in [facility] that the biopsy was done. We were also awaiting pathology slide review and peripheral flow cytometry that was drawn and sent on Sep 03. The pt was okayed to resume her Eliquis 48 hours after the biopsy. (5) Thyroid nodule This has been followed in the past with ultrasound and the last measurement was getting smaller. This is not the same as the mass on the right lateral neck. (6) Abnormal LFTs These were approximately the same as her recent abn LFTs. Possibly mildly elevated LFTs from hepatic congestion, given the findings of cardiomyopathy on Echo. Her Hepatitis panel was neg. (7) HTN She was on metoprolol and losartan at home. Here she also got Lasix IV then po and Amlodipine 5 mg a day. She was on an entirely new list of cardiac meds at the time of discharge. (8) Cardiorenal syndrome Her BUN/creat improved since Lasix was started and she started to diurese. She was on a lower adjusted Eliquis dose temporarily. (9) Hypokalemia Likely from diuretics and K was replaced. (10) Hypothyroidism TSH is in a good range. We continued her usual home dose of thyroid medication (11) SHARONDA on CPAP She was using her home CPAP device while here. (12) AMS For a day, close to the end of hospitalization, she was forgetful and suspicious. Her friends visiting noticed a difference. Head CT was done and showed no new findings. Possibly it was from her fever. It resolved the next day. - ALLERGIES Allergies/Adverse Reactions: Allergies Allergy/AdvReac Type Severity Reaction Status Date / Time No Known Drug Allergies Allergy Verified 08/26/22 18:25 - MEDICATIONS Home Medications: Ambulatory Orders Medication Instructions Recorded Confirmed Levothyroxine [Synthroid] 100 mcg PO DAILY 09/03/13 08/26/22 Rosuvastatin Calcium [Crestor] 40 mg PO HS 09/03/13 08/27/22 Venlafaxine [Effexor] 150 mg PO DAILY 09/03/13 08/26/22 Apixaban [Eliquis] 5 mg ORAL BID 08/26/22 08/26/22 Fenofibrate Nanocrystallized 145 mg PO DAILY 08/26/22 08/26/22 [Tricor] Losartan Potassium [Cozaar] 1 tab PO DAILY 08/27/22 08/27/22 Amiodarone [Pacerone] 200 mg PO DAILY #30 tab 09/07/22 Furosemide [Lasix] 20 mg PO DAILY #30 tablet 09/07/22 Metoprolol Succinate [Toprol Xl] 100 mg PO BID #120 tablet 09/07/22 Potassium Chloride [K-Dur] 20 meq PO DAILY #30 tab 09/07/22 - PHYSICAL EXAM AT DISCHARGE General Appearance: positive: No acute distress, Alert Eyes Bilateral: positive: Normal inspection, EOMI ENT: positive: ENT inspection nml, No signs of dehydration Neck: positive: Other (Large right lateral neck mass, has a bandage at needle site. Is tender) Respiratory: positive: No respiratory distress, Breath sounds nml Cardiovascular: positive: Regular rate & rhythm, Systolic murmur Abdomen: positive: Non-tender, Nml bowel sounds, No distention Skin: positive: No rash, Warm, Dry Extremities: positive: Non-tender, No pedal edema Neurologic/Psychiatric: positive: Oriented x3, Motor nml, Sensation nml - LABS Result Diagrams: 09/07/22 09:13 09/06/22 04:50 - DIAGNOSTIC IMAGING Diagnostic Imaging Results: Final report reviewed - FOLLOW UP Follow Up: See PCP, Oncologist and Joinery Machinist in 1 to 2 weeks for follow-up. - TIME SPENT Time Spent in Discharge (Minutes): 70
== END 2022-09-07 15:03 | disposition home health service (06) | DRG 308 ==
LOC: ED 18:03 → ICU 21:53 → MS2 08-31 15:39
PROVIDERS: ADMIT Internal Medicine; ATTEND Internal Medicine
PROC: 5A2204Z Restoration of Cardiac Rhythm, Single (ICD-10-PCS; principal; 2022-08-30)
DX: I48.91 Unspecified atrial fibrillation (principal); I44.4 Left anterior fascicular block; I50.21 Acute systolic (congestive) heart failure; N28.9 Disorder of kidney and ureter, unspecified; I10 Essential (primary) hypertension; R79.89 Other specified abnormal findings of blood chemistry; Z20.822 Contact with and (suspected) exposure to COVID-19; I13.0 Hypertensive heart and chronic kidney disease with heart failure and stage 1 through stage 4 chronic kidney disease, or unspecified chronic kidney disease; N17.9 Acute kidney failure, unspecified; E03.9 Hypothyroidism, unspecified; D72.829 Elevated white blood cell count, unspecified; I08.3 Combined rheumatic disorders of mitral, aortic and tricuspid valves; I27.20 Pulmonary hypertension, unspecified; E04.1 Nontoxic single thyroid nodule; G47.33 Obstructive sleep apnea (adult) (pediatric); N18.9 Chronic kidney disease, unspecified; E87.6 Hypokalemia; E78.00 Pure hypercholesterolemia, unspecified; F41.9 Anxiety disorder, unspecified; I45.10 Unspecified right bundle-branch block; I42.0 Dilated cardiomyopathy; E83.42 Hypomagnesemia; R00.0 Tachycardia, unspecified; R05.9 Cough, unspecified; R20.0 Anesthesia of skin; R22.1 Localized swelling, mass and lump, neck; R29.810 Facial weakness; R41.82 Altered mental status, unspecified; R50.9 Fever, unspecified; R74.01 Elevation of levels of liver transaminase levels; R77.8 Other specified abnormalities of plasma proteins; Z79.01 Long term (current) use of anticoagulants; Z79.890 Hormone replacement therapy; Z79.899 Other long term (current) drug therapy; Z85.3 Personal history of malignant neoplasm of breast; Z85.72 Personal history of non-Hodgkin lymphomas; Z90.12 Acquired absence of left breast and nipple
CPT/HCPCS: 10005; 36415; 70491; 70496; 71045; 80048; 80053; 80162; 81001; 82330; 83690; 83735; 83880; 84100; 84132; 84443; 84484; 85025; 85610; 86705; 86709; 86803; 87040; 87070; 87150; 87205; 87340; 87633; 87637; 88184; 88185; 88189; 93005; 93306; 96365; 96375; 99284; 99285; A9270; A9585; J0282; J2060; J2690; Q9967; 81599; 87086; 94770

== ENCOUNTER 2022-09-13 19:18 | Emergency (ER) | payer MEDICARE, MEDICAID ==
[2022-09-13] MEDS ORDERED: ACETAMINOPHEN 325 MG TABLET PO STA (21:16)
[2022-09-13 22:24] LABS: ALBUMIN 2.6 g/dL (3.2-5.5); ALBUMIN/GLOBULIN RATIO 0.6 (1.0-2.2); BILIRUBIN,TOTAL 0.9 mg/dL (0.2-1.0); CALCIUM 9.1 mg/dL (8.5-10.3); CREATININE 0.8 mg/dL (0.4-1.0); POTASSIUM 3.6 mmol/L (3.5-5.0); TOTAL PROTEIN 6.8 g/dL (6.7-8.2)
[2022-09-13 22:30] LABS: B. PARAPERTUSSIS- RESP PCR PAN NOT DETECTED; B. PERTUSSIS- RESP PCR PANEL NOT DETECTED; C. PNEUMONIAE- RESP PCR PANEL NOT DETECTED; CORONAVIRUS 229E-RESP PCR NOT DETECTED; CORONAVIRUS HKU1-RESP PCR NOT DETECTED; CORONAVIRUS NL63-RESP PCR NOT DETECTED; CORONAVIRUS OC43-RESP PCR NOT DETECTED; HUMAN METAPNEUMOVIRUS NOT DETECTED; INFLUENZA A- RESP PCR PANEL NOT DETECTED; INFLUENZA B - RESP PCR PANEL NOT DETECTED; M. PNEUMONIAE- RESP PCR PANEL NOT DETECTED; PARAINFLUENZA VIRUS 1 NOT DETECTED; PARAINFLUENZA VIRUS 2 NOT DETECTED; PARAINFLUENZA VIRUS 3 NOT DETECTED; PARAINFLUENZA VIRUS 4 NOT DETECTED; RHINOVIRUS/ENTEROVIRUS NOT DETECTED; RSV- RESP PCR PANEL NOT DETECTED; SARS-CoV-2 -RESP PCR PANEL NOT DETECTED
[2022-09-13 22:38] LABS: BASOPHILS % (AUTO) 0.2 %; HCT - HEMATOCRIT 39.9 % (37.0-47.0); HGB - HEMOGLOBIN 12.7 g/dL (12.0-16.0); LYMPHOCYTES # (AUTO) 1.3 10^3/uL (1.5-3.5); LYMPHOCYTES % (AUTO) 10.4 %; MEAN CORPUSCULAR HEMOGLOBIN 27.2 pg (27.0-31.0); MEAN CORPUSCULAR HGB CONC 31.8 g/dL (32.0-36.0); MEAN CORPUSCULAR VOLUME 85.4 fL (81.0-99.0); MEAN PLATELET VOLUME 11.4 fL (7.9-10.8); MONOCYTES # (AUTO) 0.7 10^3/uL (0.0-1.0); MONOCYTES % (AUTO) 5.2 %; NEUTROPHILS # (AUTO) 10.6 10^3/uL (1.5-6.6); NEUTROPHILS % (AUTO) 83.4 %; PLT - PLATELET COUNT 547 10^3/uL (130-450); RED BLOOD COUNT 4.67 10^6/uL (4.20-5.40); RED CELL DISTRIBUTION WIDTH 18.7 % (12.0-15.0); WHITE BLOOD COUNT 12.7 x10^3/uL (4.8-10.8)
[2022-09-14] MEDS ORDERED: iohexoL-300 100 ML VIAL ONE (00:21)
--- NOTE | 2022-09-14 01:58 | CT Report ---
PROCEDURE: ANGIO HEAD W/WO INDICATIONS: left-sided weakness CONTRAST: Omni 300 80ml TECHNIQUE: Precontrast 5 mm thick angled axial sections acquired from the foramen magnum to the vertex. After the administration of intravenous contrast, 1 mm thick sections acquired through the [place] of [place] . Postcontrast 5 mm thick sections then re-acquired from the foramen magnum to the vertex. 3-dimens ional zmiizfr-nxftilwuu-fegbhujwxl (MIP) and/or volume rendering reformats were acquired of the centr al intracranial vasculature. For radiation dose reduction, the following was used: automated exposu re control, adjustment of mA and/or kV according to patient size. COMPARISON: CT angiogram head 09/04/2022, 03/16/2022 FINDINGS: Image quality: There is streak artifact from patient's aneurysm coils limiting evaluation. BRAIN: CSF spaces: There is mild to moderate cerebral volume loss with prominence of the ventricles and sul ci. Basal cisterns are patent. No extra-axial fluid collections. There are aneurysm coils in the reg ion of the right carotid terminus with associated metallic streak artifact. Brain: No acute intracranial hemorrhage, mass, or mass effect. Small regions of cortical and subcort ical encephalomalacia are redemonstrated within the left frontal lobe and right parietal lobe consist ent with sequelae of prior infarcts. There are subcortical and periventricular white matter hypodensi ties consistent with moderate chronic small vessel ischemic changes. No abnormal intracranial enhanc ement. Skull and face: Calvarium and facial bones demonstrate no acute fractures. There are postsurgical ch anges redemonstrated consistent with prior right frontal temporal craniotomies. Sinuses: Sinuses and mastoids are clear. HEAD CT ANGIOGRAPHY: Anterior circulation: There is occlusion of the visualized left internal carotid artery with reconst itution of flow at the level of the supraclinoid internal carotid artery. The findings appear similar to the prior studies. The paired anterior cerebral arteries appear patent bilaterally. The anterior communicating artery also appears patent. The middle cerebral arteries appear patent bilaterally. N o definite new or recurrent cerebral aneurysms identified. Posterior circulation: Visualized portions of the vertebral arteries demonstrate normal caliber, and join to form a patent basilar artery. The posterior cerebral arteries appears patent bilaterally. T here is a mildly dilated tortuous persistent right trigeminal artery redemonstrated. No high-grade st enosis, occlusion, or filling defects. No definite new or recurrent cerebral aneurysms identified. IMPRESSION: 1. No definite acute intracranial abnormality. 2. Bilateral small areas of encephalomalacia consistent with sequelae of prior infarcts redemonstrate d. 3. Occlusion of the left internal carotid artery redemonstrated. 4. No definite new or recurrent cerebral aneurysms. 5. Right persistent trigeminal artery redemonstrated. Previously described associated aneurysm is not discretely identified. Reviewed by: Phil Murray MD on 09/14/2022 1:57 AM PST Approved by: Phil Murray MD on 09/14/2022 1:57 AM PST Station ID: [id number]
--- NOTE | 2022-09-14 02:09 | CT Report ---
PROCEDURE: ANGIO NECK W INDICATIONS: left sided weakness CONTRAST: Omni 300 80ml TECHNIQUE: After the administration of intravenous contrast, 1.5 mm axial sections acquired from the aortic arch to the [place] of [place]. Coronal 3-D maximum intensity projection (MIP) and/or volume rendering ref ormats were then performed. For radiation dose reduction, the following was used: automated exposur e control, adjustment of mA and/or kV according to patient size. COMPARISON: CT angiogram of the head 09/14/2022, 09/04/2022, 03/16/2022. FINDINGS: Image quality: Excellent. Carotid system: The great vessels demonstrate a conventional anatomy as they arise from the aortic a rch. The origins of the common carotid arteries appear patent. The common carotid arteries demonstr ate normal calibers and courses. There is occlusion of the left internal carotid artery at the level of the carotid bulb. Findings were likely present on the prior studies given differences in techniqu e. The right internal carotid artery appears patent. Posterior circulation: The origins of the vertebral arteries appear patent. The more superior porti ons of the vertebral arteries appear patent bilaterally. They join to form a normal appearing basila r artery. There is a tortuous right persistent trigeminal artery redemonstrated. Soft tissues: Visualized lungs demonstrate a right hilar soft tissue mass measuring up to approximat brock 4.5 x 4.2 cm in transverse dimension on series 3 image 33. The left thyroid lobe is surgically ab sent. There is heterogeneous appearance of the right lobe with a focal heterogeneously enhancing circ umscribed nodule measuring up to 2.0 cm. There are multiple enlarged right cervical lymph nodes including a mass measuring approximately 5.3 x 3.0 cm in transverse dimension on series 3 image 170 centered within the right sternocleidomastoid m uscle there is encasement of the right internal carotid artery and carotid bifurcation. Enlarged righ t supraclavicular lymph nodes are also demonstrated such as a nutrition representative node measuring up to 1.9 cm in short axis on series 3 image 121 Bones: No suspicious bony lesions. There is straightening of the cervical lordosis. Multilevel degen erative disc disease and facet joint arthropathy are present. IMPRESSION: 1. Occlusion of the left internal carotid artery beginning at the level of the carotid bulb with ty nstitution of flow at the level of the supraclinoid internal carotid artery. The findings appear rajendra lar to the prior head CTA studies given differences in technique. 2. Extensive right cervical and supraclavicular lymphadenopathy as well as a right hilar mass consis tent with metastatic disease. 3. Right persistent trigeminal artery redemonstrated. The estimate of stenosis included in the report of the imaging study was calculated using the NASCET method Reviewed by: Phil Murray MD on 09/14/2022 2:08 AM PST Approved by: Phil Murray MD on 09/14/2022 2:08 AM PST Station ID: [id number]
--- NOTE | 2022-09-14 02:12 | XRAY Report ---
PROCEDURE: Chest 2 View X-Ray INDICATIONS: fever, mild hypoxia TECHNIQUE: 2 views of the chest were acquired. COMPARISON: Chest x-ray 08/31/2022. Concurrent CTA of the neck. FINDINGS: Surgical changes and devices: None. Lungs and pleura: There is persistent pulmonary edema. No pleural effusions or pneumothorax. Mediastinum: There is a right suprahilar mass corresponding to findings on concurrent CT. Heart size is normal. Bones and chest wall: No suspicious bony abnormalities. Soft tissues appear unremarkable. IMPRESSION: 1. Persistent pulmonary edema. 2. Right suprahilar mass compatible with metastatic disease. Recommend dedicated chest CT when clinic ally feasible. Reviewed by: Phil Murray MD on 09/14/2022 2:11 AM PST Approved by: Phil Murray MD on 09/14/2022 2:11 AM PST Station ID: [id number]
[2022-09-14] MEDS ORDERED: iohexoL-300 100 ML VIAL IVP ONE (03:23)
[2022-09-14 03:34] LABS: BILIRUBIN,URINE NEGATIVE (NEGATIVE); GLUCOSE, URINE (UA) NEGATIVE (NEGATIVE); KETONES,URINE (UA) NEGATIVE (NEGATIVE); LEUKOCYTE ESTERASE, URINE NEGATIVE (NEGATIVE); NITRITE,URINE NEGATIVE (NEGATIVE); OCCULT BLOOD,URINE TRACE-INTA (NEGATIVE); PH,URINE 5.5 PH (5.0-7.5); PROTEIN,URINE NEGATIVE (NEGATIVE); UROBILINOGEN,URINE 1 (NORMAL) E.U./dL (NORMAL)
[2022-09-14 03:35] LABS: CLARITY,URINE CLEAR (CLEAR)
--- NOTE | 2022-09-14 08:57 | ED Physician Documentation ---
PD HPI Fall - Stated complaint Stated Complaint: GEN WEAKNESS - Chief complaint Chief Complaint: General - History obtained from History obtained from: Patient, EMS - History of Present Illness Mechanism of injury: Lost balance Recently seen: Admitted - Additional information Additional information: HPI from patient. Patient is brought in by ambulance due to a fall at home. Patient says she fell due to LLE weakness which she has had since last month. Patient says this is the second fall she has had due to this weakness, with the previous episode being a few days ago while at a restaurant. Patient had inpatient stay at [facility] last month with a 2-week long stay. Her presenting complaints included generalized weakness, low-grade fevers, mild dyspnea, right neck mass; she was also in INO which was successfully electrocardioverted. Patient had already been on Eliquis, and she is still on this medication. Review of Systems Constitutional: reports: Fever, Fatigue. denies: Chills, Sweats Cardiac: reports: Reviewed and negative Respiratory: reports: Reviewed and negative GI: reports: Reviewed and negative : denies: Dysuria, Frequency, Incontinent Musculoskeletal: reports: Neck pain Neurologic: reports: Generalized weakness, Focal weakness. 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 : None HEENT: None Psych: Anxiety Musculoskeletal: None Derm: None - Past Surgical History Past Surgical History: Yes General: Splenectomy, Colonoscopy /SUEDING AND BUFFING MACHINE OPERATOR: Mastectomy Neuro: Craniotomy HEENT: Tonsil/Adenoidectomy - Present Medications Home Medications: Ambulatory Orders Medication Instructions Recorded Confirmed Levothyroxine [Synthroid] 100 mcg PO DAILY 09/03/13 09/14/22 Rosuvastatin Calcium [Crestor] 40 mg PO HS 09/03/13 09/14/22 Venlafaxine [Effexor] 150 mg PO DAILY 09/03/13 09/14/22 Apixaban [Eliquis] 5 mg ORAL BID 08/26/22 09/14/22 Fenofibrate Nanocrystallized 145 mg PO DAILY 08/26/22 09/14/22 [Tricor] Losartan Potassium [Cozaar] 1 tab PO DAILY 08/27/22 09/14/22 Amiodarone [Pacerone] 200 mg PO DAILY #30 tab 09/07/22 09/14/22 Furosemide [Lasix] 20 mg PO DAILY #30 tablet 09/07/22 09/14/22 Metoprolol Succinate [Toprol Xl] 100 mg PO BID #120 tablet 09/07/22 09/14/22 Potassium Chloride [K-Dur] 20 meq PO DAILY #30 tab 09/07/22 09/14/22 - Allergies Allergies/Adverse Reactions: Allergies Allergy/AdvReac Type Severity Reaction Status Date / Time No Known Drug Allergies Allergy Verified 09/13/22 19:37 - Social History Does the pt smoke?: No Smoking Status: Former smoker Does the pt drink ETOH?: No Does the pt have substance abuse?: No - Immunizations Immunizations are current?: Yes - POLST Patient has POLST: No PD ED PE NORMAL - Vitals Vital signs reviewed: Yes - General General: Alert and oriented X 3, No acute distress, Well developed/nourished - HEENT HEENT: Atraumatic, PERRL, EOMI - Neck Neck: Supple, no meningeal sign, Other (large right neck mass with echymosis, mild TTP) - Cardiac Cardiac: RRR, No murmur - Respiratory Respiratory: No respiratory distress, Clear bilaterally - Abdomen Abdomen: Soft, Non tender - Derm Derm: Normal color, Warm and dry - Extremities Extremities: No edema - Neuro Neuro: Alert and oriented X 3, bladder tier 2-12 intact, No motor deficit (4/5 bilateral dorsi/plantar flexion, 4/5 left iliopsoas (straight leg raise)), No sensory deficit, Normal speech Eye Opening: Spontaneous Motor: Obeys Commands Verbal: Oriented GCS Score: 15 Results - Vitals Vitals: Vital Signs - 24 hr 09/13/22 09/13/22 09/13/22 19:29 19:37 21:14 Temperature 38.0 C H Heart Rate 100 100 94 Respiratory 20 27 H 28 H Rate Blood Pressure 149/75 H 143/65 H 145/78 H O2 Saturation 93 92 92 If not protocol 2 : Oxygen Flow, liters/minute 09/13/22 09/13/22 09/14/22 22:14 22:16 00:00 Temperature 36.8 C Heart Rate 89 81 Respiratory 24 24 Rate Blood Pressure 113/61 113/69 O2 Saturation 95 95 If not protocol 2 2 : Oxygen Flow, liters/minute 09/14/22 09/14/22 09/14/22 01:33 02:12 03:00 Temperature Heart Rate 76 77 77 Respiratory 20 23 20 Rate Blood Pressure 118/73 119/68 139/81 H O2 Saturation 92 92 95 If not protocol 2 2 2 : Oxygen Flow, liters/minute 09/14/22 09/14/22 09/14/22 04:38 05:00 06:52 Temperature Heart Rate 83 85 92 Respiratory 29 H 26 H 28 H Rate Blood Pressure 136/79 H 136/79 H 145/87 H O2 Saturation 94 94 94 If not protocol : Oxygen Flow, liters/minute 09/14/22 08:17 Temperature Heart Rate 97 Respiratory 18 Rate Blood Pressure 140/84 H O2 Saturation 92 If not protocol : Oxygen Flow, liters/minute Oxygen O2 Source Room air - Labs Labs: Laboratory Tests 09/13/22 09/13/22 09/13/22 21:28 21:52 21:54 WBC RBC Hgb Hct MCV MCH MCHC RDW Plt Count MPV Neut # (Auto) Lymph # (Auto) Wallace # (Auto) Eos # (Auto) Baso # (Auto) Absolute Nucleated RBC Nucleated RBC % Sodium 130 L Potassium 3.6 Chloride 95 L Carbon Dioxide 25 Anion Gap 10.0 BUN 28 H Creatinine 0.8 Estimated GFR (MDRD) 73 L Glucose 109 H Lactic Acid 1.7 Calcium 9.1 Total Bilirubin 0.9 AST 62 H ALT 50 Alkaline Phosphatase 150 H Total Protein 6.8 Albumin 2.6 L Globulin 4.2 Albumin/Globulin Ratio 0.6 L Lipase 42 Urine Color Urine Clarity Urine pH Ur Specific [place] Urine Protein Urine Glucose (UA) Urine Ketones Urine Occult Blood Urine Nitrite Urine Bilirubin Urine Urobilinogen Ur Leukocyte Esterase Ur Microscopic Review Urine Culture Comments Nasal Adenovirus (PCR) NOT DETECTED Nasal B. parapertussis DNA (PCR) NOT DETECTED Nasal Coronavir 229E PCR NOT DETECTED Nasal Coronavir HKU1 PCR NOT DETECTED Nasal Coronavir NL63 PCR NOT DETECTED Nasal Coronavir OC43 PCR NOT DETECTED Nasal Enterovir/Rhinovir PCR NOT DETECTED Nasal Influenza B PCR NOT DETECTED Nasal Influenza A PCR NOT DETECTED Nasal Parainfluen 1 PCR NOT DETECTED Nasal Parainfluen 2 PCR NOT DETECTED Nasal Parainfluen 3 PCR NOT DETECTED Nasal Parainfluen 4 PCR NOT DETECTED Nasal RSV (PCR) NOT DETECTED Nasal B.pertussis DNA PCR NOT DETECTED Nasal C.pneumoniae (PCR) NOT DETECTED Sunny Human Metapneumo PCR NOT DETECTED Nasal M.pneumoniae (PCR) NOT DETECTED Nasal SARS-CoV-2 (PCR) NOT DETECTED 09/13/22 09/14/22 22:33 03:27 WBC 12.7 H RBC 4.67 Hgb 12.7 Hct 39.9 MCV 85.4 MCH 27.2 MCHC 31.8 L RDW 18.7 H Plt Count 547 H MPV 11.4 H Neut # (Auto) 10.6 H Lymph # (Auto) 1.3 L Wallace # (Auto) 0.7 Eos # (Auto) 0.0 Baso # (Auto) 0.0 Absolute Nucleated RBC 0.00 Nucleated RBC % 0.0 Sodium Potassium Chloride Carbon Dioxide Anion Gap BUN Creatinine Estimated GFR (MDRD) Glucose Lactic Acid Calcium Total Bilirubin AST ALT Alkaline Phosphatase Total Protein Albumin Globulin Albumin/Globulin Ratio Lipase Urine Color YELLOW Urine Clarity CLEAR Urine pH 5.5 Ur Specific [place] <=1.005 Urine Protein NEGATIVE Urine Glucose (UA) NEGATIVE Urine Ketones NEGATIVE Urine Occult Blood TRACE-INTA Urine Nitrite NEGATIVE Urine Bilirubin NEGATIVE Urine Urobilinogen 1 (NORMAL) Ur Leukocyte Esterase NEGATIVE Ur Microscopic Review NOT INDICATED Urine Culture Comments NOT INDICATED Nasal Adenovirus (PCR) Nasal B. parapertussis DNA (PCR) Nasal Coronavir 229E PCR Nasal Coronavir HKU1 PCR Nasal Coronavir NL63 PCR Nasal Coronavir OC43 PCR Nasal Enterovir/Rhinovir PCR Nasal Influenza B PCR Nasal Influenza A PCR Nasal Parainfluen 1 PCR Nasal Parainfluen 2 PCR Nasal Parainfluen 3 PCR Nasal Parainfluen 4 PCR Nasal RSV (PCR) Nasal B.pertussis DNA PCR Nasal C.pneumoniae (PCR) Sunny Human Metapneumo PCR Nasal M.pneumoniae (PCR) Nasal SARS-CoV-2 (PCR) - Rads (name of study) chest xray Radiology: Prelim report reviewed, See rad report CTA head Radiology: Prelim report reviewed, Discussed with rads, See rad report CTA neck Radiology: Prelim report reviewed, Discussed with rads, See rad report PD Medical Decision Making - ED course Complexity details: reviewed old records, reviewed results, re-evaluated patient, considered differential, d/w patient ED course: There are no concerning or diagnostic findings on CBC, ER abdominal panel, urinalysis, respiratory PCR panel. On CBC, mild leukocytosis and mildly elevated platelets are noted. There is no weakness I can elicit on the physical exam. However, given patient's description of recurrent left lower extremity weakness causing her to fall twice in the past few days, a CTA of the head and neck are undertaken. There are multiple findings on the CTA head, but no findings that appear to be new/acute. Findings include bilateral small areas of encephalomalacia consistent with sequelae of prior infarcts, this finding is "redemonstrated" per radiologist reading. Also noted is "occlusion of the left internal carotid artery redemonstrated". Multiple findings on CTA neck, most of which also are not new when compared to previous studies. Findings include the occlusion of the left internal carotid artery with reconstitution of flow at the level of the supraclinoid internal carotid artery, "findings appear similar to the prior head CTA studies given differences in technique". Also noted is extensive right cervical and supraclavicular lymphadenopathy as well as a right hilar mass consistent with metastatic disease. This finding of the right suprahilar lung mass does appear new compared to previous studies. This mass is also noted on plain film chest x-ray performed tonight. I also reviewed the results of her recent biopsy of the neck mass, And the pathologist's report includes "positive reactivity for CD30 and CD15 raise the question of Hodgkin's lymphoma". I discussed this result with the patient, making it clear that this is not a definitive diagnosis and that she will need to follow-up with her oncologist to discuss how to interpret these results and what recommendations oncologist will have based on them. I discussed the results of tonight's test with the patient, as well. I discussed with her that there were no Findings on tonight's tests that appear to be new/acute, and thus the cause of her weakness is not apparent at this time. I did discuss with her the finding of the right suprahilar lung mass and that, although this is obviously a concerning finding, further tests might be needed to determine the nature of this finding which might guide treatment recommendations. I explained to her that this finding is incidental, as it would not cause nor explain any weakness she has been having. Note that patient arrived with a low-grade fever (100.4). The cause of the fever is not apparent at this time; I note on the discharge summary from her inpatient stay last month that she was having low-grade fevers at that time, as well, and that testing also did not reveal the source of fever. In summary with my discussion with the patient after all the tests are resulted, I explained to her that she is appropriate for discharge; at this time, there is no indication for admission to the hospital. She expresses to me concern of her weakness and her difficulty with ambulation as a result, as well as that her power of insurance attorney who has been helping her at home is scheduled to leave the state tomorrow and thus she is concerned about going back home alone with her ambulatory difficulties. I thus have ordered a social work consult which hopefully will take place later this morning. Care of patient is turned over to the oncoming ER physician (Dr. Orourke) pending the social work consult and subsequent disposition.
[2022-09-14 10:11] VITALS: BP 134/77
--- NOTE | 2022-09-14 14:42 | ED Physician Documentation ---
ED Addendum - Addendum Addendum: 09/14/22 14:38 The patient was seen after change of shift. She did not have any particular complaints here. She did states she was feeling generally weak still. Her power of bankruptcy attorney/friend did show up and was asking about test results and also was asking if we knew the results of a recent neck lump biopsy. I reviewed the CT angiogram studies of the head and neck which did show no acute interval change in the brain circulation (prior internal carotid occlusion with circulation through the native of [place] previously noted has not changed). There was note of a neck mass concerning for lymphoma and also a right hilar lung mass noted. I conveyed these to the patient and her power of bankruptcy attorney. I also looked at the pathology report from the recent biopsy of her neck. This showed atypia concerning for lymphoma. I told him they would need to follow-up with Deuce Cuevas the her oncologist for more confirmation and the context of what this means for treatment. They have an upcoming appointment apparently. The patient has a home health assessment later today in order to increase her home health aide hours. They are requesting to be discharged so they can make that appointment to increase their resources at home. Disposition: The patient is discharged home in stable condition. Diagnoses: 1. General weakness with recent falls 2. History of Hodgkin's lymphoma 3. Tumors of the neck and lung
== END 2022-09-14 10:11 | disposition home or self-care (01) ==
LOC: EDUNIT# → ED 19:18
DX: R53.1 Weakness (principal); W19.XXXA Unspecified fall, initial encounter; Y92.009 Unspecified place in unspecified non-institutional (private) residence as the place of occurrence of the external cause; D49.89 Neoplasm of unspecified behavior of other specified sites; D49.1 Neoplasm of unspecified behavior of respiratory system; C81.90 Hodgkin lymphoma, unspecified, unspecified site; I11.0 Hypertensive heart disease with heart failure; I50.9 Heart failure, unspecified; I48.91 Unspecified atrial fibrillation; E78.00 Pure hypercholesterolemia, unspecified; Z91.81 History of falling; Z79.899 Other long term (current) drug therapy; Z79.01 Long term (current) use of anticoagulants; Z87.891 Personal history of nicotine dependence; Z20.822 Contact with and (suspected) exposure to COVID-19
CPT/HCPCS: 36415; 70496; 70498; 71046; 80053; 81003; 83605; 83690; 85025; 87633; 99284; A9270; Q9967; 81001; 87086

== ENCOUNTER 2022-09-20 09:16 | Outpatient (CLI) | payer MEDICARE, MEDICAID | END 2022-09-20 23:59 | disposition critical access hospital (66) | LOC: EMS 09:16 | DX: R53.1 Weakness (principal); R41.2 Retrograde amnesia; R29.6 Repeated falls | CPT/HCPCS: A0425; A0429 ==

== ENCOUNTER 2022-09-20 09:43 | Emergency (ER) | payer MEDICARE, MEDICAID ==
--- NOTE | 2022-09-20 09:49 | ED Physician Documentation ---
PD HPI Fall - Stated complaint Stated Complaint: GLF - History obtained from History obtained from: Patient, EMS - History of Present Illness Mechanism of injury: Lost balance (felt weak in her legs and slumped to floor, between bed and dresser. Needed help getting up. Has home health aides daily and was found on floor when one came in this morning. Had been on floor for just 1-2 hours.) Fall distance: Standing position Where injury occurred: Home Timing - onset: How many hours ago (1-2) Injury(ies) location: Back (sore right back). No: Head, Neck Associated symptoms: Weakness (generalized). No: LOC, AMS, Paresthesias Contributing factors: Anticoagulated Similar symptoms before: Diagnosis (recent recurrence of hodgkins lymphoma and has general weakness.) Recently seen: Clinic (she also has appt with dr. Idalia Nagy, Oncology today in [facility] [place] [place] clinic[facility] Emergency Dept Review of Systems Constitutional: denies: Fever Nose: denies: Rhinorrhea / runny nose, Congestion Throat: denies: Sore throat Cardiac: denies: Palpitations Respiratory: reports: Dyspnea. denies: Cough GI: denies: Abdominal Pain, Nausea, Vomiting Skin: denies: Abrasion (s), Laceration (s) Neurologic: reports: Generalized weakness. 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 : None HEENT: None Psych: Anxiety Musculoskeletal: None Derm: None - Past Surgical History Past Surgical History: Yes General: Splenectomy, Colonoscopy /FISH BAILER: Mastectomy Neuro: Craniotomy HEENT: Tonsil/Adenoidectomy - Present Medications Home Medications: Ambulatory Orders Medication Instructions Recorded Confirmed Levothyroxine [Synthroid] 100 mcg PO DAILY 09/03/13 09/20/22 Rosuvastatin Calcium [Crestor] 40 mg PO HS 09/03/13 09/20/22 Venlafaxine [Effexor] 150 mg PO DAILY 09/03/13 09/20/22 Apixaban [Eliquis] 5 mg ORAL BID 08/26/22 09/20/22 Fenofibrate Nanocrystallized 145 mg PO DAILY 08/26/22 09/20/22 [Tricor] Losartan Potassium [Cozaar] 1 tab PO DAILY 08/27/22 09/20/22 Amiodarone [Pacerone] 200 mg PO DAILY #30 tab 09/07/22 09/20/22 Furosemide [Lasix] 20 mg PO DAILY #30 tablet 09/07/22 09/20/22 Metoprolol Succinate [Toprol Xl] 100 mg PO BID #120 tablet 09/07/22 09/20/22 Potassium Chloride [K-Dur] 20 meq PO DAILY #30 tab 09/07/22 09/20/22 - Allergies Allergies/Adverse Reactions: Allergies Allergy/AdvReac Type Severity Reaction Status Date / Time No Known Drug Allergies Allergy Verified 09/20/22 10:03 - Social History Does the pt smoke?: No Smoking Status: Former smoker Does the pt drink ETOH?: No Does the pt have substance abuse?: No - Immunizations Immunizations are current?: Yes - POLST Patient has POLST: No PD ED PE NORMAL - Vitals Vital signs reviewed: Yes - General General: Alert and oriented X 3, Well developed/nourished - HEENT HEENT: Atraumatic, Pharynx benign - Neck Neck: Supple, no meningeal sign, No adenopathy - Cardiac Cardiac: No murmur - Respiratory Respiratory: No respiratory distress, Clear bilaterally - Abdomen Abdomen: Soft, Non tender - Derm Derm: Normal color, Warm and dry - Extremities Extremities: Normal ROM s pain, No calf tenderness / cord - Neuro Neuro: Alert and oriented X 3, No motor deficit, Normal speech Results - Vitals Vitals: Vital Signs - 24 hr 09/20/22 09/20/22 09/20/22 10:00 10:36 11:59 Temperature 36.9 C Heart Rate 102 H 102 H 103 H Respiratory 16 30 H 28 H Rate Blood Pressure 145/96 H 148/86 H 162/88 H O2 Saturation 96 95 95 09/20/22 13:00 Temperature Heart Rate 105 H Respiratory 30 H Rate Blood Pressure 166/94 H O2 Saturation 96 Oxygen O2 Source Room air - Labs Labs: Laboratory Tests 09/20/22 09/20/22 10:07 10:07 WBC 14.7 H RBC 4.79 Hgb 12.9 Hct 41.0 MCV 85.6 MCH 26.9 L MCHC 31.5 L RDW 18.6 H Plt Count 402 MPV 12.0 H Neut # (Auto) 12.9 H Lymph # (Auto) 1.1 L Thomas # (Auto) 0.6 Eos # (Auto) 0.0 Baso # (Auto) 0.0 Absolute Nucleated RBC 0.00 Nucleated RBC % 0.0 Sodium 135 Potassium 3.7 Chloride 96 L Carbon Dioxide 28 Anion Gap 11.0 BUN 24 H Creatinine 0.7 Estimated GFR (MDRD) 85 L Glucose 92 Calcium 9.9 Magnesium 1.7 Total Bilirubin 1.0 AST 92 H ALT 72 H Alkaline Phosphatase 148 H Total Protein 6.7 Albumin 2.5 L Globulin 4.2 Albumin/Globulin Ratio 0.6 L Lipase 29 - Rads (name of study) head CT Relevant Findings:: Prelim report reviewed, EMP independent interpretation of test (no acute ICH. No interval change. ), See rad report chest xray Relevant Findings:: Prelim report reviewed, EMP independent interpretation of test (no interval change except likely dependent atelectasis. ), See rad report PD Medical Decision Making - ED course Complexity details: reviewed results (recent ER visit and the labs done, as well as the imaging from the ER visit prior were reviewed with the ER reports and the CXR viewed personally by me. CXR today not much changed except likely atelectasis both bases. ), considered differential, d/w patient, d/w senior staff consultant (Dr. Nagy came to ER and talked with patient/family member that no beds available at [facility] and he will try to get the pt direct admitted over the next few days in order to start expedited testing/chemo for the lymphoma, but was okay to go home in interim until bed opening. Dr. Nagy estimated 3-4 days.), other (discussed on phone with her POA. POA had talked with Dr. Nagy's nurse and the impression was that Dr. Nagy wanted patient transferred to [place]. I talked with Dr. Nagy, and he checked with the transfer center at [facility] and no beds available. Dr. Nagy came to ER and talked with patient.) ED course: patient was able to stand bedside with her walker. Departure - Departure Disposition: 01 Home, Self Care Clinical Impression: Recurrent lymphoma, Generalized weakness Condition: Stable Record reviewed to determine appropriate education?: Yes Follow-Up: IDALIA NAGY MD [Provider Admit Priv/Credential] - Comments: Dr. Nagy does feel that you can get more expedited treatment started for the presumed recurrent lymphoma on an inpatient basis. However there are no beds available at [facility] until likely a few days from now. Dr. Ngay is working on getting you direct admitted and they will see when an available bed comes up. Meanwhile stay well-hydrated and continue your current usual medications. Return to an ER if worsening symptoms generally. Continue with the home health assistance etc. Discharge Date/Time: 09/20/22 13:33
[2022-09-20 10:12] LABS: BASOPHILS % (AUTO) 0.3 %; HGB - HEMOGLOBIN 12.9 g/dL (12.0-16.0); LYMPHOCYTES # (AUTO) 1.1 10^3/uL (1.5-3.5); LYMPHOCYTES % (AUTO) 7.1 %; MEAN CORPUSCULAR HEMOGLOBIN 26.9 pg (27.0-31.0); MEAN CORPUSCULAR HGB CONC 31.5 g/dL (32.0-36.0); MEAN CORPUSCULAR VOLUME 85.6 fL (81.0-99.0); MONOCYTES # (AUTO) 0.6 10^3/uL (0.0-1.0); MONOCYTES % (AUTO) 4.1 %; NEUTROPHILS # (AUTO) 12.9 10^3/uL (1.5-6.6); NEUTROPHILS % (AUTO) 87.5 %; PLT - PLATELET COUNT 402 10^3/uL (130-450); RED BLOOD COUNT 4.79 10^6/uL (4.20-5.40); RED CELL DISTRIBUTION WIDTH 18.6 % (12.0-15.0); WHITE BLOOD COUNT 14.7 x10^3/uL (4.8-10.8)
[2022-09-20 10:25] LABS: ALBUMIN 2.5 g/dL (3.2-5.5); ALBUMIN/GLOBULIN RATIO 0.6 (1.0-2.2); CALCIUM 9.9 mg/dL (8.5-10.3); CREATININE 0.7 mg/dL (0.4-1.0); MAGNESIUM 1.7 mg/dL (1.7-2.8); POTASSIUM 3.7 mmol/L (3.5-5.0); TOTAL PROTEIN 6.7 g/dL (6.7-8.2)
--- NOTE | 2022-09-20 10:36 | XRAY Report ---
PROCEDURE: Chest 1 View X-Ray INDICATIONS: chest pain TECHNIQUE: One view of the chest was acquired. COMPARISON: None. FINDINGS: Surgical changes and devices: Neck clips. Left axillary clips. Right axillary clips. Lungs and pleura: Question interstitial pulmonary edema. Bibasilar airspace consolidation. Mediastinum: Right suprahilar mass, as before. Heart size is normal. Bones and chest wall: No suspicious bony lesions. Overlying soft tissues appear unremarkable. IMPRESSION: 1. There is bibasilar airspace consolidation and bilateral interstitial change. This may also potenti ally represent pulmonary edema. However, bilateral pneumonia is possible. 2. Known right suprahilar mass. Reviewed by: Omar Wick MD on 09/20/2022 10:35 AM [facility] Approved by: Omar Wick MD on 09/20/2022 10:35 AM [facility] Station ID: [id number]
--- NOTE | 2022-09-20 10:39 | CT Report ---
PROCEDURE: HEAD WO INDICATIONS: fall, on blood thinner TECHNIQUE: Noncontrast 4.5 mm thick angled axial sections acquired from the foramen magnum to the vertex. For r adiation dose reduction, the following was used: automated exposure control, adjustment of mA and/or kV according to patient size. COMPARISON: None. FINDINGS: Image quality: Excellent. CSF spaces: Basal cisterns are patent. No extra-axial fluid collections. Ventricles are normal in size and shape. Brain: No midline shift. No intracranial masses or hemorrhage. Aneurysm coils. At least moderate sm all vessel ischemic change. Focal old left anterior cerebral artery distribution anterior frontal inf arct and focal right MCA small temporoparietal infarct. Skull and face: Right frontal and right temporal craniotomy. Calvarium and visualized facial bones a re intact, without suspicious lesions. Sinuses: Visualized sinuses and mastoids are clear. IMPRESSION: 1. Old infarcts. 2. No evidence acute intracranial abnormality. Reviewed by: Omar Wick MD on 09/20/2022 10:37 AM PST Approved by: Omar Wick MD on 09/20/2022 10:37 AM PST Station ID: [id number]
[2022-09-20 13:23] VITALS: BP 166/94
--- NOTE | 2022-09-20 13:48 | HEMATOLOGY FOLLOW UP ---
Hematology Follow-Up: ASSESSMENT AND PLAN: 1. History of recurrent breast cancers-remains on expectant management since 2 013 status post bilateral mastectomy. No evidence of recurrence at this time and physical examination -Patient to present to clinic if she has new scar changes along mastectomy line -expectant management with physical exam and labs every 6 months -concern for increased cardiovascular risk secondary to previous treatment for Hodgkin's lymphoma, would continue to follow up with PCP for this 2. Rapidly growing right-sided neck mass with CD30 positive cells highly concerning for relapsed Hodgkin's lymphoma-Reviewed her most current deteriorating clinical course highly concerning for relapsed Hodgkin's lymphoma, And if this confirmed this would be her second relapse. She did have an FNA biopsy of Right-sided neck mass however for true diagnosis she would need surgical excisional lymph node biopsy or multi core biopsy of mass, Although rapidity of growth of mass in addition with atypical CD30 positive cells is highly concerning for relapsed disease Discussed strong concern for relapse disease however given scant cellular material would need at least excisional tissue biopsy, and patient has multiple lymph nodes that could be sampled with excisional biopsy for further diagnostic evaluation If confirmed to Hodgkin's disease this would be her third official relapse, mostly got local therapy as a teenager at age 14, and 6 cycles of ABVD in 2007, she has likely maxed out her lifetime allotment of anthracycline therapy It is unclear at this time whether or not the patient is HCT eligible, but we discussed that she would very likely need salvage chemotherapy likely 2 cycles of ice at least followed by short-term interval restaging PET scan followed by autologous stem cell transplant It is unclear whether or not she would be an appropriate candidate for consolidative radiation given likely extent of disease Given CD30 positive cells this does raise the possibility of brentuximab vedotin or checkpoint immunotherapy blockade Discussed various options of salvage regimens for relapsed refractory Hodgkin lymphoma including ice, DVD, GDP or D. Happ, She has only had 1 series of multiagent chemotherapy with her first relapse in 2006, and as such is a candidate for first-line salvage regimen If patient were to have relapse after second line salvage therapy particularly if she is not a candidate for ECT, would need to consider BV or immunotherapy There are no randomized trials that directly compare the various salvage regimens for relapsed HL. In phase II studies, response rates for these regimens generally ranged from 60 to 85 percent, but comparison is difficult since most studies involve small numbers of patients with variable clinical status, and many were subsequently treated with HCT. Toxicity of these regimens is substantial, and patient comorbidities may influence the selection of a particular chemotherapeutic regimen. Hematologic toxicity is common, and many patients will require antibiotics for fever/infection or transfusion with red blood cells and/or platelets. -Urgent referral for surgical excision of lymph node for confirmation of pathology -Urgent PET scan -Would refer for chemotherapy port now given anticipated need for chemotherapy -TTE however assuming patient received standard doses of doxorubicin, she would have likely have received at least 300 mg per metered squared of doxorubicin based on dosing of 25 mg per metered squared day 1 and day 15 every 28 days x 6 months -PD-L1 targeted agents are typically only approved for refractory disease or relapse after 2 or more lines of therapy particularly if progression after autologous HCT and PV or for transplant ineligible and have failed BV Discussed that lifetime risk of cardiomyopathy increases past total anthracycline exposure of 450 mg per metered squared anthracycline -Could also consider gemcitabine-based options as well which may be more manageable as an outpatient -If not a candidate for HCT could still consider brentuximab vedotin as maintenance therapy -Plan for direct admission for expedited work-up to [place] for urgent biopsy, PET scan and likely initiation of chemotherapy as an inpatient 3. [employer] aneurysm-MRI brain from 01/2022 with stable cerebral aneurysm, no other concerning findings. Of note patient previously was seen by neurology with follow-up at [facility] however not has not had any recent follow-up. It is unclear whether there would be additional intervention possible if she were to have growth of her cerebral aneurysm, and we encouraged the patient to reach out to neurosurgery to answer this question. If intervention was a possibility if the aneurysm grew, this would provide additional justification for ongoing yearly MRI. If there would be no surgical intervention available regardless of whether the aneurysm grew, it is uncertain whether there is a true benefit for MRI In light of increasing dizziness, will get repeat MRI -Given increased symptoms we will move up MRI from 01/2023 and schedule it within the next 3 months before next MD visit -Status post coil procedure with neurosurgery, patient to follow-up with neurosurgery as indicated, Patient to reach out to neurosurgery 4.Right sided thyroid nodule-Patient had previous painful biopsy, Ultrasound of thyroid with large right thyroid however what was initially thought to be a thyroid nodule is actually a right-sided neck mass highly suspicious for recurrent Hodgkin's lymphoma as above -Management as above for Hodgkin's lymphoma 5. Chronic anosmia-patient discussed the distressing affect of having a loss of taste which is affected her ability to feel satisfied when eating and as a consequence she feels that she has gained more weight. She however also notes she can still taste salty and sweet and other basic taste sensations -Anosmia likely secondary to sequelae of surgery from 2002 -Expectant management at this time 6. Hypercalcemia of unclear etiology-More likely to be hypercalcemia of malignancy -Monoclonal gammopathy panel reviewed from 04/28/2022 with normal kappa lambda ratio, no obvious M protein, no elevated total protein -Continue with work-up for high suspicion of Hodgkin's lymphoma relapse as above TIME SPENT:E/M code was selected based on 45 minutes spent on the date of encounter reviewing pertinent history and previous diagnostics, performing medically appropriate examination and evaluation, ordering diagnostic tests and/or medications, counseling and education to patient/family/caregiver. This excludes activities performed by clinical staff CC/HPI: To summarize this is a 62-year-old woman past medical history significant for meningioma, [employer] aneurysm, history of left breast cancer status post mastectomy's, Gould lymphoma who Is seen today in the emergency room for urgent follow-up She was seen last in my office 08/09/22 and she had a concerning possible thyroid nodule, With biopsy recommended She was subsequently admitted 08/26 -09/07 at [facility] with swelling in right side of neck for 3 wks and SOB and orthopnea , And was found to have A-fib with RVR, status post amiodarone drip, on Eliquis and ended up having to be cardioverted Her echo 08/27/2022 showed an EF of 30% However during admission, she had a soft tissue CT of her neck which did show an enlarged thyroid lobe however with a large rhiannon mass in the right neck extending from level 2-3 measuring up to 5.9 cm suspicious for metastatic disease as well as mildly enlarged left level 2 and 3 cervical lymph nodes measuring up to 1 cm highly suspicious for cancer She underwent FNA of neck mass, with flow cytometry positive for CD30 positive atypical cells suspicious for relapse of Hodgkin's lymphoma Since then she was subsequently seen in the emergency room today after a fall with left-sided weakness, CT head unrevealing, however with right sided neck mass that continues to grow with palpable cervical lymphadenopathy Today she denies any current fevers or chills however is having increasing fatigue, and is unable to walk, having worsening left-sided weakness Review of Systems: All other systems negative. Oncology History: 1. History of L breast cancer 2004, -s/p lumpectomy and radiation -No chemotherapy received -declined adjuvant tamoxifen 2. Recurrent left breast cancer with DCIS in 2011 -s/p bilateral mastectomies -no adjuvant chemotherapy or endocrine therapy -the expectant management since 2012 3. History of Hodgkin's lymphoma as a teenager with relapsed in inguinal nodes 2006 -Hodgkin lymphoma at age 14 status postradiation treatment -relapse of her Hodgkin disease in 2006, treated with 6 months of ABVD, completed July of 2007 -CT scan 03/04/2017 with increase in size of left cervical lymph node -PET scan 2017 with mild uptake, Biopsy with no concerning findings -subsequent restaging scans with no evidence of recurrent disease -on expectant management 4. Chronic hemorrhoids -Colonoscopy 2016 -Cologuard 2018 5. Pituitary adenoma -MRI 11/25/2019 stable Past Medical/Surgical/Family/Social History: Reviewed Per previous clinic chart documentation remains unchanged today. Physical Examination: Vital signs: Reviewed per chart GEN: AAOX3, NAD HEENT: EOMI MMM, no thrush, large R sided Neck mass tender to palpation however with no skin irritant erythema or induration. She has palpable cervical lymph nodes Extremities: No extremity edema noted Skin: No bruises or rash Neuro: No focal neurological deficits Psych: Appropriately conversant, normal affect LAB/PATHOLOGY REVIEW: Available labs reviewed. IMAGING: Available imaging reviewed. Clinical Data: Allergies No Known Drug Allergies Allergy (Verified 09/20/22 10:03) Home Medications Levothyroxine [Synthroid] 100 mcg PO DAILY 09/03/13 [History Last Taken 08/14/14] Rosuvastatin Calcium [Crestor] 40 mg PO HS 09/03/13 [History Last Taken 08/13/14] Venlafaxine [Effexor] 150 mg PO DAILY 09/03/13 [History Last Taken 08/14/14] Apixaban [Eliquis] 5 mg ORAL BID 08/26/22 [History Last Taken Unknown] Fenofibrate Nanocrystallized [Tricor] 145 mg PO DAILY 08/26/22 [History Last Taken Unknown] Losartan Potassium [Cozaar] 1 tab PO DAILY 08/27/22 [History Last Taken Unknown] Vital Signs Temp Pulse Resp BP Pulse Ox O2 Flow Rate 36.9 C 105 H 30 H 166/94 H 96 09/20/22 10:00 09/20/22 13:00 09/20/22 13:00 09/20/22 13:00 09/20/22 13:00 Recent Lab Results 09/20/22 10:07: WBC 14.7 H, RBC 4.79, Hgb 12.9, Hct 41.0, MCV 85.6, MCH 26.9 L, MCHC 31.5 L, RDW 18.6 H, Plt Count 402, MPV 12.0 H, Neut # (Auto) 12.9 H, Lymph # (Auto) 1.1 L, Jerome # (Auto) 0.6, Eos # (Auto) 0.0, Baso # (Auto) 0.0, Absolute Nucleated RBC 0.00, Nucleated RBC % 0.0 09/20/22 10:07: Sodium 135, Potassium 3.7, Chloride 96 L, Carbon Dioxide 28, Anion Gap 11.0, BUN 24 H, Creatinine 0.7, Estimated GFR (MDRD) 85 L, Glucose 92, Calcium 9.9, Magnesium 1.7, Total Bilirubin 1.0, AST 92 H, ALT 72 H, Alkaline Phosphatase 148 H, Total Protein 6.7, Albumin 2.5 L, Globulin 4.2, Albumin/Globulin Ratio 0.6 L, Lipase 29
== END 2022-09-20 13:33 | disposition home or self-care (01) ==
LOC: EDUNIT# → ED 09:43
DX: R53.1 Weakness (principal); R22.1 Localized swelling, mass and lump, neck; C81.91 Hodgkin lymphoma, unspecified, lymph nodes of head, face, and neck; Z87.891 Personal history of nicotine dependence
CPT/HCPCS: 36415; 80053; 83690; 83735; 85025; 93005; 99215; 99284